=== PATIENT | female | born 1950 | race Caucasian/White ===

== ENCOUNTER 2016-09-26 00:34 | Inpatient (IN) | payer OTHER, MEDICARE ==
[2016-09-26] VITALS (15 sets, daily range): BP systolic 85–200; BP diastolic 59–97; PULSE 50–97; RESP 12–28; TEMP 96.1–98.2; O2SAT 93–99
[~2016-09-26] VITALS: Ht 162.6 cm; Wt 56.4 kg
[~2016-09-26 00:34] MED LIST: ALBU0.086 NEB; ALPR1 PO; AMLO5 PO; CARV6.25 PO; GABA300C3 PO; MVI PO; OXYC1SOL5 PO; PERI8.6T PO; PRED10 PO; PROZ20CA11 PO; SYMB160A INH; TAB-TAB PO; VENTAER INH; VITA100T15 PO; Z.0.OXYGEN INH
[2016-09-26] MEDS: RESP: ALBUTEROL 2.5 MG/IPRATROPIUM 0.5 MG NEB (SCH) INH (00:59)
--- NOTE | 2016-09-26 00:59 | PD ---
HPI Chief Complaint: Respiratory Symptoms Time Seen by Provider: 00:51 Travel History International Travel<30 days: No Contact w/Intl Traveler<30days: No Traveled to known affect area: No History of Present Illness HPI C5 year-old female presents to the emergency department by EMS transport from home for complaint of progressive worsening shortness of breath over the past 2 days and specifically today. Patient has history of COPD. Patient states she continues to smoke cigarettes. Patient also has history of alcoholism and continues to drink alcohol. Patient also has history of anxiety and has been admitted before for benzodiazepine withdrawal seizure. Patient denies fever or chills or productive cough. Patient does complain of chest tightness and abdominal discomfort. Patient rates overall discomfort 8/10 in intensity. Patient is unable to identify exacerbating or alleviating factors. According to EMS her symptoms seem to worsen after an albuterol updraft 1 PFSH Past Medical History Narrative Medical Arthritis bipolar disorder COPD pneumonia cirrhosis esophageal varices dementia anxiety benzodiazepine withdrawal seizure hypertension; hip surgery plate to forearm hysterectomy; tobacco use alcohol use; nursing notes reviewed Arthritis: Yes Asthma: No Bipolar Disorder: Yes Anxiety: Yes (Panic attacks/ETOH ADDICTION) Depression: Yes (SINCE FAMILY DEATHS 4 YR AGE) Cancer: No Cardiovascular Problems: No Congestive Heart Failure: No Cirrhosis: Yes (Liver disease) COPD: Yes Coronary Artery Disease: No Dementia: Yes (ALCOHOLIC) Diabetes: No Diminished Hearing: No Endocrine: No Gastrointestinal Disorders: Yes (esophageal varices, cirrhosis) Genitourinary: No Headaches: Yes Hepatitis: Yes (Hep C) Hypertension: Yes Immune Disorder: No Implanted Vascular Access Dvce: No Musculoskeletal: Yes (Chronic back pain ) Neurologic: Yes Psychiatric: Yes (etoh dependence with mood disorder, opiod dependence) Reproductive: No Respiratory: Yes (COPD) Pneumonia: Yes Renal Failure: Yes (ckd) Seizures: Yes (RT XANAX WITHDRAWAL) Thyroid Disease: Yes PNEUMOCCOCAL Vaccine (Year): 1 Menopausal: Yes : 1 Para: 1 Past Surgical History Body Medical Devices: STEEL PLATE L ARM Gynecologic Surgery: Yes (1993 HYSTERECTOMY) Hysterectomy: Yes Neurologic Surgery: Yes ("Nerve fusion" in back) Tonsillectomy: Yes Other Surgery: Yes (Right hip bone graft to left arm ) Social History Alcohol Use: Yes (1 liter wine daily/VODKA) Tobacco Use: Yes (1/2 PPD) Substance Use: No Allergies-Medications (Allergen,Severity, Reaction): Coded Allergies: No Known Allergies (Unverified , 09/26/16) Reported Meds & Prescriptions Reported Meds & Active Scripts Active Reported Symbicort Inh (Budesonide/Formoterol Fumarate) 160-4.5 Mcg/Act Aero 2 Puff INH Q12HR Night Time Sleep Aid (Diphenhydramine HCl (Sleep)) 25 Mg Tab 50 Mg PO HS Carvedilol 6.25 Mg Tab 6.25 Mg PO DAILY Amlodipine (Amlodipine Besylate) 5 Mg Tab 5 Mg PO DAILY Fluoxetine (Fluoxetine HCl) 40 Mg Cap 40 Cap PO DAILY Quetiapine (Quetiapine Fumarate) 25 Mg Tab 25 Mg PO HS Atenolol 25 Mg Tab 12.5 Mg PO DAILY Imodium A-D (Loperamide HCl) 2 Mg Cap 2 Mg PO Q6H PRN Lisinopril 40 Mg Tab 40 Mg PO DAILY Clonidine (Clonidine HCl) 0.1 Mg Tab 0.1 Mg PO DAILY Gabapentin 100 Mg Cap 100 Mg PO TID Vitamin P01-Wstmn Acid (Cobalamine Combinations) 500-400 Mcg Tab 1 Tab PO DAILY Xanax (Alprazolam) 2 Mg Tab 2 Mg PO TID PRN Review of Systems Except as stated in HPI: all other systems reviewed are Neg General / Constitutional: No: Fever, Chills HENT: No: Congestion Cardiovascular: Positive: Chest Pain or Discomfort Respiratory: Positive: Cough, Shortness of Breath, Wheezing Gastrointestinal: No: Vomiting, Abdominal Pain Genitourinary: No: Flank Pain Musculoskeletal: No: Myalgias, Arthralgias Skin: No Rash Neurologic: No: Weakness, Dizziness, Syncope Psychiatric: Positive: Anxiety, No: Suicidal Ideations Endocrine: No: Heat Intolerance Hematologic/Lymphatic: No: Easy Bruising Physical Exam Narrative GENERAL: Well-developed mildly disheveled female and moderate respiratory distress able to speak in sentences; SKIN: Warm and dry. HEAD: Normocephalic. EYES: No scleral icterus. No injection or drainage. NECK: Supple, trachea midline. No JVD or lymphadenopathy. CARDIOVASCULAR: Regular rate and rhythm without murmurs, gallops, or rubs. RESPIRATORY: Breath sounds equal bilaterally with diminished breath sounds and wheezing. No accessory muscle use. GASTROINTESTINAL: Abdomen soft, non-tender, nondistended. MUSCULOSKELETAL: No cyanosis, or edema. BACK: Nontender without obvious deformity. No CVA tenderness. Data Data Last Documented VS Vital Signs Date Time Temp Pulse Resp B/P Pulse Ox O2 Delivery O2 Flow Rate FiO2 09/26/16 02:22 28 99 Nasal Cannula 2 09/26/16 02:12 92 128/68 09/26/16 00:52 98.2 Orders Complete Blood Count With Diff (09/26/16 00:51) Comprehensive Metabolic Panel (09/26/16 00:51) B-Type Natriuretic Peptide (09/26/16 00:51) Act Partial Throm Time (Ptt) (09/26/16 00:51) Prothrombin Time / Inr (Pt) (09/26/16 00:51) Magnesium (Mg) (09/26/16 00:51) Ckmb (Isoenzyme) Profile (09/26/16 00:51) Troponin I (09/26/16 00:51) Urinalysis - C+S If Indicated (09/26/16 00:51) Blood Culture (09/26/16 00:51) Iv Access Insert/Monitor (09/26/16 00:51) Electrocardiogram (09/26/16 00:51) Ecg Monitoring (09/26/16 00:51) Oximetry (09/26/16 00:51) Oxygen Administration (09/26/16 00:51) Chest, Single Ap (09/26/16 00:51) Sodium Chloride 0.9% Flush (Ns Flush) (09/26/16 01:00) Albuterol-Ipratropium Neb (Duoneb Neb) (09/26/16 01:00) Alcohol (Ethanol) (09/26/16 00:51) Albuterol-Ipratropium Neb (Duoneb Neb) (09/26/16 01:30) Magnesium Sulfate 1 Gm Premix (Magnesium (09/26/16 01:30) Arterial Blood Gas (Abg) (09/26/16 ) Lorazepam Inj (Ativan Inj) (09/26/16 02:00) Admit To Inpatient (09/26/16 ) Vital Signs (Adult) Q4H (09/26/16 02:08) Activity Oob With Assistance (09/26/16 02:08) Freight Handler / Telemetry .CONTINUOUS (09/26/16 02:08) Diet Heart Healthy (09/26/16 Breakfast) Sodium Chloride 0.9% Flush (Ns Flush) (09/26/16 02:15) Sodium Chloride 0.9% Flush (Ns Flush) (09/26/16 09:00) Basic Metabolic Panel (Bmp) (09/27/16 06:00) Complete Blood Count With Diff (09/27/16 06:00) Case Management Consult (09/26/16 02:08) Enoxaparin Inj (Lovenox Inj) (09/26/16 09:00) Naloxone Inj (Narcan Inj) (09/26/16 02:15) Inpatient Certification (09/26/16 ) Lorazepam Inj (Ativan Inj) (09/26/16 02:15) Chlordiazepoxide (Librium) (09/26/16 09:00) Chlordiazepoxide (Librium) (09/26/16 02:15) Urine Culture (09/26/16 01:12) Labs Laboratory Tests Test 09/26/16 09/26/16 01:12 01:45 White Blood Count 6.9 TH/MM3 Red Blood Count 3.22 MIL/MM3 Hemoglobin 11.2 GM/DL Hematocrit 33.2 % Mean Corpuscular Volume 103.0 FL Mean Corpuscular Hemoglobin 34.9 PG Mean Corpuscular Hemoglobin 33.9 % Concent Red Cell Distribution Width 14.4 % Platelet Count 248 TH/MM3 Mean Platelet Volume 8.1 FL Neutrophils (%) (Auto) 57.6 % Lymphocytes (%) (Auto) 33.8 % Monocytes (%) (Auto) 6.9 % Eosinophils (%) (Auto) 1.5 % Basophils (%) (Auto) 0.2 % Neutrophils # (Auto) 4.0 TH/MM3 Lymphocytes # (Auto) 2.3 TH/MM3 Monocytes # (Auto) 0.5 TH/MM3 Eosinophils # (Auto) 0.1 TH/MM3 Basophils # (Auto) 0.0 TH/MM3 CBC Comment DIFF FINAL Differential Comment Prothrombin Time 14.8 SEC Prothromb Time International 1.3 RATIO Ratio Activated Partial 24.3 SEC Thromboplast Time Urine Color YELLOW Urine Turbidity CLOUDY Urine pH 6.0 Urine Specific [place] 1.006 Urine Protein NEG mg/dL Urine Glucose (UA) NEG mg/dL Urine Ketones NEG mg/dL Urine Occult Blood TRACE Urine Nitrite POS Urine Bilirubin NEG Urine Leukocyte Esterase LARGE Urine RBC 3-5 /hpf Urine WBC 50-99 /hpf Urine Squamous Epithelial 0-5 /hpf Cells Urine Bacteria MANY /hpf Microscopic Urinalysis Comment CULTURE INDICATED Sodium Level 141 MEQ/L Potassium Level 3.9 MEQ/L Chloride Level 104 MEQ/L Carbon Dioxide Level 22.3 MEQ/L Anion Gap 15 MEQ/L Blood Urea Nitrogen 10 MG/DL Creatinine 0.93 MG/DL Estimat Glomerular Filtration 61 ML/MIN Rate Random Glucose 102 MG/DL Calcium Level 8.3 MG/DL Magnesium Level 1.6 MG/DL Total Bilirubin 0.5 MG/DL Aspartate Amino Transf 32 U/L (AST/SGOT) Alanine Aminotransferase 26 U/L (ALT/SGPT) Alkaline Phosphatase 70 U/L Total Creatine Kinase 53 U/L Troponin I LESS THAN 0.02 NG/ML B-Type Natriuretic Peptide 39 PG/ML Total Protein 6.7 GM/DL Albumin 3.5 GM/DL Ethyl Alcohol Level 38 MG/DL Blood Gas Puncture Site LT RADIAL Blood Gas Patient Temperature 98.6 Blood Gas HCO3 18 mmol/L Blood Gas Base Excess -4.2 mmol/L Blood Gas Oxygen Saturation 93 % Arterial Blood pH 7.59 Arterial Blood Partial 18 mmHG Pressure CO2 Arterial Blood Partial 95 mmHG Pressure O2 Arterial Blood Oxygen Content 14.3 Vol % Arterial Blood 5.2 % Carboxyhemoglobin Arterial Blood Methemoglobin 1.3 % Blood Gas Hemoglobin 10.9 G/DL Blood Gas Inspired Oxygen 21 % MDM Medical Decision Making Medical Screen Exam Complete: Yes Emergency Medical Condition: Yes Medical Record Reviewed: Yes Interpretation(s) ABG: room air respiratory alkalosis pH 7.59 PCO2 18 PO2 95 base excess -4.2 with bicarbonate 17.5 saturation 92.5% with carboxyhemoglobin of 5.2% pulse oximetry saturations right at 97% consistent with ABG Differential Diagnosis Exacerbation COPD, pneumonia, CHF, ACS, alcohol/benzodiazepine withdrawal Narrative Course IV access obtained patient placed on bus monitor EKG performed, was collected and sent for resulting Patient was given Solu-Medrol prior to arrival to the emergency department 1 albuterol treatment; DuoNeb updrafts 2 ordered Physician Communication Physician Communication discussed with Dr Lee for admission Diagnosis Primary Impression: COPD exacerbation Additional Impressions: Alcohol withdrawal Respiratory alkalosis Admitting Information Admitting Physician Requests: Admit Sandra Bartlett MD Sep 26, 2016 00:59
[2016-09-26] MEDS ORDERED: SODIUM CHLORIDE 0.9% FLUSH 10 ML FLUSH IVF PRN ×2 (01:00→02:45)
[2016-09-26] MEDS ORDERED: CARV6.252 PO (01:13)
[2016-09-26] MEDS ORDERED: CLON0.1T PO (01:13)
[2016-09-26] MEDS ORDERED: AMLO5TAB2 PO (01:13)
[2016-09-26] MEDS ORDERED: XANA2TAB2 PO (01:13)
[2016-09-26] MEDS ORDERED: GABA100C4 PO (01:13)
[2016-09-26] MEDS ORDERED: LISI40TA PO (01:13)
[2016-09-26] MEDS ORDERED: ATEN25TA PO (01:13)
[2016-09-26] MEDS ORDERED: NIGH25TA PO (01:13)
[2016-09-26] MEDS ORDERED: SYMB160A INH (01:13)
[2016-09-26] MEDS ORDERED: QUET1TAB7 PO (01:13)
[2016-09-26] MEDS ORDERED: VITATAB43 PO (01:13)
[2016-09-26] MEDS ORDERED: FLUO40CA PO (01:13)
[2016-09-26] MEDS ORDERED: LOPE7.5C PO (01:13)
--- NOTE | 2016-09-26 01:14 | RADHPO ---
EXAM DATE/TIME: 09/26/2016 00:53 [facility] COMPARISON: CHEST SINGLE AP, April 03, 2016, 12:58. INDICATIONS : Shortness of breath, chest pain for 2 days MEDICAL HISTORY : Chronic obstructive pulmonary disease. SURGICAL HISTORY : None. ENCOUNTER: Initial ACUITY: 2 days PAIN SCORE: Non-responsive. LOCATION: Bilateral chest FINDINGS: A single view of the chest demonstrates the lungs to be symmetrically aerated without evidence of mas s, infiltrate or effusion. The cardiomediastinal contours are unremarkable. Osseous structures are intact. CONCLUSION: No acute disease. Erich Abarca MD on September 26, 2016 at 1:12 Board Certified Radiologist. This report was verified electronically.
[2016-09-26 01:24] LABS: BASOPHIL % 0.2 % (0.0-2.0); EOSINOPHIL # 0.1 TH/MM3 (0-0.4); EOSINOPHIL % 1.5 % (0.0-4.0); HEMATOCRIT 33.2 % (35.0-46.0); HEMO FLAGS DIFF FINAL; LYMPH % 33.8 % (9.0-44.0); LYMPHOCYTE # 2.3 TH/MM3 (1.0-4.8); MEAN CORPUSCULAR HEMOGLOBIN 34.9 PG (27.0-34.0); MEAN CORPUSCULAR HGB CONC 33.9 % (32.0-36.0); MONO % 6.9 % (0.0-8.0); NEUT % 57.6 % (16.0-70.0); PLATELET COUNT 248 TH/MM3 (150-450); RED BLOOD COUNT 3.22 MIL/MM3 (4.00-5.30); RED CELL DISTRIBUTION WIDTH 14.4 % (11.6-17.2); WHITE BLOOD COUNT 6.9 TH/MM3 (4.0-11.0)
[2016-09-26] MEDS ORDERED: MAGNESIUM SULFATE 1 GM PREMIX 100 ML IV ONE (01:30)
[2016-09-26] MEDS ORDERED: RESP: ALBUTEROL 2.5 MG/IPRATROPIUM 0.5 MG NEB (SCH) NEB ONE (01:30)
[2016-09-26 01:33] LABS: CHLORIDE 104 MEQ/L (98-107); POTASSIUM 3.9 MEQ/L (3.5-5.1); SODIUM (NA) 141 MEQ/L (136-145)
[2016-09-26 01:37] LABS: ANION GAP 15 MEQ/L (5-15); APTT (PATIENT) 24.3 SEC (24.3-30.1); BICARBONATE 22.3 MEQ/L (21.0-32.0); BLOOD UREA NITROGEN 10 MG/DL (7-18); INTERNATIONAL NORMALIZED RATIO 1.3 RATIO; MAGNESIUM 1.6 MG/DL (1.5-2.5); PROTHROMBIN TIME - PATIENT 14.8 SEC (9.8-11.6)
[2016-09-26 01:40] LABS: ALT (GPT) 26 U/L (10-53); AST (GOT) 32 U/L (15-37); GLOMERULAR FILTRATION RATE 61 ML/MIN (>89)
[2016-09-26 01:41] LABS: TOTAL BILIRUBIN ADULT 0.5 MG/DL (0.2-1.0)
[2016-09-26 01:43] LABS: ALKALINE PHOSPHATASE 70 U/L (45-117)
[2016-09-26 01:50] LABS: CREATINE KINASE 53 U/L (26-192)
[2016-09-26 01:53] LABS: BLOOD GAS BASE EXCESS -4.2 mmol/L (-2-2); BLOOD GAS CARBOXYHEMOGLOBIN 5.2 % (0-4); BLOOD GAS HCO3 18 mmol/L (22-26); BLOOD GAS METHEMOGLOBIN 1.3 % (0-2); BLOOD GAS O2 HGB SATURATION 93 % (90-100); BLOOD GAS OXYGEN CONTENT 14.3 Vol % (12.0-20.0); BLOOD GAS PCO2 18 mmHG (38-42); BLOOD GAS PO2 95 mmHG (61-120); BLOOD GAS TOTAL HGB 10.9 G/DL (12.0-16.0); CRITICAL VALUE YES; DRAW SITE LT RADIAL; FIO2 21 %; NUMBER OF ARTERIAL PUNCTURES 1; STAT YES; TEMP CORR TO 98.6; ULNAR PULSE Y
[2016-09-26] MEDS ORDERED: LORazepam 2 MG/ML VIAL IV PUSH ONE (02:00)
[2016-09-26] MEDS ORDERED: SODIUM CHLORIDE 0.9% FLUSH 10 ML FLUSH IV FLUSH PRN (02:15)
[2016-09-26] MEDS ORDERED: LORazepam 2 MG/ML VIAL IV PUSH PRN ×3 (02:15→12:30)
[2016-09-26] MEDS ORDERED: chlordiazePOXIDE 25 MG CAP PO ONE (02:15)
[2016-09-26] MEDS ORDERED: NALOXONE HCL 0.4 MG/ML AMP IV PRN (02:15)
[2016-09-26 02:23] LABS: BLOOD, URINE TRACE (NEG); GLUCOSE,URINE NEG (NEG); KETONE, URINE NEG (NEG)
[2016-09-26 02:24] LABS: NITRITE,URINE POS (NEG); URINE COLOR YELLOW (YELLW/STRAW)
[2016-09-26 02:28] LABS: BACTERIA, URINE MANY /hpf; COMMENT (UR) CULTURE INDICATED; CULTURE IF INDICATED CULTURE INDICATED; SQUAMOUS EPITHELIAL CELL URINE 0-5 /hpf (0-5)
[2016-09-26] MEDS ORDERED: SODIUM CHLORIDE 0.9% FLUSH 10 ML FLUSH IV FLUSH SCH (09:00)
[2016-09-26] MEDS: SODIUM CHLORIDE 0.9% FLUSH 10 ML FLUSH IV FLUSH SCH ×2 (09:00→21:00)
[2016-09-26] MEDS: chlordiazePOXIDE 25 MG CAP PO SCH ×3 (09:29→18:00)
[2016-09-26] MEDS: cefTRIAXone INJ 1,000 MG in SODIUM CHLORIDE 0.9% INJ 100 ML IV SCH (09:30)
[2016-09-26] MEDS: ENOXAPARIN SODIUM 40 MG/0.4 ML SYRINGE SQ SCH (09:30)
[2016-09-26] MEDS: RESP: ALBUTEROL 2.5 MG/IPRATROPIUM 0.5 MG NEB (SCH) NEB ×3 (11:47→19:13)
[2016-09-26] MEDS ORDERED: LORazepam 2 MG TAB PO PRN (12:30)
[2016-09-26] MEDS ORDERED: FLUMAZENIL 0.5 MG/5 ML VIAL IV PUSH PRN (12:30)
--- NOTE | 2016-09-26 12:38 | HHI.HP ---
[facility] Primary Care Physician Unknown Admission Diagnosis exacerbation copd; alcohol withdrawal Diagnoses: (1) COPD exacerbation (2) UTI (urinary tract infection) (3) Tobacco abuse (4) Alcohol dependence (5) History of macrocytic anemia (6) Anxiety disorder, unspecified Chief Complaint: Shortness of breath and chest tightness Travel History International Travel<30 Days: No Contact w/Intl Traveler <30 Da: No Traveled to Known Affected Are: No History of Present Illness 65 years old female with a PMH of COPD and multiple hospitalization 2/2 COPD exacerbation as well as Respiratory failure was brought to the emergency on 09/25 by EMS for evaluation of worsening shortness of breath along with chest tightness x 2 days without any associated cough production or febrile episode. Patient rated the chest tightness 7/10 in intensity and she denies at the time any relief with SID. She continued to smokes and drinks daily. CXR on arrival has no acute CPD and BNP was 39 with Troponin I wnl. During my exam she had no chest tightness and denies any GI bleeding, hemoptysis or Hematuria Review of Systems Other 12 systems reviewed and are negative except for the ones mentioned in the History of present illness Past Family Social History Past Medical History Alcoholism Arthritis History of panic attack Depression Alcoholic liver cirrhosis and fatty liver COPD Alcoholic encephalopathy Chronic back pain Anxiety Past Surgical History Hysterectomy STEEL PLATE L ARM Reported Medications Symbicort Inh (Budesonide/Formoterol Fumarate) 160-4.5 Mcg/Act Aero 2 Puff INH Q12HR Night Time Sleep Aid (Diphenhydramine HCl (Sleep)) 25 Mg Tab 50 Mg PO HS Carvedilol 6.25 Mg Tab 6.25 Mg PO DAILY Amlodipine (Amlodipine Besylate) 5 Mg Tab 5 Mg PO DAILY Fluoxetine (Fluoxetine HCl) 40 Mg Cap 40 Cap PO DAILY Quetiapine (Quetiapine Fumarate) 25 Mg Tab 25 Mg PO HS Atenolol 25 Mg Tab 12.5 Mg PO DAILY Imodium A-D (Loperamide HCl) 2 Mg Cap 2 Mg PO Q6H PRN Lisinopril 40 Mg Tab 40 Mg PO DAILY Clonidine (Clonidine HCl) 0.1 Mg Tab 0.1 Mg PO DAILY Gabapentin 100 Mg Cap 100 Mg PO TID Vitamin K99-[id number] Acid (Cobalamine Combinations) 500-400 Mcg Tab 1 Tab PO DAILY Xanax (Alprazolam) 2 Mg Tab 2 Mg PO TID PRN Allergies: Coded Allergies: No Known Allergies (Unverified , 09/26/16) Family History Mother had COPD Social History Alcohol Use: Yes (1 liter wine daily/VODKA) Tobacco Use: Yes (1/2 PPD) Substance Use: No Physical Exam Vital Signs Vital Signs Date Time Temp Pulse Resp B/P Pulse Ox O2 Delivery O2 Flow Rate FiO2 09/26/16 07:09 71 20 97 Nasal Cannula 2 09/26/16 07:00 71 20 96/61 97 Nasal Cannula 2 09/26/16 05:57 Nasal Cannula 2 09/26/16 05:05 75 12 85/59 98 Nasal Cannula 2 09/26/16 03:41 Nasal Cannula 3 09/26/16 03:18 85 12 93 Nasal Cannula 3 09/26/16 02:54 Nasal Cannula 3 09/26/16 02:22 28 99 Nasal Cannula 2 09/26/16 02:12 92 128/68 09/26/16 02:00 99 Nasal Cannula 2.00 09/26/16 01:29 99 Nasal Cannula 2 09/26/16 00:56 98 Room Air 09/26/16 00:56 90 22 98 Room Air 09/26/16 00:56 22 98 Room Air 09/26/16 00:52 98.2 90 22 135/81 98 Physical Exam GENERAL: This is a well-nourished, well-developed patient, in no apparent distress however with B hands tremors. SKIN: No rashes, ecchymoses or lesions. Cool and dry. HEAD: Atraumatic. Normocephalic. No temporal or scalp tenderness. EYES: Pupils equal round and reactive. Extraocular motions intact. No scleral icterus. No injection or drainage. ENT: Nose without bleeding, purulent drainage or septal hematoma. Throat without erythema, tonsillar hypertrophy or exudate. Uvula midline. Airway patent. NECK: Trachea midline. No JVD or lymphadenopathy. Supple, nontender, no meningeal signs. CARDIOVASCULAR: Regular rate and rhythm without murmurs, gallops, or rubs. RESPIRATORY: Clear to auscultation. Breath sounds decrease bilaterally. + wheezes GASTROINTESTINAL: Abdomen soft, non-tender, nondistended. No hepato-splenomegaly , or palpable masses. No guarding. MUSCULOSKELETAL: Extremities without clubbing, cyanosis, or edema. No joint tenderness, effusion, or edema noted. No calf tenderness. Negative Homans sign bilaterally. NEUROLOGICAL: Awake and alert. Cranial nerves II through XII intact. Motor and sensory grossly within normal limits. Five out of 5 muscle strength in all muscle groups. Normal speech. Laboratory Laboratory Tests Test 09/26/16 09/26/16 01:12 01:45 White Blood Count 6.9 Red Blood Count 3.22 Hemoglobin 11.2 Hematocrit 33.2 Mean Corpuscular Volume 103.0 Mean Corpuscular Hemoglobin 34.9 Mean Corpuscular Hemoglobin 33.9 Concent Red Cell Distribution Width 14.4 Platelet Count 248 Mean Platelet Volume 8.1 Neutrophils (%) (Auto) 57.6 Lymphocytes (%) (Auto) 33.8 Monocytes (%) (Auto) 6.9 Eosinophils (%) (Auto) 1.5 Basophils (%) (Auto) 0.2 Neutrophils # (Auto) 4.0 Lymphocytes # (Auto) 2.3 Monocytes # (Auto) 0.5 Eosinophils # (Auto) 0.1 Basophils # (Auto) 0.0 CBC Comment DIFF FINAL Differential Comment Prothrombin Time 14.8 Prothromb Time International 1.3 Ratio Activated Partial 24.3 Thromboplast Time Urine Color YELLOW Urine Turbidity CLOUDY Urine pH 6.0 Urine Specific [place] 1.006 Urine Protein NEG Urine Glucose (UA) NEG Urine Ketones NEG Urine Occult Blood TRACE Urine Nitrite POS Urine Bilirubin NEG Urine Leukocyte Esterase LARGE Urine RBC 3-5 Urine WBC 50-99 Urine Squamous Epithelial 0-5 Cells Urine Bacteria MANY Microscopic Urinalysis Comment CULTURE INDICATED Sodium Level 141 Potassium Level 3.9 Chloride Level 104 Carbon Dioxide Level 22.3 Anion Gap 15 Blood Urea Nitrogen 10 Creatinine 0.93 Estimat Glomerular Filtration 61 Rate Random Glucose 102 Calcium Level 8.3 Magnesium Level 1.6 Total Bilirubin 0.5 Aspartate Amino Transf 32 (AST/SGOT) Alanine Aminotransferase 26 (ALT/SGPT) Alkaline Phosphatase 70 Total Creatine Kinase 53 Troponin I LESS THAN 0.02 B-Type Natriuretic Peptide 39 Total Protein 6.7 Albumin 3.5 Ethyl Alcohol Level 38 Blood Gas Puncture Site LT RADIAL Blood Gas Patient Temperature 98.6 Blood Gas HCO3 18 Blood Gas Base Excess -4.2 Blood Gas Oxygen Saturation 93 Arterial Blood pH 7.59 Arterial Blood Partial 18 Pressure CO2 Arterial Blood Partial 95 Pressure O2 Arterial Blood Oxygen Content 14.3 Arterial Blood 5.2 Carboxyhemoglobin Arterial Blood Methemoglobin 1.3 Blood Gas Hemoglobin 10.9 Blood Gas Inspired Oxygen 21 Date/Time Procedure Status Source Growth 09/26/16 01:17 Aerobic Blood Culture Received Blood Peripheral Pending 09/26/16 01:17 Anaerobic Blood Culture Received Blood Peripheral Pending 09/26/16 01:12 Urine Culture Received Urine Clean Catch Pending Result Diagram: 09/26/16 0112 09/26/16 0112 Imaging Last Impressions Chest X-Ray 09/26/16 0051 Signed Impressions: Service Date/Time: September 00:53 - CONCLUSION: No acute disease. Erich Abarca MD Assessment and Plan Problem List: (1) COPD exacerbation ICD Code: J44.1 Status: Acute (2) Hypotension ICD Code: I95.9 Status: Acute (3) UTI (urinary tract infection) ICD Code: N39.0 Status: Acute (4) Alcohol dependence ICD Code: F10.20 Status: Chronic (5) Tobacco abuse ICD Code: Z72.0 Status: Chronic (6) History of macrocytic anemia ICD Code: Z86.2 Status: Acute Assessment and Plan 65 yrs old female with COPD exacerbation: CXR noted and reviewed by me with no acute disease; Start Solu Medrol 40mg IV Q8H, Spiriva, Symbicort, Duo Neb scheduled and PRN. Keep oxygen saturation above 92% and continue with current IV antibiotic. Patient was strongly advised on Tobacco cessation. UTI: Currently on Rocephin pending urine and blood culture reports Hypotension: Will Hold all oral anti hypertensive medications including Coreg 6.25mg daily, Atenolol 12.5mg daily, Lisinopril 40mg daily. Will start Gentle IVF hydration History of Hypertension: 2/2 above Hypotension; will hold all oral anti hypertensive medications including Coreg 6.25mg daily, Atenolol 12.5mg daily, Lisinopril 40mg daily. may resume only Norvasc 5mg daily in AM if SBP>110 Alcohol dependance: Counselled to quit, Start Rally pack, CIWA per protocol and Librium protocol with 25mg TID. Ativan PRN for seizure prophylaxis Nicotine dependance: Counselled to quit, Start Nicotine patch H/o macrocytic anemia: Chronic and monitor; check B12 level Anxiety: Resume outpatient medications DVT prophylaxis: Lovenox Code Status Full code Discussed Condition With patient Physician Certification 2 Midnight Certification Type: Admission for Inpatient Services Order for Inpatient Services The services are ordered in accordance with Medicare regulations or non- Medicare payer requirements, as applicable. In the case of services not specified as inpatient-only, they are appropriately provided as inpatient services in accordance with the 2-midnight benchmark. Estimated LOS (days): 2 days is the estimated time the patient will need to remain in the hospital, assuming treatment plan goals are met and no additional complications. Post-Hospital Plan: Not yet determined Shane Abraham MD Sep 26, 2016 12:38
[2016-09-26] MEDS ORDERED: SODIUM CHLOR 0.9% 1000 ML INJ 1,000 ML IV SCH (12:45)
[2016-09-26] MEDS ORDERED: ENALAPRILAT 1.25 MG/ML VIAL IV PUSH PRN (13:00)
[2016-09-26] MEDS: methylPREDNISolone SOD SUCC 40 MG/1 ML VIAL IV PUSH SCH ×2 (13:47→21:17)
[2016-09-26] MEDS: ALPRAZolam 1 MG TAB PO PRN ×2 (14:13→21:18)
[2016-09-26] MEDS: RESP: ALBUTEROL 2.5 MG/3 ML NEB (PRN) INH (14:26)
[2016-09-26] MEDS ORDERED: cloNIDine HCL 0.2 MG TAB PO PRN (20:45)
[2016-09-26] MEDS: BUDESONIDE-FORMOTEROL 160/4.5 MCG INHALER INH SCH (21:17)
[2016-09-26] MEDS: QUEtiapine FUMARATE 25 MG TAB PO SCH (21:18)
[2016-09-26] MEDS: LACTOBACILLUS ACIDOPHILUS TAB PO SCH (21:18)
[2016-09-26 21:57] LABS: AMPHETAMINE, URINE NEG (NEG); BARBITURATES, URINE NEG (NEG); COCAINE, URINE NEG (NEG)
[2016-09-27] VITALS (10 sets, daily range): BP systolic 97–134; BP diastolic 57–81; PULSE 79–96; RESP 20–26; TEMP 96.3–98.3; O2SAT 96–100
[2016-09-27] MEDS: ACETAMINOPHEN/CODEINE 300 MG/30 MG TAB PO PRN ×2 (03:37→20:17)
[2016-09-27 06:12] LABS: AUTOMATED NEUTROPHIL # 14.1 TH/MM3 (1.8-7.7); EOSINOPHIL % 0.1 % (0.0-4.0); HEMATOCRIT 29.2 % (35.0-46.0); LYMPH % 3.5 % (9.0-44.0); LYMPHOCYTE # 0.5 TH/MM3 (1.0-4.8); MEAN CORPUSCULAR HEMOGLOBIN 35.8 PG (27.0-34.0); MEAN CORPUSCULAR HGB CONC 34.4 % (32.0-36.0); MONO % 3.1 % (0.0-8.0); NEUT % 93.3 % (16.0-70.0); PLATELET COUNT 215 TH/MM3 (150-450); RED BLOOD COUNT 2.81 MIL/MM3 (4.00-5.30); RED CELL DISTRIBUTION WIDTH 14.8 % (11.6-17.2); WHITE BLOOD COUNT 15.1 TH/MM3 (4.0-11.0)
[2016-09-27 06:13] LABS: POTASSIUM 4.2 MEQ/L (3.5-5.1)
[2016-09-27 06:14] LABS: HEMO FLAGS DIFF FINAL
[2016-09-27 06:17] LABS: BICARBONATE 25.8 MEQ/L (21.0-32.0)
[2016-09-27] MEDS: methylPREDNISolone SOD SUCC 40 MG/1 ML VIAL IV PUSH SCH ×3 (06:20→22:24)
[2016-09-27] MEDS: LORazepam 2 MG/ML VIAL IV PUSH PRN ×2 (06:30→22:53)
[2016-09-27] MEDS: RESP: ALBUTEROL 2.5 MG/IPRATROPIUM 0.5 MG NEB (SCH) NEB ×5 (07:45→19:52)
[2016-09-27] MEDS: ENOXAPARIN SODIUM 40 MG/0.4 ML SYRINGE SQ SCH (08:48)
[2016-09-27] MEDS: BUDESONIDE-FORMOTEROL 160/4.5 MCG INHALER INH SCH ×2 (08:48→20:16)
[2016-09-27] MEDS: amLODIPine BESYLATE 5 MG TAB PO SCH (08:49)
[2016-09-27] MEDS: NICOTINE 21 MG/24 HR PATCH TD SCH (08:49)
[2016-09-27] MEDS: PANTOPRAZOLE SOD 40 MG DELAYED RELEASE TAB PO SCH (08:49)
[2016-09-27] MEDS: MULTIVITAMINS/MINERALS THERAPEUTIC TAB PO SCH (08:49)
[2016-09-27] MEDS: LACTOBACILLUS ACIDOPHILUS TAB PO SCH ×2 (08:49→20:17)
[2016-09-27] MEDS: FOLIC ACID 1 MG TAB PO SCH (08:49)
[2016-09-27] MEDS: chlordiazePOXIDE 25 MG CAP PO SCH ×2 (08:49→12:38)
[2016-09-27] MEDS: THIAMINE HCL 100 MG TAB PO SCH (08:49)
[2016-09-27] MEDS: cefTRIAXone INJ 1,000 MG in SODIUM CHLORIDE 0.9% INJ 100 ML IV SCH (08:50)
[2016-09-27] MEDS: ALPRAZolam 1 MG TAB PO PRN ×3 (08:50→20:27)
[2016-09-27] MEDS: SODIUM CHLORIDE 0.9% FLUSH 10 ML FLUSH IV FLUSH SCH ×2 (09:00→20:17)
--- NOTE | 2016-09-27 11:24 | HHI.PR ---
Subjective Remarks Follow up COPD exacerbation, EtOH withdrawal. Patient is significantly dyspneic on exam. States that she was just ambulating with physical therapy. Also has been anxious. Per respiratory therapy, she deferred her breathing treatments this morning. She reports chest tightness and cough. Objective Vitals Vital Signs Date Time Temp Pulse Resp B/P Pulse Ox O2 Delivery O2 Flow Rate FiO2 09/27/16 08:00 79 09/27/16 08:00 98.0 85 22 120/74 100 09/27/16 07:48 97 Nasal Cannula 2.00 09/27/16 04:00 96.3 86 20 108/71 97 09/27/16 00:00 98.2 96 20 97/57 96 09/26/16 20:00 79 09/26/16 20:00 98.0 97 20 116/74 98 09/26/16 19:12 98 Nasal Cannula 2.00 09/26/16 16:48 98 Nasal Cannula 2.00 09/26/16 16:00 96.1 50 20 200/97 98 09/26/16 15:41 85 18 103/63 94 Nasal Cannula 2 09/26/16 13:30 96.2 53 20 155/73 98 I/O 09/26/16 09/26/16 09/26/16 09/27/16 09/27/16 09/27/16 07:00 15:00 23:00 07:00 15:00 23:00 Intake Total 100 ml 908 ml 60 ml Output Total 200 ml Balance 100 ml 908 ml -140 ml Intake Oral 480 ml 60 ml IV Total 100 ml 428 ml Output Urine Total 200 ml # Voids 3 1 # Bowel Movements 2 0 Result Diagram: 09/27/16 0458 09/27/16 0458 Imaging Last Impressions Chest X-Ray 09/26/16 0051 Signed Impressions: Service Date/Time: September 00:53 - CONCLUSION: No acute disease. Erich Abarca MD Objective Remarks General: No acute distress. Appears uncomfortable. Heart: Regular rate and rhythm. No murmur. Lungs: Diffuse wheeze. Breathing is somewhat labored. Abdomen: Soft, nontender, nondistended. Extremities: No lower extremity edema. Psych: Alert and oriented. Urinary Catheter: No Vascular Central Line Catheter: No A/P Problem List: (1) COPD exacerbation ICD Code: J44.1 Status: Acute (2) UTI (urinary tract infection) ICD Code: N39.0 Status: Acute (3) Tobacco abuse ICD Code: Z72.0 Status: Chronic (4) Alcohol dependence ICD Code: F10.20 Status: Chronic (5) History of macrocytic anemia ICD Code: Z86.2 Status: Chronic (6) Anxiety disorder, unspecified ICD Code: F41.9 Status: Chronic Assessment and Plan 1. COPD exacerbation: Continue steroids, Spiriva, Symbicort, DuoNeb, supplemental oxygen. Continue antibiotics. 2. UTI: Continue Rocephin. Urine and blood cultures are pending. 3. Hypotension: Oral antihypertensive medications are on hold. Monitor blood pressure. 4. Alcohol dependence, withdrawal: Patient has been counseled. Continue rally pack. Continue CIWA protocol. 5. Tobacco abuse: Counseled quit smoking. Continue nicotine patch. 6. History of macrocytic anemia: Chronic. Monitor labs. 7. Anxiety: Continue home medications. 8. DVT prophylaxis: Lovenox. Matt Quijano MD Sep 27, 2016 11:24
[2016-09-27] MEDS: TIOTROPIUM BROMIDE 18 MCG INH INH SCH (12:38)
[2016-09-27] MEDS: QUEtiapine FUMARATE 25 MG TAB PO SCH (20:17)
[2016-09-28] VITALS (10 sets, daily range): BP systolic 97–124; BP diastolic 62–79; PULSE 81–118; RESP 18–20; TEMP 97.4–98.7; O2SAT 88–98
[2016-09-28] MEDS: LORazepam 2 MG/ML VIAL IV PUSH PRN ×2 (01:18→22:10)
[2016-09-28] MEDS: ALPRAZolam 1 MG TAB PO PRN ×2 (05:41→13:41)
[2016-09-28] MEDS: methylPREDNISolone SOD SUCC 40 MG/1 ML VIAL IV PUSH SCH ×3 (05:41→22:10)
[2016-09-28] MEDS: ACETAMINOPHEN/CODEINE 300 MG/30 MG TAB PO PRN ×3 (05:41→20:38)
[2016-09-28] MEDS: RESP: ALBUTEROL 2.5 MG/IPRATROPIUM 0.5 MG NEB (SCH) NEB ×4 (07:54→20:32)
[2016-09-28] MEDS: TIOTROPIUM BROMIDE 18 MCG INH INH SCH (08:12)
[2016-09-28] MEDS: BUDESONIDE-FORMOTEROL 160/4.5 MCG INHALER INH SCH ×2 (08:13→20:41)
[2016-09-28] MEDS: cefTRIAXone INJ 1,000 MG in SODIUM CHLORIDE 0.9% INJ 100 ML IV SCH (08:14)
[2016-09-28] MEDS: MULTIVITAMINS/MINERALS THERAPEUTIC TAB PO SCH (08:15)
[2016-09-28] MEDS: FOLIC ACID 1 MG TAB PO SCH (08:15)
[2016-09-28] MEDS: LACTOBACILLUS ACIDOPHILUS TAB PO SCH ×2 (08:15→20:38)
[2016-09-28] MEDS: amLODIPine BESYLATE 5 MG TAB PO SCH (08:15)
[2016-09-28] MEDS: PANTOPRAZOLE SOD 40 MG DELAYED RELEASE TAB PO SCH (08:15)
[2016-09-28] MEDS: NICOTINE 21 MG/24 HR PATCH TD SCH (08:16)
[2016-09-28] MEDS: ENOXAPARIN SODIUM 40 MG/0.4 ML SYRINGE SQ SCH (08:16)
[2016-09-28] MEDS: THIAMINE HCL 100 MG TAB PO SCH (08:16)
[2016-09-28] MEDS: SODIUM CHLORIDE 0.9% FLUSH 10 ML FLUSH IV FLUSH SCH ×2 (08:18→20:38)
--- NOTE | 2016-09-28 09:11 | HHI.PR ---
Subjective Remarks Follow up COPD exacerbation. Patient states that she feels better today. Shortness of breath has improved. No chest pain. Objective Vitals Vital Signs Date Time Temp Pulse Resp B/P Pulse Ox O2 Delivery O2 Flow Rate FiO2 09/28/16 08:00 97.4 81 18 112/66 98 09/28/16 07:54 96 Nasal Cannula 2.00 09/28/16 04:00 97.4 92 20 115/73 94 09/28/16 00:00 98.7 89 20 121/79 97 09/27/16 21:17 18 09/27/16 20:16 95 09/27/16 20:00 97.1 89 24 134/81 99 09/27/16 19:50 97 Nasal Cannula 2.00 09/27/16 17:05 100 Nasal Cannula 3.00 09/27/16 16:00 97.7 90 26 120/75 98 09/27/16 12:00 98.3 84 20 122/72 98 I/O 09/27/16 09/27/16 09/27/16 09/28/16 09/28/16 09/28/16 07:00 15:00 23:00 07:00 15:00 23:00 Intake Total 60 ml 480 ml 600 ml 60 ml Output Total 200 ml 400 ml Balance -140 ml 480 ml 600 ml -340 ml Intake Oral 60 ml 480 ml 600 ml 60 ml Output Urine Total 200 ml 400 ml # Voids 1 2 2 1 # Bowel Movements 0 0 0 Result Diagram: 09/27/16 0458 09/27/16 0458 Imaging Last Impressions Chest X-Ray 09/26/16 0051 Signed Impressions: Service Date/Time: September 00:53 - CONCLUSION: No acute disease. Erich Abarca MD Objective Remarks General: No acute distress. Heart: Regular rate and rhythm. No murmur. Lungs: Scattered wheeze. Breathing is nonlabored. Abdomen: Soft, nontender, nondistended. Extremities: No lower extremity edema. Psych: Alert and oriented. Procedures None Urinary Catheter: No Vascular Central Line Catheter: No A/P Problem List: (1) COPD exacerbation ICD Code: J44.1 Status: Acute (2) UTI (urinary tract infection) ICD Code: N39.0 Status: Acute (3) Tobacco abuse ICD Code: Z72.0 Status: Chronic (4) Alcohol dependence ICD Code: F10.20 Status: Chronic (5) History of macrocytic anemia ICD Code: Z86.2 Status: Chronic (6) Anxiety disorder, unspecified ICD Code: F41.9 Status: Chronic Assessment and Plan 1. COPD exacerbation: Improving. Continue steroids, Spiriva, Symbicort, DuoNeb, supplemental oxygen. Continue antibiotics. 2. UTI: Continue Rocephin. Blood cultures are negative so far. Urine culture positive for Klebsiella, sensitive to Rocephin. 3. Hypotension: Oral antihypertensive medications are on hold. Monitor blood pressure. 4. Alcohol dependence, withdrawal: Patient has been counseled. Continue rally pack. Continue CIWA protocol. 5. Tobacco abuse: Counseled quit smoking. Continue nicotine patch. 6. History of macrocytic anemia: Chronic. Monitor labs. 7. Anxiety: Continue home medications. 8. DVT prophylaxis: Lovenox. Matt Quijano MD Sep 28, 2016 09:11
[2016-09-28] MEDS ORDERED: KETOROLAC TROMETHAMINE 30 MG/ML (IVP) VIAL IV PUSH ONE (17:30)
[2016-09-28] MEDS: QUEtiapine FUMARATE 25 MG TAB PO SCH (20:38)
[2016-09-29] VITALS (19 sets, daily range): BP systolic 102–136; BP diastolic 61–83; PULSE 60–118; RESP 18–36; TEMP 97–98.3; O2SAT 89–99
[2016-09-29] MEDS: ACETAMINOPHEN/CODEINE 300 MG/30 MG TAB PO PRN ×4 (04:12→20:01)
[2016-09-29] MEDS: ALPRAZolam 1 MG TAB PO PRN ×3 (04:12→17:02)
[2016-09-29] MEDS: methylPREDNISolone SOD SUCC 40 MG/1 ML VIAL IV PUSH SCH ×2 (07:19→14:05)
[2016-09-29] MEDS: RESP: ALBUTEROL 2.5 MG/IPRATROPIUM 0.5 MG NEB (SCH) NEB ×4 (08:14→19:24)
[2016-09-29 08:21] LABS: BASOPHIL % 0.1 % (0.0-2.0); EOSINOPHIL % 0.1 % (0.0-4.0); HEMATOCRIT 33.1 % (35.0-46.0); LYMPHOCYTE # 0.7 TH/MM3 (1.0-4.8); MEAN CELL VOLUME 107.5 FL (80.0-100.0); MEAN CORPUSCULAR HGB CONC 33.5 % (32.0-36.0); MONO % 3.4 % (0.0-8.0); NEUT % 92.4 % (16.0-70.0); PLATELET COUNT 195 TH/MM3 (150-450); RED BLOOD COUNT 3.08 MIL/MM3 (4.00-5.30); WHITE BLOOD COUNT 18.3 TH/MM3 (4.0-11.0)
[2016-09-29 08:27] LABS: HEMO FLAGS DIFF FINAL
[2016-09-29] MEDS: amLODIPine BESYLATE 5 MG TAB PO SCH ×2 (09:00→10:30)
[2016-09-29] MEDS: SODIUM CHLORIDE 0.9% FLUSH 10 ML FLUSH IV FLUSH SCH ×2 (09:00→20:01)
[2016-09-29] MEDS: NICOTINE 21 MG/24 HR PATCH TD SCH (09:00)
[2016-09-29] MEDS: LORazepam 2 MG/ML VIAL IV PUSH PRN (10:25)
[2016-09-29] MEDS: BUDESONIDE-FORMOTEROL 160/4.5 MCG INHALER INH SCH ×2 (10:26→20:16)
[2016-09-29] MEDS: ENOXAPARIN SODIUM 40 MG/0.4 ML SYRINGE SQ SCH (10:27)
[2016-09-29] MEDS: TIOTROPIUM BROMIDE 18 MCG INH INH SCH (10:28)
[2016-09-29] MEDS: PANTOPRAZOLE SOD 40 MG DELAYED RELEASE TAB PO SCH (10:29)
[2016-09-29] MEDS: cefTRIAXone INJ 1,000 MG in SODIUM CHLORIDE 0.9% INJ 100 ML IV SCH (10:29)
[2016-09-29] MEDS: LACTOBACILLUS ACIDOPHILUS TAB PO SCH ×2 (10:29→20:01)
[2016-09-29] MEDS: FOLIC ACID 1 MG TAB PO SCH (10:29)
[2016-09-29] MEDS: MULTIVITAMINS/MINERALS THERAPEUTIC TAB PO SCH (10:30)
[2016-09-29] MEDS: THIAMINE HCL 100 MG TAB PO SCH (10:30)
--- NOTE | 2016-09-29 11:40 | HHI.PR ---
Subjective Remarks Follow-up COPD exacerbation, alcohol withdrawal. Patient reports worsening shortness of breath. She is having significant wheezing. Alcohol withdrawal symptoms are worsening as well. Patient reports chest pain with cough. Objective Vitals Vital Signs Date Time Temp Pulse Resp B/P Pulse Ox O2 Delivery O2 Flow Rate FiO2 09/29/16 08:15 90 Nasal Cannula 3.00 09/29/16 08:00 97.0 95 21 102/65 92 09/29/16 04:21 97.9 80 18 120/69 93 09/29/16 00:21 98.0 82 22 126/70 94 09/28/16 21:38 18 09/28/16 21:23 98.6 118 20 124/71 90 09/28/16 20:41 93 Nasal Cannula 3.00 09/28/16 20:32 88 Nasal Cannula 2.00 09/28/16 20:00 93 Nasal Cannula 3.00 09/28/16 16:00 98.1 93 20 118/72 92 09/28/16 15:02 93 Nasal Cannula 2.00 09/28/16 13:20 86 09/28/16 12:00 97.4 108 20 97/62 94 I/O 09/28/16 09/28/16 09/28/16 09/29/16 09/29/16 09/29/16 07:00 15:00 23:00 07:00 15:00 23:00 Intake Total 60 ml 1020 ml Output Total 400 ml Balance -340 ml 1020 ml Intake Oral 60 ml 1020 ml Output Urine Total 400 ml # Voids 1 1 1 4 # Bowel Movements 0 2 Result Diagram: 09/29/16 0755 09/27/16 0458 Imaging Last Impressions Chest X-Ray 09/26/16 0051 Signed Impressions: Service Date/Time: September 00:53 - CONCLUSION: No acute disease. Erich Abarca MD Objective Remarks General: No acute distress. Appears uncomfortable. Tremulous. Heart: Regular rate and rhythm. No murmur. Lungs: Diffuse wheeze. Breathing is nonlabored. Abdomen: Soft, nontender, nondistended. Extremities: No lower extremity edema. Psych: Alert and oriented. Procedures None Urinary Catheter: No Vascular Central Line Catheter: No A/P Problem List: (1) COPD exacerbation ICD Code: J44.1 Status: Acute (2) UTI (urinary tract infection) ICD Code: N39.0 Status: Acute (3) Tobacco abuse ICD Code: Z72.0 Status: Chronic (4) Alcohol dependence ICD Code: F10.20 Status: Chronic (5) History of macrocytic anemia ICD Code: Z86.2 Status: Chronic (6) Anxiety disorder, unspecified ICD Code: F41.9 Status: Chronic Assessment and Plan 1. COPD exacerbation: Increased dyspnea and wheeze today. Consult pulmonology. Continue steroids, Spiriva, Symbicort, DuoNeb, supplemental oxygen. Continue antibiotics. Add Tessalon Perles for cough. 2. UTI: Continue Rocephin. Blood cultures are negative so far. Urine culture positive for Klebsiella, sensitive to Rocephin. 3. Hypotension: Oral antihypertensive medications are on hold. Monitor blood pressure. 4. Alcohol dependence, withdrawal: Patient has been counseled. Continue rally pack. Continue CIWA protocol. Withdrawal/seizure precautions. 5. Tobacco abuse: Counseled quit smoking. Continue nicotine patch. 6. History of macrocytic anemia: Chronic. Monitor labs. 7. Anxiety: Continue home medications. 8. DVT prophylaxis: Lovenox. Matt Quijano MD Sep 29, 2016 11:40
[2016-09-29] MEDS ORDERED: BENZONATATE 100 MG CAP PO PRN (11:45)
[2016-09-29 12:03] LABS: BLOOD GAS BASE EXCESS -1.4 mmol/L (-2-2); BLOOD GAS CARBOXYHEMOGLOBIN 1.6 % (0-4); BLOOD GAS HCO3 22 mmol/L (22-26); BLOOD GAS METHEMOGLOBIN 0.8 % (0-2); BLOOD GAS OXYGEN CONTENT 12.4 Vol % (12.0-20.0); BLOOD GAS PCO2 29 mmHg (38-42); BLOOD GAS PO2 44 mmHg (61-120); BLOOD GAS TOTAL HGB 10.7 G/DL (12.0-16.0); CRITICAL VALUE YES; LITER FLOW 6 L/M; OXYGEN DEVICE NASAL CANNULA
[2016-09-29 12:04] LABS: BLOOD GAS O2 HGB SATURATION 82 % (90-100); DRAW SITE RT RADIAL; NUMBER OF ARTERIAL PUNCTURES 1; STAT YES; ULNAR PULSE PRESENT
[2016-09-29] MEDS: RESP: ALBUTEROL 2.5 MG/3 ML NEB (PRN) INH (12:28)
--- NOTE | 2016-09-29 14:40 | RADHPO ---
EXAM DATE/TIME: 09/29/2016 14:09 [facility] COMPARISON: CT PULMONARY ANGIOGRAM, April 03, 2016, 18:12. CHEST SINGLE AP, September 26, 2016, 0:53. INDICATIONS : Short of breath. MEDICAL HISTORY : Chronic obstructive pulmonary disease. Renal failure, chronic. SURGICAL HISTORY : Hysterectomy. ENCOUNTER: Initial ACUITY: 3 days PAIN SCORE: 3/10 LOCATION: chest FINDINGS: Single portable upright view of the chest demonstrates old left-sided rib fracture deformities. There is new hazy increased parenchymal density overlying the left hemithorax concerning for infection. Th e right hemithorax is clear. Heart size is normal. CONCLUSION: New ill-defined left hemithorax airspace disease concerning for infection. Celia Lopes MD on September 29, 2016 at 14:35 Board Certified Radiologist. This report was verified electronically.
[2016-09-29] MEDS: LEVOFLOXACIN 750 MG PREMIX INJ 150 ML IV SCH (17:02)
--- NOTE | 2016-09-29 19:19 | MB ---
cc: GLORIA QUIJANO M.D., JOHN DATE OF CONSULTATION: 09/29/2016. REASON FOR CONSULTATION: Respiratory distress and COPD. HISTORY OF PRESENT ILLNESS: This is a 65-year-old lady with a history of smoking for over 30 years who has had two previous episodes of exacerbations of bronchitis and was brought to the ER with severe respiratory distress and wheezing. The patient has been coughing. She had chest tightness and was also having some reflux in spite of being on inhalers. She did experience severe respiratory distress and thus was brought to the ER and subsequently admitted. Chest x-ray showed dense COPD with no other infiltrate. She has had no GI bleed or hemoptysis. She is not running any fevers. Upon arrival, she was started on antibiotics intravenously IV Solu-Medrol, but following admission, her respiratory symptoms worsened and now she is on a non-rebreather mask. She has no leg swelling or calf muscle pains. PAST MEDICAL HISTORY: Past history includes: 1. Panic disorder. 2. Depression. 3. Anxiety. 4. Cirrhosis of the liver. 5. COPD. 6. Chronic back pain. 7. She had a hysterectomy. 8. Steel plate in her left arm following trauma. MEDICATIONS: Her medication list includes: 1. Coreg 6.25 milligrams daily. 2. Lisinopril 40 milligrams a day. 3. Clonidine 0.1 milligrams daily. 4. Gabapentin 100 milligrams three times a day. 5. Fluoxetine 40 milligrams a day. 6. Amlodipine 500 milligrams daily. 7. Symbicort Inhaler 160/4.5. 8. Xanax PRN 2 milligrams. ALLERGIES: None listed. HABITS: The patient smokes half to one-pack per day and has done so for over 35 years. Alcohol use regular. ALLERGIES None. FAMILY HISTORY: Mother had a history of COPD. REVIEW OF SYSTEMS: The patient has lost weight. She has postnasal drip, cough, wheezing, epigastric distress. She has no leg swelling. No urinary symptoms. The other system review as in presenting complaint. PHYSICAL EXAMINATION: GENERAL: This is a thinly built middle-aged white female who is anxious. Her face is plethoric. VITAL SIGNS: Her blood pressure was 100/60, pulse is 85, respirations 22, temperature 95. HEAD, EYES, EARS, NOSE, THROAT: Head normocephalic. Pupils are reactive. Nasal mucosa injected. Throat is also mildly injected. NECK: The neck is supple No bruits or thyroid enlargement. CHEST: Distant breath sounds with expiratory wheezes throughout both lung [place]. Prolonged expirations. HEART: The heart sounds are regular S1-S2. No murmur. No S3. ABDOMEN: Abdomen is soft, protuberant without masses. No organomegaly or tenderness. Bowel sounds are active. EXTREMITIES: No lesions or edema. Reflexes are 1+ with no gross motor deficits. Cranial nerves grossly intact. RECTAL: Exam is deferred. SKIN: No lesions. IMPRESSION: 1. COPD with acute exacerbation 2. Asthmatic bronchitis 3. History of hypertension 4. Anemia. 5. Urinary tract infection. 6. Nicotine dependency. 7. Depression and anxiety. PLAN: 1. The patient has been started on IV antibiotics including Rocephin 1 gram IV daily which will continue. 2. Solu-Medrol at 60 milligrams IV q. 6 hours. 3. We will also add Zithromax 500 milligrams a day. 4. A CTA of the chest will be obtained to rule out pulmonary emboli and/or nodules. 5. Symbicort continue with 160 / 4.5 two puffs twice a day. 6. Pulmonary functions to be done at the bedside. 7. The patient will be placed on high-flow oxygen during the day. 8. If she desaturates further, a BiPAP mask will be used. 9. Counselled about quitting cigarette smoking and use the nicotine patch as needed. I will follow the case with you Dr. Quijano. Thank you for this consultation. MD ARLENE Rae/AMANDEEP /6:42 PM /7:10 PM
[2016-09-29] MEDS ORDERED: CHLORHEXIDINE GLUCONATE 2 % 1 PACK (2 CLOTHS)(extra cloths) TOP PRN (20:00)
[2016-09-29] MEDS: LORazepam 1 MG TAB PO PRN (20:01)
[2016-09-29] MEDS: QUEtiapine FUMARATE 25 MG TAB PO SCH (20:01)
[2016-09-29] MEDS: methylPREDNISolone SOD SUCC 125 MG/2 ML VIAL IV PUSH SCH (20:01)
[2016-09-29] MEDS ORDERED: IOHEXOL 350 MG/ML 10 ML VIAL (for RAD DIAG) IV ONE (21:48)
--- NOTE | 2016-09-29 22:21 | RADHPO ---
EXAM DATE/TIME: 09/29/2016 21:27 [facility] COMPARISON: CT PULMONARY ANGIOGRAM, April 03, 2016, 18:12. INDICATIONS : Shortness of breath. IV CONTRAST: 75 cc Omnipaque 350 (iohexol) IV RADIATION DOSE: 7.04 CTDIvol (mGy) MEDICAL HISTORY : Chronic obstructive pulmonary disease. Hepatitis C. SURGICAL HISTORY : Tonsillectomy. ENCOUNTER: Initial ACUITY: 1 day PAIN SCALE: 0/10 LOCATION: chest TECHNIQUE: Volumetric scanning of the chest was performed using a pulmonary embolism protocol MIP images were re constructed. Using automated exposure control and adjustment of the mA and/or kV according to patien t size, radiation dose was kept as low as reasonably achievable to obtain optimal diagnostic quality images. FINDINGS: No filling defects identified to suggest a metabolic disease. There is moderate centrilobular emphyse ma in the lungs. There is some septal thickening and groundglass opacity that could mild edema. Trace pleural fluid present. Heart size mildly enlarged. No acute findings in the upper abdomen. CONCLUSION: 1. Negative for pulmonary embolism. 2. Moderate emphysema. Groundglass opacity and septal thickening in the lungs. Differential diagnosis includes mild edema or pneumonitis. There is also trace pleural fluid. Sebastián Walker MD on September 29, 2016 at 22:16 Board Certified Radiologist. This report was verified electronically.
[2016-09-30] VITALS (39 sets, daily range): BP systolic 103–140; BP diastolic 51–79; PULSE 75–110; RESP 12–46; TEMP 97.4–98.3; O2SAT 91–100
[2016-09-30] MEDS: ACETAMINOPHEN/CODEINE 300 MG/30 MG TAB PO PRN ×4 (01:54→22:17)
[2016-09-30] MEDS: LORazepam 1 MG TAB PO PRN ×2 (01:54→08:40)
[2016-09-30] MEDS: methylPREDNISolone SOD SUCC 125 MG/2 ML VIAL IV PUSH SCH ×4 (01:54→20:30)
[2016-09-30] MEDS: RESP: ALBUTEROL 2.5 MG/3 ML NEB (PRN) INH (03:57)
[2016-09-30] MEDS: CHLORHEXIDINE GLUCONATE 2 % 1 PACK (2 CLOTHS)(taper/protocol) TOP SCH (04:00)
[2016-09-30 05:15] LABS: AUTOMATED NEUTROPHIL # 14.3 TH/MM3 (1.8-7.7); BASOPHIL % 0.1 % (0.0-2.0); EOSINOPHIL % 0.3 % (0.0-4.0); HEMATOCRIT 29.3 % (35.0-46.0); LYMPH % 2.9 % (9.0-44.0); LYMPHOCYTE # 0.4 TH/MM3 (1.0-4.8); MEAN CELL VOLUME 106.1 FL (80.0-100.0); MEAN CORPUSCULAR HEMOGLOBIN 35.8 PG (27.0-34.0); MEAN CORPUSCULAR HGB CONC 33.8 % (32.0-36.0); MONO % 3.8 % (0.0-8.0); NEUT % 92.9 % (16.0-70.0); PLATELET COUNT 195 TH/MM3 (150-450); POTASSIUM 4.2 MEQ/L (3.5-5.1); RED BLOOD COUNT 2.76 MIL/MM3 (4.00-5.30); RED CELL DISTRIBUTION WIDTH 15.8 % (11.6-17.2); WHITE BLOOD COUNT 15.3 TH/MM3 (4.0-11.0)
[2016-09-30 05:18] LABS: BICARBONATE 25.4 MEQ/L (21.0-32.0)
[2016-09-30 05:24] LABS: HEMO FLAGS DIFF FINAL
[2016-09-30 05:31] LABS: INTERNATIONAL NORMALIZED RATIO 1.2 RATIO; PROTHROMBIN TIME - PATIENT 13.8 SEC (9.8-11.6)
[2016-09-30] MEDS: RESP: ALBUTEROL 2.5 MG/IPRATROPIUM 0.5 MG NEB (SCH) NEB ×4 (07:53→19:32)
[2016-09-30] MEDS: LACTOBACILLUS ACIDOPHILUS TAB PO SCH ×2 (08:06→20:31)
[2016-09-30] MEDS: PANTOPRAZOLE SOD 40 MG DELAYED RELEASE TAB PO SCH (08:06)
[2016-09-30] MEDS: THIAMINE HCL 100 MG TAB PO SCH (08:06)
[2016-09-30] MEDS: AZITHROMYCIN 250 MG TAB PO SCH (08:07)
[2016-09-30] MEDS: amLODIPine BESYLATE 5 MG TAB PO SCH (08:07)
[2016-09-30] MEDS: ENOXAPARIN SODIUM 40 MG/0.4 ML SYRINGE SQ SCH (08:07)
[2016-09-30] MEDS: MULTIVITAMINS/MINERALS THERAPEUTIC TAB PO SCH (08:07)
[2016-09-30] MEDS: FOLIC ACID 1 MG TAB PO SCH (08:07)
[2016-09-30] MEDS: SODIUM CHLORIDE 0.9% FLUSH 10 ML FLUSH IV FLUSH SCH ×2 (08:08→20:31)
[2016-09-30] MEDS: cefTRIAXone INJ 1,000 MG in SODIUM CHLORIDE 0.9% INJ 100 ML IV SCH (08:08)
[2016-09-30] MEDS: NICOTINE 21 MG/24 HR PATCH TD SCH (08:09)
[2016-09-30] MEDS: BUDESONIDE-FORMOTEROL 160/4.5 MCG INHALER INH SCH ×2 (08:12→20:30)
[2016-09-30] MEDS: TIOTROPIUM BROMIDE 18 MCG INH INH SCH (08:12)
--- NOTE | 2016-09-30 09:16 | HHI.PR ---
Subjective Remarks Follow-up for COPD exacerbation and alcohol withdrawal. Denies any chest pain. Shortness of breath improved. Objective Vitals Vital Signs Date Time Temp Pulse Resp B/P Pulse Ox O2 Delivery O2 Flow Rate FiO2 09/30/16 08:57 97 High Flow Nasal Cannula 35.00 100 09/30/16 07:54 99 Partial Rebreather 10.00 09/30/16 06:00 75 21 113/61 100 09/30/16 05:00 81 22 112/62 94 09/30/16 04:00 97.4 86 28 129/75 94 09/30/16 03:00 81 18 117/67 100 09/30/16 02:54 18 09/30/16 02:00 86 20 107/51 99 09/30/16 01:00 84 38 113/66 100 09/30/16 00:00 97.4 88 24 119/65 96 09/29/16 23:00 92 26 110/61 95 09/29/16 22:00 97 23 110/61 98 09/29/16 21:00 100 25 136/61 98 09/29/16 20:00 98.3 110 36 126/72 97 09/29/16 20:00 60 09/29/16 19:40 89 Venturi Mask 6.00 50 09/29/16 19:24 99 Partial Rebreather 15.00 09/29/16 19:00 97 Partial Non-Rebreather 09/29/16 19:00 106 27 136/83 98 09/29/16 16:30 92 Venturi Mask 6.00 50 09/29/16 16:00 98.2 103 25 119/65 99 09/29/16 15:48 99 Partial Rebreather 10.00 09/29/16 15:00 98 Partial Non-Rebreather 12.00 09/29/16 15:00 113 09/29/16 14:00 98 Partial Non-Rebreather 12.00 09/29/16 14:00 112 09/29/16 13:00 98 Partial Non-Rebreather 12.00 09/29/16 13:00 116 09/29/16 12:10 99 Non-Rebreather 15.00 100 09/29/16 12:00 98 Partial Non-Rebreather 12.00 09/29/16 12:00 118 09/29/16 12:00 97.0 95 21 102/65 92 I/O 09/29/16 09/29/16 09/29/16 09/30/16 09/30/16 09/30/16 07:00 15:00 23:00 07:00 15:00 23:00 Intake Total 0 ml 360 ml 300 ml Output Total 300 ml 500 ml 300 ml Balance 0 ml 60 ml -200 ml -300 ml Intake Oral 0 ml 360 ml 300 ml Output Urine Total 300 ml 500 ml 300 ml # Voids 4 # Bowel Movements 0 0 0 Result Diagram: 09/30/16 0455 09/30/16 [address] Angiography 09/29/16 1746 Signed Impressions: Service Date/Time: Thursday, September 29, 2016 21:27 - CONCLUSION: 1. Negative for pulmonary embolism. 2. Moderate emphysema. Groundglass opacity and septal thickening in the lungs. Differential diagnosis includes mild edema or pneumonitis. There is also trace pleural fluid. Sebastián Walker MD Chest X-Ray 09/29/16 0000 Signed Impressions: Service Date/Time: Thursday, September 29, 2016 14:09 - CONCLUSION: New ill- defined left hemithorax airspace disease concerning for infection. Celia Lopes MD Objective Remarks GENERAL: Thin female in no apparent distress. SKIN: Warm and dry. HEAD: Atraumatic. Normocephalic. CARDIOVASCULAR: Tachycardic rate 100, regular rhythm. RESPIRATORY: Diffuse wheezing. Appears comfortable on high flow 100% O2 at 35 L NC. MUSCULOSKELETAL: No lower extremity edema. NEUROLOGICAL: Awake and alert. Tremors bilateral hands. Normal speech. Procedures None Urinary Catheter: No Vascular Central Line Catheter: No A/P Problem List: (1) COPD exacerbation ICD Code: J44.1 Status: Acute (2) UTI (urinary tract infection) ICD Code: N39.0 Status: Acute (3) Tobacco abuse ICD Code: Z72.0 Status: Chronic (4) Alcohol dependence ICD Code: F10.20 Status: Chronic (5) History of macrocytic anemia ICD Code: Z86.2 Status: Chronic (6) Anxiety disorder, unspecified ICD Code: F41.9 Status: Chronic Assessment and Plan 1. COPD exacerbation: Dyspnea improved on high flow O2. Still with diffuse wheezing. Pulmonology consultation appreciated. CTA negative for PE; moderate emphysema; groundglass opacity and septal thickening in the lungs; trace pleural fluid. Differential includes mild edema or pneumonitis per radiologist. Continue steroids, Spiriva, Symbicort, DuoNeb, supplemental oxygen, Ceftriaxone. Digital Camera Technician added Zithromax. PFTs. If patient desaturates use BiPAP. WBC decreased to 15.3 today. 2. UTI: Continue Rocephin. Blood cultures are negative so far. Urine culture positive for Klebsiella, sensitive to Rocephin. 3. Hypotension: Oral antihypertensive medications are on hold. Monitor blood pressure. BP normal. 4. Alcohol dependence, withdrawal: Patient has been counseled. Still with tremors. Continue rally pack. Continue CIWA protocol. Withdrawal/seizure precautions. 5. Tobacco abuse: Counseled quit smoking. Continue nicotine patch. 6. History of macrocytic anemia: Chronic. Hemoglobin decreased to 9.9. Continue to monitor CBC. Transfuse if <7. 7. Anxiety: Continue home medications. 8. DVT prophylaxis: Lovenox. Written by eRbecca Mackay PA-C acting as scribe for Dr. Quijano on 09/30/16 at 0902. All or portions of this note were transcribed by scribe Rebecca Mackay PA-C. I , Dr. Matt Quijano personally performed the history, physical exam, and medical decision making; and confirmed the accuracy of the information in the transcribed note. Authenticated by Dr. Matt Quijano on 10/01/16 at 07:40. Rebecca Mackay Sep 30, 2016 09:16 Matt Quijano MD Oct 01, 2016 07:40
[2016-09-30] MEDS: LEVOFLOXACIN 750 MG PREMIX INJ 150 ML IV SCH (14:12)
[2016-09-30] MEDS: ALPRAZolam 1 MG TAB PO PRN ×2 (14:13→22:17)
[2016-09-30] MEDS: QUEtiapine FUMARATE 25 MG TAB PO SCH (20:31)
[2016-10-01] VITALS (50 sets, daily range): BP systolic 99–138; BP diastolic 51–80; PULSE 72–116; RESP 11–37; TEMP 97.5–98.7; O2SAT 20–100
[2016-10-01] MEDS: methylPREDNISolone SOD SUCC 125 MG/2 ML VIAL IV PUSH SCH ×3 (02:19→14:37)
[2016-10-01] MEDS: CHLORHEXIDINE GLUCONATE 2 % 1 PACK (2 CLOTHS)(taper/protocol) TOP SCH (02:22)
[2016-10-01] MEDS: ACETAMINOPHEN/CODEINE 300 MG/30 MG TAB PO PRN ×4 (04:21→21:44)
[2016-10-01] MEDS: RESP: ALBUTEROL 2.5 MG/IPRATROPIUM 0.5 MG NEB (SCH) NEB ×4 (07:14→19:17)
[2016-10-01] MEDS: FOLIC ACID 1 MG TAB PO SCH (08:19)
[2016-10-01] MEDS: AZITHROMYCIN 250 MG TAB PO SCH (08:19)
[2016-10-01] MEDS: MULTIVITAMINS/MINERALS THERAPEUTIC TAB PO SCH (08:19)
[2016-10-01] MEDS: PANTOPRAZOLE SOD 40 MG DELAYED RELEASE TAB PO SCH (08:19)
[2016-10-01] MEDS: THIAMINE HCL 100 MG TAB PO SCH (08:19)
[2016-10-01] MEDS: LACTOBACILLUS ACIDOPHILUS TAB PO SCH ×2 (08:19→20:05)
[2016-10-01] MEDS: amLODIPine BESYLATE 5 MG TAB PO SCH (08:19)
[2016-10-01] MEDS: ALPRAZolam 1 MG TAB PO PRN ×3 (08:19→21:44)
[2016-10-01] MEDS: cefTRIAXone INJ 1,000 MG in SODIUM CHLORIDE 0.9% INJ 100 ML IV SCH (08:20)
[2016-10-01] MEDS: ENOXAPARIN SODIUM 40 MG/0.4 ML SYRINGE SQ SCH (08:20)
[2016-10-01] MEDS: NICOTINE 21 MG/24 HR PATCH TD SCH (08:20)
[2016-10-01] MEDS: BUDESONIDE-FORMOTEROL 160/4.5 MCG INHALER INH SCH ×2 (08:22→20:06)
[2016-10-01] MEDS: SODIUM CHLORIDE 0.9% FLUSH 10 ML FLUSH IV FLUSH SCH ×2 (08:23→20:06)
[2016-10-01] MEDS: TIOTROPIUM BROMIDE 18 MCG INH INH SCH (08:25)
[2016-10-01] MEDS: LEVOFLOXACIN 750 MG PREMIX INJ 150 ML IV SCH (14:37)
--- NOTE | 2016-10-01 15:47 | HHI.PR ---
Subjective Remarks Patient seen and examined today with Dr. Quijano. Patient with increased status improving slowly. She was on high flow oxygen throughout the night. awake overnight monitor to nonrebreather and now this morning at 6 L nasal cannula. We'll need to continue to monitor patient in ICU at this time see if she decompensates and requires increase in O2 supplementation Objective Vitals Vital Signs Date Time Temp Pulse Resp B/P Pulse Ox O2 Delivery O2 Flow Rate FiO2 10/01/16 14:00 93 10/01/16 14:00 93 20 128/73 96 10/01/16 13:21 89 20 116/60 97 10/01/16 12:08 20 10/01/16 12:00 98.6 96 20 115/63 96 10/01/16 12:00 96 10/01/16 11:06 98.0 106 20 122/67 93 10/01/16 10:30 80 20 99 10/01/16 10:15 80 19 99 10/01/16 10:01 80 19 99/51 99 10/01/16 10:01 80 19 99/51 99 10/01/16 10:00 80 20 99 10/01/16 09:45 104 19 94 10/01/16 09:30 82 20 99 10/01/16 09:15 78 20 99 10/01/16 09:01 76 19 110/61 97 10/01/16 09:01 76 19 110/61 97 10/01/16 09:00 76 19 97 10/01/16 09:00 76 19 97 10/01/16 09:00 76 110/61 20 10/01/16 08:45 84 18 91 10/01/16 08:30 94 23 94 10/01/16 08:15 74 19 94 10/01/16 08:01 80 20 121/70 93 10/01/16 08:01 80 20 121/70 93 10/01/16 08:00 98.1 84 20 121/70 97 10/01/16 08:00 84 10/01/16 08:00 84 19 93 10/01/16 08:00 84 19 93 10/01/16 07:45 88 14 93 10/01/16 07:30 94 18 96 10/01/16 07:15 86 23 97 10/01/16 07:15 99 Partial Rebreather 12.00 10/01/16 07:01 80 20 136/80 100 10/01/16 07:01 80 20 136/80 100 10/01/16 07:00 82 21 100 10/01/16 07:00 82 21 100 10/01/16 07:00 98.1 91 18 136/80 97 10/01/16 07:00 Nasal Cannula 6.00 10/01/16 06:01 78 20 128/67 100 10/01/16 05:01 72 37 130/65 100 10/01/16 04:01 74 20 125/65 100 10/01/16 04:00 74 10/01/16 03:01 97.5 76 19 122/67 100 10/01/16 02:01 80 29 125/68 100 10/01/16 01:01 84 21 133/63 100 10/01/16 00:00 80 10/01/16 00:00 97.6 82 20 125/65 100 09/30/16 23:01 84 46 130/76 99 09/30/16 22:01 100 34 123/69 98 09/30/16 21:01 98 19 103/59 99 09/30/16 20:00 101 09/30/16 20:00 97.6 98 25 114/67 97 09/30/16 19:35 99 Partial Rebreather 15.00 09/30/16 19:30 92 27 119/75 98 09/30/16 19:15 100 Partial Non-Rebreather 12.00 09/30/16 18:21 100 Partial Rebreather 10.00 09/30/16 17:30 100 34 140/79 98 09/30/16 17:00 88 09/30/16 16:30 98.3 94 27 132/73 91 09/30/16 16:00 92 09/30/16 15:40 91 Nasal Cannula 6.00 I/O 09/30/16 09/30/16 09/30/16 10/01/16 10/01/16 10/01/16 07:00 15:00 23:00 07:00 15:00 23:00 Intake Total 300 ml 602 ml 60 ml 670 ml Output Total 500 ml 300 ml 700 ml 900 ml 350 ml Balance -200 ml -300 ml -98 ml -840 ml 320 ml Intake Oral 300 ml 480 ml 60 ml 420 ml IV Total 122 ml 250 ml Output Urine Total 500 ml 300 ml 700 ml 900 ml 350 ml # Voids 1 # Bowel Movements 0 0 0 Result Diagram: 09/30/1645409/30/16454 Objective Remarks GENERAL: Well-developed, well-nourished, in no acute distress. alert and orientated HEENT: Head is normocephalic without any lesions or masses noted. Facial features are symmetric. Eyes: Extraocular muscles are intact. Conjunctivae were clear. Oropharyngeal: Pharynx without any erythema edema. Lateral nystagmus, patient with head tremors NECK: Supple without any masses. Trachea midline no deviation. No JVD, no bruits are appreciated CARDIAC: Regular rhythm, regular rate. S1/S2 are heard. No murmurs gallops or rubs. LUNGS: Fine wheeze noted throughout, no rhonchi or rales. No use of accessory muscles on inspiration or expiration. ABDOMEN: Soft, nontender. Nondistended. Bowel sounds heard in all 4 quadrants. No organomegaly or masses. Negative rebound, negative guarding EXTREMITIES: No edema, pulses are equal bilaterally. No cyanosis or clubbing NEUROLOGY: Mood and affect appear appropriate. Cranial nerves II through XII grossly intact. Moving all extremities, speech is clear. 2+ hand tremors Procedures None Urinary Catheter: No Vascular Central Line Catheter: No A/P Assessment and Plan 1. COPD exacerbation: Dyspnea improved on high flow O2 last evening, has transitioned down to 6 L nasal cannula with good O2 saturations.. Still with diffuse wheezing. Pulmonology consultation appreciated. CTA negative for PE; moderate emphysema; groundglass opacity and septal thickening in the lungs; trace pleural fluid. Differential includes mild edema or pneumonitis per radiologist. Continue steroids, Spiriva, Symbicort, DuoNeb, supplemental oxygen , Ceftriaxone. Zithromax. PFTs. If patient desaturates use BiPAP. 2. UTI: Continue Rocephin. Blood cultures are negative so far. Urine culture positive for Klebsiella, sensitive to Rocephin. 3. Hypotension: Oral antihypertensive medications are on hold. Monitor blood pressure. BP improved. 4. Alcohol dependence, withdrawal: Patient has been counseled. Still with tremors. Continue rally pack. Continue CIWA protocol. Withdrawal/seizure precautions. 5. Tobacco abuse: Counseled quit smoking. Continue nicotine patch. 6. History of macrocytic anemia: Likely secondary to folic acid deficiency from alcohol abuse. Continue replacement therapy. Chronic. Hemoglobin decreased to 9.9. Continue to monitor CBC. Transfuse if <7. 7. Anxiety: Continue home medications. 8. DVT prophylaxis: Lovenox. Written by Matt Contreras, acting as scribe for Dr. Quijano on 10/01/16 at 15:47. All or portions of this note were transcribed by scribe Matt Contreras. I, Dr. Matt Quijano personally performed the history, physical exam, and medical decision making; and confirmed the accuracy of the information in the transcribed note. Authenticated by Dr. Matt Quijano on 10/01/16 at 18:32. Matt Contreras Oct 01, 2016 15:47 Matt Quijano MD Oct 01, 2016 18:32
--- NOTE | 2016-10-01 18:41 | HHI.PR ---
Subjective Remarks Feels better. No fever. On O2 2L. No wheezing Objective Vital Signs Date Time Temp Pulse Resp B/P Pulse Ox O2 Delivery O2 Flow Rate FiO2 10/01/16 18:00 84 16 98 10/01/16 18:00 93 10/01/16 17:02 20 10/01/16 17:00 98.7 89 18 138/73 97 10/01/16 16:00 98.0 86 20 136/76 97 10/01/16 16:00 89 10/01/16 15:01 86 16 128/73 98 10/01/16 15:00 84 17 98 10/01/16 14:01 82 15 131/73 97 10/01/16 14:00 93 10/01/16 14:00 84 16 98 10/01/16 14:00 93 20 128/73 96 10/01/16 13:21 89 20 116/60 97 10/01/16 13:01 92 15 116/60 98 10/01/16 13:00 100 14 99 10/01/16 12:01 92 15 115/63 95 10/01/16 12:00 98.6 96 20 115/63 96 10/01/16 12:00 96 10/01/16 12:00 92 14 95 10/01/16 11:06 98.0 106 20 122/67 93 10/01/16 11:01 84 16 122/67 95 10/01/16 11:00 88 14 95 10/01/16 10:30 80 20 99 10/01/16 10:15 80 19 99 10/01/16 10:01 80 19 99/51 99 10/01/16 10:01 80 19 99/51 99 10/01/16 10:01 80 19 99/51 99 10/01/16 10:00 80 20 99 10/01/16 10:00 80 20 99 10/01/16 09:45 104 19 94 10/01/16 09:30 82 20 99 10/01/16 09:15 78 20 99 10/01/16 09:01 76 19 110/61 97 10/01/16 09:01 76 19 110/61 97 10/01/16 09:01 76 19 110/61 97 10/01/16 09:00 76 19 97 10/01/16 09:00 76 19 97 10/01/16 09:00 76 19 97 10/01/16 09:00 76 110/61 20 10/01/16 08:45 84 18 91 10/01/16 08:30 94 23 94 10/01/16 08:15 74 19 94 10/01/16 08:01 80 20 121/70 93 10/01/16 08:01 80 20 121/70 93 10/01/16 08:01 80 20 121/70 93 10/01/16 08:00 98.1 84 20 121/70 97 10/01/16 08:00 84 10/01/16 08:00 84 19 93 10/01/16 08:00 84 19 93 10/01/16 08:00 84 19 93 10/01/16 07:45 88 14 93 10/01/16 07:30 94 18 96 10/01/16 07:15 86 23 97 10/01/16 07:15 99 Partial Rebreather 12.00 10/01/16 07:01 80 20 136/80 100 10/01/16 07:01 80 20 136/80 100 10/01/16 07:01 80 20 136/80 100 10/01/16 07:00 82 21 100 10/01/16 07:00 82 21 100 10/01/16 07:00 98.1 91 18 136/80 97 10/01/16 07:00 Nasal Cannula 6.00 10/01/16 07:00 82 21 100 10/01/16 06:01 78 20 128/67 100 10/01/16 05:01 72 37 130/65 100 10/01/16 04:01 74 20 125/65 100 10/01/16 04:00 74 10/01/16 03:01 97.5 76 19 122/67 100 10/01/16 02:01 80 29 125/68 100 10/01/16 01:01 84 21 133/63 100 10/01/16 00:00 80 10/01/16 00:00 97.6 82 20 125/65 100 09/30/16 23:01 84 46 130/76 99 09/30/16 22:01 100 34 123/69 98 09/30/16 21:01 98 19 103/59 99 09/30/16 20:00 101 09/30/16 20:00 97.6 98 25 114/67 97 09/30/16 19:35 99 Partial Rebreather 15.00 09/30/16 19:30 92 27 119/75 98 09/30/16 19:15 100 Partial Non-Rebreather 12.00 I/O 09/30/16 09/30/16 09/30/16 10/01/16 10/01/16 10/01/16 07:00 15:00 23:00 07:00 15:00 23:00 Intake Total 300 ml 602 ml 60 ml 670 ml Output Total 500 ml 300 ml 700 ml 900 ml 350 ml Balance -200 ml -300 ml -98 ml -840 ml 320 ml Intake Oral 300 ml 480 ml 60 ml 420 ml IV Total 122 ml 250 ml Output Urine Total 500 ml 300 ml 700 ml 900 ml 350 ml # Voids 1 # Bowel Movements 0 0 0 Result Diagram: 09/30/1645409/30/16454 Objective Remarks GENERAL: This is a thinly built middle-aged white female who is anxious. Her face is plethoric. HEAD, EYES, EARS, NOSE, THROAT: Head normocephalic. Pupils are reactive. Nasal mucosa clear. Throat is clear NECK: The neck is supple No bruits or thyroid enlargement. CHEST: Distant breath sounds with occ wheezes over both lung [place]. Prolonged expirations. HEART: The heart sounds are regular S1-S2. No murmur. No S3. ABDOMEN: Abdomen is soft, protuberant without masses. No organomegaly or tenderness. Bowel sounds are active. EXTREMITIES: No lesions or edema. Reflexes are 1+ with no gross motor deficits. Cranial nerves grossly intact. RECTAL: Exam is deferred. SKIN: No lesions. Assessment and Plan Assessment and Plan IMPRESSION: 1. COPD with acute exacerbation 2. Asthmatic bronchitis 3. History of hypertension 4. Anemia. 5. Urinary tract infection. 6. Nicotine dependency. 7. Depression and anxiety. Plan : 1. Continue Rocephin and Zithromax. 2. Taper solumedrol to 40 mg q6h. 3. Nebs qid ,duoneb. 4. Wean O2 to 2 L. 5. BMP in am. 6. PFT at bedside 7. Transfer to floor. Andrade Briggs MD Oct 01, 2016 18:41
[2016-10-01] MEDS: QUEtiapine FUMARATE 25 MG TAB PO SCH (20:05)
[2016-10-01] MEDS: methylPREDNISolone SOD SUCC 40 MG/1 ML VIAL IV SCH (20:06)
[2016-10-02] VITALS (35 sets, daily range): BP systolic 99–157; BP diastolic 55–84; PULSE 70–126; RESP 11–31; TEMP 97.3–98.4; O2SAT 90–100
[2016-10-02] MEDS: methylPREDNISolone SOD SUCC 40 MG/1 ML VIAL IV SCH ×4 (02:03→22:53)
[2016-10-02] MEDS: CHLORHEXIDINE GLUCONATE 2 % 1 PACK (2 CLOTHS)(taper/protocol) TOP SCH ×2 (04:00→22:55)
[2016-10-02] MEDS: ACETAMINOPHEN/CODEINE 300 MG/30 MG TAB PO PRN ×2 (04:41→11:55)
[2016-10-02] MEDS: RESP: ALBUTEROL 2.5 MG/IPRATROPIUM 0.5 MG NEB (SCH) NEB ×4 (07:38→19:32)
[2016-10-02] MEDS: PANTOPRAZOLE SOD 40 MG DELAYED RELEASE TAB PO SCH (07:58)
[2016-10-02] MEDS: LACTOBACILLUS ACIDOPHILUS TAB PO SCH ×2 (07:58→20:01)
[2016-10-02] MEDS: AZITHROMYCIN 250 MG TAB PO SCH (07:58)
[2016-10-02] MEDS: THIAMINE HCL 100 MG TAB PO SCH (07:58)
[2016-10-02] MEDS: amLODIPine BESYLATE 5 MG TAB PO SCH (07:59)
[2016-10-02] MEDS: NICOTINE 21 MG/24 HR PATCH TD SCH (08:00)
[2016-10-02] MEDS: cefTRIAXone INJ 1,000 MG in SODIUM CHLORIDE 0.9% INJ 100 ML IV SCH (08:00)
[2016-10-02] MEDS: ENOXAPARIN SODIUM 40 MG/0.4 ML SYRINGE SQ SCH (08:00)
[2016-10-02] MEDS: SODIUM CHLORIDE 0.9% FLUSH 10 ML FLUSH IV FLUSH SCH ×2 (08:00→20:02)
[2016-10-02] MEDS: TIOTROPIUM BROMIDE 18 MCG INH INH SCH (08:00)
[2016-10-02] MEDS: BUDESONIDE-FORMOTEROL 160/4.5 MCG INHALER INH SCH ×2 (08:00→20:46)
[2016-10-02] MEDS: ALPRAZolam 1 MG TAB PO PRN ×2 (08:53→20:01)
--- NOTE | 2016-10-02 14:59 | HHI.PR ---
Subjective Remarks Patient seen and examined today with Dr. Quijano. Patient states that she is doing much better. She is on 2 L nasal cannula. Patient very eager to go home. We'll plan transfer to medical floor and possible discharge tomorrow if remains stable on 2 L nasal cannula. Objective Vitals Vital Signs Date Time Temp Pulse Resp B/P Pulse Ox O2 Delivery O2 Flow Rate FiO2 10/02/16 13:00 86 10/02/16 12:36 94 24 125/64 96 10/02/16 12:00 126 10/02/16 12:00 98.1 10/02/16 11:00 92 10/02/16 11:00 92 11 95 10/02/16 10:49 82 21 107/64 95 10/02/16 10:13 90 18 122/71 91 10/02/16 10:00 118 10/02/16 09:01 88 20 99/55 94 10/02/16 09:00 90 10/02/16 08:01 104 31 157/83 90 10/02/16 08:00 98 10/02/16 08:00 97.6 10/02/16 08:00 100 Nasal Cannula 3.00 10/02/16 08:00 98 22 95 10/02/16 07:39 96 Nasal Cannula 2.00 10/02/16 07:01 72 15 148/81 99 10/02/16 07:00 72 10/02/16 07:00 76 10/02/16 07:00 72 14 99 10/02/16 06:01 70 16 142/74 97 10/02/16 06:01 70 16 142/74 97 10/02/16 06:00 82 10/02/16 06:00 82 20 95 10/02/16 05:01 74 17 146/79 93 10/02/16 05:01 74 17 146/79 93 10/02/16 05:00 74 10/02/16 05:00 74 14 93 10/02/16 04:01 98.3 74 17 139/70 100 10/02/16 04:01 74 17 139/70 100 10/02/16 04:00 72 10/02/16 04:00 72 18 100 10/02/16 03:01 74 16 134/74 98 10/02/16 03:01 74 16 134/74 98 10/02/16 03:00 78 20 98 10/02/16 02:01 80 13 117/66 97 10/02/16 02:01 80 13 117/66 97 10/02/16 02:00 80 15 97 10/02/16 02:00 80 10/02/16 01:01 82 19 116/67 100 10/02/16 01:01 82 19 116/67 100 10/02/16 01:00 80 20 100 10/02/16 00:01 97.3 82 19 118/66 99 10/02/16 00:01 82 19 118/66 99 10/02/16 00:00 99 Nasal Cannula 2.00 10/02/16 00:00 82 19 99 10/02/16 00:00 82 10/01/16 23:01 88 15 121/67 98 10/01/16 22:01 80 17 136/73 94 10/01/16 22:00 80 10/01/16 21:01 100 18 123/73 93 10/01/16 20:01 98.5 112 16 119/65 93 10/01/16 20:00 116 10/01/16 19:15 94 Nasal Cannula 3.00 10/01/16 19:01 92 11 134/73 95 10/01/16 19:00 95 Nasal Cannula 2.00 10/01/16 18:00 84 16 98 10/01/16 18:00 93 10/01/16 17:02 20 10/01/16 17:00 98.7 89 18 138/73 97 10/01/16 16:00 98.0 86 20 136/76 97 10/01/16 16:00 89 10/01/16 15:01 86 16 128/73 98 10/01/16 15:00 84 17 98 I/O 10/01/16 10/01/16 10/01/16 10/02/16 10/02/16 10/02/16 07:00 15:00 23:00 07:00 15:00 23:00 Intake Total 60 ml 910 ml 60 ml Output Total 900 ml 850 ml 401 ml 800 ml Balance -840 ml 60 ml -341 ml -800 ml Intake Oral 60 ml 660 ml 60 ml IV Total 250 ml Output Urine Total 900 ml 850 ml 400 ml 800 ml Stool Total 1 ml # Voids 1 # Bowel Movements 0 0 1 Result Diagram: 09/30/16 0455 09/30/16 0455 Objective Remarks GENERAL: Well-developed, well-nourished, in no acute distress. alert and orientated HEENT: Head is normocephalic without any lesions or masses noted. Facial features are symmetric. Eyes: Extraocular muscles are intact. Conjunctivae were clear. Oropharyngeal: Pharynx without any erythema edema. NECK: Supple without any masses. Trachea midline no deviation. No JVD, no bruits are appreciated CARDIAC: Regular rhythm, regular rate. S1/S2 are heard. No murmurs gallops or rubs. LUNGS: Fine wheeze noted throughout, no rhonchi or rales. No use of accessory muscles on inspiration or expiration. ABDOMEN: Soft, nontender. Nondistended. Bowel sounds heard in all 4 quadrants. No organomegaly or masses. Negative rebound, negative guarding EXTREMITIES: No edema, pulses are equal bilaterally. No cyanosis or clubbing NEUROLOGY: Mood and affect appear appropriate. Cranial nerves II through XII grossly intact. Moving all extremities, speech is clear. Procedures None Urinary Catheter: No Vascular Central Line Catheter: No A/P Assessment and Plan 1. COPD exacerbation: Dyspnea improved , only on 2 L nasal cannula this time with good O2 saturations.. Still with diffuse wheezing. Pulmonology consultation appreciated. CTA negative for PE; moderate emphysema; groundglass opacity and septal thickening in the lungs; trace pleural fluid. Differential includes mild edema or pneumonitis per radiologist. Weaning steroids, continue Spiriva, Symbicort, DuoNeb, supplemental oxygen, Ceftriaxone. Zithromax. PFTs. If patient desaturates use BiPAP. 2. UTI: Continue Rocephin. Blood cultures are negative so far. Urine culture positive for Klebsiella, sensitive to Rocephin. 3. Hypotension: Oral antihypertensive medications are on hold. Monitor blood pressure. BP improved. 4. Alcohol dependence, withdrawal: Patient has been counseled. Still with tremors. Continue rally pack. Continue CIWA protocol. Withdrawal/seizure precautions. 5. Tobacco abuse: Counseled quit smoking. Continue nicotine patch. 6. History of macrocytic anemia: Likely secondary to folic acid deficiency from alcohol abuse. Continue replacement therapy. Chronic. Hemoglobin decreased to 9.9. Continue to monitor CBC. Transfuse if <7. 7. Anxiety: Continue home medications. 8. DVT prophylaxis: Lovenox. Written by Matt Contreras, acting as scribe for Dr. Quijano on 10/02/16 at 14:55. All or portions of this note were transcribed by scribe Matt Contreras. I, Dr. Matt Quijano personally performed the history, physical exam, and medical decision making; and confirmed the accuracy of the information in the transcribed note. Authenticated by Dr. Matt Quijano on 10/02/16 at 16:38. Discharge Planning Discharge planning home for tomorrow if remains stable on 2 L nasal cannula. Matt Contreras Oct 02, 2016 14:59 Matt Quijano MD Oct 02, 2016 16:38
--- NOTE | 2016-10-02 17:36 | HHI.PR ---
Subjective Remarks Improved further. No fever. On O2 2L. No wheezing. Clear sputum. Objective Vital Signs Date Time Temp Pulse Resp B/P Pulse Ox O2 Delivery O2 Flow Rate FiO2 10/02/16 16:00 98.4 10/02/16 16:00 88 10/02/16 15:00 86 10/02/16 14:36 84 15 133/69 96 10/02/16 14:00 82 10/02/16 13:36 84 17 126/77 97 10/02/16 13:00 86 10/02/16 12:36 94 24 125/64 96 10/02/16 12:00 126 10/02/16 12:00 98.1 10/02/16 11:00 92 10/02/16 11:00 92 11 95 10/02/16 10:49 82 21 107/64 95 10/02/16 10:13 90 18 122/71 91 10/02/16 10:00 118 10/02/16 09:01 88 20 99/55 94 10/02/16 09:00 90 10/02/16 08:01 104 31 157/83 90 10/02/16 08:00 98 10/02/16 08:00 97.6 10/02/16 08:00 100 Nasal Cannula 3.00 10/02/16 08:00 98 22 95 10/02/16 07:39 96 Nasal Cannula 2.00 10/02/16 07:01 72 15 148/81 99 10/02/16 07:00 72 10/02/16 07:00 76 10/02/16 07:00 72 14 99 10/02/16 06:01 70 16 142/74 97 10/02/16 06:01 70 16 142/74 97 10/02/16 06:00 82 10/02/16 06:00 82 20 95 10/02/16 05:01 74 17 146/79 93 10/02/16 05:01 74 17 146/79 93 10/02/16 05:00 74 10/02/16 05:00 74 14 93 10/02/16 04:01 98.3 74 17 139/70 100 10/02/16 04:01 74 17 139/70 100 10/02/16 04:00 72 10/02/16 04:00 72 18 100 10/02/16 03:01 74 16 134/74 98 10/02/16 03:01 74 16 134/74 98 10/02/16 03:00 78 20 98 10/02/16 02:01 80 13 117/66 97 10/02/16 02:01 80 13 117/66 97 10/02/16 02:00 80 15 97 10/02/16 02:00 80 10/02/16 01:01 82 19 116/67 100 10/02/16 01:01 82 19 116/67 100 10/02/16 01:00 80 20 100 10/02/16 00:01 97.3 82 19 118/66 99 10/02/16 00:01 82 19 118/66 99 10/02/16 00:00 99 Nasal Cannula 2.00 10/02/16 00:00 82 19 99 10/02/16 00:00 82 10/01/16 23:01 88 15 121/67 98 10/01/16 22:01 80 17 136/73 94 10/01/16 22:00 80 10/01/16 21:01 100 18 123/73 93 10/01/16 20:01 98.5 112 16 119/65 93 10/01/16 20:00 116 10/01/16 19:15 94 Nasal Cannula 3.00 10/01/16 19:01 92 11 134/73 95 10/01/16 19:00 95 Nasal Cannula 2.00 10/01/16 18:00 84 16 98 10/01/16 18:00 93 I/O 10/01/16 10/01/16 10/01/16 10/02/16 10/02/16 10/02/16 07:00 15:00 23:00 07:00 15:00 23:00 Intake Total 60 ml 910 ml 60 ml 580 ml Output Total 900 ml 850 ml 401 ml 800 ml 900 ml Balance -840 ml 60 ml -341 ml -800 ml -320 ml Intake Oral 60 ml 660 ml 60 ml 480 ml IV Total 250 ml 100 ml Output Urine Total 900 ml 850 ml 400 ml 800 ml 900 ml Stool Total 1 ml # Voids 1 # Bowel Movements 0 0 1 1 Result Diagram: 09/30/16 0455 09/30/16 0455 Objective Remarks GENERAL: This is a thinly built middle-aged white female who is alert. HEAD, EYES, EARS, NOSE, THROAT: Head normocephalic. Pupils are reactive. Nasal mucosa clear. Throat is clear NECK: The neck is supple No bruits or thyroid enlargement. CHEST: Distant breath sounds with occ wheezes over both lung [place]. Prolonged expirations. HEART: The heart sounds are regular S1-S2. No murmur. No S3. ABDOMEN: Abdomen is soft, protuberant without masses. No organomegaly or tenderness. Bowel sounds are active. EXTREMITIES: No lesions or edema. Reflexes are 1+ with no gross motor deficits. Cranial nerves grossly intact. RECTAL: Exam is deferred. SKIN: No lesions. Assessment and Plan Assessment and Plan IMPRESSION: 1. COPD with acute exacerbation 2. Asthmatic bronchitis 3. History of hypertension 4. Anemia. 5. Urinary tract infection. 6. Nicotine dependency. 7. Depression and anxiety. Plan : 1. Continue Rocephin and Zithromax. 2. Taper solumedrol to 40 mg q8h. 3. Nebs qid ,duoneb. 4. Wean O2 to 2 L. 5. CBC, BMP in am. 6. PFT at bedside 7. Transfer to floor. Andrade Briggs MD Oct 02, 2016 17:36
[2016-10-02] MEDS: QUEtiapine FUMARATE 25 MG TAB PO SCH (20:01)
[2016-10-03] VITALS: BP 129/82; PULSE 90; RESP 20; TEMP 97.7; O2SAT 93
[2016-10-03] MEDS: ALPRAZolam 1 MG TAB PO PRN ×2 (03:22→10:56)
[2016-10-03] MEDS: methylPREDNISolone SOD SUCC 40 MG/1 ML VIAL IV SCH (06:22)
[2016-10-03] MEDS: RESP: ALBUTEROL 2.5 MG/IPRATROPIUM 0.5 MG NEB (SCH) NEB ×2 (07:37→11:30)
[2016-10-03 07:39] VITALS: O2SAT 93
[2016-10-03 08:00] VITALS: BP 146/91; PULSE 84; RESP 18; TEMP 96.8; O2SAT 92
[2016-10-03] MEDS: SODIUM CHLORIDE 0.9% FLUSH 10 ML FLUSH IV FLUSH SCH (09:00)
[2016-10-03] MEDS: BUDESONIDE-FORMOTEROL 160/4.5 MCG INHALER INH SCH (09:00)
[2016-10-03] MEDS: THIAMINE HCL 100 MG TAB PO SCH (09:00)
[2016-10-03] MEDS: amLODIPine BESYLATE 5 MG TAB PO SCH (09:00)
[2016-10-03] MEDS: cefTRIAXone INJ 1,000 MG in SODIUM CHLORIDE 0.9% INJ 100 ML IV SCH (10:56)
[2016-10-03] MEDS: TIOTROPIUM BROMIDE 18 MCG INH INH SCH (10:56)
[2016-10-03] MEDS: ENOXAPARIN SODIUM 40 MG/0.4 ML SYRINGE SQ SCH (10:57)
[2016-10-03] MEDS: PANTOPRAZOLE SOD 40 MG DELAYED RELEASE TAB PO SCH (10:57)
[2016-10-03] MEDS: AZITHROMYCIN 250 MG TAB PO SCH (10:57)
[2016-10-03] MEDS: NICOTINE 21 MG/24 HR PATCH TD SCH (10:57)
[2016-10-03] MEDS: LACTOBACILLUS ACIDOPHILUS TAB PO SCH (10:58)
[2016-10-03] MEDS ORDERED: PANT40TA3 PO (11:53)
[2016-10-03] MEDS ORDERED: ZITH250T PO (11:53)
[2016-10-03] MEDS ORDERED: PRED5PAK PO (11:53)
[2016-10-03] MEDS ORDERED: SPIRCAP INH (11:53)
--- NOTE | 2016-10-03 11:55 | HHI.DCPOC ---
Discharge Care Plan Diagnosis: (1) COPD (chronic obstructive pulmonary disease) (2) Hypoxia (3) Alcohol withdrawal Goals to Promote Your Health * To prevent worsening of your condition and complications * To maintain your health at the optimal level Directions to Meet Your Goals Take your medications as prescribed Follow your dietary instruction Follow activity as directed Keep your appointments as scheduled Take your immunizations and boosters as scheduled If your symptoms worsen call your PCP, if no PCP go to Urgent Care Center or Emergency Room Smoking is Dangerous to Your Health. Avoid second hand smoke Call the 24-hour hour crisis hotline for domestic abuse at Matt Contreras Oct 03, 2016 11:54
--- NOTE | 2016-10-03 12:00 | HHI.DS ---
Discharge Summary Admission Date Sep 26, 2016 at 02:39 Discharge Date: Oct 03, 2016 Admitting Diagnosis exacerbation copd; alcohol withdrawal (1) COPD exacerbation ICD Code: J44.1 (2) UTI (urinary tract infection) ICD Code: N39.0 (3) Tobacco abuse ICD Code: Z72.0 (4) Alcohol dependence ICD Code: F10.20 (5) History of macrocytic anemia ICD Code: Z86.2 (6) Anxiety disorder, unspecified ICD Code: F41.9 Procedures None Brief History - From Admission 65 years old female with a PMH of COPD and multiple hospitalization 2/2 COPD exacerbation as well as Respiratory failure was brought to the emergency on 09/25 by EMS for evaluation of worsening shortness of breath along with chest tightness x 2 days without any associated cough production or febrile episode. Patient rated the chest tightness 7/10 in intensity and she denies at the time any relief with SID. She continued to smokes and drinks daily. CXR on arrival has no acute CPD and BNP was 39 with Troponin I wnl. During my exam she had no chest tightness and denies any GI bleeding, hemoptysis or Hematuria CBC/BMP: 09/30/16 0455 09/30/16 [address] Angiography 09/29/16 1746 Signed Impressions: Service Date/Time: Thursday, September 29, 2016 21:27 - CONCLUSION: 1. Negative for pulmonary embolism. 2. Moderate emphysema. Groundglass opacity and septal thickening in the lungs. Differential diagnosis includes mild edema or pneumonitis. There is also trace pleural fluid. Sebastián Walker MD Chest X-Ray 09/29/16 0000 Signed Impressions: Service Date/Time: Thursday, September 29, 2016 14:09 - CONCLUSION: New ill- defined left hemithorax airspace disease concerning for infection. Celia Lopes MD PE at Discharge GENERAL: Well-developed, well-nourished, in no acute distress. alert and orientated HEENT: Head is normocephalic without any lesions or masses noted. Facial features are symmetric. Eyes: Extraocular muscles are intact. Conjunctivae were clear. Oropharyngeal: Pharynx without any erythema edema. NECK: Supple without any masses. Trachea midline no deviation. No JVD, no bruits are appreciated CARDIAC: Regular rhythm, regular rate. S1/S2 are heard. No murmurs gallops or rubs. LUNGS: Fine wheeze noted throughout, no rhonchi or rales. No use of accessory muscles on inspiration or expiration. ABDOMEN: Soft, nontender. Nondistended. Bowel sounds heard in all 4 quadrants. No organomegaly or masses. Negative rebound, negative guarding EXTREMITIES: No edema, pulses are equal bilaterally. No cyanosis or clubbing NEUROLOGY: Mood and affect appear appropriate. Cranial nerves II through XII grossly intact. Moving all extremities, speech is clear. Hospital Course 65-year-old female with known history of COPD, chronic tobacco use who presented to hospital because of worsening shortness of breath, chest tightness for 2 days with associated cough. Patient states that she did have chest tightness with 7/10 on a pain scale patient was admitted the hospital patient ruled out for acute coronary event with serial cardiac enzymes which are negative. Patient did have significant COPD exacerbation requiring rather significant O2 supplementation. Patient was started on antibiotics include Rocephin, Zithromax. Started on scheduled duo nebs, Solu-Medrol. Patient eventually had to go on high flow oxygen to maintain oxygenation. Patient does have chronic alcohol use and did develop alcohol withdrawal patient was started on CIWA protocol. Patient was continued management and ICU she underwent alcohol withdrawal and O2 supplementation. Patient did started responding to treatment and no longer required high flow oxygen. Patient was weaned down from partial rebreather to 6 L nasal cannula now on 2 L nasal cannula. Patient does usually oxygen at 2 L at home on a daily basis. Patient withdrawal symptoms did improve with improvement of nystagmus, hypertension, extremity tremors. Patient was very eager to go home. Patient was clinically stable. Maintain oxygenation on 2 L. No longer receiving medications for withdrawal. Will discharge patient accordingly. He was counseled extensively on discontinuation of alcohol and tobacco. She does understand. Pt Condition on Discharge: Stable Discharge Disposition: Discharge Home Discharge Time: > 30 minutes Discharge Instructions DIET: Follow Instructions for: As Tolerated, No Restrictions Activities you can perform: Regular-No Restrictions Follow up Referrals: PCP Follow-up - 1 Week New Medications: Prednisone (21) 5 mg tab Dose Pack (Prednisone (21) 5 mg tab Dose Pack) 5 Mg Dspk 5 MG PO DIRECTED Inflammation #1 Ref 0 DSPK Azithromycin (Zithromax) 250 Mg Tab 500 MG PO DAILY COPD #3 TAB Pantoprazole (Pantoprazole) 40 Mg Tab 40 MG PO DAILY GI protection #30 TAB Tiotropium Inh (Spiriva Handihaler) 18 Mcg Cap 18 MCG INH DAILY COPD #1 CAP Continued Medications: Alprazolam (Xanax) 2 Mg Tab 2 MG PO TID PRN ANXIETY Ref 0 TAB Amlodipine (Amlodipine) 5 Mg Tab 5 MG PO DAILY Blood Pressure Management #30 Ref 0 TAB Budesonide-Formoterol Inh (Symbicort Inh) 160-4.5 Mcg/Act Aero 2 PUFF INH Q12HR #1 Ref 0 INHALER Carvedilol (Carvedilol) 6.25 Mg Tab 6.25 MG PO DAILY #60 Ref 0 TAB Cobalamine Combinations (Vitamin N26-Dhzkb Acid) 500-400 Mcg Tab 1 TAB PO DAILY Nutritional Supplement Ref 0 TAB Fluoxetine (Fluoxetine) 40 Mg Cap 40 CAP PO DAILY #30 Ref 0 CAP Gabapentin (Gabapentin) 100 Mg Cap 100 MG PO TID #90 Ref 0 CAP Lisinopril (Lisinopril) 40 Mg Tab 40 MG PO DAILY Blood Pressure Management #30 Ref 0 TAB Quetiapine (Quetiapine) 25 Mg Tab 25 MG PO HS #30 Ref 0 TAB Discontinued Medications: Atenolol (Atenolol) 25 Mg Tab 12.5 MG PO DAILY Blood Pressure Management #30 Ref 0 TAB Clonidine (Clonidine) 0.1 Mg Tab 0.1 MG PO DAILY Blood Pressure Management #60 Ref 0 TAB Diphenhydramine HCl (Sleep) (Night Time Sleep Aid) 25 Mg Tab 50 MG PO HS Insomnia Loperamide (Imodium A-D) 2 Mg Cap 2 MG PO Q6H PRN DIARRHEA #30 Ref 0 CAP Additional Information Written by Matt Contreras PA-C, acting as scribe for Dr. Preciado on 10/03/16 at 1125. The documentation accurately reflects the work and decisions performed face-to- face by Dr. Preciado on 06/05/17 at 1125. Matt Contreras Oct 03, 2016 12:00
--- NOTE | 2016-11-04 10:14 | RSPPFT ---
DATE OF PROCEDURE: 10/02/16 COMMENTS: Spirometry demonstrates an FEV1 of 1.2 at 52% of predicted, FVC of 2.1 at 73%, FEF 25-75 at 18%. Post-bronchodilator study demonstrated no significant change. Lung volumes were not completed. Flow volume loop suggests an obstructive pattern. IMPRESSION: 1. Moderate obstructive disease. 2. No significant change following use of bronchodilator.
== END 2016-10-03 14:33 | disposition home or self-care (01) | DRG 191 ==
LOC: PHED 00:34 → PHEDA 02:39 → PHEDH 06:38 → PH3A 16:43 → PHICU 09-29 12:26 → PH3A 10-02 17:44
PROVIDERS: ADMIT Family Medicine; ATTEND Family Medicine
DX: J44.1 Chronic obstructive pulmonary disease with (acute) exacerbation (principal); N39.0 Urinary tract infection, site not specified; E87.3 Alkalosis; I95.9 Hypotension, unspecified; G31.2 Degeneration of nervous system due to alcohol; I85.10 Secondary esophageal varices without bleeding; F10.239 Alcohol dependence with withdrawal, unspecified; B96.1 Klebsiella pneumoniae [K. pneumoniae] as the cause of diseases classified elsewhere; J45.909 Unspecified asthma, uncomplicated; R56.9 Unspecified convulsions; D52.9 Folate deficiency anemia, unspecified; F17.210 Nicotine dependence, cigarettes, uncomplicated; F41.8 Other specified anxiety disorders; N18.9 Chronic kidney disease, unspecified; D53.9 Nutritional anemia, unspecified; M54.9 Dorsalgia, unspecified; R51 Headache; G89.29 Other chronic pain; E07.9 Disorder of thyroid, unspecified; R07.89 Other chest pain; F17.200 Nicotine dependence, unspecified, uncomplicated
CPT/HCPCS: 36600; 71010; 71275; 80048; 80053; 80307; 81001; 82550; 82607; 82805; 83735; 83880; 84484; 85025; 85610; 85730; 87040; 87077; 87086; 87186; 87641; 94060; 94640; 94664; 94667; 94668; 96365; 96375; J0696; J1650; J1885; J1956; J2060; J2920; J2930; J3475; J7030; J7613; Q9967

== ENCOUNTER 2016-11-30 19:28 | Emergency (ER) | payer OTHER ==
[~2016-11-30] VITALS: Ht 160 cm; Wt 65.0 kg
[~2016-11-30 19:28] MED LIST changes: -ALBU0.086 NEB; -ALPR1 PO; -AMLO5 PO; +AMLO5TAB2 PO; -CARV6.25 PO; +CARV6.252 PO; +FLUO40CA PO; +GABA100C4 PO; -GABA300C3 PO; +LISI40TA PO; -MVI PO; -OXYC1SOL5 PO; +PANT40TA3 PO; -PERI8.6T PO; -PRED10 PO; +PRED5PAK PO; -PROZ20CA11 PO; +QUET1TAB7 PO; +SPIRCAP INH; -TAB-TAB PO; -VENTAER INH; -VITA100T15 PO; +VITATAB43 PO; +XANA2TAB2 PO; -Z.0.OXYGEN INH; +ZITH250T PO
[2016-11-30 19:37] VITALS: BP 179/92; PULSE 104; RESP 20; TEMP 98.1; O2SAT 99
[2016-11-30] MEDS ORDERED: LORazepam 2 MG/ML VIAL IV PUSH ONE (19:45)
[2016-11-30] MEDS ORDERED: LEVO25TA4 PO (19:53)
[2016-11-30 19:55] LABS: AUTOMATED NEUTROPHIL # 1.5 TH/MM3 (1.8-7.7); BASOPHIL % 0.6 % (0.0-2.0); EOSINOPHIL % 0.2 % (0.0-4.0); HEMATOCRIT 39.8 % (35.0-46.0); HEMO FLAGS DIFF FINAL; LYMPHOCYTE # 3.1 TH/MM3 (1.0-4.8); MEAN CELL VOLUME 107.9 FL (80.0-100.0); MEAN CORPUSCULAR HGB CONC 34.3 % (32.0-36.0); MONO % 7.9 % (0.0-8.0); NEUT % 30.3 % (16.0-70.0); PLATELET COUNT 148 TH/MM3 (150-450); RED BLOOD COUNT 3.69 MIL/MM3 (4.00-5.30); WHITE BLOOD COUNT 5.1 TH/MM3 (4.0-11.0)
[2016-11-30 19:56] VITALS: BP 105/52; PULSE 99; RESP 18; O2SAT 99
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
--- NOTE | 2016-11-30 20:12 | RADRPT ---
EXAM DATE/TIME: 11/30/2016 20:01 [facility] COMPARISON: CHEST SINGLE AP, September 29, 2016, 14:09. INDICATIONS : Shortness of breath. MEDICAL HISTORY : Chronic obstructive pulmonary disease. Renal failure, chronic. SURGICAL HISTORY : Hysterectomy. ENCOUNTER: Initial ACUITY: 1 day PAIN SCORE: 0/10 LOCATION: Bilateral chest FINDINGS: Accommodation of old and new rib fractures are noted. The most acute fractures are on the left invol ving the left seventh and eighth ribs. There is no pneumothorax. The heart and pulmonary vascularit y are normal. CONCLUSION: Acute and chronic rib fractures without pneumothorax.. Roderick Mason MD FACR on November 30, 2016 at 20:09 Board Certified Radiologist. This report was verified electronically.
[2016-11-30 20:21] VITALS: O2SAT 89; O2SAT 95
[2016-11-30 20:31] LABS: ALKALINE PHOSPHATASE 71 U/L (45-117); ALT (GPT) 36 U/L (10-53); ANION GAP 17 MEQ/L (5-15); AST (GOT) 52 U/L (15-37); BICARBONATE 19.7 MEQ/L (21.0-32.0); BLOOD UREA NITROGEN 16 MG/DL (7-18); CHLORIDE 109 MEQ/L (98-107); GLOMERULAR FILTRATION RATE 55 ML/MIN (>89); POTASSIUM 3.6 MEQ/L (3.5-5.1); SODIUM (NA) 146 MEQ/L (136-145); TOTAL BILIRUBIN ADULT 0.4 MG/DL (0.2-1.0)
[2016-11-30 20:31] LABS: AMPHETAMINE, URINE NEG (NEG); BARBITURATES, URINE NEG (NEG); COCAINE, URINE NEG (NEG)
[2016-11-30] MEDS ORDERED: SODIUM CHLOR 0.9% 1000 ML INJ 1,000 ML IV ONE ×2 (21:15)
[2016-11-30 21:44] VITALS: BP 105/57; PULSE 85; RESP 16; O2SAT 100
[2016-12-01 01:30] VITALS: O2SAT 98
[2016-12-01] MEDS: RESP: ALBUTEROL 2.5 MG/IPRATROPIUM 0.5 MG NEB (SCH) INH (02:04)
--- NOTE | 2016-12-01 15:42 | EKG ---
Date Performed: 11/30/2016 Time Performed: 20:06:39 PTAGE: 65 years EKG: SINUS TACHYCARDIA Minor nonspecific ST wave change. When compared to previous tracing, no s ignificant change. ABNORMAL RHYTHM ECG PREVIOUS TRACING : 04/03/2016 12.52 DOCTOR: Liang Ortiz Interpretating Date/Time 12/01/2016 15:41:07
== END 2016-12-01 02:46 | disposition home or self-care (01) ==
LOC: NEPE 19:28 → NEPD 12-01 02:46
DX: F10.929 Alcohol use, unspecified with intoxication, unspecified (principal); F29 Unspecified psychosis not due to a substance or known physiological condition; F41.0 Panic disorder [episodic paroxysmal anxiety]; E86.0 Dehydration; R94.31 Abnormal electrocardiogram [ECG] [EKG]; I10 Essential (primary) hypertension; E07.9 Disorder of thyroid, unspecified; F17.200 Nicotine dependence, unspecified, uncomplicated; Z87.09 Personal history of other diseases of the respiratory system; Z87.39 Personal history of other diseases of the musculoskeletal system and connective tissue; Z86.59 Personal history of other mental and behavioral disorders; Z87.19 Personal history of other diseases of the digestive system; Z86.69 Personal history of other diseases of the nervous system and sense organs; Z87.448 Personal history of other diseases of urinary system
CPT/HCPCS: 71010; 80053; 80307; 85025; 93005; 94640; 94664; 96361; 96374; 99285; J2060; J7030

== ENCOUNTER 2016-12-21 13:35 | Emergency (ER) | payer OTHER ==
[~2016-12-21] VITALS: Ht 162.6 cm; Wt 54.6 kg
[~2016-12-21 13:35] MED LIST changes: -CARV6.252 PO; -GABA100C4 PO; -LISI40TA PO; -PANT40TA3 PO; -PRED5PAK PO; -VITATAB43 PO
[2016-12-21 13:43] VITALS: BP 147/93; PULSE 125; RESP 16; TEMP 97.5; O2SAT 99
[2016-12-21] MEDS ORDERED: LORazepam 2 MG/ML VIAL IM PRN (14:15)
[2016-12-21] MEDS: RESP: ALBUTEROL 2.5 MG/IPRATROPIUM 0.5 MG NEB (SCH) INH (14:23)
[2016-12-21] MEDS ORDERED: PRED10PA2 PO (14:51)
[2016-12-21] MEDS ORDERED: VENTAER INH (14:51)
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
[2016-12-21] MEDS ORDERED: VIST50CA PO (15:30)
[2016-12-21 15:38] VITALS: BP 134/83
== END 2016-12-21 15:41 | disposition home or self-care (01) ==
LOC: PHED 13:35
DX: F41.9 Anxiety disorder, unspecified (principal); J44.9 Chronic obstructive pulmonary disease, unspecified; R06.02 Shortness of breath; I12.9 Hypertensive chronic kidney disease with stage 1 through stage 4 chronic kidney disease, or unspecified chronic kidney disease; F17.210 Nicotine dependence, cigarettes, uncomplicated
CPT/HCPCS: 94640; 94664; J2060

== ENCOUNTER 2016-12-24 17:36 | Observation (INO) | payer OTHER, MEDICARE ==
[2016-12-24] VITALS (12 sets, daily range): BP systolic 121–142; BP diastolic 69–88; PULSE 112–122; RESP 20–24; TEMP 98–99.3; O2SAT 96–100
[~2016-12-24] VITALS: Ht 162.6 cm; Wt 55.2 kg
[~2016-12-24 17:36] MED LIST changes: -AMLO5TAB2 PO; +PRED10PA2 PO; -QUET1TAB7 PO; -SPIRCAP INH; +VENTAER INH; +VIST50CA PO; -ZITH250T PO
[2016-12-24] MEDS ORDERED: PERC10TA27 PO (17:51)
[2016-12-24] MEDS ORDERED: DIPH-201 PO (17:51)
[2016-12-24] MEDS ORDERED: SODIUM CHLORID 0.9% 500 ML INJ 500 ML IV ONE (18:15)
[2016-12-24] MEDS ORDERED: methylPREDNISolone SOD SUCC 125 MG/2 ML VIAL IVP ONE (18:15)
[2016-12-24] MEDS ORDERED: LORazepam 1 MG TAB PO ONE (18:15)
[2016-12-24] MEDS ORDERED: SODIUM CHLORIDE 0.9% FLUSH 10 ML FLUSH IVF PRN (18:15)
[2016-12-24] MEDS: RESP: ALBUTEROL 2.5 MG/IPRATROPIUM 0.5 MG NEB (SCH) INH ×2 (18:19→18:20)
[2016-12-24 18:27] LABS: AUTOMATED NEUTROPHIL # 4.2 TH/MM3 (1.8-7.7); BASOPHIL # 0.1 TH/MM3 (0-0.2); BASOPHIL % 0.9 % (0.0-2.0); EOSINOPHIL # 0.1 TH/MM3 (0-0.4); HEMATOCRIT 39.8 % (35.0-46.0); HEMO FLAGS DIFF FINAL; LYMPH % 36.5 % (9.0-44.0); LYMPHOCYTE # 2.9 TH/MM3 (1.0-4.8); MEAN CELL VOLUME 103.7 FL (80.0-100.0); MEAN CORPUSCULAR HEMOGLOBIN 35.4 PG (27.0-34.0); MEAN CORPUSCULAR HGB CONC 34.2 % (32.0-36.0); NEUT % 54.6 % (16.0-70.0); PLATELET COUNT 122 TH/MM3 (150-450); RED BLOOD COUNT 3.84 MIL/MM3 (4.00-5.30); RED CELL DISTRIBUTION WIDTH 12.6 % (11.6-17.2); WHITE BLOOD COUNT 7.9 TH/MM3 (4.0-11.0)
[2016-12-24 18:35] LABS: CHLORIDE 105 MEQ/L (98-107); POTASSIUM 3.5 MEQ/L (3.5-5.1); SODIUM (NA) 142 MEQ/L (136-145)
[2016-12-24 18:39] LABS: ANION GAP 21 MEQ/L (5-15); BICARBONATE 16.4 MEQ/L (21.0-32.0); BLOOD UREA NITROGEN 15 MG/DL (7-18)
--- NOTE | 2016-12-24 18:40 | PD ---
HPI Chief Complaint: Respiratory Symptoms Time Seen by Provider: 18:00 Travel History International Travel<30 days: No Contact w/Intl Traveler<30days: No Traveled to known affect area: No History of Present Illness HPI Patient is a 66 year old female who comes in complaining of SOB. She says she has been having issues with her COPD for the past week. She went to see her doctor today who prescribed an antibiotic, which she has not filled yet. She says she became increasingly short of breath at home and her inhaler was not helping, so she came in. She has not had a fever at home. She is still smoking. She says that she has been out of her Xanax for a week. She was here December 21 because of this. She was given prescriptions for Vistaril and Prednisone, which it does not seem like she filled. She says her primary care doctor refused to refill her Xanax today. She says her psychiatrist also said he would not refill the Xanax. PFSH Past Medical History Arthritis: Yes Asthma: No Bipolar Disorder: Yes Anxiety: Yes (Panic attacks/ETOH ADDICTION) Depression: Yes (SINCE FAMILY DEATHS 4 YR AGE) Cancer: No Cardiovascular Problems: No Congestive Heart Failure: No Cirrhosis: Yes (Liver disease) COPD: Yes Coronary Artery Disease: No Dementia: Yes (ALCOHOLIC) Diabetes: No Diminished Hearing: No Endocrine: No Gastrointestinal Disorders: Yes (esophageal varices, cirrhosis) Genitourinary: No Headaches: Yes Hepatitis: Yes (Hep C) Hypertension: Yes Immune Disorder: No Implanted Vascular Access Dvce: No Musculoskeletal: Yes (Chronic back pain ) Neurologic: Yes Psychiatric: Yes (etoh dependence with mood disorder, opiod dependence) Reproductive: No Respiratory: Yes Immunizations Current: Yes Pneumonia: Yes Renal Failure: Yes (ckd) Seizures: Yes ( one year ago) Thyroid Disease: Yes Tetanus Vaccination: < 5 Years Influenza Vaccination: Yes PNEUMOCCOCAL Vaccine (Year): 1 ?: Not Menopausal: Yes : 1 Para: 1 Past Surgical History Body Medical Devices: STEEL PLATE L ARM Gynecologic Surgery: Yes (1993 HYSTERECTOMY) Hysterectomy: Yes Neurologic Surgery: Yes ("Nerve fusion" in back) Tonsillectomy: Yes Other Surgery: Yes (Right hip bone graft to left arm ) Social History Alcohol Use: Yes (1 GLASS) Tobacco Use: Yes (1 PPD) Substance Use: No Allergies-Medications (Allergen,Severity, Reaction): Coded Allergies: No Known Allergies (Unverified , 12/24/16) Reported Meds & Prescriptions Reported Meds & Active Scripts Active Ventolin Hfa 18 GM Inh (Albuterol Sulfate) 90 Mcg/Act Aer 2 Puff INH Q4H PRN Reported Sleep-Aid (Diphenhydramine HCl) 25 Mg Capsule 1 Tab PO DAILY Percocet (Oxycodone-Acetaminophen) 10-325 mg Tab 1 Tab PO TID PRN Symbicort Inh (Budesonide/Formoterol Fumarate) 160-4.5 Mcg/Act Aero 2 Puff INH Q12HR Fluoxetine (Fluoxetine HCl) 40 Mg Cap 40 Cap PO DAILY Xanax (Alprazolam) 2 Mg Tab 2 Mg PO TID PRN Review of Systems Except as stated in HPI: all other systems reviewed are Neg General / Constitutional: No: Fever, Chills HENT: No: Headaches, Lightheadedness Respiratory: Positive: Cough, Shortness of Breath, Wheezing Gastrointestinal: No: Nausea, Vomiting Musculoskeletal: No: Edema, Pain Skin: No Rash, No Change in Pigmentation Neurologic: No: Weakness, Dizziness Physical Exam Narrative GENERAL: Awake and alert, in no acute distress. SKIN: Focused skin assessment warm/dry. HEAD: Atraumatic. Normocephalic. EYES: Pupils equal and round. No scleral icterus. ENT: Mucous membranes pink and moist. Tongue fasciculations. NECK: Trachea midline. No JVD. CARDIOVASCULAR: Tachycardia.. No murmur appreciated. RESPIRATORY: No accessory muscle use. Diffuse wheezing. Breath sounds equal bilaterally. GASTROINTESTINAL: Abdomen soft, non-tender, nondistended. MUSCULOSKELETAL: No obvious deformities. No clubbing. No cyanosis. No edema. NEUROLOGICAL: Awake and alert. No obvious cranial nerve deficits. Motor grossly within normal limits. Normal speech. Tremor noted. PSYCHIATRIC: Appropriate mood and affect; insight and judgment normal. Data Data Last Documented VS Vital Signs Date Time Temp Pulse Resp B/P Pulse Ox O2 Delivery O2 Flow Rate FiO2 12/24/16 19:20 98.1 113 22 131/80 100 Nasal Cannula 2 Orders Complete Blood Count With Diff (12/24/16 18:07) Comprehensive Metabolic Panel (12/24/16 18:07) B-Type Natriuretic Peptide (12/24/16 18:07) Act Partial Throm Time (Ptt) (12/24/16 18:07) Prothrombin Time / Inr (Pt) (12/24/16 18:07) Troponin I (12/24/16 18:07) Iv Access Insert/Monitor (12/24/16 18:07) Ecg Monitoring (12/24/16 18:07) Oximetry (12/24/16 18:07) Oxygen Administration (12/24/16 18:07) Chest, Pa & Lat (12/24/16 18:07) Sodium Chloride 0.9% Flush (Ns Flush) (12/24/16 18:15) Methylprednisolone So Succ Inj (Solumedr (12/24/16 18:15) Albuterol-Ipratropium Neb (Duoneb Neb) (12/24/16 18:15) Alcohol (Ethanol) (12/24/16 18:07) Sodium Chlorid 0.9% 500 Ml Inj (Ns 500 M (12/24/16 18:15) Lorazepam (Ativan) (12/24/16 18:15) Lorazepam Inj (Ativan Inj) (12/24/16 20:00) Electrocardiogram (12/24/16 17:48) Admit Order (Ed Use Only) (12/24/16 ) Labs Laboratory Tests Test 12/24/16 17:40 White Blood Count 7.9 TH/MM3 Red Blood Count 3.84 MIL/MM3 Hemoglobin 13.6 GM/DL Hematocrit 39.8 % Mean Corpuscular Volume 103.7 FL Mean Corpuscular Hemoglobin 35.4 PG Mean Corpuscular Hemoglobin 34.2 % Concent Red Cell Distribution Width 12.6 % Platelet Count 122 TH/MM3 Mean Platelet Volume 9.0 FL Neutrophils (%) (Auto) 54.6 % Lymphocytes (%) (Auto) 36.5 % Monocytes (%) (Auto) 7.0 % Eosinophils (%) (Auto) 1.0 % Basophils (%) (Auto) 0.9 % Neutrophils # (Auto) 4.2 TH/MM3 Lymphocytes # (Auto) 2.9 TH/MM3 Monocytes # (Auto) 0.6 TH/MM3 Eosinophils # (Auto) 0.1 TH/MM3 Basophils # (Auto) 0.1 TH/MM3 CBC Comment DIFF FINAL Differential Comment Prothrombin Time 14.7 SEC Prothromb Time International 1.3 RATIO Ratio Activated Partial 23.6 SEC Thromboplast Time Sodium Level 142 MEQ/L Potassium Level 3.5 MEQ/L Chloride Level 105 MEQ/L Carbon Dioxide Level 16.4 MEQ/L Anion Gap 21 MEQ/L Blood Urea Nitrogen 15 MG/DL Creatinine 1.60 MG/DL Estimat Glomerular Filtration 32 ML/MIN Rate Random Glucose 152 MG/DL Calcium Level 9.0 MG/DL Total Bilirubin 1.0 MG/DL Aspartate Amino Transf 79 U/L (AST/SGOT) Alanine Aminotransferase 71 U/L (ALT/SGPT) Alkaline Phosphatase 89 U/L Troponin I LESS THAN 0.02 NG/ML B-Type Natriuretic Peptide 26 PG/ML Total Protein 6.9 GM/DL Albumin 3.8 GM/DL Ethyl Alcohol Level 72 MG/DL [facility] Medical Decision Making Medical Screen Exam Complete: Yes Emergency Medical Condition: Yes Medical Record Reviewed: Yes Interpretation(s) ECG shows sinus tachycardia at 120, no ST elevation or depression. Differential Diagnosis COPD exacerbation versus pneumonia versus bronchitis versus encounter for benzodiazepines Narrative Course Patient is a 66-year-old female who comes in complaining of shortness of breath. Exam shows tachycardia, tremors, tongue fasciculations. IV established , labs sent. Patient given DuoNeb nebs and Solu-Medrol. Given Ativan. Given IV fluids. Labs show a creatinine of 1.6, which is up from her creatinine which was 1.02 in November. Patient continues to have tremors and tachycardia. I believe she is going through withdrawal. She will be admitted for further management. She does report that her breathing has improved after treatment. Diagnosis Primary Impression: Alcohol withdrawal Qualified Code: F10.230 - Alcohol withdrawal, uncomplicated Additional Impression: Benzodiazepine withdrawal Qualified Code: F13.230 - Benzodiazepine withdrawal, uncomplicated Admitting Information Admitting Physician Requests: Admit Maia Patel MD Dec 24, 2016 18:40
[2016-12-24 18:41] LABS: ALT (GPT) 71 U/L (10-53); APTT (PATIENT) 23.6 SEC (24.3-30.1); AST (GOT) 79 U/L (15-37); INTERNATIONAL NORMALIZED RATIO 1.3 RATIO; PROTHROMBIN TIME - PATIENT 14.7 SEC (9.8-11.6)
[2016-12-24 18:42] LABS: GLOMERULAR FILTRATION RATE 32 ML/MIN (>89)
[2016-12-24 18:44] LABS: ALKALINE PHOSPHATASE 89 U/L (45-117)
[2016-12-24] MEDS ORDERED: LORazepam 2 MG/ML VIAL IV PUSH ONE (20:00)
--- NOTE | 2016-12-24 20:06 | RADHPO ---
EXAM DATE/TIME: 12/24/2016 18:25 [facility] COMPARISON: CHEST SINGLE AP, November 30, 2016, 20:01. INDICATIONS : Short of breath. MEDICAL HISTORY : Chronic obstructive pulmonary disease. Renal failure, chronic. SURGICAL HISTORY : None. ENCOUNTER: Initial ACUITY: 3 days PAIN SCORE: 0/10 LOCATION: Bilateral chest FINDINGS: PA and lateral views of the chest demonstrate the lungs to be symmetrically aerated without evidence of mass, infiltrate or effusion. The cardiomediastinal contours are unremarkable except tortuous aor ta. CONCLUSION: 1. No acute findings. Prior right-sided rib fractures. Sebastián Walker MD on December 24, 2016 at 20:02 Board Certified Radiologist. This report was verified electronically.
[2016-12-24] MEDS ORDERED: NALOXONE HCL 0.4 MG/ML AMP IV PRN (21:00)
[2016-12-24] MEDS ORDERED: RESP: IPRATROPIUM 0.5 MG/2.5 ML NEB NEB PRN (21:00)
[2016-12-24] MEDS ORDERED: LORazepam 2 MG/ML VIAL IV PUSH PRN (21:00)
[2016-12-24] MEDS: SODIUM CHLORIDE 0.9% FLUSH 10 ML FLUSH IV FLUSH SCH (21:29)
[2016-12-24] MEDS: RESP: IPRATROPIUM 0.5 MG/2.5 ML NEB NEB SCH (21:31)
[2016-12-24] MEDS ORDERED: THIAMINE HCL 100 MG TAB PO ONE (22:00)
[2016-12-24] MEDS: SODIUM CHLORIDE 0.9% FLUSH 10 ML FLUSH IV FLUSH PRN (23:53)
[2016-12-24] MEDS: methylPREDNISolone SOD SUCC 40 MG/1 ML VIAL IV PUSH SCH (23:53)
[2016-12-25] MEDS: RESP: IPRATROPIUM 0.5 MG/2.5 ML NEB NEB SCH ×2 (03:17→09:13)
[2016-12-25 04:00] VITALS: BP 119/78; PULSE 89; RESP 20; TEMP 97.7; O2SAT 99
[2016-12-25] MEDS: methylPREDNISolone SOD SUCC 40 MG/1 ML VIAL IV PUSH SCH (06:19)
[2016-12-25] MEDS: SODIUM CHLORIDE 0.9% FLUSH 10 ML FLUSH IV FLUSH PRN (06:20)
[2016-12-25 06:48] LABS: AUTOMATED NEUTROPHIL # 4.2 TH/MM3 (1.8-7.7); BASOPHIL % 0.6 % (0.0-2.0); HEMATOCRIT 36.3 % (35.0-46.0); LYMPH % 11.7 % (9.0-44.0); LYMPHOCYTE # 0.5 TH/MM3 (1.0-4.8); MEAN CELL VOLUME 105.2 FL (80.0-100.0); MEAN CORPUSCULAR HEMOGLOBIN 34.7 PG (27.0-34.0); MONO % 0.8 % (0.0-8.0); NEUT % 86.9 % (16.0-70.0); PLATELET COUNT 100 TH/MM3 (150-450); RED BLOOD COUNT 3.45 MIL/MM3 (4.00-5.30); RED CELL DISTRIBUTION WIDTH 12.8 % (11.6-17.2); WHITE BLOOD COUNT 4.7 TH/MM3 (4.0-11.0)
--- NOTE | 2016-12-25 06:50 | EKG ---
Date Performed: 12/24/2016 Time Performed: 17:48:30 PTAGE: 66 years EKG: SINUS TACHYCARDIA NONSPECIFIC T-WAVE ABNORMALITY POSSIBLE PROLONGED QT INTERVAL ABNORMAL RH YTHM ECG NO PREVIOUS TRACING DOCTOR: Delgado Garsia Interpretating Date/Time 12/25/2016 06:49:09
[2016-12-25 07:03] LABS: HEMO FLAGS AUTO DIFF
[2016-12-25 07:10] LABS: BICARBONATE 24.9 MEQ/L (21.0-32.0); POTASSIUM 4.7 MEQ/L (3.5-5.1)
[2016-12-25 07:28] LABS: PLATELET ESTIMATE SMEAR LOW (NORMAL); PLATELET MORPHOLOGY NORMAL (NORMAL); SCAN/DIFF AUTO DIFF CONFIRMED
[2016-12-25 08:00] VITALS: BP 113/66; PULSE 97; RESP 20; TEMP 98.3; O2SAT 100
[2016-12-25] MEDS ORDERED: PANTOPRAZOLE SOD 40 MG DELAYED RELEASE TAB PO SCH (09:00)
[2016-12-25] MEDS ORDERED: THIAMINE HCL 100 MG TAB PO SCH (09:00)
[2016-12-25] MEDS: SODIUM CHLORIDE 0.9% FLUSH 10 ML FLUSH IV FLUSH SCH (09:00)
[2016-12-25 09:15] VITALS: O2SAT 96
--- NOTE | 2016-12-25 09:55 | HHI.HP ---
[facility] Primary Care Physician Non-Staff Admission Diagnosis Alcohol/benzo withdrawal Diagnoses: (1) Shortness of breath Diagnosis: Principal (2) Anxiety Diagnosis: Principal (3) Benzodiazepine withdrawal Diagnosis: Principal (4) Alcohol withdrawal Diagnosis: Principal (5) COPD (chronic obstructive pulmonary disease) Diagnosis: Secondary Chief Complaint: Shortness of breath and dyspnea Travel History International Travel<30 Days: No Contact w/Intl Traveler <30 Da: No Traveled to Known Affected Are: No History of Present Illness 66-year-old female with known history of anxiety, chronic obstructive pulmonary disease, chronic neck pain who presented to the hospital because of shortness of breath and dyspnea. Patient has rather complex medical history with recurrent evaluations in the emergency department, primary doctor office visits, psychiatry office visits. Patient indicates that she did come to the hospital yesterday because she had shortness of breath, dyspnea, she states that she was having extremity tremors and she is going through medication withdrawal. She indicates that she went to her primary medical doctor yesterday morning and was diagnosed with bronchitis and was given a prescription for antibiotics. She indicates that she requested her primary medical doctor prescribe her her Xanax. She indicates that they have been trying to wean her off of benzodiazepines at this time. She states that she was supposedly down to one tablet twice daily instead of 3 times daily. However she has been out of the medication for one week and primary medical doctor would not refill the medication. They indicated that should follow-up with her psychiatrist for prescription She deliver those to the pharmacy and in the time that she was waiting to pick them up she started having increasing shortness of breath, dyspnea in which was not relieved by the use of nebulizer so she came to the hospital for evaluation. Patient indicates that she did have a appointment with her psychiatrist yesterday evening, however she came the hospital and was unable to make the appointment. Patient was just evaluated in emergency department the other day as well for withdrawal symptoms and was prescribed Vistaril in which she states that she fill the prescription and she indicates that those pills were like candy that did absolutely nothing for her. Patient had workup done emergency department, patient was found to be tachycardic, extremity tremors and ER physician felt the patient is actively going through withdrawals and recommended patient be admitted for further evaluation and management. Review of Systems Constitutional: DENIES: Diaphoretic episodes, Fatigue, Fever, Weight gain, Weight loss, Chills, Dizziness, Change in appetite, Night Sweats Eyes: DENIES: Blurred vision, Diplopia, Eye inflammation, Eye pain, Vision loss , Double Vision Ears, nose, mouth, throat: DENIES: Hearing loss, Nasal discharge, Throat pain, Ear Pain, Running Nose, Sinus Pain Respiratory: COMPLAINS OF: Shortness of breath, DENIES: Apneas, Cough, Snoring , Wheezing, Hemoptysis, Sputum production Cardiovascular: DENIES: Chest pain, Palpitations, Syncope, Dyspnea on Exertion , Lower Extremity Edema, Orthopnea Gastrointestinal: DENIES: Abdominal pain, Black stools, Bloody stools, Constipation, Diarrhea, Nausea, Vomiting, Difficulty Swallowing, Anorexia Neurologic: DENIES: Abnormal gait, Headache, Localized weakness, Paresthesias, Seizures, Speech Problems, Tremor, Poor Balance Psychiatric: COMPLAINS OF: Anxiety, Depression, DENIES: Confusion, Mood changes, Agitation, Suicidal Ideation, Homicidal Ideation Past Family Social History Past Medical History Chronic obstructive pulmonary disease Generalized anxiety disorder History of panic attack Alcoholism with liver cirrhosis and fatty liver History of alcoholic encephalopathy Chronic neck and back pain Arthritis Chronic tobacco use History of seizures Hypothyroidism Hepatitis C Past Surgical History Hysterectomy Left arm fracture repair Tonsillectomy Reported Medications Reported Meds & Active Scripts Active Ventolin Hfa 18 GM Inh (Albuterol Sulfate) 90 Mcg/Act Aer 2 Puff INH Q4H PRN Reported Sleep-Aid (Diphenhydramine HCl) 25 Mg Capsule 1 Tab PO DAILY Percocet (Oxycodone-Acetaminophen) 10-325 mg Tab 1 Tab PO TID PRN Symbicort Inh (Budesonide/Formoterol Fumarate) 160-4.5 Mcg/Act Aero 2 Puff INH Q12HR Fluoxetine (Fluoxetine HCl) 40 Mg Cap 40 Cap PO DAILY Xanax (Alprazolam) 2 Mg Tab 2 Mg PO TID PRN Allergies: Coded Allergies: No Known Allergies (Unverified , 12/24/16) Family History Reviewed and unremarkable Social History Patient smokes approximately 1/2 half a pack a cigarettes a day since she was 15 years of age, patient states that she does drink alcohol approximately 2 glasses of wine daily. Patient denies any illicit drug use Physical Exam Vital Signs Vital Signs Date Time Temp Pulse Resp B/P Pulse Ox O2 Delivery O2 Flow Rate FiO2 12/25/16 09:15 96 Nasal Cannula 2.00 12/25/16 04:00 97.7 89 20 119/78 99 12/24/16 22:20 118 12/24/16 22:20 98.0 116 20 140/83 99 12/24/16 22:00 98.2 120 20 142/79 97 Nasal Cannula 2 12/24/16 21:30 118 20 128/69 96 Nasal Cannula 2 12/24/16 21:30 98 Nasal Cannula 2.00 12/24/16 21:00 116 20 123/73 97 Nasal Cannula 2 12/24/16 20:30 118 20 141/76 96 Nasal Cannula 2 12/24/16 20:00 120 20 135/69 97 Nasal Cannula 2 12/24/16 19:30 112 22 131/80 100 Nasal Cannula 2 12/24/16 19:20 98.1 113 22 131/80 100 Nasal Cannula 2 12/24/16 19:00 22 100 Nasal Cannula 2 12/24/16 19:00 98.2 114 22 121/75 99 Nasal Cannula 2 12/24/16 18:22 100 Nasal Cannula 1.00 12/24/16 18:08 122 99 Nasal Cannula 2 12/24/16 17:52 99.3 122 24 133/88 98 12/24/16 17:40 98 Nasal Cannula 2 12/24/16 17:40 98 Nasal Cannula 2 Physical Exam GENERAL: Well-developed, well-nourished, in no acute distress. alert and orientated HEENT: Head is normocephalic without any lesions or masses noted. Facial features are symmetric. Eyes: No nystagmus noted. Pupils equal round reactive to light. Extraocular muscles are intact. Conjunctivae were clear. Oropharyngeal : Pharynx without any erythema edema. Tongue is midline without deviation. Buccal mucosa is moist without any masses or lesions NECK: Supple without any masses. Trachea midline no deviation. No JVD, no bruits are appreciated CARDIAC: Regular rhythm, regular rate. S1/S2 are heard. No murmurs gallops or rubs. LUNGS: Clear to auscultation bilaterally. No wheeze, rhonchi or rales. No use of accessory muscles on inspiration or expiration. ABDOMEN: Soft, nontender. Nondistended. Bowel sounds heard in all 4 quadrants. No organomegaly or masses. Negative rebound, negative guarding EXTREMITIES: No edema, pulses are equal bilaterally. No cyanosis or clubbing. 2 + tremors in the upper extremity NEUROLOGY: Mood and affect appear appropriate. Cranial nerves II through XII grossly intact. Muscle strength 5/5 in upper and lower extremities bilaterally. Deep tendon reflexes are 2+ in upper and lower extremities bilaterally. Laboratory Laboratory Tests Test 12/24/16 12/25/16 17:40 05:35 White Blood Count 7.9 4.7 Red Blood Count 3.84 3.45 Hemoglobin 13.6 12.0 Hematocrit 39.8 36.3 Mean Corpuscular Volume 103.7 105.2 Mean Corpuscular Hemoglobin 35.4 34.7 Mean Corpuscular Hemoglobin 34.2 33.0 Concent Red Cell Distribution Width 12.6 12.8 Platelet Count 122 100 Mean Platelet Volume 9.0 8.8 Neutrophils (%) (Auto) 54.6 86.9 Lymphocytes (%) (Auto) 36.5 11.7 Monocytes (%) (Auto) 7.0 0.8 Eosinophils (%) (Auto) 1.0 0.0 Basophils (%) (Auto) 0.9 0.6 Neutrophils # (Auto) 4.2 4.2 Lymphocytes # (Auto) 2.9 0.5 Monocytes # (Auto) 0.6 0.0 Eosinophils # (Auto) 0.1 0.0 Basophils # (Auto) 0.1 0.0 CBC Comment DIFF FINAL AUTO DIFF Differential Comment AUTO DIFF CONFIRMED Prothrombin Time 14.7 Prothromb Time International 1.3 Ratio Activated Partial 23.6 Thromboplast Time Sodium Level 142 144 Potassium Level 3.5 4.7 Chloride Level 105 109 Carbon Dioxide Level 16.4 24.9 Anion Gap 21 10 Blood Urea Nitrogen 15 17 Creatinine 1.60 1.40 Estimat Glomerular Filtration 32 38 Rate Random Glucose 152 204 Calcium Level 9.0 8.8 Total Bilirubin 1.0 Aspartate Amino Transf 79 (AST/SGOT) Alanine Aminotransferase 71 (ALT/SGPT) Alkaline Phosphatase 89 Troponin I LESS THAN 0.02 B-Type Natriuretic Peptide 26 Total Protein 6.9 Albumin 3.8 Ethyl Alcohol Level 72 Platelet Estimate LOW Platelet Morphology Comment NORMAL Result Diagram: 12/25/16 0535 12/25/16 0535 Imaging Last Impressions Chest X-Ray 12/24/16 1807 Signed Impressions: Service Date/Time: Saturday, December 24, 2016 18:25 - CONCLUSION: 1. No acute findings. Prior right-sided rib fractures. Sebastián Walker MD Assessment and Plan Assessment and Plan Upper extremity tremors, anxiety, shortness of breath. Underlying withdrawal from benzodiazepine and alcohol. In a patient with alcohol and benzodiazepine addiction Monitor for withdrawal symptoms Continue thiamine/folic acid Start long-acting benzodiazepine to include Librium for management Ativan as needed for seizures Consult case management for Dallin G[facility]rie information Check TSH Chronic obstructive pulmonary disease without exacerbation Continue O2 supplementation maintain O2 sats greater 92% Ipratropium bromide every 6 hours Tapering dose prednisone Hyperglycemia Could be secondary to steroid use Start Accu-Cheks with sliding scale insulin Azotemia Records indicate patient has had previous episodes of azotemia, however does have GFR within the last year greater than 100 Start IV fluids Monitor renal function DVT prevention Sequential compression devices Physician Certification 2 Midnight Certification Type: Admission for Inpatient Services Order for Inpatient Services The services are ordered in accordance with Medicare regulations or non- Medicare payer requirements, as applicable. In the case of services not specified as inpatient-only, they are appropriately provided as inpatient services in accordance with the 2-midnight benchmark. Estimated LOS (days): 2 days is the estimated time the patient will need to remain in the hospital, assuming treatment plan goals are met and no additional complications. Post-Hospital Plan: Not yet determined Medical Decision Making Impression and Plan The exam, history, and the medical decision-making described in the above note were completed with the assistance of the mid-level provider. I reviewed and agree with the findings presented. I attest that I had a [id number] encounter with the patient on the same day, and personally performed and documented my assessment and findings in the medical record. Likely panic attack Agree with librium and psych follow up etoh avoidance encouraged patient in agreement d/c home diet heart healthy f/u pcp Problem Qualifiers (1) Benzodiazepine withdrawal: Qualified Code: F13.230 - Benzodiazepine withdrawal, uncomplicated (2) Alcohol withdrawal: Qualified Code: F10.230 - Alcohol withdrawal, uncomplicated (3) COPD (chronic obstructive pulmonary disease): Qualified Code: J44.9 - Chronic obstructive pulmonary disease, unspecified COPD type Matt Contreras Dec 25, 2016 09:55 Marisela West MD Dec 25, 2016 13:30 Matt Contreras Dec 25, 2016 09:55 Marisela West MD Dec 25, 2016 13:30
[2016-12-25] MEDS ORDERED: DEXTROSE 50% IN WATER 50 ML VIAL(D50) IV PRN (10:00)
[2016-12-25] MEDS ORDERED: FOLIC ACID 1 MG TAB PO SCH (10:00)
[2016-12-25] MEDS ORDERED: chlordiazePOXIDE 25 MG CAP PO PRN (10:00)
[2016-12-25] MEDS ORDERED: GLUCAGON 1 MG/ML VIAL OTHER PRN (10:00)
[2016-12-25] MEDS ORDERED: ONDANSETRON HCL 4 MG/2 ML VIAL IV PRN (10:15)
[2016-12-25] MEDS ORDERED: ACETAMINOPHEN 325 MG TAB PO PRN (10:15)
[2016-12-25] MEDS ORDERED: MAGNESIUM HYDROXIDE SUSP 30 ML CUP PO PRN (10:15)
[2016-12-25] MEDS ORDERED: SODIUM CHLOR 0.9% 1000 ML INJ 1,000 ML IV SCH (11:00)
[2016-12-25] MEDS ORDERED: INSULIN ASPART SUPPLEMENTAL SCALE SQ SCH (11:00)
[2016-12-25] MEDS ORDERED: LORazepam 2 MG/ML VIAL IV PUSH PRN (11:00)
[2016-12-25 12:00] VITALS: BP 122/74; PULSE 102; RESP 20; TEMP 98.5; O2SAT 95
[2016-12-25] MEDS ORDERED: CHLO25CA9 PO (13:32)
--- NOTE | 2016-12-25 13:32 | HHI.DCPOC ---
Discharge Care Plan Diagnosis: (1) Benzodiazepine abuse Goals to Promote Your Health * To prevent worsening of your condition and complications * To maintain your health at the optimal level Directions to Meet Your Goals Take your medications as prescribed Follow your dietary instruction Follow activity as directed Keep your appointments as scheduled Take your immunizations and boosters as scheduled If your symptoms worsen call your PCP, if no PCP go to Urgent Care Center or Emergency Room Smoking is Dangerous to Your Health. Avoid second hand smoke Call the 24-hour hour crisis hotline for domestic abuse at Marisela West MD Dec 25, 2016 13:32
[2016-12-25] MEDS ORDERED: predniSONE 20 MG TAB PO SCH (21:00)
== END 2016-12-25 15:07 | disposition home or self-care (01) ==
LOC: PHED 17:36 → PHEDA 20:57 → INTOOBSV 20:57 → PH3A 22:08
PROVIDERS: ADMIT Hospitalist; ATTEND Hospitalist
DX: J44.9 Chronic obstructive pulmonary disease, unspecified (principal); F19.939 Other psychoactive substance use, unspecified with withdrawal, unspecified; F10.239 Alcohol dependence with withdrawal, unspecified; R73.9 Hyperglycemia, unspecified; F17.210 Nicotine dependence, cigarettes, uncomplicated; F41.1 Generalized anxiety disorder; K70.30 Alcoholic cirrhosis of liver without ascites; K76.0 Fatty (change of) liver, not elsewhere classified; G89.29 Other chronic pain; M54.2 Cervicalgia; M54.9 Dorsalgia, unspecified; E03.9 Hypothyroidism, unspecified; B19.20 Unspecified viral hepatitis C without hepatic coma; M19.90 Unspecified osteoarthritis, unspecified site; F31.9 Bipolar disorder, unspecified; F03.90 Unspecified dementia, unspecified severity, without behavioral disturbance, psychotic disturbance, mood disturbance, and anxiety; I12.9 Hypertensive chronic kidney disease with stage 1 through stage 4 chronic kidney disease, or unspecified chronic kidney disease; N18.9 Chronic kidney disease, unspecified
CPT/HCPCS: 71020; 80048; 80053; 80307; 82948; 83880; 84443; 84484; 85025; 85610; 85730; 93005; 94640; 94664; 96361; 96374; 99285; G0378; J1815; J2060; J2920; J2930; J7030; J7040; J7644

== ENCOUNTER 2017-02-18 14:55 | Emergency (ER) | payer OTHER ==
[~2017-02-18] VITALS: Ht 162.6 cm; Wt 60.0 kg
[~2017-02-18 14:55] MED LIST changes: +CHLO25CA9 PO; +DIPH-201 PO; +PERC10TA27 PO; -PRED10PA2 PO; -VIST50CA PO; -XANA2TAB2 PO
[2017-02-18 15:05] VITALS: BP 100/68; PULSE 102; RESP 20; TEMP 97.7; O2SAT 98
--- NOTE | 2017-02-18 15:42 | PD ---
Physical Exam Date Seen by Provider: Feb 18, 2017 Time Seen by Provider: 15:39 Narrative 66 Y/O WF BY EMS FOR SHAKING OUT OF DETOX ON 01/29. OUT OF [facility] FOR 1 MONTH. PMD WILL NOT REFILL. NO SI OR HI VS REVIEWED AWAITING BED PLACEMENT Data Data Last Documented VS Vital Signs Date Time Temp Pulse Resp B/P Pulse Ox O2 Delivery O2 Flow Rate FiO2 02/18/17 15:05 97.7 102 20 100/68 98 Room Air MDM Supervised Visit with KYLE: Sebastián Brady Feb 18, 2017 15:42
[2017-02-18] MEDS ORDERED: CLON.5 PO (19:33)
--- NOTE | 2017-02-18 19:34 | PD ---
HPI Chief Complaint: Medical Clearance Time Seen by Provider: 18:59 Travel History International Travel<30 days: No Contact w/Intl Traveler<30days: No Traveled to known affect area: No History of Present Illness HPI 66-year-old female arrives complaining of benzodiazepine withdrawal. Her Xanax prescription was discontinued about a month ago. She has since had one Klonopin prescription for 2 weeks. She reports good effect with the Klonopin and the intention to eventually stop benzodiazepine use. She has no suicidal or homicidal ideation. She has no medical complaint aside from anxiety for the past several days of moderate severity without modifying factor. She reports history of alcoholism however recently attended a detox facility with her alcoholism currently in remission. PFS Past Medical History Arthritis: Yes Asthma: No Bipolar Disorder: Yes Anxiety: Yes (Panic attacks/ETOH ADDICTION) Depression: Yes (SINCE FAMILY DEATHS 4 YR AGE) Heart Rhythm Problems: Yes (SINUS TACH.) Cancer: No Cardiovascular Problems: Yes High Cholesterol: No Chest Pain: No Congestive Heart Failure: No Cirrhosis: Yes (Liver disease) COPD: Yes Cerebrovascular Accident: No Coronary Artery Disease: No Dementia: Yes (ALCOHOLIC) Diabetes: No Diminished Hearing: No Endocrine: Yes Gastrointestinal Disorders: Yes (esophageal varices, cirrhosis) GERD: No Genitourinary: Yes Headaches: Yes Hepatitis: Yes (Hep C) Hiatal Hernia: No Hypertension: Yes Immune Disorder: No Implanted Vascular Access Dvce: No Kidney Stones: No Musculoskeletal: Yes (Chronic back pain ) Neurologic: Yes Psychiatric: Yes (etoh dependence with mood disorder, opiod dependence) Reproductive: No Respiratory: Yes Immunizations Current: Yes Migraines: No Pneumonia: Yes Renal Failure: Yes (ckd) Seizures: Yes (LAST WAS IN 09/20) Sleep Apnea: No Thyroid Disease: Yes Ulcer: No PNEUMOCCOCAL Vaccine (Year): 1 ?: Not Menopausal: Yes : 1 Para: 1 Past Surgical History Abdominal Surgery: No Body Medical Devices: STEEL PLATE L ARM Cardiac Surgery: No Genitourinary Surgery: No Gynecologic Surgery: Yes (1993 HYSTERECTOMY) Hysterectomy: Yes Neurologic Surgery: Yes ("Nerve fusion" in back) Thoracic Surgery: No Tonsillectomy: Yes Other Surgery: Yes (Right hip bone graft to left arm ) Social History Alcohol Use: Yes (1 GLASS) Tobacco Use: Yes (1 PPD) Substance Use: No Allergies-Medications (Allergen,Severity, Reaction): Coded Allergies: No Known Allergies (Unverified , 02/18/17) Reported Meds & Prescriptions Reported Meds & Active Scripts Active Chlordiazepoxide HCl 25 Mg Capsule 25 Mg PO TID PRN Ventolin Hfa 18 GM Inh (Albuterol Sulfate) 90 Mcg/Act Aer 2 Puff INH Q4H PRN Reported Trintellix (Vortioxetine) 5 Mg Tab 5 Mg PO Topiramate 25 Mg Tab 25 Mg PO Quetiapine (Quetiapine Fumarate) 50 Mg Tab 50 Mg PO Prednisone (21) 10 mg tab Dose Pack (Prednisone) 10 Mg Pack 10 Mg PO DIRECTED Pantoprazole (Pantoprazole Sodium) 40 Mg Tab 40 Mg PO Lisinopril 40 Mg Tab 40 Mg PO Levothyroxine (Levothyroxine Sodium) 25 Mcg Tab 25 Mcg PO Hydroxyzine Pamoate 50 Mg Cap 50 Mg PO Hydroxyzine HCl 50 Mg Tab 50 Mg PO Clonidine (Clonidine HCl) 0.1 Mg Tab 0.1 Mg PO Amlodipine (Amlodipine Besylate) 5 Mg Tab 5 Mg PO Sleep-Aid (Diphenhydramine HCl) 25 Mg Capsule 1 Tab PO DAILY Percocet (Oxycodone-Acetaminophen) 10-325 mg Tab 1 Tab PO TID PRN Symbicort Inh (Budesonide/Formoterol Fumarate) 160-4.5 Mcg/Act Aero 2 Puff INH Q12HR Fluoxetine (Fluoxetine HCl) 40 Mg Cap 40 Cap PO DAILY Review of Systems Except as stated in HPI: all other systems reviewed are Neg General / Constitutional: No: Fever Psychiatric: Positive: Anxiety Physical Exam Narrative GENERAL: 66-year-old female speaking full sentences in no respiratory distress no tremor reasonably good historian SKIN: Warm and dry. HEAD: Atraumatic. Normocephalic. EYES: Pupils equal and round. No scleral icterus. No injection or drainage. ENT: No nasal bleeding or discharge. Mucous membranes pink and moist. NECK: Trachea midline. No JVD. CARDIOVASCULAR: Irregular rhythm. Heart rate about 95. RESPIRATORY: No accessory muscle use. Clear to auscultation. Breath sounds equal bilaterally. GASTROINTESTINAL: Abdomen soft, non-tender, nondistended. Hepatic and splenic margins not palpable. MUSCULOSKELETAL: Extremities without clubbing, cyanosis, or edema. No obvious deformities. NEUROLOGICAL: Awake and alert. No obvious cranial nerve deficits. Motor grossly within normal limits. Five out of 5 muscle strength in the arms and legs. Normal speech. PSYCHIATRIC: Appropriate mood and affect; insight and judgment normal. Data Data Last Documented VS Vital Signs Date Time Temp Pulse Resp B/P Pulse Ox O2 Delivery O2 Flow Rate FiO2 02/18/17 15:05 97.7 102 20 100/68 98 Room Air Vital signs reviewed Orders Clonazepam (Klonopin) (02/18/17 19:45) Albuterol Hfa Inh (Proair Hfa Inh) (02/18/17 20:00) Albuterol-Ipratropium Neb (Duoneb Neb) (02/18/17 20:15) Albuterol Hfa Inh (Ventolin Hfa Inh) (02/18/17 21:00) [facility] Medical Decision Making Medical Screen Exam Complete: Yes Emergency Medical Condition: Yes Medical Record Reviewed: Yes Differential Diagnosis Medication refill, benzodiazepine withdrawal, alcoholism, anxiety Narrative Course Patient reports quitting alcohol as well as attempting to use stop taking benzodiazepines. We'll provide a 2 week course of the lowest dose Klonopin which she states she will try to taper as long as she can. She isn't suicidal or homicidal ideation. She has follow-up pain management and primary care provider. At the time of discharge the patient reported to the nurse that she was wheezing. Upon entering the room the patient was found resting comfortably with her eyes closed and with an oxygen saturation of 99%. Upon waking she began wheezing somewhat probably, possibly voluntarily, O2 sat remained at about 99% on room air. Upon waking the tremor also appeared to become somewhat more coarse. The patient was ambulated around the pod and the O2 sat upon return to her room was 90% for a few seconds and then increased to 96% within 30 seconds or so. DuoNeb x 2 was ordered. Patient reassessed at 9:30 PM. Again she was found resting comfortable with her eyes closed. Her oxygen saturation was 100% on room air while supine with a respiratory rate of 18. Patient stated she could not go home on account of having to take a bus. Upon notification that it would be possible to admit her the patient was able to call a friend. Diagnosis Primary Impression: Medication refill Additional Impression: COPD (chronic obstructive pulmonary disease) Qualified Code: J44.9 - Chronic obstructive pulmonary disease, unspecified COPD type Referrals: Primary Care Physician call for appointment Additional Instructions: You have a choice when it comes to health care, and we are glad that you chose [facility]. Hopefully, we have met your expectations on today's visit. You are welcome to return to [facility] at any time, as we are committed to meeting the health care needs of our community. Med/Other Pt SpecificInfo: Prescription(s) given Disposition: 01 DISCHARGE HOME Condition: Fredrick Richards MD Feb 18, 2017 19:34
[2017-02-18] MEDS ORDERED: clonazePAM 0.5 MG TAB PO ONE (19:45)
[2017-02-18] MEDS ORDERED: CLON0.1T PO (19:46)
[2017-02-18] MEDS ORDERED: HYDR50TA94 PO (19:46)
[2017-02-18] MEDS ORDERED: AMLO5TAB2 PO (19:46)
[2017-02-18] MEDS ORDERED: PANT40TA3 PO (19:50)
[2017-02-18] MEDS ORDERED: QUET5TAB PO (19:50)
[2017-02-18] MEDS ORDERED: TOPI1TAB97 PO (19:50)
[2017-02-18] MEDS ORDERED: HYDR50CA PO (19:50)
[2017-02-18] MEDS ORDERED: PRED10PA PO (19:50)
[2017-02-18] MEDS ORDERED: LEVO25TA4 PO (19:50)
[2017-02-18] MEDS ORDERED: LISI40TA PO (19:50)
[2017-02-18] MEDS ORDERED: VORT1TAB PO (19:50)
[2017-02-18] MEDS: ALBUTEROL SULFATE 90 MCG/ACT HFA 8 GM INHALER INH ONE ×2 (20:00→20:46)
[2017-02-18] MEDS: RESP: ALBUTEROL 2.5 MG/IPRATROPIUM 0.5 MG NEB (SCH) INH (20:16)
[2017-02-18] MEDS ORDERED: ALBUTEROL SULFATE 90 MCG/ACT HFA 18 GM INHALER INH ONE (21:00)
== END 2017-02-18 21:00 | disposition home or self-care (01) ==
LOC: NEPD 14:55
DX: J44.9 Chronic obstructive pulmonary disease, unspecified (principal); Z76.0 Encounter for issue of repeat prescription
CPT/HCPCS: 94640; 94664; 99283

== ENCOUNTER 2017-03-10 20:42 | Emergency (ER) | payer OTHER ==
[~2017-03-10] VITALS: Ht 160 cm; Wt 54.7 kg
[~2017-03-10 20:42] MED LIST changes: +AMLO5TAB2 PO; +CLON0.1T PO; +HYDR50CA PO; +HYDR50TA94 PO; +LEVO25TA4 PO; +LISI40TA PO; +PANT40TA3 PO; +PRED10PA PO; +QUET5TAB PO; +TOPI1TAB97 PO; +VORT1TAB PO
[2017-03-10 20:44] VITALS: BP 119/85; PULSE 112; RESP 22; TEMP 97.9; O2SAT 99
[2017-03-10 21:10] VITALS: BP 111/89; PULSE 89; RESP 26; O2SAT 100
--- NOTE | 2017-03-10 21:29 | PD ---
HPI Chief Complaint: Dizziness Time Seen by Provider: 21:04 Travel History International Travel<30 days: No Contact w/Intl Traveler<30days: No Traveled to known affect area: No History of Present Illness HPI 66-year-old female complains of dizzy, feels shaky, diarrhea, anxiety. Patient has history of anxiety and was on Xanax in the past. Patient states that her physician stopped giving her prescription for Xanax recently. Patient was given prescription for Klonopin recently. Patient states that she ran out of Klonopin a few days ago. Patient has been taking Vistaril without much relief of the anxiety problem. Patient also has history alcohol abuse in the past. Patient states that she hasn't had alcohol drinks for the past several months. Patient denies any headache. Patient denies any chest pain or shortness of breath. Patient has history COPD and has been using her inhaler as needed. Patient denies abdominal pain. Patient states that she has intermittent diarrhea for the past few days. Patient denies any dysuria or frequency. Patient denies any fever chills. Patient denies any illicit drug abuse. Patient was seen in emergency room 2 and a half weeks ago for benzodiazepine withdrawal symptoms. Patient was given prescription for Klonopin at that time. Patient states that she has not slept for the past 2 days. PFSH Past Medical History Arthritis: Yes Asthma: No Bipolar Disorder: Yes Anxiety: Yes (Panic attacks/ETOH ADDICTION) Depression: Yes (SINCE FAMILY DEATHS 4 YR AGE) Heart Rhythm Problems: Yes (SINUS TACH.) Cancer: No Cardiovascular Problems: Yes (COPD) High Cholesterol: No Chest Pain: No Congestive Heart Failure: No Cirrhosis: Yes (Liver disease) COPD: Yes Cerebrovascular Accident: No Coronary Artery Disease: No Dementia: Yes (ALCOHOLIC) Diabetes: No Diminished Hearing: No Endocrine: Yes Gastrointestinal Disorders: Yes (esophageal varices, cirrhosis) GERD: No Genitourinary: Yes Headaches: Yes Hepatitis: Yes (Hep C) Hiatal Hernia: No Hypertension: Yes Immune Disorder: No Implanted Vascular Access Dvce: No Kidney Stones: No Musculoskeletal: Yes (Chronic back pain ) Neurologic: Yes Psychiatric: Yes (etoh dependence with mood disorder, opiod dependence) Reproductive: No Respiratory: Yes Immunizations Current: Yes Migraines: No Pneumonia: Yes Renal Failure: Yes (ckd) Seizures: Yes (STATES TODAY) Sleep Apnea: No Thyroid Disease: Yes Ulcer: No PNEUMOCCOCAL Vaccine (Year): 1 ?: Not Menopausal: Yes : 1 Para: 1 Past Surgical History Abdominal Surgery: No Body Medical Devices: STEEL PLATE L ARM Cardiac Surgery: No Genitourinary Surgery: No Gynecologic Surgery: Yes (1993 HYSTERECTOMY) Hysterectomy: Yes Neurologic Surgery: Yes ("Nerve fusion" in back) Thoracic Surgery: No Tonsillectomy: Yes Other Surgery: Yes (Right hip bone graft to left arm ) Social History Alcohol Use: No Tobacco Use: Yes (1 PPD) Substance Use: No Allergies-Medications (Allergen,Severity, Reaction): Coded Allergies: No Known Allergies (Unverified , 02/18/17) Reported Meds & Prescriptions Reported Meds & Active Scripts Active Ventolin Hfa 18 GM Inh (Albuterol Sulfate) 90 Mcg/Act Aer 2 Puff INH Q4H PRN Reported Potassium Gluconate 595 Mg (99 Mg) Tab 1 Tab PO DAILY Calcium 600 with Vitamin D (Calcium Carbonate-Cholecalciferol) 600-400 mg-Unit Tab 2 Tab PO DAILY Topiramate 25 Mg Tab 25 Mg PO BID Quetiapine (Quetiapine Fumarate) 50 Mg Tab 50 Mg PO BID Hydroxyzine Pamoate 50 Mg Cap 50 Mg PO TID PRN Gabapentin 300 Mg Cap 300 Mg PO DAILY Levothyroxine (Levothyroxine Sodium) 25 Mcg Tab 25 Mcg PO Clonidine (Clonidine HCl) 0.1 Mg Tab 0.1 Mg PO Symbicort Inh (Budesonide/Formoterol Fumarate) 160-4.5 Mcg/Act Aero 2 Puff INH Q12HR Fluoxetine (Fluoxetine HCl) 40 Mg Cap 40 Cap PO DAILY Review of Systems General / Constitutional: No: Fever Eyes: No: Visual changes HENT: Positive: Lightheadedness, No: Headaches Cardiovascular: No: Chest Pain or Discomfort Respiratory: No: Shortness of Breath Gastrointestinal: No: Abdominal Pain Genitourinary: No: Dysuria Musculoskeletal: No: Pain Skin: No Rash Neurologic: No: Weakness Psychiatric: No: Depression Endocrine: No: Polydipsia Hematologic/Lymphatic: No: Easy Bruising Physical Exam Narrative GENERAL: Well-nourished, well-developed patient. SKIN: Focused skin assessment warm/dry. HEAD: Normocephalic. EYES: No scleral icterus. No injection or drainage. NECK: Supple, trachea midline. No JVD or lymphadenopathy. CARDIOVASCULAR: Mild tachycardia rate and rhythm without murmurs, gallops, or rubs. RESPIRATORY: Breath sounds equal bilaterally. No accessory muscle use. Patient has mild expiratory wheezes bilaterally. GASTROINTESTINAL: Abdomen soft, non-tender, nondistended. MUSCULOSKELETAL: No cyanosis, or edema. BACK: Nontender without obvious deformity. No CVA tenderness. Neurologic exam: Patient awake and alert oriented 3. Patient's appearing anxious. Patient moves all extremity well. No obvious focal neurological deficit. Data Data Last Documented VS Vital Signs Date Time Temp Pulse Resp B/P (MAP) Pulse Ox O2 Delivery O2 Flow Rate FiO2 03/10/17 21:10 89 26 100 Room Air 03/10/17 21:10 111/89 (96) 03/10/17 20:44 97.9 Orders Orders Complete Blood Count With Diff (03/10/17 21:17) Basic Metabolic Panel (Bmp) (03/10/17 21:17) Urinalysis - C+S If Indicated (03/10/17 21:17) Iv Access Insert/Monitor (03/10/17 21:17) Ecg Monitoring (03/10/17 21:17) Oximetry (03/10/17 21:17) Lorazepam Inj (Ativan Inj) (03/10/17 21:30) Albuterol-Ipratropium Neb (Duoneb Neb) (03/10/17 21:30) Labs Laboratory Tests Test 03/10/17 21:25 White Blood Count 8.0 TH/MM3 Red Blood Count 4.02 MIL/MM3 Hemoglobin 12.9 GM/DL Hematocrit 38.4 % Mean Corpuscular Volume 95.7 FL Mean Corpuscular Hemoglobin 32.2 PG Mean Corpuscular Hemoglobin Concent 33.6 % Red Cell Distribution Width 13.3 % Platelet Count 263 TH/MM3 Mean Platelet Volume 8.2 FL Neutrophils (%) (Auto) 48.4 % Lymphocytes (%) (Auto) 41.0 % Monocytes (%) (Auto) 7.1 % Eosinophils (%) (Auto) 2.6 % Basophils (%) (Auto) 0.9 % Neutrophils # (Auto) 3.8 TH/MM3 Lymphocytes # (Auto) 3.3 TH/MM3 Monocytes # (Auto) 0.6 TH/MM3 Eosinophils # (Auto) 0.2 TH/MM3 Basophils # (Auto) 0.1 TH/MM3 CBC Comment DIFF FINAL Differential Comment Blood Urea Nitrogen 21 MG/DL Creatinine 1.30 MG/DL Random Glucose 98 MG/DL Calcium Level 9.6 MG/DL Sodium Level 141 MEQ/L Potassium Level 3.6 MEQ/L Chloride Level 108 MEQ/L Carbon Dioxide Level 21.6 MEQ/L Anion Gap 11 MEQ/L Estimat Glomerular Filtration Rate 41 ML/MIN MDM Medical Decision Making Medical Screen Exam Complete: Yes Emergency Medical Condition: Yes Interpretation(s) 22 31 PM. CBC within normal limit. BUN 21. Creatinine 1.30. GFR 41. Differential Diagnosis Differential diagnosis including acute anxiety, COPD exacerbation, electrolyte imbalance, benzodiazepine withdrawal. Narrative Course 66-year-old female with feeling dizzy and shaky diarrhea and insomnia. History of benzodiazepine dependence for anxiety. Xanax and Klonopin was stopped recently. Patient's on Vistaril. History of COPD also. Albuterol with Atrovent unit dose treatment times one. Ativan 1 mg IV. Diagnosis Primary Impression: Anxiety Additional Impression: COPD with acute exacerbation Patient Instructions: General Instructions Additional Instructions: Continue with albuterol inhaler as directed. Continue with Vistaril as directed. Follow-up with personal physician. Return if worse. Med/Other Pt SpecificInfo: No Change to Meds Disposition: 01 DISCHARGE HOME Condition: Stable Puma Canales MD Mar 10, 2017 21:29
[2017-03-10] MEDS ORDERED: LORazepam 2 MG/ML VIAL IV PUSH ONE (21:30)
[2017-03-10] MEDS ORDERED: RESP: ALBUTEROL 2.5 MG/IPRATROPIUM 0.5 MG NEB (SCH) INH ONE (21:30)
[2017-03-10 21:35] VITALS: BP 142/88; PULSE 83; RESP 18; O2SAT 97
[2017-03-10 21:43] LABS: AUTOMATED NEUTROPHIL # 3.8 TH/MM3 (1.8-7.7); BASOPHIL # 0.1 TH/MM3 (0-0.2); BASOPHIL % 0.9 % (0.0-2.0); EOSINOPHIL # 0.2 TH/MM3 (0-0.4); EOSINOPHIL % 2.6 % (0.0-4.0); HEMATOCRIT 38.4 % (35.0-46.0); HEMO FLAGS DIFF FINAL; LYMPHOCYTE # 3.3 TH/MM3 (1.0-4.8); MEAN CELL VOLUME 95.7 FL (80.0-100.0); MEAN CORPUSCULAR HEMOGLOBIN 32.2 PG (27.0-34.0); MEAN CORPUSCULAR HGB CONC 33.6 % (32.0-36.0); MONO % 7.1 % (0.0-8.0); NEUT % 48.4 % (16.0-70.0); PLATELET COUNT 263 TH/MM3 (150-450); RED BLOOD COUNT 4.02 MIL/MM3 (4.00-5.30); RED CELL DISTRIBUTION WIDTH 13.3 % (11.6-17.2)
[2017-03-10 21:54] LABS: POTASSIUM 3.6 MEQ/L (3.5-5.1)
[2017-03-10 21:57] LABS: BICARBONATE 21.6 MEQ/L (21.0-32.0)
[2017-03-10 22:10] VITALS: BP 139/73; PULSE 87; RESP 18; O2SAT 97
[2017-03-10] MEDS ORDERED: HYDR50CA PO (22:13)
[2017-03-10] MEDS ORDERED: QUET5TAB PO (22:13)
[2017-03-10] MEDS ORDERED: POTA595T PO (22:13)
[2017-03-10] MEDS ORDERED: TOPI1TAB97 PO (22:13)
[2017-03-10] MEDS ORDERED: CALC1TAB87 PO (22:13)
[2017-03-10] MEDS ORDERED: GABA300C5 PO (22:13)
== END 2017-03-10 22:48 | disposition home or self-care (01) ==
LOC: PHED 20:42
DX: F41.9 Anxiety disorder, unspecified (principal); J44.1 Chronic obstructive pulmonary disease with (acute) exacerbation; R19.7 Diarrhea, unspecified; R25.1 Tremor, unspecified; I10 Essential (primary) hypertension; E07.9 Disorder of thyroid, unspecified; K74.60 Unspecified cirrhosis of liver; F17.200 Nicotine dependence, unspecified, uncomplicated; Z87.39 Personal history of other diseases of the musculoskeletal system and connective tissue; Z86.59 Personal history of other mental and behavioral disorders; Z86.79 Personal history of other diseases of the circulatory system; Z87.09 Personal history of other diseases of the respiratory system; Z87.19 Personal history of other diseases of the digestive system; Z87.448 Personal history of other diseases of urinary system; Z86.19 Personal history of other infectious and parasitic diseases; Z86.69 Personal history of other diseases of the nervous system and sense organs
CPT/HCPCS: 80048; 85025; 94664; 96374; 99284; J2060

== ENCOUNTER 2017-03-15 01:03 | Inpatient (IN) | payer OTHER, MEDICARE ==
[~2017-03-15] VITALS: Ht 162.6 cm; Wt 71.6 kg
[2017-03-15] VITALS (19 sets, daily range): BP systolic 99–150; BP diastolic 56–90; PULSE 102–130; RESP 15–35; TEMP 98.4–98.9; O2SAT 92–100
[~2017-03-15 01:03] MED LIST changes: -AMLO5TAB2 PO; +CALC1TAB87 PO; -CHLO25CA9 PO; -DIPH-201 PO; +GABA300C5 PO; -HYDR50TA94 PO; -LISI40TA PO; -PANT40TA3 PO; -PERC10TA27 PO; +POTA595T PO; -PRED10PA PO; -VORT1TAB PO
[2017-03-15] MEDS ORDERED: LORazepam 2 MG/ML VIAL IV PUSH ONE (01:15)
[2017-03-15] MEDS ORDERED: SODIUM CHLORIDE 0.9% FLUSH 10 ML FLUSH IVF PRN ×2 (01:15→03:45)
[2017-03-15 01:29] LABS: AUTOMATED NEUTROPHIL # 17.9 TH/MM3 (1.8-7.7); BASOPHIL # 0.1 TH/MM3 (0-0.2); BASOPHIL % 0.6 % (0.0-2.0); EOSINOPHIL # 0.2 TH/MM3 (0-0.4); EOSINOPHIL % 0.9 % (0.0-4.0); HEMATOCRIT 37.4 % (35.0-46.0); LYMPH % 12.5 % (9.0-44.0); LYMPHOCYTE # 2.8 TH/MM3 (1.0-4.8); MEAN CELL VOLUME 93.6 FL (80.0-100.0); MEAN CORPUSCULAR HEMOGLOBIN 31.2 PG (27.0-34.0); MEAN CORPUSCULAR HGB CONC 33.4 % (32.0-36.0); MONO % 6.2 % (0.0-8.0); NEUT % 79.8 % (16.0-70.0); PLATELET COUNT 270 TH/MM3 (150-450); RED BLOOD COUNT 3.99 MIL/MM3 (4.00-5.30); RED CELL DISTRIBUTION WIDTH 12.9 % (11.6-17.2); WHITE BLOOD COUNT 22.4 TH/MM3 (4.0-11.0)
[2017-03-15 01:30] LABS: HEMO FLAGS DIFF FINAL
--- NOTE | 2017-03-15 01:39 | PD ---
HPI Chief Complaint: Respiratory Symptoms Time Seen by Provider: 01:11 Travel History International Travel<30 days: No Contact w/Intl Traveler<30days: No Traveled to known affect area: No History of Present Illness HPI 66-year-old female with 1 day of increasing shortness of breath and wheezing. Patient recently discontinued off of Xanax and changed to Seroquel for anxiety. Patient admits to drinking alcohol prior to arrival to the emergency department 1. Patient has history of COPD. Patient denies fever or chills. Patient's had productive cough of yellow sputum without hemoptysis. Patient has had chest tightness. Patient denies abdominal pain. EMS administered Solu- Medrol 125 mg IV and updraft albuterol treatments 3. No reported injury or fall. PFSH Past Medical History Narrative Medical Arthritis COPD anxiety depression dementia cirrhosis tobacco; nursing notes reviewed Arthritis: Yes Asthma: No Bipolar Disorder: Yes Anxiety: Yes (Panic attacks/ETOH ADDICTION) Depression: Yes (SINCE FAMILY DEATHS 4 YR AGE) Heart Rhythm Problems: Yes (SINUS TACH.) Cancer: No Cardiovascular Problems: Yes (COPD) High Cholesterol: No Chest Pain: No Congestive Heart Failure: No Cirrhosis: Yes (Liver disease) COPD: Yes Cerebrovascular Accident: No Coronary Artery Disease: No Dementia: Yes (ALCOHOLIC) Diabetes: No Diminished Hearing: No Endocrine: Yes Gastrointestinal Disorders: Yes (esophageal varices, cirrhosis) GERD: No Genitourinary: Yes Headaches: Yes Hepatitis: Yes (Hep C) Hiatal Hernia: No Hypertension: Yes Immune Disorder: No Implanted Vascular Access Dvce: Yes Kidney Stones: No Musculoskeletal: Yes (Chronic back pain ) Neurologic: Yes Psychiatric: Yes (etoh dependence with mood disorder, opiod dependence) Reproductive: No Respiratory: Yes Immunizations Current: Yes Migraines: No Pneumonia: Yes Renal Failure: Yes (ckd) Seizures: Yes Sleep Apnea: No Thyroid Disease: Yes Ulcer: No PNEUMOCCOCAL Vaccine (Year): 1 ?: Not Menopausal: Yes : 1 Para: 1 Past Surgical History Abdominal Surgery: No Body Medical Devices: STEEL PLATE L ARM Cardiac Surgery: No Genitourinary Surgery: No Gynecologic Surgery: Yes (1993 HYSTERECTOMY) Hysterectomy: Yes Neurologic Surgery: Yes ("Nerve fusion" in back) Thoracic Surgery: No Tonsillectomy: Yes Other Surgery: Yes (Right hip bone graft to left arm ) Social History Alcohol Use: No Tobacco Use: Yes (1 PPD) Substance Use: No Allergies-Medications (Allergen,Severity, Reaction): Coded Allergies: No Known Allergies (Unverified , 03/15/17) Reported Meds & Prescriptions Reported Meds & Active Scripts Active Ventolin Hfa 18 GM Inh (Albuterol Sulfate) 90 Mcg/Act Aer 2 Puff INH Q4H PRN Reported Potassium Gluconate 595 Mg (99 Mg) Tab 1 Tab PO DAILY Quetiapine (Quetiapine Fumarate) 50 Mg Tab 50 Mg PO BID Hydroxyzine Pamoate 50 Mg Cap 50 Mg PO TID PRN Gabapentin 300 Mg Cap 300 Mg PO DAILY Levothyroxine (Levothyroxine Sodium) 25 Mcg Tab 25 Mcg PO Clonidine (Clonidine HCl) 0.1 Mg Tab 0.1 Mg PO Fluoxetine (Fluoxetine HCl) 40 Mg Cap 40 Cap PO DAILY Review of Systems Except as stated in HPI: all other systems reviewed are Neg General / Constitutional: No: Fever, Chills HENT: Positive: Congestion Cardiovascular: Positive: Chest Pain or Discomfort Respiratory: Positive: Shortness of Breath, Wheezing Gastrointestinal: No: Vomiting, Abdominal Pain Genitourinary: No: Flank Pain Musculoskeletal: No: Edema, Pain Skin: No Rash Neurologic: No: Weakness Psychiatric: Positive: Anxiety Endocrine: No: Heat Intolerance Hematologic/Lymphatic: No: Easy Bruising Physical Exam Narrative GENERAL: Well-developed female in obvious respiratory distress; appears anxious with work of breathing; GCS 15 SKIN: Warm and dry. HEAD: Normocephalic. EYES: No scleral icterus. No injection or drainage. NECK: Supple, trachea midline. No JVD or lymphadenopathy. CARDIOVASCULAR: Increased Regular rate and rhythm without murmurs, gallops, or rubs. RESPIRATORY: Breath sounds equal bilaterally diffuse expiratory wheezes. No accessory muscle use. GASTROINTESTINAL: Abdomen soft, non-tender, nondistended. MUSCULOSKELETAL: No cyanosis, or edema. BACK: Nontender without obvious deformity. No CVA tenderness. Data Data Last Documented VS Vital Signs Date Time Temp Pulse Resp B/P (MAP) Pulse Ox O2 Delivery O2 Flow Rate FiO2 03/15/17 03:01 98.6 119 133/71 (91) 93 Nasal Cannula 2.00 03/15/17 01:47 100 03/15/17 01:21 18 Orders Orders Complete Blood Count With Diff (03/15/17 01:11) Comprehensive Metabolic Panel (03/15/17 01:11) B-Type Natriuretic Peptide (03/15/17 01:11) Act Partial Throm Time (Ptt) (03/15/17 01:11) Prothrombin Time / Inr (Pt) (03/15/17 01:11) Magnesium (Mg) (03/15/17 01:11) Ckmb (Isoenzyme) Profile (03/15/17 01:11) Troponin I (03/15/17 01:11) Urinalysis - C+S If Indicated (03/15/17 01:11) Blood Culture (03/15/17 01:11) Iv Access Insert/Monitor (03/15/17 01:11) Electrocardiogram (03/15/17 01:11) Ecg Monitoring (03/15/17 01:11) Oximetry (03/15/17 01:11) Oxygen Administration (03/15/17 01:11) Chest, Single Ap (03/15/17 01:11) Sodium Chloride 0.9% Flush (Ns Flush) (03/15/17 01:15) Alcohol (Ethanol) (03/15/17 01:11) Drug Screen, Random Urine (03/15/17 01:11) Lorazepam Inj (Ativan Inj) (03/15/17 01:15) Albuterol-Ipratropium Neb (Duoneb Neb) (03/15/17 01:45) Ceftriaxone Inj (Rocephin Inj) (03/15/17 02:00) Azithromycin Inj (Zithromax Inj) (03/15/17 02:00) CKMB (03/15/17 01:10) CKMB% (03/15/17 01:10) Lactic Acid (03/15/17 02:26) Sodium Chlorid 0.9% 500 Ml Inj (Ns 500 M (03/15/17 02:30) Arterial Blood Gas (Abg) (03/15/17 ) Salicylates (Aspirin) (03/15/17 02:52) Sodium Chlor 0.9% 1000 Ml Inj (Ns 1000 M (03/15/17 03:00) Urine Culture (03/15/17 02:55) Vital Signs (Adult) Q4H (03/15/17 03:24) Bedside Glucose GHAZALA.AC&HS (03/15/17 03:24) Intake + Output GHAZALA.QSHIFT (03/15/17 03:24) Alcohol Withdrawal Asmt-Ciwa Q4HX18 (03/15/17 03:24) ^ Seizure Precautions (03/15/17 03:24) Folic Acid (Folate) (03/15/17 09:00) Thiamine (Vit B1) (Vitamin B1) (03/15/17 09:00) Multivitamins-Minerals Therap (Theragran (03/15/17 09:00) Consult Cm-Etoh Abuse Dc Plan (03/15/17 ) Flumazenil Inj (Romazicon Inj) (03/15/17 03:30) Lorazepam (Ativan) (03/15/17 03:30) Lorazepam Inj (Ativan Inj) (03/15/17 03:30) Lorazepam (Ativan) (03/15/17 03:30) Lorazepam Inj (Ativan Inj) (03/15/17 03:30) Lorazepam Inj (Ativan Inj) (03/15/17 03:30) Lorazepam Inj (Ativan Inj) (03/15/17 03:30) Haloperidol Inj (Haldol Inj) (03/15/17 03:30) Methylprednisolone So Succ Inj (Solumedr (03/15/17 06:00) Albuterol-Ipratropium Neb (Duoneb Neb) (03/15/17 08:00) Albuterol-Ipratropium Neb (Duoneb Neb) (03/15/17 03:30) Ceftriaxone Inj (Rocephin Inj) (03/16/17 03:00) Azithromycin Inj (Zithromax Inj) (03/16/17 04:00) Admit To Inpatient (03/15/17 ) Vital Signs (Adult) Q4H (03/15/17 03:24) Activity Oob With Assistance (03/15/17 03:24) Hydraulic Miner / Telemetry .CONTINUOUS (03/15/17 03:24) Intake + Output GHAZALA.QSHIFT (03/15/17 03:24) Diet Regular Basic (03/15/17 Breakfast) Sodium Chlor 0.9% 1000 Ml Inj (Ns 1000 M (03/15/17 03:24) Sodium Chloride 0.9% Flush (Ns Flush) (03/15/17 03:30) Sodium Chloride 0.9% Flush (Ns Flush) (03/15/17 09:00) Ondansetron Inj (Zofran Inj) (03/15/17 03:30) Comprehensive Metabolic Panel (03/16/17 06:00) Complete Blood Count With Diff (03/16/17 06:00) Scd Bilateral/Knee High GHAZALA.BID (03/15/17 03:24) Alcides Bilateral/Knee High GHAZALA.QSHIFT (03/15/17 03:28) Acetaminophen (Tylenol) (03/15/17 03:30) Oxycodone (Roxicodone) (03/15/17 03:30) Oxycodone (Roxicodone) (03/15/17 03:30) Docusate Sodium-Senna (Lindsey-Colace) (03/15/17 09:00) Magnesium Hydroxide Liq (Milk Of Magnesi (03/15/17 03:30) Sennosides (Senokot) (03/15/17 03:30) Bisacodyl Supp (Dulcolax Supp) (03/15/17 03:30) Lactulose Liq (Lactulose Liq) (03/15/17 03:30) Inpatient Certification (03/15/17 ) Budeson-Formot 160-4.5 Mg Inh (Symbicort (03/15/17 09:00) Lactic Acid (03/15/17 06:00) Admit Order (Ed Use Only) (03/15/17 ) ^ Saline Lock (03/15/17 03:31) Resp Oxygen Clifton C Titrat 1-4 L (03/15/17 ) Notify Dr: Other (03/15/17 03:31) Sodium Chloride 0.9% Flush (Ns Flush) (03/15/17 09:00) Sodium Chloride 0.9% Flush (Ns Flush) (03/15/17 03:45) Labs Laboratory Tests Test 03/15/17 01:10 03/15/17 02:55 03/15/17 03:04 03/15/17 03:08 White Blood Count 22.4 TH/MM3 Red Blood Count 3.99 MIL/MM3 Hemoglobin 12.5 GM/DL Hematocrit 37.4 % Mean Corpuscular Volume 93.6 FL Mean Corpuscular Hemoglobin 31.2 PG Mean Corpuscular Hemoglobin Concent 33.4 % Red Cell Distribution Width 12.9 % Platelet Count 270 TH/MM3 Mean Platelet Volume 8.2 FL Neutrophils (%) (Auto) 79.8 % Lymphocytes (%) (Auto) 12.5 % Monocytes (%) (Auto) 6.2 % Eosinophils (%) (Auto) 0.9 % Basophils (%) (Auto) 0.6 % Neutrophils # (Auto) 17.9 TH/MM3 Lymphocytes # (Auto) 2.8 TH/MM3 Monocytes # (Auto) 1.4 TH/MM3 Eosinophils # (Auto) 0.2 TH/MM3 Basophils # (Auto) 0.1 TH/MM3 CBC Comment DIFF FINAL Differential Comment Prothrombin Time 14.8 SEC Prothromb Time International Ratio 1.3 RATIO Activated Partial Thromboplast Time 20.4 SEC Blood Urea Nitrogen 11 MG/DL Creatinine 1.00 MG/DL Random Glucose 120 MG/DL Total Protein 7.4 GM/DL Albumin 4.2 GM/DL Calcium Level 8.7 MG/DL Magnesium Level 1.6 MG/DL Alkaline Phosphatase 87 U/L Aspartate Amino Transf (AST/SGOT) 32 U/L Alanine Aminotransferase (ALT/SGPT) 28 U/L Total Bilirubin 0.6 MG/DL Sodium Level 137 MEQ/L Potassium Level 3.5 MEQ/L Chloride Level 105 MEQ/L Carbon Dioxide Level 15.9 MEQ/L Anion Gap 16 MEQ/L Estimat Glomerular Filtration Rate 56 ML/MIN Lactic Acid Level 5.1 mmol/L Total Creatine Kinase 152 U/L Creatine Kinase MB 3.6 NG/ML Troponin I LESS THAN 0.02 NG/ML B-Type Natriuretic Peptide 8 PG/ML Ethyl Alcohol Level 60 MG/DL Urine Color YELLOW Urine Turbidity SLIGHT Urine pH 6.0 Urine Specific [place] 1.010 Urine Protein NEG mg/dL Urine Glucose (UA) NEG mg/dL Urine Ketones NEG mg/dL Urine Occult Blood TRACE Urine Nitrite NEG Urine Bilirubin NEG Urine Leukocyte Esterase LARGE Urine RBC 0-3 /hpf Urine WBC 15-19 /hpf Urine Squamous Epithelial Cells 6-8 /hpf Urine Bacteria MOD /hpf Microscopic Urinalysis Comment CULTURE INDICATED Urine Opiates Screen NEG Urine Barbiturates Screen NEG Urine Amphetamines Screen NEG Urine Benzodiazepines Screen NEG Urine Cocaine Screen NEG Urine Cannabinoids Screen NEG Blood Gas Puncture Site RT RADIAL Blood Gas Patient Temperature 98.6 Blood Gas HCO3 17 mmol/L Blood Gas Base Excess -6.9 mmol/L Blood Gas Oxygen Saturation 90 % Arterial Blood pH 7.37 Arterial Blood Partial Pressure CO2 31 mmHG Arterial Blood Partial Pressure O2 77 mmHG Arterial Blood Oxygen Content 15.4 Vol % Arterial Blood Carboxyhemoglobin 1.8 % Arterial Blood Methemoglobin 1.4 % Blood Gas Hemoglobin 12.1 G/DL Oxygen Delivery Device NASAL CANNULA Blood Gas Liter Flow 2 L/M Salicylates Level 3.2 MG/DL MDM Medical Decision Making Medical Screen Exam Complete: Yes Emergency Medical Condition: Yes Medical Record Reviewed: Yes Interpretation(s) EKG: Sinus tachycardia rate [address] elevation or injury pattern change or ectopy noted artifact is present at baseline Troponin I less than 0.02; CK 152, not elevated; BNP: 80, elevated ABG 2 L/M NC pH: 7.36 pCO2 31 pO2 77 sat 90% [id number] be:-6.9 Last Impressions Chest X-Ray 03/15/17 0111 Signed Impressions: Service Date/Time: Wednesday, March 15, 2017 01:36 - CONCLUSION: No evidence of acute cardiopulmonary disease. Damir Choe MD CBC & BMP Diagram 03/15/17 01:10 Total Protein 7.4, Albumin 4.2, Calcium Level 8.7, Magnesium Level 1.6, Alkaline Phosphatase 87, Aspartate Amino Transf (AST/SGOT) 32, Alanine Aminotransferase (ALT/SGPT) 28, Total Bilirubin 0.6 Vital Signs Date Time Temp Pulse Resp B/P (MAP) Pulse Ox O2 Delivery O2 Flow Rate FiO2 03/15/17 03:01 98.6 119 133/71 (91) 93 Nasal Cannula 2.00 03/15/17 01:55 96 Nasal Cannula 4.00 03/15/17 01:47 99 Non-Rebreather 15.00 100 03/15/17 01:21 100 Non-Rebreather 10.00 03/15/17 01:21 98.4 112 18 114/86 (95) 100 Non-Rebreather 10.00 03/15/17 01:21 26 100 Non-Rebreather 10.00 03/15/17 01:07 98.5 123 143/90 (107) 100 UA: Bacteria white blood cells leukocyte Estrace culture indicated serum alcohol: 60 UDS: negative salicylate: 3.2 Differential Diagnosis Exacerbation COPD, substance ingestion, alcohol ingestion, pneumonia, ACS Narrative Course IV access obtained patient placed on monitor tech EKG performed which shows sinus tachycardia no acute ST segment elevation or injury pattern patient administered Ativan 0.5 mg IV and continued on supplemental oxygen along with updraft treatment Patient resting comfortably after updraft treatments few crackles are noted in the bases; chest x-ray reveals no lobar infiltrate no cardiomegaly and no vascular congestion Patient up out of exam room to bathroom voicing no concerns or complaints states she has been taking Naprosyn for low back pain White cell count resulted at 22,000 with metabolic acidosis bicarbonate 16 gap of 16; patient meets sepsis criteria and heart rate greater than 90 history rate. 20 white count greater than 12 possible source is most likely pneumonia has had productive cough the chest x-ray does not show infiltrates suspect patient is very dry also alcohol level is 60 possible polysubstance ingestion patient adamantly denies suicide use EKG again sinus tachycardia acute injury pattern change for CK was 52 troponin I is less than 0.02 BNP is 8 Patient is receiving IV fluid bolus Lactic acid resulted at 5.1 ABG on 2 L/m nasal cannula @3:20 AM patient resting comfortably supine on exam stretcher 2 L/m nasal cannula O2 saturations 97% heart rate has decreased to 108 left pressure stable GCS remains 15 patient voicing no complaints or concerns urinalysis resulted positive for moderate bacteria and white blood cells culture indicated. Patient with infectious source suspect she has pneumonia but when current dehydration infiltrate not identified on chest x-ray and then UTI patient presenting with sepsis lactic acidosis dehydration alcohol abuse history exacerbation of COPD. Patient's case discussed with on-call medicine physician admitted to intermediate care as patient is responding quickly updraft treatment IV fluids and reassess. Patient is not a candidate for Med-Surg floor. Second lactic acid ordered once completes 30 cc/kg ivf bolus Critical Care Narrative Aggregate critical care time was 35 minutes. Time to perform other separately billable procedures was not included in the critical care time. My time did not include minutes spent treating any other patients simultaneously or on activities that did not directly contribute to the patient's treatment. The services I provided to this patient were to treat and/or prevent clinically significant deterioration that could result in: Respiratory failure septic shock I provided critical care services requiring my management, as noted below: Chart data review, documentation time, medication orders and management, vital sign assessments/reviewing monitor data, ordering and reviewing lab tests, ordering and interpreting/reviewing x-rays and diagnostic studies, care of the patient and discussion of the patient with the admitting physicians. Sepsis Criteria SIRS Criteria (2 or more): Heart rate over 90, RR > 20 or PaCO2 < 32, WBC > 26958, < 4000 or > 10% bands Sepsis Criteria (SIRS+source): Infect source susp/known (pulmonary) Severe Sepsis (+one): Lactate >2 Septic Shock Criteria: Lactic acid >=4 Physician Communication Physician Communication call placed for admission --discussed with Dr Law will admit to [facility] intermediate care Diagnosis Primary Impression: Severe sepsis Additional Impressions: COPD exacerbation Alcohol dependence Lactic acidosis Admitting Information Admitting Physician Requests: Admit Sandra Bartlett MD Mar 15, 2017 01:39
[2017-03-15] MEDS: RESP: ALBUTEROL 2.5 MG/IPRATROPIUM 0.5 MG NEB (SCH) INH ×2 (01:44→01:45)
[2017-03-15 01:46] LABS: CHLORIDE 105 MEQ/L (98-107); POTASSIUM 3.5 MEQ/L (3.5-5.1); SODIUM (NA) 137 MEQ/L (136-145)
[2017-03-15 01:50] LABS: ANION GAP 16 MEQ/L (5-15); BICARBONATE 15.9 MEQ/L (21.0-32.0); BLOOD UREA NITROGEN 11 MG/DL (7-18); MAGNESIUM 1.6 MG/DL (1.5-2.5)
[2017-03-15 01:52] LABS: APTT (PATIENT) 20.4 SEC (24.3-30.1); INTERNATIONAL NORMALIZED RATIO 1.3 RATIO; PROTHROMBIN TIME - PATIENT 14.8 SEC (9.8-11.6)
[2017-03-15 01:53] LABS: ALT (GPT) 28 U/L (10-53); AST (GOT) 32 U/L (15-37); GLOMERULAR FILTRATION RATE 56 ML/MIN (>89)
[2017-03-15 01:54] LABS: TOTAL BILIRUBIN ADULT 0.6 MG/DL (0.2-1.0)
[2017-03-15 01:56] LABS: ALKALINE PHOSPHATASE 87 U/L (45-117); CREATINE KINASE 152 U/L (26-192)
[2017-03-15] MEDS ORDERED: cefTRIAXone INJ 1,000 MG in SODIUM CHLORIDE 0.9% INJ 100 ML IV ONE (02:00)
[2017-03-15] MEDS ORDERED: AZITHROMYCIN INJ 500 MG in SODIUM CHLOR 0.9% 250 ML INJ 250 ML IV ONE (02:00)
[2017-03-15 02:02] LABS: ALCOHOL 60 MG/DL (0-5)
[2017-03-15 02:18] LABS: CKMB 3.6 NG/ML (0.5-3.6)
--- NOTE | 2017-03-15 02:27 | RADRPT ---
EXAM DATE/TIME: 03/15/2017 01:36 [facility] COMPARISON: CHEST PA & LAT, December 24, 2016, 18:25. INDICATIONS : Shortness of breath. MEDICAL HISTORY : Chronic obstructive pulmonary disease. Renal failure, chronic SURGICAL HISTORY : Tonsillectomy. ENCOUNTER: Initial ACUITY: 1 day PAIN SCORE: 6/10 LOCATION: Bilateral chest FINDINGS: Mild chronic interstitial changes are again seen at the bases. No acute pneumonia seen. No pleural ef fusion or pneumothorax. Heart size stable, within normal limits. 9 acute bilateral rib fractures are again seen. CONCLUSION: No evidence of acute cardiopulmonary disease. Damir Choe MD on March 15, 2017 at 2:25 Board Certified Radiologist. This report was verified electronically.
[2017-03-15] MEDS ORDERED: SODIUM CHLORID 0.9% 500 ML INJ 500 ML IV ONE (02:30)
[2017-03-15] MEDS ORDERED: SODIUM CHLOR 0.9% 1000 ML INJ 1,000 ML IV ONE (03:00)
[2017-03-15 03:17] LABS: GLUCOSE,URINE NEG (NEG); KETONE, URINE NEG (NEG); NITRITE,URINE NEG (NEG)
[2017-03-15 03:21] LABS: BLOOD, URINE TRACE (NEG); URINE COLOR YELLOW (YELLW/STRAW)
[2017-03-15 03:22] LABS: RBC, URINE 0-3 /hpf (0-3); WBC, URINE 15-19 /hpf (0-5)
[2017-03-15 03:23] LABS: BACTERIA, URINE MOD /hpf; COMMENT (UR) CULTURE INDICATED; CULTURE IF INDICATED CULTURE INDICATED
[2017-03-15] MEDS ORDERED: BISACODYL 10 MG SUPP RECTAL PRN (03:30)
[2017-03-15] MEDS ORDERED: FLUMAZENIL 0.5 MG/5 ML VIAL IV PUSH PRN (03:30)
[2017-03-15] MEDS ORDERED: LORazepam 2 MG/ML VIAL IV PUSH PRN (03:30)
[2017-03-15] MEDS ORDERED: MAGNESIUM HYDROXIDE SUSP 30 ML CUP PO PRN (03:30)
[2017-03-15] MEDS ORDERED: HALOPERIDOL LACTATE 5 MG/ML AMP IM PRN (03:30)
[2017-03-15] MEDS ORDERED: LORazepam 2 MG TAB PO PRN (03:30)
[2017-03-15] MEDS ORDERED: SENNOSIDES 8.6 MG TAB PO PRN (03:30)
[2017-03-15] MEDS ORDERED: ONDANSETRON HCL 4 MG/2 ML VIAL IVP PRN (03:30)
[2017-03-15 04:28] LABS: BLOOD GAS BASE EXCESS -6.9 mmol/L (-2-2); BLOOD GAS CARBOXYHEMOGLOBIN 1.8 % (0-4); BLOOD GAS HCO3 17 mmol/L (22-26); BLOOD GAS METHEMOGLOBIN 1.4 % (0-2); BLOOD GAS O2 HGB SATURATION 90 % (90-100); BLOOD GAS OXYGEN CONTENT 15.4 Vol % (12.0-20.0); BLOOD GAS PCO2 31 mmHG (38-42); BLOOD GAS PO2 77 mmHG (61-120); BLOOD GAS TOTAL HGB 12.1 G/DL (12.0-16.0); CRITICAL VALUE NO; LITER FLOW 2 L/M; OXYGEN DEVICE NASAL CANNULA; TEMP CORR TO 98.6
[2017-03-15 04:29] LABS: DRAW SITE RT RADIAL; NUMBER OF ARTERIAL PUNCTURES 1; STAT YES; ULNAR PULSE PRESENT
[2017-03-15] MEDS: SODIUM CHLOR 0.9% 1000 ML INJ 1,000 ML IV SCH ×2 (06:18→13:35)
[2017-03-15] MEDS: methylPREDNISolone SOD SUCC 40 MG/1 ML VIAL IV PUSH SCH ×3 (06:19→18:37)
[2017-03-15] MEDS: RESP: ALBUTEROL 2.5 MG/IPRATROPIUM 0.5 MG NEB (SCH) NEB ×4 (07:58→19:26)
[2017-03-15] MEDS: THIAMINE HCL 100 MG TAB PO SCH (08:01)
[2017-03-15] MEDS: FOLIC ACID 1 MG TAB PO SCH (08:01)
[2017-03-15] MEDS: MULTIVITAMINS/MINERALS THERAPEUTIC TAB PO SCH (08:01)
[2017-03-15] MEDS: DOCUSATE SODIUM 50 MG/SENNA 8.6 MG TAB PO SCH ×2 (08:01→20:22)
[2017-03-15] MEDS: SODIUM CHLORIDE 0.9% FLUSH 10 ML FLUSH IV FLUSH SCH ×2 (08:02→20:22)
[2017-03-15] MEDS: LORazepam 2 MG/ML VIAL IV PUSH PRN ×5 (08:02→20:12)
[2017-03-15] MEDS ORDERED: SODIUM CHLORIDE 0.9% FLUSH 10 ML FLUSH IV FLUSH SCH (09:00)
--- NOTE | 2017-03-15 09:11 | HHI.HP ---
[facility]Staff Admission Diagnosis severe sepsis; exac copd; uti; dehydration Diagnoses: (1) Acute respiratory failure Diagnosis: Principal (2) Anxiety disorder, unspecified Diagnosis: Secondary (3) Shortness of breath Diagnosis: Principal (4) Alcohol withdrawal Diagnosis: Secondary (5) COPD (chronic obstructive pulmonary disease) Diagnosis: Principal (6) Severe sepsis Diagnosis: Principal (7) Hepatitis C (8) UTI (urinary tract infection) Diagnosis: Principal (9) Tobacco abuse Diagnosis: Secondary (10) Respiratory alkalosis Diagnosis: Secondary Travel History International Travel<30 Days: No Contact w/Intl Traveler <30 Da: No Traveled to Known Affected Are: No History of Present Illness This is a pleasant 66-year-old female with past medical history of COPD, alcoholism and anxiety who presented to the ER last night complaining of 3 day history of chills and one-day history of shortness of breath. She tried a breathing treatment at home to no effect. The patient denied fevers, cough, nausea, vomiting, abdominal pain, dysuria, rash. The patient states that she went through alcohol detoxification in January and had not been drinking however 3 days ago she got a case of wine to share with her friends which she has been drinking from. The patient also was weaned off Xanax 2 weeks ago and has been taking Seroquel. The patient states she has not slept for the past 3 nights and that is why she started to drink again. The patient this morning complains of feeling shaky with tremors. In the emergency department she was found to be in respiratory distress and was tachycardic but was normotensive. She was initially placed on nonrebreather mask but this was quickly weaned to nasal cannula. Initial lactic acid was 5.1. Creatinine normal. Urinalysis was indicative of infection. The patient received 1 g of Rocephin at 3 AM and 500 mg of azithromycin. She was given IV fluid boluses with decrease in her heart rate. She was given duo nebs and Solu-Medrol with improvement in her respiratory rate. Repeat lactic acid is pending. The patient no longer has dyspnea this morning. [place] during [place] water came up to her knees. She denies any history of hematemesis or blood in the stool. Denies history of cirrhosis. 10 point review of systems otherwise negative. Past Family Social History Past Medical History COPD with history of intubation Severe anxiety and depression Alcoholism Past Surgical History Total hysterectomy Left arm surgery after a fracture Reported Medications Allergies Coded Allergies Type Severity Reaction Last Updated Verified No Known Allergies 03/15/17 No Active Scripts Medications Dose Route/Sig Max Daily Dose Days Date Category Potassium Gluconate 595 Mg (99 Mg) Tab 1 Tab PO DAILY 03/10/17 Reported Quetiapine (Quetiapine Fumarate) 50 Mg Tab 50 Mg PO BID 03/10/17 Reported Hydroxyzine Pamoate 50 Mg Cap 50 Mg PO TID PRN 03/10/17 Reported Gabapentin 300 Mg Cap 300 Mg PO DAILY 03/10/17 Reported Levothyroxine (Levothyroxine Sodium) 25 Mcg Tab 25 Mcg PO 02/18/17 Reported Clonidine (Clonidine HCl) 0.1 Mg Tab 0.1 Mg PO 02/18/17 Reported Ventolin Hfa 18 GM Inh (Albuterol Sulfate) 90 Mcg/Act Aer 2 Puff INH Q4H PRN 12/21/16 Rx Fluoxetine (Fluoxetine HCl) 40 Mg Cap 40 Cap PO DAILY 09/26/16 Reported Allergies: Coded Allergies: No Known Allergies (Unverified , 03/15/17) Family History Reviewed and noncontributory Social History As per history of present illness. She also continues to smoke tobacco. Physical Exam Vital Signs Vital Signs Date Time Temp Pulse Resp B/P (MAP) Pulse Ox O2 Delivery O2 Flow Rate FiO2 03/15/17 08:05 116 03/15/17 07:58 96 Nasal Cannula 2.00 03/15/17 07:00 102 20 114/63 (80) 97 03/15/17 06:00 102 23 110/57 (74) 97 03/15/17 05:20 03/15/17 05:18 110 03/15/17 05:18 98.6 110 33 144/72 (96) 92 03/15/17 04:41 98.5 105 15 99/56 (70) 98 Nasal Cannula 2.00 03/15/17 03:01 98.6 119 133/71 (91) 93 Nasal Cannula 2.00 03/15/17 01:55 96 Nasal Cannula 4.00 03/15/17 01:47 99 Non-Rebreather 15.00 100 03/15/17 01:21 100 Non-Rebreather 10.00 03/15/17 01:21 98.4 112 18 114/86 (95) 100 Non-Rebreather 10.00 03/15/17 01:21 26 100 Non-Rebreather 10.00 03/15/17 01:07 98.5 123 143/90 (107) 100 Physical Exam GENERAL: Well-nourished, well-developed lean female patient. SKIN: Warm and dry. HEAD: Normocephalic. EYES: No scleral icterus. No injection or drainage. NECK: Supple, trachea midline. No JVD or lymphadenopathy. CARDIOVASCULAR: Regular rate and rhythm without murmurs, gallops, or rubs. RESPIRATORY: Breath sounds equal bilaterally. Expiratory wheezing bilaterally. No accessory muscle use. GASTROINTESTINAL: Abdomen soft, non-tender, nondistended. EXTREMITIES: No cyanosis, or edema. NEUROLOGICAL: Awake, alert, and oriented x 3. Non-focal. Tremors of the upper extremities. Laboratory Laboratory Tests Test 03/15/17 01:10 03/15/17 02:55 03/15/17 03:04 03/15/17 03:08 White Blood Count 22.4 Red Blood Count 3.99 Hemoglobin 12.5 Hematocrit 37.4 Mean Corpuscular Volume 93.6 Mean Corpuscular Hemoglobin 31.2 Mean Corpuscular Hemoglobin Concent 33.4 Red Cell Distribution Width 12.9 Platelet Count 270 Mean Platelet Volume 8.2 Neutrophils (%) (Auto) 79.8 Lymphocytes (%) (Auto) 12.5 Monocytes (%) (Auto) 6.2 Eosinophils (%) (Auto) 0.9 Basophils (%) (Auto) 0.6 Neutrophils # (Auto) 17.9 Lymphocytes # (Auto) 2.8 Monocytes # (Auto) 1.4 Eosinophils # (Auto) 0.2 Basophils # (Auto) 0.1 CBC Comment DIFF FINAL Differential Comment Prothrombin Time 14.8 Prothromb Time International Ratio 1.3 Activated Partial Thromboplast Time 20.4 Blood Urea Nitrogen 11 Creatinine 1.00 Random Glucose 120 Total Protein 7.4 Albumin 4.2 Calcium Level 8.7 Magnesium Level 1.6 Alkaline Phosphatase 87 Aspartate Amino Transf (AST/SGOT) 32 Alanine Aminotransferase (ALT/SGPT) 28 Total Bilirubin 0.6 Sodium Level 137 Potassium Level 3.5 Chloride Level 105 Carbon Dioxide Level 15.9 Anion Gap 16 Estimat Glomerular Filtration Rate 56 Lactic Acid Level 5.1 Total Creatine Kinase 152 Creatine Kinase MB 3.6 Troponin I LESS THAN 0.02 B-Type Natriuretic Peptide 8 Ethyl Alcohol Level 60 Urine Color YELLOW Urine Turbidity SLIGHT Urine pH 6.0 Urine Specific [place] 1.010 Urine Protein NEG Urine Glucose (UA) NEG Urine Ketones NEG Urine Occult Blood TRACE Urine Nitrite NEG Urine Bilirubin NEG Urine Leukocyte Esterase LARGE Urine RBC 0-3 Urine WBC 15-19 Urine Squamous Epithelial Cells 6-8 Urine Bacteria MOD Microscopic Urinalysis Comment CULTURE INDICATED Urine Opiates Screen NEG Urine Barbiturates Screen NEG Urine Amphetamines Screen NEG Urine Benzodiazepines Screen NEG Urine Cocaine Screen NEG Urine Cannabinoids Screen NEG Blood Gas Puncture Site RT RADIAL Blood Gas Patient Temperature 98.6 Blood Gas HCO3 17 Blood Gas Base Excess -6.9 Blood Gas Oxygen Saturation 90 Arterial Blood pH 7.37 Arterial Blood Partial Pressure CO2 31 Arterial Blood Partial Pressure O2 77 Arterial Blood Oxygen Content 15.4 Arterial Blood Carboxyhemoglobin 1.8 Arterial Blood Methemoglobin 1.4 Blood Gas Hemoglobin 12.1 Oxygen Delivery Device NASAL CANNULA Blood Gas Liter Flow 2 Salicylates Level 3.2 Test 03/15/17 07:38 Lactic Acid Level 4.5 Date/Time Source Procedure Growth Status 03/15/17 01:10 Blood Peripheral Aerobic Blood Culture Pending Received 03/15/17 01:10 Blood Peripheral Anaerobic Blood Culture Pending Received 03/15/17 02:55 Urine Clean Catch Urine Culture Pending Received Result Diagram: 03/15/17 0110 03/15/17 011 Imaging Last Impressions Chest X-Ray 03/15/17 011 Signed Impressions: Service Date/Time: Wednesday, March 15, 2017 01:36 - CONCLUSION: No evidence of acute cardiopulmonary disease. Damir Choe MD Septic Shock Reassessment Heart: Regular rate and rhythm Lungs: Other Skin: Warm Peripheral Pulses: Bounding Right Radial Bounding Left Radial Capillary Refill: Brisk Caprini VTE Risk Assessment Caprini VTE Risk Assessment: Mod/High Risk (score >= 2) Caprini Risk Assessment Model Point Value = 1 Point Value = 2 Point Value = 3 Point Value = 5 Age 41-60 Minor surgery BMI > 25 kg/m2 Swollen legs Varicose veins or History of unexplained or recurrent spontaneous Oral contraceptives or hormone replacement Sepsis (< 1 month) Serious lung disease, including pneumonia (< 1 month) Abnormal pulmonary function Acute myocardial infarction Congestive heart failure (< 1 month) History of inflammatory bowel disease Medical patient at bed rest Age 61-74 Arthroscopic surgery Major open surgery (> 45 min) Laparoscopic surgery (> 45 min) Malignancy Confined to bed (> 72 hours) Immobilizing plaster cast Central venous access Age >= 75 History of VTE Family history of VTE Factor V Leiden Prothrombin [id number] Lupus anticoagulant Anticardiolipin antibodies Elevated serum homocysteine Heparin-induced thrombocytopenia Other congenital or acquired thrombophilia Stroke (< 1 month) Elective arthroplasty Hip, pelvis, or leg fracture Acute spinal cord injury (< 1 month) Prophylaxis Regimen Total Risk Factor Score Risk Level Prophylaxis Regimen 0-1 Low Early ambulation 2 Moderate Order ONE of the following: *Sequential Compression Device (SCD) *Heparin 5000 units SQ BID 3-4 Higher Order ONE of the following medications: *Heparin 5000 units SQ TID *Enoxaparin/Lovenox 40 mg SQ daily (WT < 150 kg, CrCl > 30 mL/min) *Enoxaparin/Lovenox 30 mg SQ daily (WT < 150 kg, CrCl > 10-29 mL/min) *Enoxaparin/Lovenox 30 mg SQ BID (WT < 150 kg, CrCl > 30 mL/min) AND/OR *Sequential Compression Device (SCD) 5 or more Highest Order ONE of the following medications: *Heparin 5000 units SQ TID (Preferred with Epidurals) *Enoxaparin/Lovenox 40 mg SQ daily (WT < 150 kg, CrCl > 30 mL/min) *Enoxaparin/Lovenox 30 mg SQ daily (WT < 150 kg, CrCl > 10-29 mL/min) *Enoxaparin/Lovenox 30 mg SQ BID (WT < 150 kg, CrCl > 30 mL/min) AND *Sequential Compression Device (SCD) Assessment and Plan Assessment and Plan -Severe sepsis due to UTI. Clinically improving. Normotensive and heart rate is normal. Continue IV fluids, follow-up repeat lactic acid. Continue Rocephin IV daily. Follow up urine and blood cultures. -Acute respiratory failure/distress/COPD exacerbation, now much improved and weaned to 2 L nasal cannula. Has some wheezing on exam. Chest x-ray negative We'll continue treatment for COPD exacerbation, Zithromax, DuoNeb's, oxygen via nasal cannula. Patient advised to quit smoking. -Alcoholism and has been drinking wine for the past few days. She does have tremors on exam. Continue alcohol withdrawal protocol and rally pack. -Severe anxiety and depression. Continue Seroquel, fluoxetine. -History of seizures with prior withdrawal from Xanax. -Hypothyroidism. continue Synthroid 25 g daily. -DVT prophylaxis with SCDs. Problem Qualifiers (1) Acute respiratory failure: Qualified Codes: J96.01 - Acute respiratory failure with hypoxia (2) Anxiety disorder, unspecified: Qualified Codes: F41.1 - Generalized anxiety disorder (3) Alcohol withdrawal: Qualified Codes: F10.230 - Alcohol dependence with withdrawal, uncomplicated (4) COPD (chronic obstructive pulmonary disease): Qualified Codes: J44.1 - Chronic obstructive pulmonary disease with (acute) exacerbation (5) Hepatitis C: Thu Preciado MD Mar 15, 2017 09:11
[2017-03-15] MEDS: BUDESONIDE-FORMOTEROL 160/4.5 MCG INHALER INH SCH ×2 (11:53→20:22)
[2017-03-15] MEDS: GABAPENTIN 300 MG CAP PO SCH (11:54)
[2017-03-15] MEDS: FLUoxetine HCL 20 MG CAP PO SCH (11:54)
--- NOTE | 2017-03-15 14:04 | EKG ---
Date Performed: 03/15/2017 Time Performed: 01:32:17 PTAGE: 66 years EKG: SINUS TACHYCARDIA ABNORMAL RHYTHM ECG PREVIOUS TRACING : 12/24/2016 17.48 Since prior tracing, increasingly seen ST changes are more prominent. DOCTOR: Ravi Reyes Interpretating Date/Time 03/15/2017 14:03:15
[2017-03-15] MEDS: QUEtiapine FUMARATE 25 MG TAB PO SCH (20:22)
[2017-03-15] MEDS: ACETAMINOPHEN 325 MG TAB PO PRN (20:42)
[2017-03-16] VITALS (29 sets, daily range): BP systolic 108–155; BP diastolic 54–93; PULSE 92–128; RESP 21–41; TEMP 98.5–99.3; O2SAT 86–100
[2017-03-16] MEDS: methylPREDNISolone SOD SUCC 40 MG/1 ML VIAL IV PUSH SCH ×4 (00:05→17:45)
[2017-03-16] MEDS: SODIUM CHLOR 0.9% 1000 ML INJ 1,000 ML IV SCH ×2 (00:06→11:42)
[2017-03-16] MEDS: cefTRIAXone INJ 1,000 MG in SODIUM CHLORIDE 0.9% INJ 100 ML IV SCH (02:49)
[2017-03-16] MEDS: AZITHROMYCIN INJ 500 MG in SODIUM CHLOR 0.9% 250 ML INJ 250 ML IV SCH (03:39)
[2017-03-16] MEDS: LORazepam 2 MG/ML VIAL IV PUSH PRN ×5 (05:07→19:44)
[2017-03-16 05:56] LABS: AUTOMATED NEUTROPHIL # 18.4 TH/MM3 (1.8-7.7); BASOPHIL % 0.1 % (0.0-2.0); HEMATOCRIT 30.7 % (35.0-46.0); LYMPH % 3.2 % (9.0-44.0); LYMPHOCYTE # 0.6 TH/MM3 (1.0-4.8); MEAN CELL VOLUME 94.7 FL (80.0-100.0); MEAN CORPUSCULAR HEMOGLOBIN 31.2 PG (27.0-34.0); MEAN CORPUSCULAR HGB CONC 32.9 % (32.0-36.0); MONO % 3.9 % (0.0-8.0); NEUT % 92.8 % (16.0-70.0); PLATELET COUNT 204 TH/MM3 (150-450); RED BLOOD COUNT 3.24 MIL/MM3 (4.00-5.30); RED CELL DISTRIBUTION WIDTH 13.2 % (11.6-17.2); WHITE BLOOD COUNT 19.8 TH/MM3 (4.0-11.0)
[2017-03-16 05:57] LABS: HEMO FLAGS DIFF FINAL
[2017-03-16] MEDS: LEVOTHYROXINE SODIUM 25 MCG TAB PO SCH (07:02)
[2017-03-16 07:19] LABS: BICARBONATE 19.1 MEQ/L (21.0-32.0); CALCIUM-PROTEIN CORRECTED 8.2 MG/DL (8.5-10.1); POTASSIUM 4.3 MEQ/L (3.5-5.1); TOTAL BILIRUBIN ADULT 0.2 MG/DL (0.2-1.0)
[2017-03-16] MEDS: RESP: ALBUTEROL 2.5 MG/IPRATROPIUM 0.5 MG NEB (SCH) NEB ×5 (07:37→23:00)
[2017-03-16] MEDS: GABAPENTIN 300 MG CAP PO SCH (07:51)
[2017-03-16] MEDS: QUEtiapine FUMARATE 25 MG TAB PO SCH ×2 (07:51→19:44)
[2017-03-16] MEDS: FLUoxetine HCL 20 MG CAP PO SCH (07:51)
[2017-03-16] MEDS: MULTIVITAMINS/MINERALS THERAPEUTIC TAB PO SCH (07:51)
[2017-03-16] MEDS: DOCUSATE SODIUM 50 MG/SENNA 8.6 MG TAB PO SCH ×2 (07:52→19:44)
[2017-03-16] MEDS: THIAMINE HCL 100 MG TAB PO SCH (07:52)
[2017-03-16] MEDS: FOLIC ACID 1 MG TAB PO SCH (07:52)
[2017-03-16] MEDS: BUDESONIDE-FORMOTEROL 160/4.5 MCG INHALER INH SCH ×2 (07:52→19:43)
[2017-03-16] MEDS: SODIUM CHLORIDE 0.9% FLUSH 10 ML FLUSH IV FLUSH SCH ×2 (07:55→21:37)
[2017-03-16] MEDS: RESP: ALBUTEROL 2.5 MG/IPRATROPIUM 0.5 MG NEB (PRN) NEB ×2 (08:20→13:35)
[2017-03-16] MEDS ORDERED: INFLUENZA VIRUS VACCINE (QUADRIVALENT) 0.5 ML SYR IM ONE (10:00)
--- NOTE | 2017-03-16 11:34 | HHI.PR ---
Subjective Remarks Still tachycardic overnight, she is still scoring highly on the CIWA assessment. Afebrile. Patient denies pain. Denies confusion or hallucinations. Objective Vitals Vital Signs Date Time Temp Pulse Resp B/P (MAP) Pulse Ox O2 Delivery O2 Flow Rate FiO2 03/16/17 08:22 86 Nasal Cannula 4.00 03/16/17 07:40 92 Nasal Cannula 3.00 03/16/17 04:00 98.6 104 29 125/69 (87) 100 03/16/17 04:00 100 03/16/17 00:00 106 03/15/17 23:26 98.9 102 23 119/61 (80) 97 03/15/17 22:53 105 03/15/17 20:00 130 03/15/17 20:00 98.7 130 24 150/76 (100) 92 03/15/17 19:26 93 Nasal Cannula 2.00 03/15/17 19:00 128 26 148/75 (99) 92 03/15/17 17:09 122 03/15/17 16:59 98.8 124 35 133/63 (86) 94 03/15/17 12:01 114 I/O 03/15/17 03/15/17 03/15/17 03/16/17 03/16/17 03/16/17 06:59 14:59 22:59 06:59 14:59 22:59 Intake Total 2350 ml 723 ml 507 ml 870 ml Output Total 1000 ml 400 ml 700 ml Balance 2350 ml -277 ml 107 ml 170 ml Intake Oral 520 ml IV Total 2350 ml 723 ml 507 ml 350 ml Output Urine Total 1000 ml 400 ml 700 ml # Bowel Movements 0 Result Diagram: 03/16/17 0541 03/16/17 0541 Objective Remarks GENERAL: Well-nourished, well-developed lean female patient. SKIN: Warm and dry. HEAD: Normocephalic. EYES: No scleral icterus. No injection or drainage. NECK: Supple, trachea midline. No JVD or lymphadenopathy. CARDIOVASCULAR: Regular rate and rhythm without murmurs, gallops, or rubs. RESPIRATORY: Breath sounds equal bilaterally. No accessory muscle use. GASTROINTESTINAL: Abdomen soft, non-tender, nondistended. EXTREMITIES: No cyanosis, or edema. NEUROLOGICAL: Awake, alert, and oriented x 3. Non-focal. Significant upper extremity tremors. Mild confusion, asking about rib fracture which was from previous hospitalization. A/P Problem List: (1) Acute respiratory failure ICD Code: J96.00 - Acute respiratory failure, unspecified whether with hypoxia or hypercapnia Status: Acute (2) Anxiety disorder, unspecified ICD Code: F41.9 - Anxiety disorder, unspecified Status: Chronic (3) Shortness of breath ICD Code: R06.02 - Shortness of breath Status: Acute (4) Alcohol withdrawal ICD Code: F10.239 - Alcohol dependence with withdrawal, unspecified Status: Acute (5) COPD (chronic obstructive pulmonary disease) ICD Code: J44.9 - Chronic obstructive pulmonary disease Status: Acute (6) Severe sepsis ICD Code: A41.9 - Sepsis, unspecified organism; R65.20 - Severe sepsis without septic shock Status: Acute (7) Hepatitis C ICD Code: B19.20 - Hepatitis C Status: Acute (8) UTI (urinary tract infection) ICD Code: N39.0 - Urinary tract infection, site not specified Status: Acute (9) Tobacco abuse ICD Code: Z72.0 - Tobacco abuse Status: Chronic (10) Respiratory alkalosis ICD Code: E87.3 - Alkalosis Status: Acute Assessment and Plan -Severe sepsis due to UTI, presented with tachycardia, leukocytosis and an initial lactic acid of 5.1. Clinically improving. Normotensive and heart rate is normal. Continue IV fluids, continue to trend lactic acid. Continue Rocephin IV daily. Follow up urine and blood cultures. Blood cultures no growth in 24 hours. Leukocytosis down trended. Repeat CBC in the morning. -Acute respiratory failure/distress/COPD exacerbation, now much improved and weaned to 2 L nasal cannula, however now on 4 L nasal cannula this morning. Has some wheezing on exam. Chest x-ray negative. We'll continue treatment for COPD exacerbation, Zithromax, DuoNeb's, oxygen via nasal cannula. Patient advised to quit smoking. -Alcohol withdrawal, Alcoholism and has been drinking wine for the past few days. She does have tremors on exam and is high risk for decompensating withdrawal. Continue alcohol withdrawal protocol and rally pack. -Severe anxiety and depression. Continue Seroquel, fluoxetine. -History of seizures with prior withdrawal from Xanax. -Hypothyroidism. TSH within normal limits. Continue Synthroid 25 g daily. -DVT prophylaxis with SCDs. Problem Qualifiers (1) Acute respiratory failure: Qualified Codes: J96.01 - Acute respiratory failure with hypoxia (2) Anxiety disorder, unspecified: Qualified Codes: F41.1 - Generalized anxiety disorder (3) Alcohol withdrawal: Qualified Codes: F10.230 - Alcohol dependence with withdrawal, uncomplicated (4) COPD (chronic obstructive pulmonary disease): Qualified Codes: J44.1 - Chronic obstructive pulmonary disease with (acute) exacerbation (5) Hepatitis C: Thu Preciado MD Mar 16, 2017 11:34
[2017-03-16] MEDS: ACETAMINOPHEN 325 MG TAB PO PRN (13:11)
[2017-03-16 15:40] LABS: BLOOD GAS BASE EXCESS -4.8 mmol/L (-2-2); BLOOD GAS CARBOXYHEMOGLOBIN 1.4 % (0-4); BLOOD GAS HCO3 19 mmol/L (22-26); BLOOD GAS METHEMOGLOBIN 1.3 % (0-2); BLOOD GAS O2 HGB SATURATION 84 % (90-100); BLOOD GAS OXYGEN CONTENT 11.5 Vol % (12.0-20.0); BLOOD GAS PCO2 32 mmHg (38-42); BLOOD GAS PO2 52 mmHg (61-120); BLOOD GAS TOTAL HGB 9.7 G/DL (12.0-16.0); CRITICAL VALUE YES; DRAW SITE LT RADIAL; LITER FLOW 4 L/M; NUMBER OF ARTERIAL PUNCTURES 1; OXYGEN DEVICE NASAL CANNULA; STAT YES; ULNAR PULSE PRESENT
[2017-03-16] MEDS ORDERED: METOPROLOL TARTRATE 5 MG/5 ML VIAL IV PUSH ONE (16:00)
[2017-03-16] MEDS: DILTIAZEM HCL 30 MG TAB PO SCH ×2 (17:41→21:00)
--- NOTE | 2017-03-16 19:40 | RADRPT ---
EXAM DATE/TIME: 03/16/2017 19:33 [facility] COMPARISON: CHEST SINGLE AP, March 15, 2017, 1:36. INDICATIONS : Shortness of breath. MEDICAL HISTORY : Chronic obstructive pulmonary disease. Renal failure, chronic. SURGICAL HISTORY : Tonsillectomy. ENCOUNTER: Subsequent ACUITY: 2 days PAIN SCORE: 0/10 LOCATION: Bilateral chest FINDINGS: Significant interval change is noted in the appearance of the lungs. There is diffuse interstitial pr ominence which has developed since the prior study. Patchy airspace disease is seen in both lung base s. Heart and mediastinal structures are stable. CONCLUSION: Interval development of diffuse interstitial prominence which represent developing interstitial pulmo nary edema or pneumonitis. Drew Pretty MD on March 16, 2017 at 19:37 Board Certified Radiologist. This report was verified electronically.
[2017-03-16] MEDS ORDERED: FUROSEMIDE 40 MG/4 ML VIAL IV PUSH ONE (21:30)
[2017-03-17] VITALS (27 sets, daily range): BP systolic 107–156; BP diastolic 59–92; PULSE 90–120; RESP 13–35; TEMP 97.5–98.8; O2SAT 88–97
[2017-03-17] MEDS: SODIUM CHLORIDE 0.9% FLUSH 10 ML FLUSH IV FLUSH SCH ×2 (00:58→21:28)
[2017-03-17] MEDS: methylPREDNISolone SOD SUCC 40 MG/1 ML VIAL IV PUSH SCH ×4 (00:58→17:20)
[2017-03-17] MEDS: LORazepam 1 MG TAB PO PRN (01:03)
[2017-03-17] MEDS: LORazepam 2 MG/ML VIAL IV PUSH PRN ×4 (01:46→21:26)
[2017-03-17] MEDS: RESP: ALBUTEROL 2.5 MG/IPRATROPIUM 0.5 MG NEB (PRN) NEB (01:52)
[2017-03-17] MEDS: cefTRIAXone INJ 1,000 MG in SODIUM CHLORIDE 0.9% INJ 100 ML IV SCH (02:03)
[2017-03-17] MEDS: ACETAMINOPHEN 325 MG TAB PO PRN ×2 (02:41→20:52)
[2017-03-17] MEDS: AZITHROMYCIN INJ 500 MG in SODIUM CHLOR 0.9% 250 ML INJ 250 ML IV SCH (02:41)
[2017-03-17] MEDS: RESP: ALBUTEROL 2.5 MG/IPRATROPIUM 0.5 MG NEB (SCH) NEB ×6 (03:57→23:02)
[2017-03-17] MEDS: LEVOTHYROXINE SODIUM 25 MCG TAB PO SCH (05:42)
[2017-03-17 06:06] LABS: POTASSIUM 3.7 MEQ/L (3.5-5.1)
[2017-03-17 06:10] LABS: AUTOMATED NEUTROPHIL # 16.8 TH/MM3 (1.8-7.7); BASOPHIL % 0.2 % (0.0-2.0); EOSINOPHIL % 0.1 % (0.0-4.0); HEMATOCRIT 31.6 % (35.0-46.0); LYMPH % 3.4 % (9.0-44.0); LYMPHOCYTE # 0.6 TH/MM3 (1.0-4.8); MEAN CORPUSCULAR HEMOGLOBIN 31.3 PG (27.0-34.0); MONO % 2.8 % (0.0-8.0); NEUT % 93.5 % (16.0-70.0); PLATELET COUNT 191 TH/MM3 (150-450); RED BLOOD COUNT 3.32 MIL/MM3 (4.00-5.30); RED CELL DISTRIBUTION WIDTH 12.8 % (11.6-17.2); WHITE BLOOD COUNT 17.9 TH/MM3 (4.0-11.0)
[2017-03-17 06:18] LABS: HEMO FLAGS DIFF FINAL
[2017-03-17 08:26] LABS: BICARBONATE 21.6 MEQ/L (21.0-32.0)
[2017-03-17] MEDS: BUDESONIDE-FORMOTEROL 160/4.5 MCG INHALER INH SCH ×2 (09:24→20:52)
[2017-03-17] MEDS: FLUoxetine HCL 20 MG CAP PO SCH (09:25)
[2017-03-17] MEDS: DOCUSATE SODIUM 50 MG/SENNA 8.6 MG TAB PO SCH ×2 (09:26→20:52)
[2017-03-17] MEDS: GABAPENTIN 300 MG CAP PO SCH (09:26)
[2017-03-17] MEDS: THIAMINE HCL 100 MG TAB PO SCH (09:26)
[2017-03-17] MEDS: QUEtiapine FUMARATE 25 MG TAB PO SCH ×2 (09:26→20:53)
[2017-03-17] MEDS: FOLIC ACID 1 MG TAB PO SCH (09:26)
[2017-03-17] MEDS: MULTIVITAMINS/MINERALS THERAPEUTIC TAB PO SCH (09:26)
[2017-03-17] MEDS: DILTIAZEM HCL 30 MG TAB PO SCH ×4 (09:26→20:52)
--- NOTE | 2017-03-17 09:58 | HHI.PR ---
Subjective Remarks Patient is tolerating high flow nasal cannula oxygen well. She is still tachycardic with heart rate of 120 this morning. She still complains of tremors. No hallucinations or confusion. Chest x-ray revealed diffuse interstitial prominence. She received Lasix 40 mg IV last night and a Bynum catheter was placed. Objective Vitals Vital Signs Date Time Temp Pulse Resp B/P (MAP) Pulse Ox O2 Delivery O2 Flow Rate FiO2 03/17/17 08:14 95 High Flow Nasal Cannula 30.00 70 03/17/17 07:00 91 Nasal Cannula 60 03/17/17 06:57 100 21 150/82 (104) 92 03/17/17 06:00 94 22 127/75 (92) 93 03/17/17 05:00 96 20 119/63 (81) 93 03/17/17 04:00 98 03/17/17 04:00 98.1 102 31 126/65 (85) 94 03/17/17 03:00 104 23 129/66 (87) 90 03/17/17 02:00 110 03/17/17 02:00 110 33 156/86 (109) 93 03/17/17 01:00 104 30 135/75 (95) 92 03/17/17 00:00 94 03/17/17 00:00 98.6 94 23 108/65 (79) 93 03/16/17 23:00 92 23 121/66 (84) 94 03/16/17 22:30 94 25 110/63 (79) 92 03/16/17 22:19 96 25 115/62 (79) 92 03/16/17 22:00 98 03/16/17 22:00 98 27 110/54 (72) 91 03/16/17 21:30 102 27 118/63 (81) 91 03/16/17 21:00 106 28 125/68 (87) 91 03/16/17 20:30 108 21 140/80 (100) 93 03/16/17 20:00 96 03/16/17 20:00 99.3 112 22 148/82 (104) 89 03/16/17 19:30 112 41 155/93 (113) 95 03/16/17 19:18 95 High Flow Nasal Cannula 35.00 60 03/16/17 19:00 108 24 145/80 (101) 92 03/16/17 19:00 90 Nasal Cannula 60 03/16/17 18:25 92 High Flow Nasal Cannula 35.00 50 03/16/17 16:20 89 Nasal Cannula 6.00 03/16/17 16:00 110 03/16/17 15:53 90 Venturi Mask 6.00 50 03/16/17 15:00 124 29 129/63 (85) 88 03/16/17 14:00 128 23 145/70 (95) 93 03/16/17 14:00 128 03/16/17 13:39 92 Nasal Cannula 4.00 03/16/17 13:00 120 26 140/67 (91) 91 03/16/17 12:00 99.0 112 24 108/57 (74) 93 03/16/17 12:00 112 03/16/17 11:00 124 28 137/63 (87) 94 03/16/17 10:00 120 03/16/17 10:00 112 24 108/57 (74) 93 I/O 03/16/17 03/16/17 03/16/17 03/17/17 03/17/17 03/17/17 07:00 15:00 23:00 07:00 15:00 23:00 Intake Total 870 ml 1000 ml 1370 ml 830 ml Output Total 700 ml 2100 ml 1750 ml Balance 170 ml 1000 ml -730 ml -920 ml Intake Oral 520 ml 1370 ml 480 ml IV Total 350 ml 1000 ml 350 ml Output Urine Total 700 ml 2100 ml 1750 ml # Bowel Movements 0 0 0 Result Diagram: 03/17/17 0532 03/17/17 0532 Objective Remarks GENERAL: Well-nourished, well-developed lean female patient. SKIN: Warm and dry. HEAD: Normocephalic. EYES: No scleral icterus. No injection or drainage. NECK: Supple, trachea midline. No JVD or lymphadenopathy. CARDIOVASCULAR: Regular rate and rhythm without murmurs, gallops, or rubs. RESPIRATORY: Breathing nonlabored. Diffuse expiratory wheezing and crackles bilaterally. GASTROINTESTINAL: Abdomen soft, non-tender, nondistended. EXTREMITIES: No cyanosis, or edema. NEUROLOGICAL: Awake, alert, and oriented x 3. Non-focal. Significant upper extremity tremors. A/P Problem List: (1) Acute respiratory failure ICD Code: J96.00 - Acute respiratory failure, unspecified whether with hypoxia or hypercapnia Status: Acute (2) Anxiety disorder, unspecified ICD Code: F41.9 - Anxiety disorder, unspecified Status: Chronic (3) Shortness of breath ICD Code: R06.02 - Shortness of breath Status: Acute (4) Alcohol withdrawal ICD Code: F10.239 - Alcohol dependence with withdrawal, unspecified Status: Acute (5) COPD (chronic obstructive pulmonary disease) ICD Code: J44.9 - Chronic obstructive pulmonary disease Status: Acute (6) Severe sepsis ICD Code: A41.9 - Sepsis, unspecified organism; R65.20 - Severe sepsis without septic shock Status: Acute (7) Hepatitis C ICD Code: B19.20 - Hepatitis C Status: Acute (8) UTI (urinary tract infection) ICD Code: N39.0 - Urinary tract infection, site not specified Status: Acute (9) Tobacco abuse ICD Code: Z72.0 - Tobacco abuse Status: Chronic (10) Respiratory alkalosis ICD Code: E87.3 - Alkalosis Status: Acute Assessment and Plan -Severe sepsis due to pneumonitis, presented with tachycardia, leukocytosis and an initial lactic acid of 5.1. Lactic acidosis resolved. She is still quite tachycardic. IV fluids discontinued for respiratory distress yesterday. Urine cultures show 50,000 colony-forming units mixed gram-positive probably contaminants. Blood cultures no growth in 24 hours. Leukocytosis down trended. Repeat CBC in the morning. -Acute respiratory failure/distress/COPD exacerbation, now on high flow nasal cannula. Chest x-ray last night revealed diffuse interstitial infiltrates. I reviewed the images myself. She received Lasix 40 mg IV. Bynum catheter was placed and she had nearly 4 L of urine output. Continue Rocephin and Zithromax. Repeat chest x-ray in the morning. Continue Solu-Medrol and duo nebs. Check 2-D echocardiogram and BNP. Consult pulmonology. Discussed with embedded linux engineer. Patient will remain on my service for now but if she decompensates further will need to consult critical care. -Alcohol withdrawal, Alcoholism and has been drinking wine for the past few days. She does have tremors on exam and is high risk for decompensating withdrawal. Continue alcohol withdrawal protocol and rally pack. -Severe anxiety and depression. Continue Seroquel, fluoxetine. -History of seizures with prior withdrawal from Xanax. -Hypothyroidism. TSH within normal limits. Continue Synthroid 25 g daily. -DVT prophylaxis with SCDs. Problem Qualifiers (1) Acute respiratory failure: Qualified Codes: J96.01 - Acute respiratory failure with hypoxia (2) Anxiety disorder, unspecified: Qualified Codes: F41.1 - Generalized anxiety disorder (3) Alcohol withdrawal: Qualified Codes: F10.230 - Alcohol dependence with withdrawal, uncomplicated (4) COPD (chronic obstructive pulmonary disease): Qualified Codes: J44.1 - Chronic obstructive pulmonary disease with (acute) exacerbation (5) Hepatitis C: Thu Preciado MD Mar 17, 2017 09:58
--- NOTE | 2017-03-17 14:24 | ECHRPT ---
Indication: SHORTNESS OF BREATH CONCLUSIONS Normal left ventricular size. Wall thickness is normal. Doppler parameters are consistent with impaired left ventricular relaxtion (grade 1 diastolic dysfun ction). No atrial level shunt is demonstrated by color flow Doppler interrogation. Trace mitral valve regurgitation. No mitral valve stenosis. The inferior vena cava (IVC) is normal in size. BP: 150 / 82 HR: 100 Rhythm: Sinus MEASUREMENTS (Male / Female) Normal Values Technical Quality:Fair 2D ECHO LV Diastolic Diameter PLAX 3.5 cm 4.2 - 5.9 / 3.9 - 5.3 cm LV Systolic Diameter PLAX 2.5 cm IVS Diastolic Thickness 0.9 cm 0.6 - 1.0 / 0.6 - 0.9 cm LVPW Diastolic Thickness 0.9 cm 0.6 - 1.0 / 0.6 - 0.9 cm LV Relative Wall Thickness 0.5 LVOT Diameter 1.6 cm Aortic Root Diameter 2.5 cm LA Systolic Diameter LX 2.1 cm 3.0 - 4.0 / 2.7 - 3.8 cm M-MODE AV Cusp Separation MM 1.9 cm DOPPLER AV Peak Velocity 165.0 cm/s AV Peak Gradient 10.9 mmHg AV Mean Gradient 6.0 mmHg AV Velocity Time Integral 30.3 cm LVOT Peak Velocity 184.0 cm/s LVOT Peak Gradient 13.5 mmHg LVOT Velocity Time Integral 35.3 cm LVOT Cardiac Index 4252.4 cm/minm AV Area Cont Eq vti 2.3 cm AV Area Cont Eq pk 2.2 cm Mitral E Point Velocity 83.0 cm/s Mitral A Point Velocity 143.0 cm/s Mitral E to A Ratio 0.6 LV E' Lateral Velocity 17.2 cm/s Mitral E to LV E' Lateral Ratio 4.8 LV E' Septal Velocity 10.2 cm/s Mitral E to LV E' Septal Ratio 8.1 PV Peak Velocity 56.4 cm/s PV Peak Gradient 1.3 mmHg FINDINGS LEFT VENTRICLE Normal left ventricular size. Wall thickness is normal. The left ventricular systolic function is normal with an estimated ejection fraction in the range of 60-65%. Doppler parameters are consistent with impaired left ventricular relaxtion (grade 1 diastolic dysfun ction). RIGHT VENTRICLE Normal right ventricular size and systolic function. LEFT ATRIUM The left atrial size is normal. RIGHT ATRIUM The right atrial size is normal. ATRIAL SEPTUM No atrial level shunt is demonstrated by color flow Doppler interrogation. AORTA The aortic root and proximal ascending aorta are normal in size on limited imaging. MITRAL VALVE Structurally normal mitral valve. Trace mitral valve regurgitation. No mitral valve stenosis. AORTIC VALVE No aortic valve stenosis or regurgitation. TRICUSPID VALVE Structurally normal tricuspid valve. No tricuspid valve stenosis or regurgitation. PULMONARY VALVE No pulmonary valve regurgitation or stenosis. VESSELS The inferior vena cava (IVC) is normal in size. There is less than 50% respiratory change in dimension of the inferior vena cava (abnormal). PERICARDIUM No pericardial effusion. Bouchra Mistry MD, FACC, FRCP (Electronically Signed) Final Date:17 March 2017 14:23
[2017-03-17] MEDS: VANCOMYCIN INJ 1,000 MG in SODIUM CHLOR 0.9% 250 ML INJ 250 ML IV SCH (17:38)
[2017-03-17] MEDS ORDERED: Vancomycin Consult Pharmacy 1 EA OTHER SCH (18:00)
[2017-03-18] VITALS (29 sets, daily range): BP systolic 114–165; BP diastolic 60–89; PULSE 82–118; RESP 17–32; TEMP 98.1–99.2; O2SAT 89–99
[2017-03-18] MEDS: methylPREDNISolone SOD SUCC 40 MG/1 ML VIAL IV PUSH SCH ×2 (01:29→05:56)
[2017-03-18] MEDS: cefTRIAXone INJ 1,000 MG in SODIUM CHLORIDE 0.9% INJ 100 ML IV SCH (03:25)
[2017-03-18] MEDS: RESP: ALBUTEROL 2.5 MG/IPRATROPIUM 0.5 MG NEB (PRN) NEB ×3 (03:44→11:07)
[2017-03-18] MEDS: LORazepam 2 MG/ML VIAL IV PUSH PRN (03:47)
[2017-03-18] MEDS: AZITHROMYCIN INJ 500 MG in SODIUM CHLOR 0.9% 250 ML INJ 250 ML IV SCH (03:59)
[2017-03-18 05:23] LABS: AUTOMATED NEUTROPHIL # 10.4 TH/MM3 (1.8-7.7); BASOPHIL % 0.1 % (0.0-2.0); EOSINOPHIL % 0.1 % (0.0-4.0); HEMATOCRIT 29.9 % (35.0-46.0); LYMPH % 5.3 % (9.0-44.0); LYMPHOCYTE # 0.6 TH/MM3 (1.0-4.8); MEAN CORPUSCULAR HEMOGLOBIN 32.5 PG (27.0-34.0); MEAN CORPUSCULAR HGB CONC 33.9 % (32.0-36.0); MONO % 4.1 % (0.0-8.0); NEUT % 90.4 % (16.0-70.0); PLATELET COUNT 184 TH/MM3 (150-450); RED BLOOD COUNT 3.11 MIL/MM3 (4.00-5.30); RED CELL DISTRIBUTION WIDTH 13.7 % (11.6-17.2); WHITE BLOOD COUNT 11.5 TH/MM3 (4.0-11.0)
[2017-03-18 05:39] LABS: POTASSIUM 4.1 MEQ/L (3.5-5.1)
[2017-03-18 05:56] LABS: HEMO FLAGS DIFF FINAL
[2017-03-18] MEDS: LEVOTHYROXINE SODIUM 25 MCG TAB PO SCH (05:56)
--- NOTE | 2017-03-18 06:30 | RADRPT ---
EXAM DATE/TIME: 03/18/2017 05:40 [facility] COMPARISON: CHEST SINGLE AP, March 16, 2017, 19:33. INDICATIONS : Shortness of breath. MEDICAL HISTORY : Chronic obstructive pulmonary disease. Renal failure, chronic. SURGICAL HISTORY : None. ENCOUNTER: Subsequent ACUITY: 4 - 6 days PAIN SCORE: 0/10 LOCATION: Bilateral chest FINDINGS: Edema pattern slightly improved from March 16. Trace pleural fluid. Heart size upper limits ernesto l. No pneumothorax. CONCLUSION: 1. Slight improvement in edema pattern since March 16. No new infiltrate. Sebastián Walker MD on March 18, 2017 at 6:27 Board Certified Radiologist. This report was verified electronically.
[2017-03-18] MEDS: DOCUSATE SODIUM 50 MG/SENNA 8.6 MG TAB PO SCH ×2 (08:45→21:00)
[2017-03-18] MEDS: MULTIVITAMINS/MINERALS THERAPEUTIC TAB PO SCH (08:45)
[2017-03-18] MEDS: LACTULOSE SYRUP 20 GM/30 ML CUP PO PRN (08:45)
[2017-03-18] MEDS: THIAMINE HCL 100 MG TAB PO SCH (08:45)
[2017-03-18] MEDS: DILTIAZEM HCL 30 MG TAB PO SCH ×4 (08:45→21:38)
[2017-03-18] MEDS: FOLIC ACID 1 MG TAB PO SCH (08:45)
[2017-03-18] MEDS: QUEtiapine FUMARATE 25 MG TAB PO SCH ×2 (08:45→21:31)
[2017-03-18] MEDS: GABAPENTIN 300 MG CAP PO SCH (08:45)
[2017-03-18] MEDS: FLUoxetine HCL 20 MG CAP PO SCH (08:45)
[2017-03-18] MEDS: BUDESONIDE-FORMOTEROL 160/4.5 MCG INHALER INH SCH ×2 (08:46→21:31)
[2017-03-18] MEDS: SODIUM CHLORIDE 0.9% FLUSH 10 ML FLUSH IV FLUSH SCH ×2 (08:46→21:31)
[2017-03-18] MEDS: LORazepam 1 MG TAB PO PRN (10:13)
[2017-03-18] MEDS: RESP: ALBUTEROL 2.5 MG/IPRATROPIUM 0.5 MG NEB (SCH) NEB (10:18)
[2017-03-18] MEDS: VANCOMYCIN INJ 1,000 MG in SODIUM CHLOR 0.9% 250 ML INJ 250 ML IV SCH (11:25)
[2017-03-18] MEDS: methylPREDNISolone SOD SUCC 125 MG/2 ML VIAL IV SCH ×2 (11:27→17:24)
[2017-03-18] MEDS ORDERED: ALPRAZolam 1 MG TAB PO PRN (11:30)
--- NOTE | 2017-03-18 13:00 | MB ---
cc: VERITO SELLERS M.D. DATE OF CONSULTATION: 03/17/2017 REASON FOR CONSULTATION 1. Respiratory failure. 2. COPD exacerbation. HISTORY OF PRESENT ILLNESS The patient is a 66-year-old female with known history of COPD, admitted with increasing shortness of breath, becoming progressively worse with evidence of severe hypoxemia. The patient is on high-flow oxygen via nasal cannula at present. She states she has had fever and chills while at home for about 3 days. She did use her bronchodilator therapy without improvement. The patient does have history of alcoholism and has been complaining of increased shakiness. She as well has history of anxiety. PAST MEDICAL HISTORY 1. COPD. 2. Severe anxiety and depression. 3. Alcoholism. 4. Hysterectomy in the past. 5. Fracture of her left arm. SOCIAL HISTORY The patient smokes a pack of cigarettes a day for over 30 years. Drinks alcohol excessively with history of alcoholism. Does not use drugs. FAMILY HISTORY Noncontributory. REVIEW OF SYSTEMS 12-point review of systems as per HPI and past history, otherwise negative. ALLERGIES None known to medication. CURRENT MEDICATIONS Include: 1. Quetiapine. 2. Hydroxyzine. 3. Gabapentin. 4. Levothyroxine. 5. Clonidine. 6. Ventolin. 7. Fluoxetine. PHYSICAL EXAMINATION GENERAL: On exam the patient is alert. VITAL SIGNS: Temperature 97.5, pulse 90, respiration 20, blood pressure 110/60. Oxygen saturation 93% on high-flow oxygen via nasal cannula. Inspired oxygen fraction at 60%. HEENT: Exam unremarkable. Eyes without icterus. NECK: Without adenopathy, thyroid enlargement. CHEST: Scattered rhonchi and wheeze bilaterally. CARDIAC: PMI distant. S1-S2 audible. No murmur or rub. ABDOMEN: Lax, audible bowel sounds. EXTREMITIES: No clubbing, cyanosis or edema. LABORATORY DATA Chest x-ray with mild congestive change. Echocardiogram, grade 1 diastolic dysfunction. Ejection fraction 55-60%. White count 17.9, hemoglobin 10, hematocrit 31, platelets at 191,000. Arterial blood gas pH 7.39, pCO2 32, pO2 52 on nasal cannula, now on high-flow oxygen as mentioned above. Sodium 142, potassium 3.7, BUN 23, creatinine 0.93. IMPRESSION 1. Acute respiratory failure. 2. COPD and exacerbation. 3. Alcohol withdrawal. 4. Hepatitis C. 5. Tobacco abuse. PLAN The patient is to continue oxygen therapy as needed to maintain adequate oxygen saturation. Bronchodilator therapy has been initiated and appropriately so, patient in intensive care setting at present. Will follow her closely. Once able will reduce her inspired oxygen fraction as tolerated. We will follow the patient's course along with you and depending on progress proceed further. I do thank you for asking me to partake in Mrs. Delcid's care. Verito Sellers MD WWW/TLL /4:56 PM /12:36 PM
--- NOTE | 2017-03-18 14:23 | HHI.PR ---
Subjective Remarks Patient is feeling improved. She still has tremors but states she feels this is due to anxiety. Heart rate better. Afebrile. Objective Vitals Vital Signs Date Time Temp Pulse Resp B/P (MAP) Pulse Ox O2 Delivery O2 Flow Rate FiO2 03/18/17 12:00 104 03/18/17 12:00 98.2 104 28 142/78 (99) 96 03/18/17 11:00 100 22 129/65 (86) 97 03/18/17 10:00 110 21 131/71 (91) 92 03/18/17 10:00 110 03/18/17 09:00 116 22 165/83 (110) 89 03/18/17 08:15 97 High Flow Nasal Cannula 30.00 70 03/18/17 08:00 98 03/18/17 08:00 93 Nasal Cannula 70 03/18/17 08:00 98.3 102 31 157/89 (111) 94 03/18/17 07:00 102 27 153/78 (103) 95 03/18/17 06:00 100 03/18/17 06:00 100 28 143/81 (101) 93 03/18/17 05:00 96 32 114/65 (81) 92 03/18/17 04:00 96 03/18/17 04:00 98.1 96 24 143/78 (99) 94 03/18/17 03:00 108 27 153/79 (103) 93 03/18/17 02:00 82 03/18/17 02:00 82 18 117/73 (88) 94 03/18/17 01:00 86 18 118/69 (85) 91 03/18/17 00:00 98.1 88 18 126/65 (85) 94 03/18/17 00:00 88 03/17/17 23:00 90 21 116/65 (82) 90 03/17/17 22:00 98 03/17/17 22:00 98 22 115/64 (81) 90 03/17/17 21:00 104 23 139/68 (91) 90 03/17/17 20:00 102 03/17/17 20:00 98.8 102 23 129/72 (91) 93 03/17/17 19:18 93 High Flow Nasal Cannula 30.00 70 03/17/17 19:00 91 Nasal Cannula 60 03/17/17 18:00 108 25 123/61 (81) 93 03/17/17 18:00 108 03/17/17 17:00 112 30 147/92 (110) 90 03/17/17 16:00 98.6 112 29 137/75 (95) 89 03/17/17 16:00 112 03/17/17 15:24 94 High Flow Nasal Cannula 30.00 70 03/17/17 15:00 100 22 110/59 (76) 90 I/O 03/17/17 03/17/17 03/17/17 03/18/17 03/18/17 03/18/17 07:00 15:00 23:00 07:00 15:00 23:00 Intake Total 830 ml 960 ml 250 ml Output Total 1750 ml 425 ml 550 ml Balance -920 ml 535 ml -550 ml 250 ml Intake Oral 480 ml 960 ml IV Total 350 ml 250 ml Output Urine Total 1750 ml 425 ml 550 ml # Bowel Movements 0 0 Result Diagram: 03/18/17 0505 03/18/17 0505 Objective Remarks GENERAL: Well-nourished, well-developed lean female patient. SKIN: Warm and dry. HEAD: Normocephalic. EYES: No scleral icterus. No injection or drainage. NECK: Supple, trachea midline. No JVD or lymphadenopathy. CARDIOVASCULAR: Regular rate and rhythm without murmurs, gallops, or rubs. RESPIRATORY: Breathing nonlabored. Diffuse expiratory wheezing and crackles bilaterally, however less severe and improved air exchange today. GASTROINTESTINAL: Abdomen soft, non-tender, nondistended. EXTREMITIES: No cyanosis, or edema. NEUROLOGICAL: Awake, alert, and oriented x 3. Non-focal. upper extremity tremors. A/P Problem List: (1) Acute respiratory failure ICD Code: J96.00 - Acute respiratory failure, unspecified whether with hypoxia or hypercapnia Status: Acute (2) Anxiety disorder, unspecified ICD Code: F41.9 - Anxiety disorder, unspecified Status: Chronic (3) Shortness of breath ICD Code: R06.02 - Shortness of breath Status: Acute (4) Alcohol withdrawal ICD Code: F10.239 - Alcohol dependence with withdrawal, unspecified Status: Acute (5) COPD (chronic obstructive pulmonary disease) ICD Code: J44.9 - Chronic obstructive pulmonary disease Status: Acute (6) Severe sepsis ICD Code: A41.9 - Sepsis, unspecified organism; R65.20 - Severe sepsis without septic shock Status: Acute (7) Hepatitis C ICD Code: B19.20 - Hepatitis C Status: Acute (8) UTI (urinary tract infection) ICD Code: N39.0 - Urinary tract infection, site not specified Status: Acute (9) Tobacco abuse ICD Code: Z72.0 - Tobacco abuse Status: Chronic (10) Respiratory alkalosis ICD Code: E87.3 - Alkalosis Status: Acute Assessment and Plan -Severe sepsis due to pneumonitis, presented with tachycardia, leukocytosis and an initial lactic acid of 5.1. Lactic acidosis resolved. One blood culture growing gram-positive cocci in pairs and clusters, patient started on vancomycin yesterday, follow-up will culture result. Urine cultures show 50, 000 colony-forming units mixed gram-positive probably contaminants. Leukocytosis down trended. Repeat CBC in the morning. Continue Rocephin, Zithromax and vancomycin. -Acute respiratory failure/distress/COPD exacerbation, now on high flow nasal cannula. Chest x-ray 03/16 revealed diffuse interstitial infiltrates. Repeat chest x-ray this morning shows improved aeration, I reviewed the images. She received Lasix 40 mg IV, BNP was not elevated. Bynum catheter was placed and she had nearly 4 L of urine output. I will give by mouth Lasix. Continue Rocephin and Zithromax. Continue Solu-Medrol and duo nebs. 2-D echocardiogram pending. Pulmonology following/Dr. Ohara. We'll try to wean oxygen. -Alcohol withdrawal, Alcoholism and has been drinking wine for the past few days. Withdrawal seems is resolved however she has persistent upper extremity tremors. Continue Ativan as needed for anxiety and tremors. -Tachycardia, sinus. Continue Cardizem by mouth. -Severe anxiety and depression. Continue Seroquel, fluoxetine. -History of seizures with prior withdrawal from Xanax. -Hypothyroidism. TSH within normal limits. Continue Synthroid 25 g daily. -DVT prophylaxis with SCDs. Problem Qualifiers (1) Acute respiratory failure: Qualified Codes: J96.01 - Acute respiratory failure with hypoxia (2) Anxiety disorder, unspecified: Qualified Codes: F41.1 - Generalized anxiety disorder (3) Alcohol withdrawal: Qualified Codes: F10.230 - Alcohol dependence with withdrawal, uncomplicated (4) COPD (chronic obstructive pulmonary disease): Qualified Codes: J44.1 - Chronic obstructive pulmonary disease with (acute) exacerbation (5) Hepatitis C: Thu Preciado MD Mar 18, 2017 14:23
[2017-03-18] MEDS ORDERED: ACETAMINOPHEN/HYDROcodone 325 MG/5 MG TAB PO PRN (14:30)
--- NOTE | 2017-03-18 15:18 | HHI.PR ---
Subjective Remarks 64 YOWF with COPD exac, bronchitis,Anxiety Breathing better Anxious, gets tremers with anxiety and nebs no fevevr Objective Vital Signs Vital Signs Date Time Temp Pulse Resp B/P (MAP) Pulse Ox O2 Delivery O2 Flow Rate FiO2 03/18/17 15:12 93 High Flow Nasal Cannula 30.00 70 03/18/17 12:00 104 03/18/17 12:00 98.2 104 28 142/78 (99) 96 03/18/17 11:00 100 22 129/65 (86) 97 03/18/17 10:00 110 21 131/71 (91) 92 03/18/17 10:00 110 03/18/17 09:00 116 22 165/83 (110) 89 03/18/17 08:15 97 High Flow Nasal Cannula 30.00 70 03/18/17 08:00 98 03/18/17 08:00 93 Nasal Cannula 70 03/18/17 08:00 98.3 102 31 157/89 (111) 94 03/18/17 07:00 102 27 153/78 (103) 95 03/18/17 06:00 100 03/18/17 06:00 100 28 143/81 (101) 93 03/18/17 05:00 96 32 114/65 (81) 92 03/18/17 04:00 96 03/18/17 04:00 98.1 96 24 143/78 (99) 94 03/18/17 03:00 108 27 153/79 (103) 93 03/18/17 02:00 82 03/18/17 02:00 82 18 117/73 (88) 94 03/18/17 01:00 86 18 118/69 (85) 91 03/18/17 00:00 98.1 88 18 126/65 (85) 94 03/18/17 00:00 88 03/17/17 23:00 90 21 116/65 (82) 90 03/17/17 22:00 98 03/17/17 22:00 98 22 115/64 (81) 90 03/17/17 21:00 104 23 139/68 (91) 90 03/17/17 20:00 102 03/17/17 20:00 98.8 102 23 129/72 (91) 93 03/17/17 19:18 93 High Flow Nasal Cannula 30.00 70 03/17/17 19:00 91 Nasal Cannula 60 03/17/17 18:00 108 25 123/61 (81) 93 03/17/17 18:00 108 03/17/17 17:00 112 30 147/92 (110) 90 03/17/17 16:00 98.6 112 29 137/75 (95) 89 03/17/17 16:00 112 03/17/17 15:24 94 High Flow Nasal Cannula 30.00 70 I/O 03/17/17 03/17/17 03/17/17 03/18/17 03/18/17 03/18/17 07:00 15:00 23:00 07:00 15:00 23:00 Intake Total 830 ml 960 ml 250 ml Output Total 1750 ml 425 ml 550 ml Balance -920 ml 535 ml -550 ml 250 ml Intake Oral 480 ml 960 ml IV Total 350 ml 250 ml Output Urine Total 1750 ml 425 ml 550 ml # Bowel Movements 0 0 Result Diagram: 03/18/17 0505 03/18/17 0505 Objective Remarks GENERAL: MBMN WF mild sob SKIN: Warm and dry. HEAD: Normocephalic. EYES: No scleral icterus. No injection or drainage. NECK: Supple, trachea midline. No JVD or lymphadenopathy. CARDIOVASCULAR: Regular rate and rhythm without murmurs, gallops, or rubs. RESPIRATORY: Breath sounds equal bilaterally. No accessory muscle use. GASTROINTESTINAL: Abdomen soft, non-tender, nondistended. MUSCULOSKELETAL: No cyanosis, or edema. BACK: Nontender without obvious deformity. No CVA tenderness. A/P Assessment and Plan COPD exac bronchitis Anxiety disorder Nicotine use Tremers PLAN: IV Solumedrol Aerosol nebs cont Abx Supplement 02 Venkata Barron MD Mar 18, 2017 15:18
[2017-03-18] MEDS: ALPRAZolam 1 MG TAB PO PRN ×2 (15:25→20:01)
[2017-03-18] MEDS: ACETAMINOPHEN 325 MG TAB PO PRN (20:01)
[2017-03-19] VITALS (31 sets, daily range): BP systolic 108–162; BP diastolic 55–90; PULSE 76–112; RESP 16–37; TEMP 97–99.5; O2SAT 89–98
[2017-03-19] MEDS: AZITHROMYCIN INJ 500 MG in SODIUM CHLOR 0.9% 250 ML INJ 250 ML IV SCH (03:17)
[2017-03-19] MEDS: cefTRIAXone INJ 1,000 MG in SODIUM CHLORIDE 0.9% INJ 100 ML IV SCH (03:17)
[2017-03-19] MEDS: methylPREDNISolone SOD SUCC 125 MG/2 ML VIAL IV SCH ×4 (04:50→22:59)
[2017-03-19] MEDS: LEVOTHYROXINE SODIUM 25 MCG TAB PO SCH (04:52)
[2017-03-19] MEDS: VANCOMYCIN INJ 1,000 MG in SODIUM CHLOR 0.9% 250 ML INJ 250 ML IV SCH (04:52)
[2017-03-19] MEDS: ALPRAZolam 1 MG TAB PO PRN ×3 (04:52→20:29)
[2017-03-19] MEDS: RESP: ALBUTEROL 2.5 MG/IPRATROPIUM 0.5 MG NEB (SCH) NEB ×4 (07:13→19:24)
[2017-03-19] MEDS: BUDESONIDE-FORMOTEROL 160/4.5 MCG INHALER INH SCH ×2 (08:05→20:05)
[2017-03-19] MEDS: SODIUM CHLORIDE 0.9% FLUSH 10 ML FLUSH IV FLUSH SCH ×2 (08:05→20:05)
[2017-03-19] MEDS: THIAMINE HCL 100 MG TAB PO SCH (08:06)
[2017-03-19] MEDS: MULTIVITAMINS/MINERALS THERAPEUTIC TAB PO SCH (08:06)
[2017-03-19] MEDS: QUEtiapine FUMARATE 25 MG TAB PO SCH ×2 (08:06→20:05)
[2017-03-19] MEDS: GABAPENTIN 300 MG CAP PO SCH (08:06)
[2017-03-19] MEDS: DOCUSATE SODIUM 50 MG/SENNA 8.6 MG TAB PO SCH ×2 (08:06→20:05)
[2017-03-19] MEDS: FOLIC ACID 1 MG TAB PO SCH (08:06)
[2017-03-19] MEDS: FLUoxetine HCL 20 MG CAP PO SCH (08:06)
[2017-03-19] MEDS: DILTIAZEM HCL 30 MG TAB PO SCH ×4 (08:06→20:05)
--- NOTE | 2017-03-19 15:34 | HHI.PR ---
Subjective Remarks sob improving denies cp denies diarrhea denies fevers/chills afebrile Objective Vitals Vital Signs Date Time Temp Pulse Resp B/P (MAP) Pulse Ox O2 Delivery O2 Flow Rate FiO2 03/19/17 14:00 94 21 128/62 (84) 97 03/19/17 14:00 94 03/19/17 13:00 106 28 142/65 (90) 93 03/19/17 12:00 98.7 100 22 127/79 (95) 92 03/19/17 12:00 100 03/19/17 11:01 110 35 121/65 (83) 90 03/19/17 10:00 98 18 115/69 (84) 92 03/19/17 10:00 98 03/19/17 09:00 104 31 129/72 (91) 92 03/19/17 09:00 104 03/19/17 08:01 98.7 92 23 143/82 (102) 89 03/19/17 08:00 81 03/19/17 08:00 93 Nasal Cannula 60 03/19/17 07:35 90 Nasal Cannula 6.00 03/19/17 07:14 94 High Flow Nasal Cannula 30.00 60 03/19/17 07:01 84 26 155/88 (110) 97 03/19/17 06:00 86 27 139/75 (96) 90 03/19/17 06:00 78 03/19/17 05:00 82 21 143/80 (101) 96 03/19/17 04:00 98.6 78 17 118/65 (82) 98 03/19/17 04:00 78 03/19/17 03:00 76 25 122/67 (85) 98 03/19/17 02:00 76 03/19/17 02:00 76 18 119/63 (81) 97 03/19/17 01:00 82 20 131/69 (89) 94 03/19/17 00:00 82 03/19/17 00:00 97.7 78 16 108/55 (72) 95 03/18/17 23:55 93 High Flow Nasal Cannula 30.00 60 03/18/17 23:00 94 20 137/77 (97) 92 03/18/17 22:00 92 20 131/83 (99) 94 03/18/17 22:00 90 03/18/17 21:00 92 18 149/83 (105) 95 03/18/17 20:00 97 03/18/17 20:00 98 17 134/78 (96) 93 03/18/17 20:00 93 Nasal Cannula 60 03/18/17 19:34 99 High Flow Nasal Cannula 30.00 60 03/18/17 19:00 98.2 96 25 156/81 (106) 94 03/18/17 18:00 104 03/18/17 18:00 104 21 151/82 (105) 96 03/18/17 17:00 98 22 148/83 (104) 94 03/18/17 17:00 98 03/18/17 16:00 99.2 114 32 147/76 (99) 91 03/18/17 16:00 114 I/O 03/18/17 03/18/17 03/18/17 03/19/17 03/19/17 03/19/17 07:00 15:00 23:00 07:00 15:00 23:00 Intake Total 250 ml 960 ml 901.92 ml Output Total 550 ml 650 ml 525 ml Balance -550 ml 250 ml 310 ml 376.92 ml Intake Oral 960 ml 300 ml IV Total 250 ml 601.92 ml Output Urine Total 550 ml 650 ml 525 ml # Bowel Movements 1 Result Diagram: 03/18/17 0505 03/18/17 0505 Imaging Last Impressions Chest X-Ray 03/18/17 0600 Signed Impressions: Service Date/Time: Saturday, March 18, 2017 05:40 - CONCLUSION: 1. Slight improvement in edema pattern since March 16. No new infiltrate. Sebastián Walker MD Objective Remarks AAox3 Decreased breat sounds in BL lung [place] but no wheezing auscultated S1S2 RRR, no MRG abdomen soft, nt, nd no edema in lower extremities Procedures none Medications and IVs Current Medications Medications (Trade) Dose Ordered Sig/Cielo Route Start Time Stop Time Status Last Admin (Folate) 1 mg DAILY PO 03/15/17 09:00 03/20/17 08:59 03/19/17 08:06 (Vitamin B1) 100 mg DAILY PO 03/15/17 09:00 03/19/17 08:06 (Theragran M Tab) 1 tab DAILY PO 03/15/17 09:00 03/20/17 08:59 03/19/17 08:06 (Romazicon Inj) 0.2 mg Q1M PRN IV PUSH 03/15/17 03:30 (Duoneb Neb) 1 ampule Q2HR NEB PRN NEB 03/15/17 03:30 03/18/17 11:07 Ceftriaxone Sodium 1000 mg/ Sodium Chloride 100 ml @ 200 mls/hr Q24H IV 03/16/17 03:00 03/19/17 03:17 Azithromycin 500 mg/Sodium Chloride 250 ml @ 250 mls/hr Q24H IV 03/16/17 04:00 03/19/17 03:17 (NS Flush) 2 ml UNSCH PRN IV FLUSH 03/15/17 03:30 (NS Flush) 2 ml BID IV FLUSH 03/15/17 09:00 03/19/17 08:05 (Zofran Inj) 4 mg Q6H PRN IVP 03/15/17 03:30 (Tylenol) 650 mg Q6H PRN PO 03/15/17 03:30 03/18/17 20:01 (Roxicodone) 10 mg Q4H PRN PO 03/15/17 03:30 03/18/17 21:31 (Roxicodone) 5 mg Q4H PRN PO 03/15/17 03:30 03/19/17 08:07 (Lindsey-Colace) 1 tab BID PO 03/15/17 09:00 03/18/17 08:45 (Milk Of Magnesia Liq) 30 ml Q12H PRN PO 03/15/17 03:30 (Senokot) 17.2 mg Q12H PRN PO 03/15/17 03:30 (Dulcolax Supp) 10 mg DAILY PRN RECTAL 03/15/17 03:30 (Lactulose Liq) 30 ml DAILY PRN PO 03/15/17 03:30 03/18/17 08:45 (Symbicort 160-4.5 Inh) 2 puff Q12HR INH 03/15/17 09:00 03/19/17 08:05 (PROzac) 40 mg DAILY PO 03/15/17 10:00 03/19/17 08:06 (Neurontin) 300 mg DAILY PO 03/15/17 10:00 03/19/17 08:06 (SEROquel) 50 mg BID PO 03/15/17 21:00 03/19/17 08:06 (Synthroid) 25 mcg DAILY@0600 PO 03/16/17 06:00 03/19/17 04:52 (Cardizem) 30 mg QID PO 03/16/17 18:00 03/19/17 13:21 Vancomycin HCl 1000 mg/Sodium Chloride 250 ml @ 250 mls/hr Q18H IV 03/17/17 18:00 03/19/17 04:52 Pharmacy Profile Note 0 ml @ 0 mls/hr UNSCH OTHER 03/17/17 18:00 Miscellaneous Information SPECIFIC LAB TO BE DRAWN:VANCOMY... ONCE ONCE .XX 03/19/17 23:45 03/19/17 23:46 (SoluMEDROL INJ) 60 mg Q6HR IV 03/18/17 12:00 03/19/17 13:21 (Duoneb Neb) 1 ampule QID NEB NEB 03/18/17 16:00 03/19/17 11:45 (Xanax) 1 mg Q4H PRN PO 03/18/17 15:15 03/19/17 10:25 Urinary Catheter: No Vascular Central Line Catheter: No A/P Problem List: (1) Acute respiratory failure ICD Code: J96.00 - Acute respiratory failure, unspecified whether with hypoxia or hypercapnia Status: Acute Plan: (2) Anxiety disorder, unspecified ICD Code: F41.9 - Anxiety disorder, unspecified Status: Chronic (3) Shortness of breath ICD Code: R06.02 - Shortness of breath Status: Acute (4) Alcohol withdrawal ICD Code: F10.239 - Alcohol dependence with withdrawal, unspecified Status: Acute (5) COPD (chronic obstructive pulmonary disease) ICD Code: J44.9 - Chronic obstructive pulmonary disease Status: Acute (6) Severe sepsis ICD Code: A41.9 - Sepsis, unspecified organism; R65.20 - Severe sepsis without septic shock Status: Acute (7) Hepatitis C ICD Code: B19.20 - Hepatitis C Status: Acute (8) UTI (urinary tract infection) ICD Code: N39.0 - Urinary tract infection, site not specified Status: Resolved (9) Tobacco abuse ICD Code: Z72.0 - Tobacco abuse Status: Chronic (10) Respiratory alkalosis ICD Code: E87.3 - Alkalosis Status: Acute Assessment and Plan 1. Severe sepsis due to pneumonitis and COPD exacerbation, presented with tachycardia, leukocytosis and an initial lactic acid of 5.1. Lactic acidosis resolved. One blood culture growing gram-positive cocci in pairs and clusters and the patient was started on vancomycin, follow-up will culture result. Urine cultures show 50,000 colony-forming units mixed gram-positive probably contaminants. Leukocytosis down trended. Repeat CBC in the morning. Continue Rocephin, Zithromax and vancomycin. 2. Acute respiratory failure/distress/COPD exacerbation, now on high flow nasal cannula. Chest x-ray 03/16 revealed diffuse interstitial infiltrates. Repeat chest x-ray this morning shows improved aeration, I reviewed the images. She received Lasix 40 mg IV, BNP was not elevated. Bynum catheter was placed and she had nearly 4 L of urine output. Continue mouth Lasix. Continue Rocephin and Zithromax. Continue Solu-Medrol and duo nebs. 2-D echocardiogram pending. Pulmonology following/Dr. Ohara. 03/19 Wean oxygen as tolerated. Taper dose of IV solumedrol down to 40 mg IV Q 8 hrs. 3. Alcohol withdrawal, Alcoholism and has been drinking wine for the past few days. Seems to be resolved. Continue Ativan as needed for anxiety and tremors. 4. Tachycardia, sinus. Continue Cardizem by mouth. 5. Severe anxiety and depression. Continue Seroquel, fluoxetine. 6. History of seizures with prior withdrawal from Xanax. No current seizure, 7. Hypothyroidism. TSH within normal limits. Continue Synthroid 25 g daily. 8. Positive blood cultures. Patient grew 1 bottle with coagulase-negative staph aureus. Follow-up ID and sensitivities. Continue IV antibiotics as above for now and repeat blood cultures. 8. DVT prophylaxis with SCDs. Problem Qualifiers (1) Acute respiratory failure: Qualified Codes: J96.01 - Acute respiratory failure with hypoxia (2) Anxiety disorder, unspecified: Qualified Codes: F41.1 - Generalized anxiety disorder (3) Alcohol withdrawal: Qualified Codes: F10.230 - Alcohol dependence with withdrawal, uncomplicated (4) COPD (chronic obstructive pulmonary disease): Qualified Codes: J44.1 - Chronic obstructive pulmonary disease with (acute) exacerbation (5) Hepatitis C: Dajuan Pemberton MD Mar 19, 2017 15:34
--- NOTE | 2017-03-19 18:54 | HHI.PR ---
Subjective Remarks 64 YOWF with COPD exac, bronchitis,Anxiety Breathing better Anxious, gets tremers with anxiety and nebs no fever. Occ CP with breathing still requiring high flow 02 Objective Vital Signs Vital Signs Date Time Temp Pulse Resp B/P (MAP) Pulse Ox O2 Delivery O2 Flow Rate FiO2 03/19/17 18:01 98 20 162/83 (109) 94 03/19/17 18:00 104 03/19/17 17:01 98 18 147/90 (109) 97 03/19/17 17:00 98 03/19/17 16:00 99.5 112 27 138/72 (94) 95 03/19/17 16:00 112 03/19/17 15:34 95 High Flow Nasal Cannula 20.00 60 03/19/17 15:01 92 23 134/71 (92) 93 03/19/17 14:00 94 21 128/62 (84) 97 03/19/17 14:00 94 03/19/17 13:00 106 28 142/65 (90) 93 03/19/17 12:00 98.7 100 22 127/79 (95) 92 03/19/17 12:00 100 03/19/17 11:01 110 35 121/65 (83) 90 03/19/17 10:00 98 18 115/69 (84) 92 03/19/17 10:00 98 03/19/17 09:00 104 31 129/72 (91) 92 03/19/17 09:00 104 03/19/17 08:01 98.7 92 23 143/82 (102) 89 03/19/17 08:00 81 03/19/17 08:00 93 Nasal Cannula 60 03/19/17 07:35 90 Nasal Cannula 6.00 03/19/17 07:14 94 High Flow Nasal Cannula 30.00 60 03/19/17 07:01 84 26 155/88 (110) 97 03/19/17 06:00 86 27 139/75 (96) 90 03/19/17 06:00 78 03/19/17 05:00 82 21 143/80 (101) 96 03/19/17 04:00 98.6 78 17 118/65 (82) 98 03/19/17 04:00 78 03/19/17 03:00 76 25 122/67 (85) 98 03/19/17 02:00 76 03/19/17 02:00 76 18 119/63 (81) 97 03/19/17 01:00 82 20 131/69 (89) 94 03/19/17 00:00 82 03/19/17 00:00 97.7 78 16 108/55 (72) 95 03/18/17 23:55 93 High Flow Nasal Cannula 30.00 60 03/18/17 23:00 94 20 137/77 (97) 92 03/18/17 22:00 92 20 131/83 (99) 94 03/18/17 22:00 90 03/18/17 21:00 92 18 149/83 (105) 95 03/18/17 20:00 97 03/18/17 20:00 98 17 134/78 (96) 93 03/18/17 20:00 93 Nasal Cannula 60 03/18/17 19:34 99 High Flow Nasal Cannula 30.00 60 03/18/17 19:00 98.2 96 25 156/81 (106) 94 I/O 03/18/17 03/18/17 03/18/17 03/19/17 03/19/17 03/19/17 07:00 15:00 23:00 07:00 15:00 23:00 Intake Total 250 ml 960 ml 901.92 ml Output Total 550 ml 650 ml 525 ml 700 ml Balance -550 ml 250 ml 310 ml 376.92 ml -700 ml Intake Oral 960 ml 300 ml IV Total 250 ml 601.92 ml Output Urine Total 550 ml 650 ml 525 ml 700 ml # Bowel Movements 1 Result Diagram: 03/18/17 0505 03/18/17 0505 Objective Remarks GENERAL: MBMN WF mild sob SKIN: Warm and dry. HEAD: Normocephalic. EYES: No scleral icterus. No injection or drainage. NECK: Supple, trachea midline. No JVD or lymphadenopathy. CARDIOVASCULAR: Regular rate and rhythm without murmurs, gallops, or rubs. RESPIRATORY: Breath sounds equal bilaterally. No accessory muscle use. GASTROINTESTINAL: Abdomen soft, non-tender, nondistended. MUSCULOSKELETAL: No cyanosis, or edema. BACK: Nontender without obvious deformity. No CVA tenderness. A/P Assessment and Plan COPD exac bronchitis Anxiety disorder Nicotine use Tremers PLAN: IV Solumedrol Aerosol nebs cont Abx Supplement 02 High flow 02 and wean to keep sat 88-92% Venkata Barron MD Mar 19, 2017 18:54
[2017-03-19] MEDS ORDERED: VANCOMYCIN TROUGH ONE (23:45)
[2017-03-20] VITALS (28 sets, daily range): BP systolic 133–158; BP diastolic 64–99; PULSE 82–120; RESP 12–39; TEMP 96.7–98.7; O2SAT 81–98
[2017-03-20] MEDS: VANCOMYCIN INJ 1,000 MG in SODIUM CHLOR 0.9% 250 ML INJ 250 ML IV SCH (00:20)
[2017-03-20] MEDS: ALPRAZolam 1 MG TAB PO PRN ×4 (00:25→18:13)
[2017-03-20] MEDS: cefTRIAXone INJ 1,000 MG in SODIUM CHLORIDE 0.9% INJ 100 ML IV SCH (03:06)
[2017-03-20] MEDS: AZITHROMYCIN INJ 500 MG in SODIUM CHLOR 0.9% 250 ML INJ 250 ML IV SCH (03:06)
[2017-03-20] MEDS: methylPREDNISolone SOD SUCC 125 MG/2 ML VIAL IV SCH ×3 (05:08→21:40)
[2017-03-20] MEDS: LEVOTHYROXINE SODIUM 25 MCG TAB PO SCH (05:08)
[2017-03-20 05:32] LABS: AUTOMATED NEUTROPHIL # 10.2 TH/MM3 (1.8-7.7); BASOPHIL % 0.4 % (0.0-2.0); HEMO FLAGS DIFF FINAL; LYMPH % 5.8 % (9.0-44.0); LYMPHOCYTE # 0.7 TH/MM3 (1.0-4.8); MEAN CELL VOLUME 95.1 FL (80.0-100.0); MEAN CORPUSCULAR HGB CONC 33.6 % (32.0-36.0); MONO % 5.2 % (0.0-8.0); NEUT % 88.6 % (16.0-70.0); PLATELET COUNT 137 TH/MM3 (150-450); RED BLOOD COUNT 3.05 MIL/MM3 (4.00-5.30); RED CELL DISTRIBUTION WIDTH 12.8 % (11.6-17.2); WHITE BLOOD COUNT 11.5 TH/MM3 (4.0-11.0)
[2017-03-20 05:39] LABS: POTASSIUM 3.9 MEQ/L (3.5-5.1)
[2017-03-20 05:59] LABS: BICARBONATE 24.1 MEQ/L (21.0-32.0); CALCIUM-PROTEIN CORRECTED 8.5 MG/DL (8.5-10.1); TOTAL BILIRUBIN ADULT 0.2 MG/DL (0.2-1.0)
[2017-03-20] MEDS: RESP: ALBUTEROL 2.5 MG/IPRATROPIUM 0.5 MG NEB (SCH) NEB ×4 (08:02→19:20)
[2017-03-20] MEDS: BUDESONIDE-FORMOTEROL 160/4.5 MCG INHALER INH SCH ×2 (08:27→21:40)
[2017-03-20] MEDS: FLUoxetine HCL 20 MG CAP PO SCH (08:28)
[2017-03-20] MEDS: QUEtiapine FUMARATE 25 MG TAB PO SCH ×2 (08:28→21:00)
[2017-03-20] MEDS: DOCUSATE SODIUM 50 MG/SENNA 8.6 MG TAB PO SCH ×2 (08:28→21:40)
[2017-03-20] MEDS: GABAPENTIN 300 MG CAP PO SCH (08:28)
[2017-03-20] MEDS: THIAMINE HCL 100 MG TAB PO SCH (08:28)
[2017-03-20] MEDS: SODIUM CHLORIDE 0.9% FLUSH 10 ML FLUSH IV FLUSH SCH ×2 (08:29→21:42)
[2017-03-20] MEDS: DILTIAZEM HCL 30 MG TAB PO SCH ×4 (08:58→21:40)
[2017-03-20] MEDS ORDERED: DILTIAZEM HCL 60 MG TAB PO ONE (09:00)
[2017-03-20] MEDS ORDERED: DILTIAZEM HCL 30 MG TAB PO SCH (13:00)
[2017-03-20] MEDS: VANCOMYCIN INJ 1,400 MG in SODIUM CHLORID 0.9% 500 ML INJ 500 ML IV SCH (15:30)
--- NOTE | 2017-03-20 17:38 | HHI.PR ---
Subjective Remarks 64 YOWF with COPD exac, bronchitis,Anxiety Breathing better Anxious, gets tremers with anxiety and nebs no fever. Occ CP with breathing has wheezing, desaturates Objective Vital Signs Vital Signs Date Time Temp Pulse Resp B/P (MAP) Pulse Ox O2 Delivery O2 Flow Rate FiO2 03/20/17 16:34 94 High Flow Nasal Cannula 20.00 50 03/20/17 16:00 98.5 88 16 133/64 (87) 94 03/20/17 16:00 88 03/20/17 15:00 100 35 142/75 (97) 91 03/20/17 14:00 102 03/20/17 13:00 96 21 138/72 (94) 94 03/20/17 12:00 98.6 86 20 158/88 (111) 95 03/20/17 12:00 86 03/20/17 11:01 86 20 158/88 (111) 95 03/20/17 10:00 102 03/20/17 10:00 98 39 146/78 (100) 96 03/20/17 09:00 94 19 142/99 (113) 81 03/20/17 08:05 98 High Flow Nasal Cannula 20.00 60 03/20/17 08:00 84 03/20/17 08:00 84 24 152/86 (108) 96 03/20/17 08:00 95 Nasal Cannula 30 03/20/17 07:00 98.7 90 24 156/81 (106) 95 03/20/17 06:00 86 26 94 03/20/17 06:00 86 03/20/17 05:00 82 21 94 03/20/17 04:00 86 03/20/17 04:00 97.4 86 33 94 03/20/17 03:00 86 21 03/20/17 02:00 82 12 96 03/20/17 02:00 82 03/20/17 01:00 84 19 95 03/20/17 00:00 82 03/20/17 00:00 82 23 91 03/19/17 23:00 96 32 92 03/19/17 22:00 96 37 142/79 (100) 92 03/19/17 22:00 108 03/19/17 21:00 96 21 153/80 (104) 95 03/19/17 20:00 102 23 154/78 (103) 94 03/19/17 20:00 102 03/19/17 20:00 94 Nasal Cannula 60 03/19/17 19:24 93 High Flow Nasal Cannula 20.00 60 03/19/17 19:00 97.0 102 22 157/84 (108) 96 03/19/17 18:01 98 20 162/83 (109) 94 03/19/17 18:00 104 I/O 03/19/17 03/19/17 03/19/17 03/20/17 03/20/17 03/20/17 07:00 15:00 23:00 07:00 15:00 23:00 Intake Total 901.92 ml 250 ml 801.28 ml Output Total 525 ml 900 ml 0 ml Balance 376.92 ml -650 ml 801.28 ml Intake Oral 300 ml 250 ml 200 ml IV Total 601.92 ml 601.28 ml Output Urine Total 525 ml 900 ml 0 ml Result Diagram: 03/20/17 0512 03/20/17 0512 Objective Remarks GENERAL: MBMN WF mild sob SKIN: Warm and dry. HEAD: Normocephalic. EYES: No scleral icterus. No injection or drainage. NECK: Supple, trachea midline. No JVD or lymphadenopathy. CARDIOVASCULAR: Regular rate and rhythm without murmurs, gallops, or rubs. RESPIRATORY: Breath sounds equal bilaterally. No accessory muscle use. GASTROINTESTINAL: Abdomen soft, non-tender, nondistended. MUSCULOSKELETAL: No cyanosis, or edema. BACK: Nontender without obvious deformity. No CVA tenderness. A/P Assessment and Plan COPD exac bronchitis Anxiety disorder Nicotine use Tremers PLAN: IV Solumedrol Aerosol nebs cont Abx Supplement 02 Supplement 02 and wean to keep sat 88-92% Encourage to use Venkata Stephens MD Mar 20, 2017 17:38
--- NOTE | 2017-03-20 19:22 | HHI.PR ---
Subjective Remarks Deferred entry, patient seen at 6:30 PM Shortness of breath seems to be improving Denies fevers or chills Still with cough. Objective Vitals Vital Signs Date Time Temp Pulse Resp B/P (MAP) Pulse Ox O2 Delivery O2 Flow Rate FiO2 03/20/17 18:00 96 03/20/17 18:00 96 18 149/75 (99) 92 03/20/17 17:00 102 35 151/81 (104) 89 03/20/17 16:34 94 High Flow Nasal Cannula 20.00 50 03/20/17 16:00 98.5 88 16 133/64 (87) 94 03/20/17 16:00 88 03/20/17 15:00 100 35 142/75 (97) 91 03/20/17 14:00 102 03/20/17 13:00 96 21 138/72 (94) 94 03/20/17 12:00 98.6 86 20 158/88 (111) 95 03/20/17 12:00 86 03/20/17 11:01 86 20 158/88 (111) 95 03/20/17 10:00 102 03/20/17 10:00 98 39 146/78 (100) 96 03/20/17 09:00 94 19 142/99 (113) 81 03/20/17 08:05 98 High Flow Nasal Cannula 20.00 60 03/20/17 08:00 84 03/20/17 08:00 84 24 152/86 (108) 96 03/20/17 08:00 95 Nasal Cannula 30 03/20/17 07:00 98.7 90 24 156/81 (106) 95 03/20/17 06:00 86 26 94 03/20/17 06:00 86 03/20/17 05:00 82 21 94 03/20/17 04:00 86 03/20/17 04:00 97.4 86 33 94 03/20/17 03:00 86 21 03/20/17 02:00 82 12 96 03/20/17 02:00 82 03/20/17 01:00 84 19 95 03/20/17 00:00 82 03/20/17 00:00 82 23 91 03/19/17 23:00 96 32 92 03/19/17 22:00 96 37 142/79 (100) 92 03/19/17 22:00 108 03/19/17 21:00 96 21 153/80 (104) 95 03/19/17 20:00 102 23 154/78 (103) 94 03/19/17 20:00 102 03/19/17 20:00 94 Nasal Cannula 60 03/19/17 19:24 93 High Flow Nasal Cannula 20.00 60 I/O 03/19/17 03/19/17 03/19/17 03/20/17 03/20/17 03/20/17 07:00 15:00 23:00 07:00 15:00 23:00 Intake Total 901.92 ml 250 ml 801.28 ml 1486 ml Output Total 525 ml 900 ml 0 ml 1200 ml Balance 376.92 ml -650 ml 801.28 ml 286 ml Intake Oral 300 ml 250 ml 200 ml 960 ml IV Total 601.92 ml 601.28 ml 526 ml Output Urine Total 525 ml 900 ml 0 ml 1200 ml # Bowel Movements 0 Result Diagram: 03/20/1751103/20/17 0512 Imaging Last Impressions Chest X-Ray 03/18/17 0600 Signed Impressions: Service Date/Time: Saturday, March 18, 2017 05:40 - CONCLUSION: 1. Slight improvement in edema pattern since March 16. No new infiltrate. Sebastián Walker MD Objective Remarks AAox3 Decreased breat sounds in BL lung [place] but no wheezing auscultated S1S2 RRR, no MRG abdomen soft, nt, nd no edema in lower extremities Procedures none Medications and IVs Current Medications Medications (Trade) Dose Ordered Sig/Cielo Route Start Time Stop Time Status Last Admin (Vitamin B1) 100 mg DAILY PO 03/15/17 09:00 03/20/17 08:28 (Romazicon Inj) 0.2 mg Q1M PRN IV PUSH 03/15/17 03:30 (Duoneb Neb) 1 ampule Q2HR NEB PRN NEB 03/15/17 03:30 03/18/17 11:07 Ceftriaxone Sodium 1000 mg/ Sodium Chloride 100 ml @ 200 mls/hr Q24H IV 03/16/17 03:00 03/20/17 03:06 Azithromycin 500 mg/Sodium Chloride 250 ml @ 250 mls/hr Q24H IV 03/16/17 04:00 03/20/17 03:06 (NS Flush) 2 ml UNSCH PRN IV FLUSH 03/15/17 03:30 (NS Flush) 2 ml BID IV FLUSH 03/15/17 09:00 03/20/17 08:29 (Zofran Inj) 4 mg Q6H PRN IVP 03/15/17 03:30 (Tylenol) 650 mg Q6H PRN PO 03/15/17 03:30 03/18/17 20:01 (Roxicodone) 10 mg Q4H PRN PO 03/15/17 03:30 03/20/17 18:16 (Roxicodone) 5 mg Q4H PRN PO 03/15/17 03:30 03/19/17 08:07 (Lindsey-Colace) 1 tab BID PO 03/15/17 09:00 03/20/17 08:28 (Milk Of Magnesia Liq) 30 ml Q12H PRN PO 03/15/17 03:30 (Senokot) 17.2 mg Q12H PRN PO 03/15/17 03:30 (Dulcolax Supp) 10 mg DAILY PRN RECTAL 03/15/17 03:30 (Lactulose Liq) 30 ml DAILY PRN PO 03/15/17 03:30 03/18/17 08:45 (Symbicort 160-4.5 Inh) 2 puff Q12HR INH 03/15/17 09:00 03/20/17 08:27 (PROzac) 40 mg DAILY PO 03/15/17 10:00 03/20/17 08:28 (Neurontin) 300 mg DAILY PO 03/15/17 10:00 03/20/17 08:28 (SEROquel) 50 mg BID PO 03/15/17 21:00 03/20/17 08:28 (Synthroid) 25 mcg DAILY@0600 PO 03/16/17 06:00 03/20/17 05:08 Pharmacy Profile Note 0 ml @ 0 mls/hr UNSCH OTHER 03/17/17 18:00 (Duoneb Neb) 1 ampule QID NEB NEB 03/18/17 16:00 03/20/17 16:30 (Xanax) 1 mg Q4H PRN PO 03/18/17 15:15 03/20/17 18:13 (SoluMEDROL INJ) 40 mg Q8HR IV 03/19/17 22:00 03/20/17 15:23 (Cardizem) 30 mg QID PO 03/20/17 09:00 03/20/17 18:13 Vancomycin HCl 1400 mg/Sodium Chloride 514 ml @ 250 mls/hr Q18H IV 03/20/17 15:00 03/20/17 15:30 Miscellaneous Information SPECIFIC LAB TO BE DRAWN:VANCO TROUGH DATE TO... ONCE ONCE .XX 03/22/17 20:45 03/22/17 20:46 A/P Problem List: (1) Acute respiratory failure ICD Code: J96.00 - Acute respiratory failure, unspecified whether with hypoxia or hypercapnia Status: Acute (2) Anxiety disorder, unspecified ICD Code: F41.9 - Anxiety disorder, unspecified Status: Chronic (3) Shortness of breath ICD Code: R06.02 - Shortness of breath Status: Acute (4) Alcohol withdrawal ICD Code: F10.239 - Alcohol dependence with withdrawal, unspecified Status: Acute (5) COPD (chronic obstructive pulmonary disease) ICD Code: J44.9 - Chronic obstructive pulmonary disease Status: Acute (6) Severe sepsis ICD Code: A41.9 - Sepsis, unspecified organism; R65.20 - Severe sepsis without septic shock Status: Acute (7) Hepatitis C ICD Code: B19.20 - Hepatitis C Status: Acute (8) UTI (urinary tract infection) ICD Code: N39.0 - Urinary tract infection, site not specified Status: Resolved (9) Tobacco abuse ICD Code: Z72.0 - Tobacco abuse Status: Chronic (10) Respiratory alkalosis ICD Code: E87.3 - Alkalosis Status: Acute Assessment and Plan 1. Severe sepsis due to pneumonitis and COPD exacerbation, presented with tachycardia, leukocytosis and an initial lactic acid of 5.1. Lactic acidosis resolved. One blood culture growing gram-positive cocci in pairs and clusters and the patient was started on vancomycin, follow-up will culture result. Urine cultures show 50,000 colony-forming units mixed gram-positive probably contaminants. Leukocytosis down trended. Repeat CBC in the morning. Continue Rocephin, Zithromax and vancomycin. 2. Acute respiratory failure/distress/COPD exacerbation, now on high flow nasal cannula. Chest x-ray 03/16 revealed diffuse interstitial infiltrates. Repeat chest x-ray this morning shows improved aeration, I reviewed the images. She received Lasix 40 mg IV, BNP was not elevated. Bynum catheter was placed and she had nearly 4 L of urine output. Continue mouth Lasix. Continue Rocephin and Zithromax. Continue Solu-Medrol and duo nebs. 2-D echocardiogram pending. Pulmonology following - Dr Barron 03/19 Wean oxygen to keep oxygen saturation between 88 and 92% as tolerated. Taper dose of IV solumedrol down to 40 mg IV Q 8 hrs. 03/20 continue IV Solu-Medrol. 2-D echocardiogram showed normal left ventricle size, grade 1 diastolic dysfunction. Continue IV Solu-Medrol with IV antibiotics. 3. Alcohol withdrawal, Alcoholism and has been drinking wine for the past few days. Seems to be resolved. Continue Ativan as needed for anxiety and tremors. 4. Tachycardia, sinus. Continue Cardizem by mouth. 5. Severe anxiety and depression. Continue Seroquel, fluoxetine. Seems stable 6. History of seizures with prior withdrawal from Xanax. No current seizure, 7. Hypothyroidism. TSH within normal limits. Continue Synthroid 25 g daily. 8. Positive blood cultures. Patient grew 1 bottle with coagulase-negative staph aureus. Follow-up ID and sensitivities. Continue IV antibiotics as above for now and repeat blood cultures. 8. DVT prophylaxis with SCDs. Discharge Planning Discharge pending clinical improvement. The patient is still on high flow nasal cannula. Problem Qualifiers (1) Acute respiratory failure: Qualified Codes: J96.01 - Acute respiratory failure with hypoxia (2) Anxiety disorder, unspecified: Qualified Codes: F41.1 - Generalized anxiety disorder (3) Alcohol withdrawal: Qualified Codes: F10.230 - Alcohol dependence with withdrawal, uncomplicated (4) COPD (chronic obstructive pulmonary disease): Qualified Codes: J44.1 - Chronic obstructive pulmonary disease with (acute) exacerbation (5) Hepatitis C: Dajuan Pemberton MD Mar 20, 2017 19:22
[2017-03-21] VITALS (26 sets, daily range): BP systolic 125–172; BP diastolic 65–97; PULSE 78–104; RESP 14–39; TEMP 97.6–98.6; O2SAT 87–96
[2017-03-21] MEDS: RESP: ALBUTEROL 2.5 MG/IPRATROPIUM 0.5 MG NEB (PRN) NEB (03:43)
[2017-03-21] MEDS: AZITHROMYCIN INJ 500 MG in SODIUM CHLOR 0.9% 250 ML INJ 250 ML IV SCH (04:16)
[2017-03-21] MEDS: cefTRIAXone INJ 1,000 MG in SODIUM CHLORIDE 0.9% INJ 100 ML IV SCH (04:17)
[2017-03-21] MEDS: ALPRAZolam 1 MG TAB PO PRN (04:18)
[2017-03-21] MEDS: methylPREDNISolone SOD SUCC 125 MG/2 ML VIAL IV SCH ×3 (05:57→22:10)
[2017-03-21] MEDS: LEVOTHYROXINE SODIUM 25 MCG TAB PO SCH (05:57)
[2017-03-21 06:00] LABS: AUTOMATED NEUTROPHIL # 10.4 TH/MM3 (1.8-7.7); EOSINOPHIL % 0.2 % (0.0-4.0); HEMATOCRIT 30.4 % (35.0-46.0); LYMPH % 6.2 % (9.0-44.0); LYMPHOCYTE # 0.8 TH/MM3 (1.0-4.8); MEAN CORPUSCULAR HEMOGLOBIN 30.4 PG (27.0-34.0); MONO % 7.5 % (0.0-8.0); NEUT % 86.1 % (16.0-70.0); PLATELET COUNT 211 TH/MM3 (150-450); WHITE BLOOD COUNT 12.1 TH/MM3 (4.0-11.0)
[2017-03-21 06:14] LABS: CHLORIDE 109 MEQ/L (98-107); POTASSIUM 3.9 MEQ/L (3.5-5.1); SODIUM (NA) 143 MEQ/L (136-145)
[2017-03-21 06:18] LABS: ANION GAP 9 MEQ/L (5-15); BICARBONATE 24.6 MEQ/L (21.0-32.0); BLOOD UREA NITROGEN 32 MG/DL (7-18)
[2017-03-21 06:21] LABS: ALT (GPT) 61 U/L (10-53); AST (GOT) 35 U/L (15-37); GLOMERULAR FILTRATION RATE 76 ML/MIN (>89)
[2017-03-21 06:22] LABS: HEMO FLAGS DIFF FINAL
[2017-03-21 06:23] LABS: TOTAL BILIRUBIN ADULT 0.3 MG/DL (0.2-1.0)
[2017-03-21 06:24] LABS: ALKALINE PHOSPHATASE 55 U/L (45-117)
[2017-03-21] MEDS: RESP: ALBUTEROL 2.5 MG/IPRATROPIUM 0.5 MG NEB (SCH) NEB ×4 (07:58→22:26)
[2017-03-21] MEDS: QUEtiapine FUMARATE 25 MG TAB PO SCH ×2 (09:00→22:13)
[2017-03-21] MEDS: BUDESONIDE-FORMOTEROL 160/4.5 MCG INHALER INH SCH ×2 (09:00→19:43)
[2017-03-21] MEDS: SODIUM CHLORIDE 0.9% FLUSH 10 ML FLUSH IV FLUSH SCH ×2 (09:00→19:41)
[2017-03-21] MEDS: VANCOMYCIN INJ 1,400 MG in SODIUM CHLORID 0.9% 500 ML INJ 500 ML IV SCH ×2 (09:45→13:12)
[2017-03-21] MEDS: GABAPENTIN 300 MG CAP PO SCH (09:47)
[2017-03-21] MEDS: FLUoxetine HCL 20 MG CAP PO SCH (09:47)
[2017-03-21] MEDS: THIAMINE HCL 100 MG TAB PO SCH (09:48)
[2017-03-21] MEDS: DILTIAZEM HCL 30 MG TAB PO SCH ×4 (09:48→22:10)
[2017-03-21] MEDS: DOCUSATE SODIUM 50 MG/SENNA 8.6 MG TAB PO SCH ×2 (09:49→19:44)
[2017-03-21] MEDS ORDERED: VANCOMYCIN INJ 1,400 MG in SODIUM CHLORID 0.9% 500 ML INJ 500 ML IV SCH (13:30)
--- NOTE | 2017-03-21 14:03 | HHI.PR ---
Subjective Remarks sob improving patient srill on high flow nasal canula at 50% denies manager endoscopy denies diarrhea Objective Vitals Vital Signs Date Time Temp Pulse Resp B/P (MAP) Pulse Ox O2 Delivery O2 Flow Rate FiO2 03/21/17 10:00 92 03/21/17 08:03 95 High Flow Nasal Cannula 50 03/21/17 08:00 98.0 80 21 156/97 (116) 95 03/21/17 08:00 93 Nasal Cannula 60 03/21/17 08:00 80 03/21/17 07:00 98.0 80 21 151/81 (104) 95 03/21/17 06:00 92 03/21/17 06:00 92 31 141/84 (103) 93 03/21/17 05:00 82 20 139/82 (101) 96 03/21/17 04:00 97.6 88 22 144/77 (99) 94 03/21/17 04:00 88 03/21/17 03:02 100 39 172/84 (113) 90 03/21/17 03:00 104 26 172/90 (117) 92 03/21/17 02:00 80 03/21/17 02:00 80 17 147/78 (101) 95 03/21/17 01:00 84 21 153/85 (107) 95 03/21/17 00:00 86 03/21/17 00:00 98.2 86 18 144/94 (111) 93 03/20/17 23:00 88 20 147/78 (101) 92 03/20/17 22:00 86 03/20/17 22:00 86 23 158/86 (110) 92 03/20/17 21:00 90 21 138/98 (111) 95 03/20/17 20:21 112 03/20/17 20:00 112 31 154/92 (112) 91 03/20/17 20:00 120 03/20/17 20:00 93 Nasal Cannula 60 03/20/17 19:20 93 High Flow Nasal Cannula 20.00 50 03/20/17 19:00 96.7 92 22 149/78 (101) 92 03/20/17 19:00 96.7 03/20/17 18:00 96 03/20/17 18:00 96 18 149/75 (99) 92 03/20/17 17:00 102 35 151/81 (104) 89 03/20/17 16:34 94 High Flow Nasal Cannula 20.00 50 03/20/17 16:00 98.5 88 16 133/64 (87) 94 03/20/17 16:00 88 03/20/17 15:00 100 35 142/75 (97) 91 03/20/17 14:00 102 I/O 03/20/17 03/20/17 03/20/17 03/21/17 03/21/17 03/21/17 07:00 15:00 23:00 07:00 15:00 23:00 Intake Total 801.28 ml 1486.64 ml 650.64 ml Output Total 0 ml 1200 ml 600 ml Balance 801.28 ml 286.64 ml 50.64 ml Intake Oral 200 ml 960 ml 300 ml IV Total 601.28 ml 526.64 ml 350.64 ml Output Urine Total 0 ml 1200 ml 600 ml # Bowel Movements 0 0 Result Diagram: 03/21/17 04503/21/17 0450 Imaging Last Impressions Chest X-Ray 03/18/17 0600 Signed Impressions: Service Date/Time: Saturday, March 18, 2017 05:40 - CONCLUSION: 1. Slight improvement in edema pattern since March 16. No new infiltrate. Sebastián Walker MD Objective Remarks AAox3 Diffuse bilateral expiratory wheezing auscultated. S1S2 RRR, no MRG abdomen soft, nt, nd no edema in lower extremities Procedures none Medications and IVs Current Medications Medications (Trade) Dose Ordered Sig/Cielo Route Start Time Stop Time Status Last Admin (Vitamin B1) 100 mg DAILY PO 03/15/17 09:00 03/21/17 09:48 (Romazicon Inj) 0.2 mg Q1M PRN IV PUSH 03/15/17 03:30 (Duoneb Neb) 1 ampule Q2HR NEB PRN NEB 03/15/17 03:30 03/21/17 03:43 Ceftriaxone Sodium 1000 mg/ Sodium Chloride 100 ml @ 200 mls/hr Q24H IV 03/16/17 03:00 03/21/17 04:17 Azithromycin 500 mg/Sodium Chloride 250 ml @ 250 mls/hr Q24H IV 03/16/17 04:00 03/21/17 04:16 (NS Flush) 2 ml UNSCH PRN IV FLUSH 03/15/17 03:30 (NS Flush) 2 ml BID IV FLUSH 03/15/17 09:00 03/21/17 09:00 (Zofran Inj) 4 mg Q6H PRN IVP 03/15/17 03:30 03/21/17 05:57 (Tylenol) 650 mg Q6H PRN PO 03/15/17 03:30 03/18/17 20:01 (Roxicodone) 10 mg Q4H PRN PO 03/15/17 03:30 03/21/17 13:11 (Roxicodone) 5 mg Q4H PRN PO 03/15/17 03:30 03/19/17 08:07 (Lindsey-Colace) 1 tab BID PO 03/15/17 09:00 03/21/17 09:49 (Milk Of Magnesia Liq) 30 ml Q12H PRN PO 03/15/17 03:30 (Senokot) 17.2 mg Q12H PRN PO 03/15/17 03:30 (Dulcolax Supp) 10 mg DAILY PRN RECTAL 03/15/17 03:30 (Lactulose Liq) 30 ml DAILY PRN PO 03/15/17 03:30 03/18/17 08:45 (Symbicort 160-4.5 Inh) 2 puff Q12HR INH 03/15/17 09:00 03/21/17 09:00 (PROzac) 40 mg DAILY PO 03/15/17 10:00 03/21/17 09:47 (Neurontin) 300 mg DAILY PO 03/15/17 10:00 03/21/17 09:47 (SEROquel) 50 mg BID PO 03/15/17 21:00 03/21/17 09:00 (Synthroid) 25 mcg DAILY@0600 PO 03/16/17 06:00 03/21/17 05:57 Pharmacy Profile Note 0 ml @ 0 mls/hr UNSCH OTHER 03/17/17 18:00 (Duoneb Neb) 1 ampule QID NEB NEB 03/18/17 16:00 03/21/17 07:58 (Xanax) 1 mg Q4H PRN PO 03/18/17 15:15 03/21/17 04:18 (SoluMEDROL INJ) 40 mg Q8HR IV 03/19/17 22:00 03/21/17 13:10 (Cardizem) 30 mg QID PO 03/20/17 09:00 03/21/17 13:10 Vancomycin HCl 1400 mg/Sodium Chloride 514 ml @ 250 mls/hr Q18H IV 03/20/17 15:00 03/21/17 13:12 Miscellaneous Information SPECIFIC LAB TO BE DRAWN:VANCO TROUGH DATE TO... ONCE ONCE .XX 03/23/17 17:45 03/23/17 17:46 Vancomycin HCl 1400 mg/Sodium Chloride 514 ml @ 250 mls/hr Q18H IV 03/22/17 06:00 Urinary Catheter: No Vascular Central Line Catheter: No A/P Problem List: (1) Acute respiratory failure ICD Code: J96.00 - Acute respiratory failure, unspecified whether with hypoxia or hypercapnia Status: Acute (2) Anxiety disorder, unspecified ICD Code: F41.9 - Anxiety disorder, unspecified Status: Chronic (3) Shortness of breath ICD Code: R06.02 - Shortness of breath Status: Acute (4) Alcohol withdrawal ICD Code: F10.239 - Alcohol dependence with withdrawal, unspecified Status: Acute (5) COPD (chronic obstructive pulmonary disease) ICD Code: J44.9 - Chronic obstructive pulmonary disease Status: Acute (6) Severe sepsis ICD Code: A41.9 - Sepsis, unspecified organism; R65.20 - Severe sepsis without septic shock Status: Acute (7) Hepatitis C ICD Code: B19.20 - Hepatitis C Status: Acute (8) UTI (urinary tract infection) ICD Code: N39.0 - Urinary tract infection, site not specified Status: Resolved (9) Tobacco abuse ICD Code: Z72.0 - Tobacco abuse Status: Chronic (10) Respiratory alkalosis ICD Code: E87.3 - Alkalosis Status: Acute Assessment and Plan 1. Severe sepsis due to pneumonitis and COPD exacerbation, presented with tachycardia, leukocytosis and an initial lactic acid of 5.1. Lactic acidosis resolved. One blood culture growing gram-positive cocci in pairs and clusters and the patient was started on vancomycin, follow-up will culture result. Urine cultures show 50,000 colony-forming units mixed gram-positive probably contaminants. Leukocytosis down trended. Repeat CBC in the morning. Continue Rocephin, Zithromax and vancomycin. 03/21 improving sepsis with resolved tachycardia. Patient still with leukocytosis but the patient is on steroids. I will discontinue Rocephin and azithromycin and start the patient on IV Levaquin. Repeat blood cultures ordered. 2. Acute respiratory failure/distress/COPD exacerbation, now on high flow nasal cannula. Chest x-ray 03/16 revealed diffuse interstitial infiltrates. Repeat chest x-ray this morning shows improved aeration, I reviewed the images. She received Lasix 40 mg IV, BNP was not elevated. Bynum catheter was placed and she had nearly 4 L of urine output. Continue mouth Lasix. Continue Rocephin and Zithromax. Continue Solu-Medrol and duo nebs. 2-D echocardiogram pending. Pulmonology following - Dr Barron 03/19 Wean oxygen to keep oxygen saturation between 88 and 92% as tolerated. Taper dose of IV solumedrol down to 40 mg IV Q 8 hrs. 03/20 continue IV Solu-Medrol. 2-D echocardiogram showed normal left ventricle size, grade 1 diastolic dysfunction. Continue IV Solu-Medrol with IV antibiotics. 03/21 the patient still requiring elevated levels of oxygen here at the patient is on high flow nasal cannula. Continue IV Solu-Medrol and taper as per pulmonology recommendations. 3. Alcohol withdrawal, Alcoholism and has been drinking wine for the past few days. Seems to be resolved. Continue Ativan as needed for anxiety and tremors. 4. Tachycardia, sinus. Continue Cardizem by mouth. Now resolved. 5. Severe anxiety and depression. Continue Seroquel, fluoxetine. Seems stable 6. History of seizures with prior withdrawal from Xanax. No current seizure, 7. Hypothyroidism. TSH within normal limits. Continue Synthroid 25 g daily. 8. Positive blood cultures. Blood cultures growing staph capitis-urelyticus which is resistant to several antibiotics however sensitive to vancomycin. Repeat blood cultures pending. Continue IV vancomycin and antibiotics as above. 8. DVT prophylaxis with SCDs. Discharge Planning Discharge pending clinical improvement. The patient is still on high flow nasal cannula. Problem Qualifiers (1) Acute respiratory failure: Qualified Codes: J96.01 - Acute respiratory failure with hypoxia (2) Anxiety disorder, unspecified: Qualified Codes: F41.1 - Generalized anxiety disorder (3) Alcohol withdrawal: Qualified Codes: F10.230 - Alcohol dependence with withdrawal, uncomplicated (4) COPD (chronic obstructive pulmonary disease): Qualified Codes: J44.1 - Chronic obstructive pulmonary disease with (acute) exacerbation (5) Hepatitis C: Dajuan Pemberton MD Mar 21, 2017 14:03
[2017-03-21] MEDS: LEVOFLOXACIN 750 MG PREMIX INJ 150 ML IV SCH (15:07)
--- NOTE | 2017-03-21 18:51 | HHI.PR ---
Subjective Remarks 64 YOWF with COPD exac, bronchitis,Anxiety Breathing better Anxious, gets tremers with anxiety and nebs no fever. Occ CP with breathing has wheezing, desaturates Feels better, appetite great Objective Vital Signs Vital Signs Date Time Temp Pulse Resp B/P (MAP) Pulse Ox O2 Delivery O2 Flow Rate FiO2 03/21/17 18:00 80 20 125/65 (85) 95 03/21/17 18:00 92 03/21/17 17:35 95 Nasal Cannula 5.00 03/21/17 16:10 97.9 89 22 156/78 (104) 96 03/21/17 16:00 80 03/21/17 15:00 84 20 134/66 (88) 95 03/21/17 14:00 80 20 125/65 (85) 95 03/21/17 14:00 92 03/21/17 13:00 82 22 153/82 (105) 95 03/21/17 12:00 98.5 80 21 150/78 (102) 95 03/21/17 12:00 80 03/21/17 10:00 92 03/21/17 08:03 95 High Flow Nasal Cannula 50 03/21/17 08:00 98.0 80 21 156/97 (116) 95 03/21/17 08:00 93 Nasal Cannula 60 03/21/17 08:00 80 03/21/17 07:00 98.0 80 21 151/81 (104) 95 03/21/17 06:00 92 03/21/17 06:00 92 31 141/84 (103) 93 03/21/17 05:00 82 20 139/82 (101) 96 03/21/17 04:00 97.6 88 22 144/77 (99) 94 03/21/17 04:00 88 03/21/17 03:02 100 39 172/84 (113) 90 03/21/17 03:00 104 26 172/90 (117) 92 03/21/17 02:00 80 03/21/17 02:00 80 17 147/78 (101) 95 03/21/17 01:00 84 21 153/85 (107) 95 03/21/17 00:00 86 03/21/17 00:00 98.2 86 18 144/94 (111) 93 03/20/17 23:00 88 20 147/78 (101) 92 03/20/17 22:00 86 03/20/17 22:00 86 23 158/86 (110) 92 03/20/17 21:00 90 21 138/98 (111) 95 03/20/17 20:21 112 03/20/17 20:00 112 31 154/92 (112) 91 03/20/17 20:00 120 03/20/17 20:00 93 Nasal Cannula 60 03/20/17 19:20 93 High Flow Nasal Cannula 20.00 50 03/20/17 19:00 96.7 92 22 149/78 (101) 92 03/20/17 19:00 96.7 I/O 03/20/17 03/20/17 03/20/17 03/21/17 03/21/17 03/21/17 07:00 15:00 23:00 07:00 15:00 23:00 Intake Total 801.28 ml 1486.64 ml 650.64 ml 800 ml Output Total 0 ml 1200 ml 600 ml Balance 801.28 ml 286.64 ml 50.64 ml 800 ml Intake Oral 200 ml 960 ml 300 ml 800 ml IV Total 601.28 ml 526.64 ml 350.64 ml Output Urine Total 0 ml 1200 ml 600 ml # Voids 4 # Bowel Movements 0 0 0 Result Diagram: 03/21/1744903/21/17449 Objective Remarks GENERAL: MBMN WF mild sob SKIN: Warm and dry. HEAD: Normocephalic. EYES: No scleral icterus. No injection or drainage. NECK: Supple, trachea midline. No JVD or lymphadenopathy. CARDIOVASCULAR: Regular rate and rhythm without murmurs, gallops, or rubs. RESPIRATORY: Breath sounds equal bilaterally. No accessory muscle use. GASTROINTESTINAL: Abdomen soft, non-tender, nondistended. MUSCULOSKELETAL: No cyanosis, or edema. BACK: Nontender without obvious deformity. No CVA tenderness. A/P Assessment and Plan COPD exac bronchitis Anxiety disorder Nicotine use Tremers PLAN: IV Solumedrol Aerosol nebs cont Abx Will try NC 6L Supplement 02 and wean to keep sat 88-92% Encourage to use andresllVenkata Huang MD Mar 21, 2017 18:51
[2017-03-21] MEDS: LACTULOSE SYRUP 20 GM/30 ML CUP PO PRN (19:46)
[2017-03-22] VITALS (27 sets, daily range): BP systolic 118–167; BP diastolic 54–92; PULSE 74–106; RESP 14–33; TEMP 97.4–98.4; O2SAT 91–99
[2017-03-22] MEDS: methylPREDNISolone SOD SUCC 125 MG/2 ML VIAL IV SCH ×2 (05:14→13:47)
[2017-03-22] MEDS: SODIUM CHLORIDE 0.9% FLUSH 10 ML FLUSH IV FLUSH PRN ×2 (05:14→23:28)
[2017-03-22] MEDS: LEVOTHYROXINE SODIUM 25 MCG TAB PO SCH (05:15)
[2017-03-22] MEDS: VANCOMYCIN INJ 1,400 MG in SODIUM CHLORID 0.9% 500 ML INJ 500 ML IV SCH ×2 (05:18→23:27)
[2017-03-22] MEDS: RESP: ALBUTEROL 2.5 MG/IPRATROPIUM 0.5 MG NEB (SCH) NEB ×4 (08:06→19:47)
[2017-03-22] MEDS: DILTIAZEM HCL 30 MG TAB PO SCH ×4 (08:35→21:24)
[2017-03-22] MEDS: FLUoxetine HCL 20 MG CAP PO SCH (08:35)
[2017-03-22] MEDS: THIAMINE HCL 100 MG TAB PO SCH (08:35)
[2017-03-22] MEDS: GABAPENTIN 300 MG CAP PO SCH (08:35)
[2017-03-22] MEDS: QUEtiapine FUMARATE 25 MG TAB PO SCH ×2 (08:36→21:24)
[2017-03-22] MEDS: SODIUM CHLORIDE 0.9% FLUSH 10 ML FLUSH IV FLUSH SCH ×2 (08:37→21:25)
[2017-03-22] MEDS: DOCUSATE SODIUM 50 MG/SENNA 8.6 MG TAB PO SCH ×2 (08:37→21:24)
[2017-03-22] MEDS: ALPRAZolam 1 MG TAB PO PRN (10:39)
[2017-03-22] MEDS: BUDESONIDE-FORMOTEROL 160/4.5 MCG INHALER INH SCH ×2 (12:10→21:38)
[2017-03-22] MEDS: LEVOFLOXACIN 750 MG PREMIX INJ 150 ML IV SCH (13:47)
--- NOTE | 2017-03-22 15:23 | HHI.PR ---
Subjective Remarks 64 YOWF with COPD exac, bronchitis,Anxiety Breathing better Anxious, gets tremers with anxiety and nebs no fever.On 4 LNC, comforyable Feels better, appetite great Objective Vital Signs Vital Signs Date Time Temp Pulse Resp B/P (MAP) Pulse Ox O2 Delivery O2 Flow Rate FiO2 03/22/17 15:05 92 33 140/65 (90) 03/22/17 14:00 88 18 118/54 (75) 03/22/17 14:00 88 03/22/17 13:05 106 03/22/17 13:05 106 28 157/76 (103) 03/22/17 12:05 96 03/22/17 12:05 97.9 96 17 164/92 (116) 03/22/17 11:05 86 14 145/74 (97) 91 03/22/17 10:05 104 22 144/73 (96) 92 03/22/17 10:00 104 03/22/17 09:05 96 18 141/70 (93) 03/22/17 08:09 95 2.00 03/22/17 08:05 98.4 76 19 167/91 (116) 92 03/22/17 08:00 94 Nasal Cannula 4.00 Humidified 03/22/17 08:00 74 03/22/17 07:07 80 18 164/88 (113) 92 03/22/17 06:05 80 19 162/84 (110) 92 03/22/17 06:00 74 03/22/17 05:05 78 15 157/85 (109) 91 03/22/17 04:05 98.4 82 22 154/82 (106) 99 03/22/17 04:00 78 03/22/17 03:00 82 17 93 03/22/17 02:05 78 15 154/78 (103) 99 03/22/17 02:00 76 03/22/17 01:05 76 20 158/79 (105) 92 03/22/17 00:05 98.3 84 18 160/85 (110) 94 03/22/17 00:00 90 03/21/17 23:00 84 20 137/78 (97) 93 03/21/17 22:26 96 Nasal Cannula 4.00 03/21/17 22:00 78 14 96 03/21/17 22:00 78 03/21/17 21:02 96 24 159/74 (102) 91 03/21/17 21:00 93 Nasal Cannula 4.00 03/21/17 20:00 98.6 90 15 162/97 (118) 95 03/21/17 20:00 90 03/21/17 20:00 91 Nasal Cannula 5.00 03/21/17 19:00 96 23 158/84 (108) 87 03/21/17 19:00 87 Nasal Cannula 4.00 03/21/17 18:00 80 20 125/65 (85) 95 03/21/17 18:00 92 03/21/17 17:35 95 Nasal Cannula 5.00 03/21/17 16:10 97.9 89 22 156/78 (104) 96 03/21/17 16:00 80 I/O 03/21/17 03/21/17 03/21/17 03/22/17 03/22/17 03/22/17 07:00 15:00 23:00 07:00 15:00 23:00 Intake Total 650.64 ml 1314 ml 240 ml 525 ml Output Total 600 ml Balance 50.64 ml 1314 ml 240 ml 525 ml Intake Oral 300 ml 800 ml 240 ml IV Total 350.64 ml 514 ml 525 ml Output Urine Total 600 ml # Voids 4 4 # Bowel Movements 0 0 3 Result Diagram: 03/21/17 04503/21/17 045 Objective Remarks GENERAL: MBMN WF mild sob SKIN: Warm and dry. HEAD: Normocephalic. EYES: No scleral icterus. No injection or drainage. NECK: Supple, trachea midline. No JVD or lymphadenopathy. CARDIOVASCULAR: Regular rate and rhythm without murmurs, gallops, or rubs. RESPIRATORY: Breath sounds equal bilaterally. No accessory muscle use. GASTROINTESTINAL: Abdomen soft, non-tender, nondistended. MUSCULOSKELETAL: No cyanosis, or edema. BACK: Nontender without obvious deformity. No CVA tenderness. A/P Assessment and Plan COPD exac bronchitis Anxiety disorder Nicotine use Tremers PLAN: DC Solumedrol Aerosol nebs cont Abx Will try NC 4L Supplement 02 and wean to keep sat 88-92% Encourage to use acapella Pred 10 mg tid Venkata Barron MD Mar 22, 2017 15:23
[2017-03-22] MEDS: predniSONE 10 MG TAB PO SCH (17:51)
--- NOTE | 2017-03-22 18:48 | HHI.PR ---
Subjective Remarks sob improving denies cp c/o some anxiety Objective Vitals Vital Signs Date Time Temp Pulse Resp B/P (MAP) Pulse Ox O2 Delivery O2 Flow Rate FiO2 03/22/17 17:07 102 14 159/79 (105) 03/22/17 16:00 98.1 98 19 156/86 (109) 94 03/22/17 16:00 98 03/22/17 15:05 92 33 140/65 (90) 03/22/17 14:00 88 18 118/54 (75) 03/22/17 14:00 88 03/22/17 13:05 106 03/22/17 13:05 106 28 157/76 (103) 03/22/17 12:05 96 03/22/17 12:05 97.9 96 17 164/92 (116) 03/22/17 11:05 86 14 145/74 (97) 91 03/22/17 10:05 104 22 144/73 (96) 92 03/22/17 10:00 104 03/22/17 09:05 96 18 141/70 (93) 03/22/17 08:09 95 2.00 03/22/17 08:05 98.4 76 19 167/91 (116) 92 03/22/17 08:00 94 Nasal Cannula 4.00 Humidified 03/22/17 08:00 74 03/22/17 07:07 80 18 164/88 (113) 92 03/22/17 06:05 80 19 162/84 (110) 92 03/22/17 06:00 74 03/22/17 05:05 78 15 157/85 (109) 91 03/22/17 04:05 98.4 82 22 154/82 (106) 99 03/22/17 04:00 78 03/22/17 03:00 82 17 93 03/22/17 02:05 78 15 154/78 (103) 99 03/22/17 02:00 76 03/22/17 01:05 76 20 158/79 (105) 92 03/22/17 00:05 98.3 84 18 160/85 (110) 94 03/22/17 00:00 90 03/21/17 23:00 84 20 137/78 (97) 93 03/21/17 22:26 96 Nasal Cannula 4.00 03/21/17 22:00 78 14 96 03/21/17 22:00 78 03/21/17 21:02 96 24 159/74 (102) 91 03/21/17 21:00 93 Nasal Cannula 4.00 03/21/17 20:00 98.6 90 15 162/97 (118) 95 03/21/17 20:00 90 03/21/17 20:00 91 Nasal Cannula 5.00 03/21/17 19:00 96 23 158/84 (108) 87 03/21/17 19:00 87 Nasal Cannula 4.00 I/O 03/21/17 03/21/17 03/21/17 03/22/17 03/22/17 03/22/17 07:00 15:00 23:00 07:00 15:00 23:00 Intake Total 650.64 ml 1314 ml 240 ml 525 ml 1070 ml Output Total 600 ml Balance 50.64 ml 1314 ml 240 ml 525 ml 1070 ml Intake Oral 300 ml 800 ml 240 ml 920 ml IV Total 350.64 ml 514 ml 525 ml 150 ml Output Urine Total 600 ml # Voids 4 4 4 # Bowel Movements 0 0 3 2 Result Diagram: 03/21/17 0450 03/21/17 0450 Imaging Last Impressions Chest X-Ray 03/18/17 0600 Signed Impressions: Service Date/Time: Saturday, March 18, 2017 05:40 - CONCLUSION: 1. Slight improvement in edema pattern since March 16. No new infiltrate. Sebastián Walker MD Objective Remarks AAox3 Diffuse bilateral expiratory wheezing auscultated. S1S2 RRR, no MRG abdomen soft, nt, nd no edema in lower extremities Procedures none Medications and IVs Current Medications Medications (Trade) Dose Ordered Sig/Cielo Route Start Time Stop Time Status Last Admin (Vitamin B1) 100 mg DAILY PO 03/15/17 09:00 03/23/17 08:50 (Romazicon Inj) 0.2 mg Q1M PRN IV PUSH 03/15/17 03:30 (Duoneb Neb) 1 ampule Q2HR NEB PRN NEB 03/15/17 03:30 03/21/17 03:43 (NS Flush) 2 ml UNSCH PRN IV FLUSH 03/15/17 03:30 03/22/17 23:28 (NS Flush) 2 ml BID IV FLUSH 03/15/17 09:00 03/23/17 08:54 (Zofran Inj) 4 mg Q6H PRN IVP 03/15/17 03:30 03/21/17 05:57 (Tylenol) 650 mg Q6H PRN PO 03/15/17 03:30 03/18/17 20:01 (Roxicodone) 10 mg Q4H PRN PO 03/15/17 03:30 03/23/17 08:51 (Roxicodone) 5 mg Q4H PRN PO 03/15/17 03:30 03/19/17 08:07 (Lindsey-Colace) 1 tab BID PO 03/15/17 09:00 03/23/17 08:49 (Milk Of Magnesia Liq) 30 ml Q12H PRN PO 03/15/17 03:30 03/21/17 15:07 (Senokot) 17.2 mg Q12H PRN PO 03/15/17 03:30 (Dulcolax Supp) 10 mg DAILY PRN RECTAL 03/15/17 03:30 (Lactulose Liq) 30 ml DAILY PRN PO 03/15/17 03:30 03/23/17 01:45 (Symbicort 160-4.5 Inh) 2 puff Q12HR INH 03/15/17 09:00 03/23/17 08:54 (PROzac) 40 mg DAILY PO 03/15/17 10:00 03/23/17 08:49 (Neurontin) 300 mg DAILY PO 03/15/17 10:00 03/23/17 08:49 (SEROquel) 50 mg BID PO 03/15/17 21:00 03/23/17 08:49 (Synthroid) 25 mcg DAILY@0600 PO 03/16/17 06:00 03/23/17 04:32 Pharmacy Profile Note 0 ml @ 0 mls/hr UNSCH OTHER 03/17/17 18:00 (Xanax) 1 mg Q4H PRN PO 03/18/17 15:15 03/23/17 04:32 (Cardizem) 30 mg QID PO 03/20/17 09:00 03/23/17 08:55 Miscellaneous Information SPECIFIC LAB TO BE DRAWN:VANCO TROUGH DATE TO... ONCE ONCE .XX 03/23/17 17:45 03/23/17 17:46 Vancomycin HCl 1400 mg/Sodium Chloride 514 ml @ 250 mls/hr Q18H IV 03/22/17 06:00 03/22/17 23:27 Levofloxacin/ Dextrose 150 ml @ 100 mls/hr Q24H IV 03/21/17 14:00 03/22/17 13:47 (Duoneb Neb) 1 ampule QID NEB NEB 03/22/17 16:00 03/23/17 11:29 (Deltasone) 10 mg TID PO 03/22/17 18:00 03/23/17 08:50 A/P Problem List: (1) Acute respiratory failure ICD Code: J96.00 - Acute respiratory failure, unspecified whether with hypoxia or hypercapnia Status: Acute (2) Anxiety disorder, unspecified ICD Code: F41.9 - Anxiety disorder, unspecified Status: Chronic (3) Shortness of breath ICD Code: R06.02 - Shortness of breath Status: Acute (4) Alcohol withdrawal ICD Code: F10.239 - Alcohol dependence with withdrawal, unspecified Status: Acute (5) COPD (chronic obstructive pulmonary disease) ICD Code: J44.9 - Chronic obstructive pulmonary disease Status: Acute (6) Severe sepsis ICD Code: A41.9 - Sepsis, unspecified organism; R65.20 - Severe sepsis without septic shock Status: Acute (7) Hepatitis C ICD Code: B19.20 - Hepatitis C Status: Acute (8) UTI (urinary tract infection) ICD Code: N39.0 - Urinary tract infection, site not specified Status: Resolved (9) Tobacco abuse ICD Code: Z72.0 - Tobacco abuse Status: Chronic (10) Respiratory alkalosis ICD Code: E87.3 - Alkalosis Status: Acute Assessment and Plan 1. Severe sepsis due to pneumonitis and COPD exacerbation, presented with tachycardia, leukocytosis and an initial lactic acid of 5.1. Lactic acidosis resolved. One blood culture growing gram-positive cocci in pairs and clusters and the patient was started on vancomycin. The organism was identified as staph capitis. Urine cultures show 50,000 colony-forming units mixed gram-positive probably contaminants. Leukocytosis down trended. The patient being treated with IV Rocephin, IV Zithromax and vancomycin IV. Patient's sepsis continues to improve. Patient has mild leukocytosis but she is on steroids. IV Rocephin and IV azithromycin were discontinued on 03/21 and the patient was on IV Levaquin. Repeat blood cultures were ordered and negative 2 days 2. Acute respiratory failure/distress/COPD exacerbation Chest x-ray 03/16 revealed diffuse interstitial infiltrates. Repeat chest x-ray this morning shows improved aeration, I reviewed the images. The patient was admitted to intensive care unit, received Lasix 40 mg IV, BNP was not elevated. Bynum catheter was placed and she had nearly 4 L of urine output. Continue oral Lasix. Patient being treated with IV antibiotics as above. Continue Rocephin and Zithromax. The patient is on IV Solu-Medrol, taper as per pulmonology recommendations. Oxygen was weaned to keep an oxygen saturation of 88-92%. 2-D echocardiogram showed a grade 1 diastolic dysfunction with normal left ventricular size and function. The patient was requiring high levels of oxygen and initially was on high flow nasal cannula, however was tapered down to nasal cannula and currently is on 2 L nasal cannula. 3. Alcohol withdrawal Alcoholism and has been drinking wine for the past few days. Seems to be resolved. Continue Ativan as needed for anxiety and tremors. 4. Tachycardia. Sinus tachycardia. The patient currently on Cardizem. Continue. 5. Severe anxiety and depression. Continue Seroquel, fluoxetine. Seems stable 6. History of seizures with prior withdrawal from Xanax. No current seizure, 7. Hypothyroidism. TSH within normal limits. Continue Synthroid 25 g daily. 8. Positive blood cultures. Blood cultures growing staph capitis-urelyticus which is resistant to several antibiotics however sensitive to vancomycin. Repeat blood cultures negative to date. Will consult infectious disease. 8. DVT prophylaxis with SCDs. Discharge Planning Discharge pending clinical improvement. The patient is still on high flow nasal cannula. Problem Qualifiers (1) Acute respiratory failure: Qualified Codes: J96.01 - Acute respiratory failure with hypoxia (2) Anxiety disorder, unspecified: Qualified Codes: F41.1 - Generalized anxiety disorder (3) Alcohol withdrawal: Qualified Codes: F10.230 - Alcohol dependence with withdrawal, uncomplicated (4) COPD (chronic obstructive pulmonary disease): Qualified Codes: J44.1 - Chronic obstructive pulmonary disease with (acute) exacerbation (5) Hepatitis C: Dajuan Pemberton MD Mar 22, 2017 18:48
[2017-03-23] VITALS (7 sets, daily range): BP systolic 117–159; BP diastolic 59–90; PULSE 76–92; RESP 18–22; TEMP 96.8–98.3; O2SAT 94–100
[2017-03-23] MEDS ORDERED: LORazepam 0.5 MG TAB PO ONE (01:15)
[2017-03-23] MEDS: LACTULOSE SYRUP 20 GM/30 ML CUP PO PRN (01:45)
[2017-03-23] MEDS: ALPRAZolam 1 MG TAB PO PRN ×4 (04:32→21:37)
[2017-03-23] MEDS: LEVOTHYROXINE SODIUM 25 MCG TAB PO SCH (04:32)
[2017-03-23 07:12] LABS: HEMATOCRIT 33.2 % (35.0-46.0); MEAN CELL VOLUME 97.4 FL (80.0-100.0); MEAN CORPUSCULAR HEMOGLOBIN 30.6 PG (27.0-34.0); MEAN CORPUSCULAR HGB CONC 31.4 % (32.0-36.0); PLATELET COUNT 210 TH/MM3 (150-450); RED BLOOD COUNT 3.41 MIL/MM3 (4.00-5.30); RED CELL DISTRIBUTION WIDTH 14.3 % (11.6-17.2)
[2017-03-23] MEDS: RESP: ALBUTEROL 2.5 MG/IPRATROPIUM 0.5 MG NEB (SCH) NEB ×4 (07:46→20:00)
[2017-03-23 08:00] LABS: CHLORIDE 109 MEQ/L (98-107); POTASSIUM 3.9 MEQ/L (3.5-5.1); SODIUM (NA) 141 MEQ/L (136-145)
[2017-03-23 08:04] LABS: ANION GAP 8 MEQ/L (5-15); BICARBONATE 24.5 MEQ/L (21.0-32.0); BLOOD UREA NITROGEN 26 MG/DL (7-18)
[2017-03-23 08:07] LABS: ALT (GPT) 74 U/L (10-53); AST (GOT) 45 U/L (15-37); GLOMERULAR FILTRATION RATE 95 ML/MIN (>89)
[2017-03-23 08:08] LABS: TOTAL BILIRUBIN ADULT 0.2 MG/DL (0.2-1.0)
[2017-03-23 08:10] LABS: ALKALINE PHOSPHATASE 48 U/L (45-117)
[2017-03-23 08:32] LABS: NEUTROPHIL # MANUAL DIFF 11.1 TH/MM3 (1.8-7.7); POLYS (SEG NEUTROPHILS) 85 % (16-70); SCAN/DIFF FINAL DIFF MANUAL; WBC DIFF SAMPLE 100
[2017-03-23] MEDS: FLUoxetine HCL 20 MG CAP PO SCH (08:49)
[2017-03-23] MEDS: QUEtiapine FUMARATE 25 MG TAB PO SCH ×2 (08:49→20:51)
[2017-03-23] MEDS: DOCUSATE SODIUM 50 MG/SENNA 8.6 MG TAB PO SCH ×2 (08:49→20:52)
[2017-03-23] MEDS: GABAPENTIN 300 MG CAP PO SCH ×2 (08:49→20:50)
[2017-03-23] MEDS: THIAMINE HCL 100 MG TAB PO SCH (08:50)
[2017-03-23] MEDS: predniSONE 10 MG TAB PO SCH ×3 (08:50→17:17)
[2017-03-23] MEDS: BUDESONIDE-FORMOTEROL 160/4.5 MCG INHALER INH SCH ×2 (08:54→20:53)
[2017-03-23] MEDS: SODIUM CHLORIDE 0.9% FLUSH 10 ML FLUSH IV FLUSH SCH ×2 (08:54→20:52)
[2017-03-23] MEDS: DILTIAZEM HCL 30 MG TAB PO SCH ×4 (08:55→20:51)
--- NOTE | 2017-03-23 12:02 | HHI.PR ---
Subjective Remarks Cough has resolved denies wheezing and sob is much improved. Denies fevers or chills. BP control improving Objective Vitals Vital Signs Date Time Temp Pulse Resp B/P (MAP) Pulse Ox O2 Delivery O2 Flow Rate FiO2 03/23/17 09:51 18 03/23/17 08:45 Nasal Cannula 2.00 95 03/23/17 08:00 97.6 81 19 122/72 (89) 95 03/23/17 07:46 100 Nasal Cannula 2.00 03/23/17 05:04 03/23/17 01:12 97.9 92 22 159/90 (113) 94 03/22/17 21:25 97.4 104 24 165/84 (111) 93 03/22/17 20:00 97 Nasal Cannula 2.00 03/22/17 19:47 97 Nasal Cannula 2.00 03/22/17 17:07 102 14 159/79 (105) 03/22/17 16:00 98.1 98 19 156/86 (109) 94 03/22/17 16:00 98 03/22/17 15:05 92 33 140/65 (90) 03/22/17 14:00 88 18 118/54 (75) 03/22/17 14:00 88 03/22/17 13:05 106 03/22/17 13:05 106 28 157/76 (103) 03/22/17 12:05 96 03/22/17 12:05 97.9 96 17 164/92 (116) I/O 03/22/17 03/22/17 03/22/17 03/23/17 03/23/17 03/23/17 07:00 15:00 23:00 07:00 15:00 23:00 Intake Total 240 ml 525 ml 1070 ml Balance 240 ml 525 ml 1070 ml Intake Oral 240 ml 920 ml IV Total 525 ml 150 ml # Voids 4 4 4 # Bowel Movements 3 2 0 Result Diagram: 03/23/1762003/23/17620 Imaging Last Impressions Chest X-Ray 03/18/17599 Signed Impressions: Service Date/Time: Saturday, March 18, 2017 05:40 - CONCLUSION: 1. Slight improvement in edema pattern since March 16. No new infiltrate. Sebastián Walker MD Objective Remarks AAox3 Diffuse bilateral expiratory wheezing auscultated. S1S2 RRR, no MRG abdomen soft, nt, nd no edema in lower extremities Procedures none Medications and IVs Current Medications Medications (Trade) Dose Ordered Sig/Cielo Route Start Time Stop Time Status Last Admin (Vitamin B1) 100 mg DAILY PO 03/15/17 09:00 03/23/17 08:50 (Romazicon Inj) 0.2 mg Q1M PRN IV PUSH 03/15/17 03:30 (Duoneb Neb) 1 ampule Q2HR NEB PRN NEB 03/15/17 03:30 03/21/17 03:43 (NS Flush) 2 ml UNSCH PRN IV FLUSH 03/15/17 03:30 03/22/17 23:28 (NS Flush) 2 ml BID IV FLUSH 03/15/17 09:00 03/23/17 08:54 (Zofran Inj) 4 mg Q6H PRN IVP 03/15/17 03:30 03/21/17 05:57 (Tylenol) 650 mg Q6H PRN PO 03/15/17 03:30 03/18/17 20:01 (Roxicodone) 10 mg Q4H PRN PO 03/15/17 03:30 03/23/17 08:51 (Roxicodone) 5 mg Q4H PRN PO 03/15/17 03:30 03/19/17 08:07 (Lindsey-Colace) 1 tab BID PO 03/15/17 09:00 03/23/17 08:49 (Milk Of Magnesia Liq) 30 ml Q12H PRN PO 03/15/17 03:30 03/21/17 15:07 (Senokot) 17.2 mg Q12H PRN PO 03/15/17 03:30 (Dulcolax Supp) 10 mg DAILY PRN RECTAL 03/15/17 03:30 (Lactulose Liq) 30 ml DAILY PRN PO 03/15/17 03:30 03/23/17 01:45 (Symbicort 160-4.5 Inh) 2 puff Q12HR INH 03/15/17 09:00 03/23/17 08:54 (PROzac) 40 mg DAILY PO 03/15/17 10:00 03/23/17 08:49 (Neurontin) 300 mg DAILY PO 03/15/17 10:00 03/23/17 08:49 (SEROquel) 50 mg BID PO 03/15/17 21:00 03/23/17 08:49 (Synthroid) 25 mcg DAILY@0600 PO 03/16/17 06:00 03/23/17 04:32 Pharmacy Profile Note 0 ml @ 0 mls/hr UNSCH OTHER 03/17/17 18:00 (Xanax) 1 mg Q4H PRN PO 03/18/17 15:15 03/23/17 04:32 (Cardizem) 30 mg QID PO 03/20/17 09:00 03/23/17 08:55 Miscellaneous Information SPECIFIC LAB TO BE DRAWN:VANCO TROUGH DATE TO... ONCE ONCE .XX 03/23/17 17:45 03/23/17 17:46 Vancomycin HCl 1400 mg/Sodium Chloride 514 ml @ 250 mls/hr Q18H IV 03/22/17 06:00 03/22/17 23:27 Levofloxacin/ Dextrose 150 ml @ 100 mls/hr Q24H IV 03/21/17 14:00 03/22/17 13:47 (Duoneb Neb) 1 ampule QID NEB NEB 03/22/17 16:00 03/23/17 11:29 (Deltasone) 10 mg TID PO 03/22/17 18:00 03/23/17 08:50 A/P Problem List: (1) Acute respiratory failure ICD Code: J96.00 - Acute respiratory failure, unspecified whether with hypoxia or hypercapnia Status: Acute (2) Anxiety disorder, unspecified ICD Code: F41.9 - Anxiety disorder, unspecified Status: Chronic (3) Shortness of breath ICD Code: R06.02 - Shortness of breath Status: Acute (4) Alcohol withdrawal ICD Code: F10.239 - Alcohol dependence with withdrawal, unspecified Status: Acute (5) COPD (chronic obstructive pulmonary disease) ICD Code: J44.9 - Chronic obstructive pulmonary disease Status: Acute (6) Severe sepsis ICD Code: A41.9 - Sepsis, unspecified organism; R65.20 - Severe sepsis without septic shock Status: Acute (7) Hepatitis C ICD Code: B19.20 - Hepatitis C Status: Acute (8) UTI (urinary tract infection) ICD Code: N39.0 - Urinary tract infection, site not specified Status: Resolved (9) Tobacco abuse ICD Code: Z72.0 - Tobacco abuse Status: Chronic (10) Respiratory alkalosis ICD Code: E87.3 - Alkalosis Status: Acute Assessment and Plan 1. Severe sepsis due to pneumonitis and COPD exacerbation, presented with tachycardia, leukocytosis and an initial lactic acid of 5.1. Lactic acidosis resolved. One blood culture growing gram-positive cocci in pairs and clusters and the patient was started on vancomycin. The organism was identified as staph capitis. Urine cultures show 50,000 colony-forming units mixed gram-positive probably contaminants. Leukocytosis down trended. The patient being treated with IV Rocephin, IV Zithromax and vancomycin IV. Patient's sepsis continues to improve. Patient has mild leukocytosis but she is on steroids. IV Rocephin and IV azithromycin were discontinued on 03/21 and the patient was on IV Levaquin. Repeat blood cultures were ordered and negative 2 days 03/23 the patient grew staph capitis neurolytic this 1 in 8 bottles. Likely a contaminant since the bacteria doesn't match the anatomical part affected. Bacteria is usually part of normal skin stacy. Repeat blood cultures are negative to date. I will discontinue vancomycin. And discharge patient home on oral Levaquin. 2. Acute respiratory failure/distress/COPD exacerbation Chest x-ray 03/16 revealed diffuse interstitial infiltrates. Repeat chest x-ray this morning shows improved aeration, I reviewed the images. The patient was admitted to intensive care unit, received Lasix 40 mg IV, BNP was not elevated. Bynum catheter was placed and she had nearly 4 L of urine output. Continue oral Lasix. Patient being treated with IV antibiotics as above. Continue Rocephin and Zithromax. The patient is on IV Solu-Medrol, taper as per pulmonology recommendations. Oxygen was weaned to keep an oxygen saturation of 88-92%. 2-D echocardiogram showed a grade 1 diastolic dysfunction with normal left ventricular size and function. The patient was requiring high levels of oxygen and initially was on high flow nasal cannula, however was tapered down to nasal cannula and currently is on 2 L nasal cannula. 3. Alcohol withdrawal Alcoholism and has been drinking wine for the past few days. Seems to be resolved. Continue Ativan as needed for anxiety and tremors. 4. Tachycardia. Sinus tachycardia. Resolved. Continue Cardizem. 5. Severe anxiety and depression. Continue Seroquel, fluoxetine. Seems stable 6. History of seizures with prior withdrawal from Xanax. No current seizure, 7. Hypothyroidism. TSH within normal limits. Continue Synthroid 25 g daily. 8. Positive blood cultures. Blood cultures growing staph capitis-urelyticus which is resistant to several antibiotics however sensitive to vancomycin. Repeat blood cultures negative to date. Likely a contaminant as detailed above. 8. DVT prophylaxis with SCDs. Discharge Planning Will discharge to rehabilitation today. Problem Qualifiers (1) Acute respiratory failure: Qualified Codes: J96.01 - Acute respiratory failure with hypoxia (2) Anxiety disorder, unspecified: Qualified Codes: F41.1 - Generalized anxiety disorder (3) Alcohol withdrawal: Qualified Codes: F10.230 - Alcohol dependence with withdrawal, uncomplicated (4) COPD (chronic obstructive pulmonary disease): Qualified Codes: J44.1 - Chronic obstructive pulmonary disease with (acute) exacerbation (5) Hepatitis C: Dajuan Pemberton MD Mar 23, 2017 12:02
[2017-03-23] MEDS ORDERED: DILT31TA PO (12:31)
[2017-03-23] MEDS ORDERED: SYMB160A INH (12:31)
[2017-03-23] MEDS ORDERED: IPRA0.02 NEB (12:31)
[2017-03-23] MEDS ORDERED: GNP100TA3 PO (12:31)
[2017-03-23] MEDS ORDERED: OXYC-392 PO (12:31)
[2017-03-23] MEDS ORDERED: LEVA750T9 PO (12:31)
[2017-03-23] MEDS ORDERED: PRED20 PO (12:31)
[2017-03-23] MEDS ORDERED: XANA1TAB2 PO (12:31)
--- NOTE | 2017-03-23 12:32 | HHI.DCPOC ---
Discharge Care Plan Diagnosis: (1) COPD (chronic obstructive pulmonary disease) (2) Acute respiratory failure (3) Shortness of breath (4) Respiratory alkalosis (5) Tobacco abuse (6) Alcohol withdrawal (7) Anxiety disorder, unspecified (8) UTI (urinary tract infection) (9) Severe sepsis (10) COPD exacerbation (11) Alcohol dependence Goals to Promote Your Health * To prevent worsening of your condition and complications * To maintain your health at the optimal level Directions to Meet Your Goals Take your medications as prescribed Follow your dietary instruction Follow activity as directed Keep your appointments as scheduled Take your immunizations and boosters as scheduled If your symptoms worsen call your PCP, if no PCP go to Urgent Care Center or Emergency Room Smoking is Dangerous to Your Health. Avoid second hand smoke Call the 24-hour hour crisis hotline for domestic abuse at Dajuan Pemberton MD Mar 23, 2017 12:32
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
--- NOTE | 2017-03-23 17:31 | HHI.PR ---
Subjective Remarks 64 YOWF with COPD exac, bronchitis,Anxiety Breathing better Anxious, gets tremers with anxiety and nebs no fever.On 2 LNC, comforyable Feels better, appetite great no New complaint Objective Vital Signs Vital Signs Date Time Temp Pulse Resp B/P (MAP) Pulse Ox O2 Delivery O2 Flow Rate FiO2 03/23/17 12:00 97.8 77 18 131/76 (94) 94 03/23/17 09:51 18 03/23/17 08:45 Nasal Cannula 2.00 95 03/23/17 08:00 97.6 81 19 122/72 (89) 95 03/23/17 07:46 100 Nasal Cannula 2.00 03/23/17 05:04 03/23/17 01:12 97.9 92 22 159/90 (113) 94 03/22/17 21:25 97.4 104 24 165/84 (111) 93 03/22/17 20:00 97 Nasal Cannula 2.00 03/22/17 19:47 97 Nasal Cannula 2.00 I/O 03/22/17 03/22/17 03/22/17 03/23/17 03/23/17 03/23/17 07:00 15:00 23:00 07:00 15:00 23:00 Intake Total 240 ml 525 ml 1070 ml Balance 240 ml 525 ml 1070 ml Intake Oral 240 ml 920 ml IV Total 525 ml 150 ml # Voids 4 4 4 # Bowel Movements 3 2 0 Result Diagram: 03/23/1762003/23/17 0621 Objective Remarks GENERAL: MBMN WF mild sob SKIN: Warm and dry. HEAD: Normocephalic. EYES: No scleral icterus. No injection or drainage. NECK: Supple, trachea midline. No JVD or lymphadenopathy. CARDIOVASCULAR: Regular rate and rhythm without murmurs, gallops, or rubs. RESPIRATORY: Breath sounds equal bilaterally. No accessory muscle use. GASTROINTESTINAL: Abdomen soft, non-tender, nondistended. MUSCULOSKELETAL: No cyanosis, or edema. BACK: Nontender without obvious deformity. No CVA tenderness. A/P Assessment and Plan COPD exac bronchitis Anxiety disorder Nicotine use Tremers PLAN: Aerosol nebs cont Abx Supplement 02 and wean to keep sat 88-92% Encourage to use acapella Pred 10 mg tid Supplement 02 to keep sat >90% AnejaVenkata Dev MD Mar 23, 2017 17:31
[2017-03-23] MEDS ORDERED: PHARMACY ORDERED LAB ONE (17:45)
[2017-03-23 17:54] LABS: POTASSIUM 4.1 MEQ/L (3.5-5.1)
[2017-03-23 17:57] LABS: BICARBONATE 29.6 MEQ/L (21.0-32.0)
[2017-03-23 20:43] LABS: VANCOMYCIN TROUGH 11.1 MCG/ML (5.0-10.0)
[2017-03-24 00:45] VITALS: BP 112/72; PULSE 86; RESP 16; TEMP 97; O2SAT 93
[2017-03-24] MEDS: LEVOTHYROXINE SODIUM 25 MCG TAB PO SCH (05:46)
[2017-03-24] MEDS: ALPRAZolam 1 MG TAB PO PRN ×2 (05:46→09:47)
[2017-03-24 08:00] VITALS: BP 147/86; PULSE 76; RESP 16; TEMP 97.4; O2SAT 95; O2SAT 96
[2017-03-24] MEDS: DOCUSATE SODIUM 50 MG/SENNA 8.6 MG TAB PO SCH (08:27)
[2017-03-24] MEDS: DILTIAZEM HCL 30 MG TAB PO SCH (08:27)
[2017-03-24] MEDS: SODIUM CHLORIDE 0.9% FLUSH 10 ML FLUSH IV FLUSH SCH (08:27)
[2017-03-24] MEDS: THIAMINE HCL 100 MG TAB PO SCH (08:28)
[2017-03-24] MEDS: FLUoxetine HCL 20 MG CAP PO SCH (08:28)
[2017-03-24] MEDS: predniSONE 10 MG TAB PO SCH (08:28)
[2017-03-24] MEDS: QUEtiapine FUMARATE 25 MG TAB PO SCH (08:28)
[2017-03-24] MEDS: BUDESONIDE-FORMOTEROL 160/4.5 MCG INHALER INH SCH (08:29)
[2017-03-24] MEDS ORDERED: LEVOFLOXACIN 750 MG TAB PO SCH (09:00)
[2017-03-24] MEDS: RESP: ALBUTEROL 2.5 MG/IPRATROPIUM 0.5 MG NEB (SCH) NEB (09:05)
[2017-03-24 10:43] VITALS: RESP 18
== END 2017-03-24 10:51 | DRG 871 ==
LOC: PHED 01:03 → PHEDA 03:33 → PHICU 05:13 → PH3B 03-22 18:40
PROVIDERS: ADMIT Hospitalist; ATTEND Hospitalist
DX: A41.9 Sepsis, unspecified organism (principal); R65.21 Severe sepsis with septic shock; J96.01 Acute respiratory failure with hypoxia; E87.3 Alkalosis; F10.230 Alcohol dependence with withdrawal, uncomplicated; J44.1 Chronic obstructive pulmonary disease with (acute) exacerbation; N39.0 Urinary tract infection, site not specified; B19.20 Unspecified viral hepatitis C without hepatic coma; F17.210 Nicotine dependence, cigarettes, uncomplicated; E03.9 Hypothyroidism, unspecified; E86.0 Dehydration; F03.90 Unspecified dementia, unspecified severity, without behavioral disturbance, psychotic disturbance, mood disturbance, and anxiety; F31.9 Bipolar disorder, unspecified; F41.0 Panic disorder [episodic paroxysmal anxiety]; I12.9 Hypertensive chronic kidney disease with stage 1 through stage 4 chronic kidney disease, or unspecified chronic kidney disease; N18.9 Chronic kidney disease, unspecified; K74.60 Unspecified cirrhosis of liver; F41.8 Other specified anxiety disorders; M19.90 Unspecified osteoarthritis, unspecified site; M54.9 Dorsalgia, unspecified; G89.29 Other chronic pain; R56.9 Unspecified convulsions
CPT/HCPCS: 36600; 71010; 80048; 80053; 80202; 80307; 81001; 82550; 82552; 82805; 82948; 83605; 83735; 83880; 84100; 84443; 84484; 85007; 85025; 85027; 85610; 85730; 86403; 87040; 87077; 87086; 87186; 87205; 93005; 93306; 94640; 94664; 94667; 94668; 96365; 96375; J0456; J0696; J1940; J1956; J2060; J2405; J2920; J2930; J3370; J7030; J7040; J7050; J7512

== ENCOUNTER 2017-05-17 06:37 | Emergency (ER) | payer MEDICARE, OTHER ==
[~2017-05-17] VITALS: Ht 162.6 cm; Wt 54.5 kg
[2017-05-17] VITALS (7 sets, daily range): BP systolic 126–138; BP diastolic 71–84; PULSE 88–108; RESP 15–32; TEMP 97.6–97.7; O2SAT 97–100
[~2017-05-17 06:37] MED LIST changes: -CALC1TAB87 PO; -CLON0.1T PO; +DILT31TA PO; +IPRA0.02 NEB; +LEVA750T9 PO; +OXYC-392 PO; +PRED20 PO; +THIA100 PO; -TOPI1TAB97 PO; +XANA1TAB2 PO
[2017-05-17] MEDS ORDERED: RESP: ALBUTEROL 2.5 MG/IPRATROPIUM 0.5 MG NEB (SCH) INH ONE (07:00)
[2017-05-17] MEDS ORDERED: LORazepam 2 MG/ML VIAL IV PUSH ONE (07:00)
[2017-05-17] MEDS ORDERED: SODIUM CHLORIDE 0.9% FLUSH 10 ML FLUSH IVF PRN (07:00)
--- NOTE | 2017-05-17 07:12 | PD ---
HPI Chief Complaint: Respiratory Symptoms Time Seen by Provider: 06:54 Travel History International Travel<30 days: No Contact w/Intl Traveler<30days: No Traveled to known affect area: No History of Present Illness HPI This is a 66-year-old female who has a history of COPD who presents to the emergency department with increasing shortness of breath it's been going on for 2 days, constant, moderate severity with no associated sputum production, fevers or chills. The patient was recently hospitalized in March for COPD, sepsis and pneumonia. She says she was discharged to a rehabilitation a while she was in rehabilitation she was receiving pain medications and Xanax. She says they discharged her from her rehabilitation without Xanax and her primary care doctor wouldn't fill it says she's been without Xanax for 2 weeks and she' s getting increasingly anxious. PFSH Past Medical History Arthritis: Yes Asthma: No Bipolar Disorder: Yes Anxiety: Yes Depression: Yes (SINCE FAMILY DEATHS 4 YR AGE) Heart Rhythm Problems: Yes (SINUS TACH.) Cancer: No Cardiovascular Problems: Yes (COPD) High Cholesterol: No Chest Pain: No Congestive Heart Failure: No Cirrhosis: Yes (Liver disease) COPD: Yes Cerebrovascular Accident: No Coronary Artery Disease: No Dementia: Yes (ALCOHOLIC) Diabetes: No Diminished Hearing: No Endocrine: Yes Gastrointestinal Disorders: Yes (esophageal varices, cirrhosis) GERD: No Genitourinary: Yes Headaches: Yes Hepatitis: Yes (Hep C) Hiatal Hernia: No Hypertension: Yes Immune Disorder: No Implanted Vascular Access Dvce: Yes Kidney Stones: No Musculoskeletal: Yes (neuropathy) Neurologic: Yes Psychiatric: Yes (bipolar/anxiety/substance abuse) Reproductive: No Respiratory: Yes Immunizations Current: Yes Migraines: No Pneumonia: Yes Renal Failure: Yes (ckd) Seizures: Yes Sleep Apnea: No Thyroid Disease: Yes Ulcer: No PNEUMOCCOCAL Vaccine (Year): 1 Menopausal: Yes : 1 Para: 1 Past Surgical History Abdominal Surgery: No Body Medical Devices: STEEL PLATE L ARM Cardiac Surgery: No Genitourinary Surgery: No Gynecologic Surgery: Yes (1993 HYSTERECTOMY) Hysterectomy: Yes Neurologic Surgery: Yes ("Nerve fusion" in back) Thoracic Surgery: No Tonsillectomy: Yes Other Surgery: Yes (Right hip bone graft to left arm ) Social History Alcohol Use: Yes (hx of ETOH abuse, drank today) Tobacco Use: Yes Substance Use: Yes (recent benzo use, hx of same) Allergies-Medications (Allergen,Severity, Reaction): Coded Allergies: No Known Allergies (Unverified Adverse Reaction, Unknown, 05/17/17) Reported Meds & Prescriptions Reported Meds & Active Scripts Active Ipratropium Neb (Ipratropium [place]) 0.5 Mg/2.5 Ml Amp 0.5 Mg NEB Q6HR NEB PRN Prednisone 20 Mg Tab 20 Mg PO DIRECTED 40 MG twice a day x 3 days, then 20 MG daily x 3 days, then 10 MG daily x 3 days Gnp Vitamin B-1 (Thiamine HCl) 100 Mg Tab 100 Mg PO DAILY Symbicort Inh (Budesonide/Formoterol Fumarate) 160-4.5 Mcg/Act Aero 2 Puff INH Q12HR Xanax (Alprazolam) 1 Mg Tab 1 Mg PO Q4H PRN Oxycodone (Oxycodone HCl) 5 Mg Tab 5 Mg PO Q4H PRN Cardizem (Diltiazem HCl) 30 Mg Tab 30 Mg PO QID Levaquin (Levofloxacin) 750 Mg Tablet 750 Mg PO DAILY Ventolin Hfa 18 GM Inh (Albuterol Sulfate) 90 Mcg/Act Aer 2 Puff INH Q4H PRN Reported Potassium Gluconate 595 Mg (99 Mg) Tab 1 Tab PO DAILY Quetiapine (Quetiapine Fumarate) 50 Mg Tab 50 Mg PO BID Hydroxyzine Pamoate 50 Mg Cap 50 Mg PO TID PRN Gabapentin 300 Mg Cap 300 Mg PO DAILY Levothyroxine (Levothyroxine Sodium) 25 Mcg Tab 25 Mcg PO Fluoxetine (Fluoxetine HCl) 40 Mg Cap 40 Cap PO DAILY Review of Systems Except as stated in HPI: all other systems reviewed are Neg Physical Exam Narrative GENERAL: Anxious appearing SKIN: Focused skin assessment warm and dry. HEAD: Atraumatic. Normocephalic. EYES: Pupils equal and round. No injection or drainage. ENT: Moist mucous membranes NECK: Trachea midline. CARDIOVASCULAR: Regular rate and rhythm. No murmur appreciated. RESPIRATORY: Tachypneic, speaking full sentences, mild expiratory wheezing, moving good air GASTROINTESTINAL: Abdomen soft, non-tender, nondistended. MUSCULOSKELETAL: No obvious deformities. NEUROLOGICAL: Awake and alert. No obvious cranial nerve deficits. Moving all extremities. PSYCHIATRIC: Anxious appearing Data Data Last Documented VS Vital Signs Date Time Temp Pulse Resp B/P (MAP) Pulse Ox O2 Delivery O2 Flow Rate FiO2 05/17/17 06:50 100 100 Room Air 05/17/17 06:46 97.6 32 138/80 (99) Orders Orders Complete Blood Count With Diff (05/17/17 06:54) Comprehensive Metabolic Panel (05/17/17 06:54) Iv Access Insert/Monitor (05/17/17 06:54) Ecg Monitoring (05/17/17 06:54) Oximetry (05/17/17 06:54) Oxygen Administration (05/17/17 06:54) Chest, Single Ap (05/17/17 06:54) Sodium Chloride 0.9% Flush (Ns Flush) (05/17/17 07:00) Albuterol-Ipratropium Neb (Duoneb Neb) (05/17/17 07:00) Lorazepam Inj (Ativan Inj) (05/17/17 07:00) MDM Medical Decision Making Medical Screen Exam Complete: Yes Emergency Medical Condition: Yes Differential Diagnosis COPD exacerbation, panic attack, pneumonia, pneumothorax Narrative Course This is a 66-year-old female who was brought in by [facility] who presents to the emergency department with increasing shortness of breath. She has a history of COPD and severe anxiety. She appears to have good air movement on exam and his 100% on room air. I suspect she is having a panic attack and she' s hyperventilating based on my exam. She was given a milligram of IV Ativan. She received a bronchodilator treatment and steroids in the field. She'll be given an additional bronchodilator here. Chest x-ray and labs are obtained. Disposition will be made by oncoming provider. Conchita Duarte MD May 17, 2017 07:12
[2017-05-17 07:15] LABS: AUTOMATED NEUTROPHIL # 4.8 TH/MM3 (1.8-7.7); BASOPHIL # 0.1 TH/MM3 (0-0.2); BASOPHIL % 1.4 % (0.0-2.0); EOSINOPHIL # 0.1 TH/MM3 (0-0.4); EOSINOPHIL % 1.6 % (0.0-4.0); HEMO FLAGS DIFF FINAL; LYMPH % 29.5 % (9.0-44.0); LYMPHOCYTE # 2.3 TH/MM3 (1.0-4.8); MEAN CELL VOLUME 94.3 FL (80.0-100.0); MEAN CORPUSCULAR HEMOGLOBIN 32.3 PG (27.0-34.0); MEAN CORPUSCULAR HGB CONC 34.2 % (32.0-36.0); MONO % 8.1 % (0.0-8.0); NEUT % 59.4 % (16.0-70.0); PLATELET COUNT 238 TH/MM3 (150-450); RED BLOOD COUNT 4.87 MIL/MM3 (4.00-5.30); RED CELL DISTRIBUTION WIDTH 14.3 % (11.6-17.2); WHITE BLOOD COUNT 7.9 TH/MM3 (4.0-11.0)
--- NOTE | 2017-05-17 07:27 | RADRPT ---
EXAM DATE/TIME: 05/17/2017 07:05 [facility] COMPARISON: CHEST SINGLE AP, March 18, 2017, 5:40. INDICATIONS : Short of breath, chest pains MEDICAL HISTORY : Chronic obstructive pulmonary disease. SURGICAL HISTORY : None. ENCOUNTER: Initial ACUITY: 3 days PAIN SCORE: 7/10 LOCATION: Bilateral chest FINDINGS: The lungs are hyperinflated. There is no evidence of acute air space disease or significant congestio n. Heart and mediastinal structures are stable. Fixation plate is identified in the mid left humerus. Osseous structures remain intact. CONCLUSION: 1. COPD 2. No acute cardiopulmonary process. Drew Pretty MD on May 17, 2017 at 7:24 Board Certified Radiologist. This report was verified electronically.
[2017-05-17 07:29] LABS: CHLORIDE 109 MEQ/L (98-107); POTASSIUM 3.4 MEQ/L (3.5-5.1); SODIUM (NA) 139 MEQ/L (136-145)
[2017-05-17 07:32] LABS: ANION GAP 14 MEQ/L (5-15); BICARBONATE 16.3 MEQ/L (21.0-32.0)
[2017-05-17 07:33] LABS: BLOOD UREA NITROGEN 11 MG/DL (7-18)
[2017-05-17 07:35] LABS: ALT (GPT) 33 U/L (10-53)
[2017-05-17 07:36] LABS: AST (GOT) 36 U/L (15-37); GLOMERULAR FILTRATION RATE 56 ML/MIN (>89)
[2017-05-17 07:37] LABS: TOTAL BILIRUBIN ADULT 0.9 MG/DL (0.2-1.0)
[2017-05-17 07:38] LABS: ALKALINE PHOSPHATASE 84 U/L (45-117)
[2017-05-17 09:08] LABS: POTASSIUM 3.4 MEQ/L (3.5-5.1)
--- NOTE | 2017-05-17 09:34 | PD ---
Physical Exam Narrative GENERAL: Well-nourished, well-developed patient. SKIN: Warm and dry. HEAD: Normocephalic and atraumatic. EYES: No injection or drainage. ENT: No nasal drainage noted. NECK: Supple, trachea midline. CARDIOVASCULAR: Regular rate and rhythm RESPIRATORY: Breath sounds equal bilaterally. No accessory muscle use. NEUROLOGICAL: Awake and alert. Motor and sensory grossly within normal limits. Normal speech. Data Data Last Documented VS Vital Signs Date Time Temp Pulse Resp B/P (MAP) Pulse Ox O2 Delivery O2 Flow Rate FiO2 05/17/17 11:20 108 19 133/72 (92) 98 Room Air 05/17/17 08:20 1.00 05/17/17 07:23 97.7 Orders Orders Complete Blood Count With Diff (05/17/17 06:54) Comprehensive Metabolic Panel (05/17/17 06:54) Iv Access Insert/Monitor (05/17/17 06:54) Ecg Monitoring (05/17/17 06:54) Oximetry (05/17/17 06:54) Oxygen Administration (05/17/17 06:54) Chest, Single Ap (05/17/17 06:54) Sodium Chloride 0.9% Flush (Ns Flush) (05/17/17 07:00) Albuterol-Ipratropium Neb (Duoneb Neb) (05/17/17 07:00) Lorazepam Inj (Ativan Inj) (05/17/17 07:00) Basic Metabolic Panel (Bmp) (05/17/17 08:40) Ed Discharge Order (05/17/17 10:14) Labs Laboratory Tests Test 05/17/17 06:55 05/17/17 08:48 White Blood Count 7.9 TH/MM3 Red Blood Count 4.87 MIL/MM3 Hemoglobin 15.7 GM/DL Hematocrit 46.0 % Mean Corpuscular Volume 94.3 FL Mean Corpuscular Hemoglobin 32.3 PG Mean Corpuscular Hemoglobin Concent 34.2 % Red Cell Distribution Width 14.3 % Platelet Count 238 TH/MM3 Mean Platelet Volume 8.4 FL Neutrophils (%) (Auto) 59.4 % Lymphocytes (%) (Auto) 29.5 % Monocytes (%) (Auto) 8.1 % Eosinophils (%) (Auto) 1.6 % Basophils (%) (Auto) 1.4 % Neutrophils # (Auto) 4.8 TH/MM3 Lymphocytes # (Auto) 2.3 TH/MM3 Monocytes # (Auto) 0.6 TH/MM3 Eosinophils # (Auto) 0.1 TH/MM3 Basophils # (Auto) 0.1 TH/MM3 CBC Comment DIFF FINAL Differential Comment Blood Urea Nitrogen 11 MG/DL 11 MG/DL Creatinine 1.00 MG/DL 0.73 MG/DL Random Glucose 110 MG/DL 118 MG/DL Total Protein 7.6 GM/DL Albumin 4.5 GM/DL Calcium Level 9.4 MG/DL 7.9 MG/DL Alkaline Phosphatase 84 U/L Aspartate Amino Transf (AST/SGOT) 36 U/L Alanine Aminotransferase (ALT/SGPT) 33 U/L Total Bilirubin 0.9 MG/DL Sodium Level 139 MEQ/L 140 MEQ/L Potassium Level 3.4 MEQ/L 3.4 MEQ/L Chloride Level 109 MEQ/L 112 MEQ/L Carbon Dioxide Level 16.3 MEQ/L 17.9 MEQ/L Anion Gap 14 MEQ/L 10 MEQ/L Estimat Glomerular Filtration Rate 56 ML/MIN 80 ML/MIN MDM Supervised Visit with KYLE: No Interpretation(s) CBC & BMP Diagram 05/17/17 06:55 Total Protein 7.6, Albumin 4.5, Calcium Level 9.4, Alkaline Phosphatase 84, Aspartate Amino Transf (AST/SGOT) 36, Alanine Aminotransferase (ALT/SGPT) 33, Total Bilirubin 0.9 Last 24 hours Impressions Chest X-Ray 05/17/17 0654 Signed Impressions: Service Date/Time: Friday, May 17, 2017 07:05 - CONCLUSION: 1. COPD 2. No acute cardiopulmonary process. Drew Pretty MD Narrative Course Signed out to me to follow blood work and x-ray and reevaluate. Blood work shows low bicarbonate which is likely from patient hyperventilating. On reassessment after Ativan patient is resting comfortably but is needing oxygen to maintain her oxygen saturation while she sleeps. We will monitor Patient is now off oxygen after Ativan has worn off some. Her lungs are still clear to auscultation bilaterally. Her oxygen saturation is now normal. Will repeat BMP to make sure not worsening and if this is normal she can follow-up outpatient for further care. BMP is improving, vitals are stable, will provide with patient with Vistaril and prednisone and advised to continue nebulizer treatments. I advised her to follow with her primary closely and gave her return instructions Diagnosis Primary Impression: Shortness of breath Additional Impressions: COPD (chronic obstructive pulmonary disease) Qualified Codes: J44.9 - Chronic obstructive pulmonary disease, unspecified Anxiety Patient Instructions: General Instructions Additional Instruction: return as needed, follow with primary friday, albuterol as needed every 4 hours at home, fill prescriptions Med/Other Pt SpecificInfo: Prescription(s) given Scripts Prednisone (Prednisone) 50 Mg Tab 50 MG PO DAILY for 4 Days, #4 TAB 0 Refills Prov: Binta Adhikari MD 05/17/17 Hydroxyzine Pamoate (Vistaril) 25 Mg Cap 25 MG PO TID Y for ANXIETY, #15 CAP 0 Refills Prov: Binta Adhikari MD 05/17/17 Disposition: 01 DISCHARGE HOME Condition: Stable Binta Adhikari MD May 17, 2017 09:34
[2017-05-17 09:44] LABS: BICARBONATE 17.9 MEQ/L (21.0-32.0)
[2017-05-17] MEDS ORDERED: PRED50 PO (10:13)
[2017-05-17] MEDS ORDERED: VIST25CA PO (10:13)
== END 2017-05-17 12:12 | disposition home or self-care (01) ==
LOC: PHED 06:37
DX: R06.02 Shortness of breath (principal); J44.9 Chronic obstructive pulmonary disease, unspecified; F41.9 Anxiety disorder, unspecified; I12.9 Hypertensive chronic kidney disease with stage 1 through stage 4 chronic kidney disease, or unspecified chronic kidney disease; N18.9 Chronic kidney disease, unspecified; E07.9 Disorder of thyroid, unspecified; Z72.0 Tobacco use; Z87.09 Personal history of other diseases of the respiratory system; Z86.59 Personal history of other mental and behavioral disorders; Z87.39 Personal history of other diseases of the musculoskeletal system and connective tissue; Z86.79 Personal history of other diseases of the circulatory system; Z87.19 Personal history of other diseases of the digestive system; Z87.448 Personal history of other diseases of urinary system; Z86.19 Personal history of other infectious and parasitic diseases; Z86.69 Personal history of other diseases of the nervous system and sense organs
CPT/HCPCS: 71010; 80053; 85025; 94664; 96374; 99284; J2060; 80048

== ENCOUNTER 2017-07-09 10:58 | Emergency (ER) | payer OTHER ==
[~2017-07-09] VITALS: Ht 157.5 cm; Wt 59.0 kg
[~2017-07-09 10:58] MED LIST changes: -DILT31TA PO; -LEVA750T9 PO; -OXYC-392 PO; -PRED20 PO; +PRED50 PO; -THIA100 PO; +VIST25CA PO; -XANA1TAB2 PO
[2017-07-09 11:08] VITALS: BP 136/78; PULSE 99; RESP 20; TEMP 97.7; O2SAT 94
[2017-07-09] MEDS ORDERED: SODIUM CHLOR 0.9% 1000 ML INJ 1,000 ML IV SCH (11:31)
[2017-07-09] MEDS ORDERED: KETOROLAC TROMETHAMINE 30 MG/ML (IVP) VIAL IVP ONE (11:45)
[2017-07-09] MEDS ORDERED: SODIUM CHLORIDE 0.9% FLUSH 10 ML FLUSH IV FLUSH PRN (11:45)
[2017-07-09] MEDS ORDERED: ONDANSETRON HCL 4 MG/2 ML VIAL IVP ONE (11:45)
[2017-07-09] MEDS ORDERED: DICYCLOMINE HCL 10 MG CAP PO ONE (11:45)
[2017-07-09] MEDS ORDERED: ALUMINUM/MAGNESIUM/SIMETH 30 ML CUP PO ONE (11:45)
[2017-07-09] MEDS ORDERED: LIDOCAINE VISCOUS 2% SOLN 15 ML UDC PO ONE (11:45)
[2017-07-09 11:49] LABS: AUTOMATED NEUTROPHIL # 2.8 TH/MM3 (1.8-7.7); BASOPHIL % 0.7 % (0.0-2.0); EOSINOPHIL # 0.2 TH/MM3 (0-0.4); EOSINOPHIL % 3.2 % (0.0-4.0); HEMATOCRIT 41.2 % (35.0-46.0); HEMOGLOBIN 13.5 GM/DL (11.6-15.3); LYMPH % 32.9 % (9.0-44.0); LYMPHOCYTE # 1.6 TH/MM3 (1.0-4.8); MEAN CELL VOLUME 94.9 FL (80.0-100.0); MEAN CORPUSCULAR HEMOGLOBIN 31.1 PG (27.0-34.0); MEAN CORPUSCULAR HGB CONC 32.8 % (32.0-36.0); MONOCYTE # 0.3 TH/MM3 (0-0.9); NEUT % 56.2 % (16.0-70.0); PLATELET COUNT 182 TH/MM3 (150-450); RED BLOOD COUNT 4.34 MIL/MM3 (4.00-5.30); WHITE BLOOD COUNT 4.9 TH/MM3 (4.0-11.0)
[2017-07-09 11:50] LABS: BILIRUBIN, URINE NEG (NEG); BLOOD, URINE NEG (NEG); GLUCOSE,URINE NEG (NEG); KETONE, URINE NEG (NEG); NITRITE,URINE NEG (NEG); URINE LEUKOCYTE ESTERASE SMALL (NEG)
--- NOTE | 2017-07-09 11:57 | PD ---
HPI Chief Complaint: Flank/Kidney Pain Time Seen by Provider: 11:16 Travel History International Travel<30 days: No Contact w/Intl Traveler<30days: No Traveled to known affect area: No History of Present Illness HPI 66-year-old female complains of left flank pain and left upper quadrant pain. It has gradually worsened over the last few days. She reports a history of rib fractures and believes it might be correlated. The pain is worse with changes in position and deep inspiration. She's had no fever. Pain is now constant. No blood in the urine or urinary frequency. PFSH Past Medical History Arthritis: Yes Asthma: No Bipolar Disorder: Yes Anxiety: Yes Depression: Yes (SINCE FAMILY DEATHS 4 YR AGE) Heart Rhythm Problems: Yes (SINUS TACH.) Cancer: No Cardiovascular Problems: Yes (COPD) High Cholesterol: No Chest Pain: No Congestive Heart Failure: No Cirrhosis: Yes (Liver disease) COPD: Yes Cerebrovascular Accident: No Coronary Artery Disease: No Dementia: Yes (ALCOHOLIC) Diabetes: No Diminished Hearing: No Endocrine: Yes Gastrointestinal Disorders: Yes (esophageal varices, cirrhosis) GERD: No Genitourinary: Yes Headaches: Yes Hepatitis: Yes (Hep C) Hiatal Hernia: No Hypertension: Yes Immune Disorder: No Implanted Vascular Access Dvce: Yes Kidney Stones: No Musculoskeletal: Yes (neuropathy) Neurologic: Yes Psychiatric: Yes (bipolar/anxiety/substance abuse) Reproductive: No Respiratory: Yes (COPD) Immunizations Current: Yes Migraines: No Pneumonia: Yes Renal Failure: Yes (ckd) Seizures: Yes Sleep Apnea: No Thyroid Disease: Yes Ulcer: No Influenza Vaccination: No PNEUMOCCOCAL Vaccine (Year): 1 Menopausal: Yes : 1 Para: 1 Past Surgical History Abdominal Surgery: No Body Medical Devices: STEEL PLATE L ARM Cardiac Surgery: No Genitourinary Surgery: No Gynecologic Surgery: Yes (1993 HYSTERECTOMY) Hysterectomy: Yes Neurologic Surgery: Yes ("Nerve fusion" in back) Thoracic Surgery: No Tonsillectomy: Yes Other Surgery: Yes (Right hip bone graft to left arm ) Social History Alcohol Use: Yes (OCC) Tobacco Use: Yes (2 ppd) Substance Use: Yes (recent benzo use, hx of same) Allergies-Medications (Allergen,Severity, Reaction): Coded Allergies: No Known Allergies (Unverified Adverse Reaction, Unknown, 07/09/17) Reported Meds & Prescriptions Reported Meds & Active Scripts Active Ipratropium Neb (Ipratropium [place]) 0.5 Mg/2.5 Ml Amp 0.5 Mg NEB Q6HR NEB PRN Symbicort Inh (Budesonide/Formoterol Fumarate) 160-4.5 Mcg/Act Aero 2 Puff INH Q12HR Ventolin Hfa 18 GM Inh (Albuterol Sulfate) 90 Mcg/Act Aer 2 Puff INH Q4H PRN Reported Potassium Gluconate 595 Mg (99 Mg) Tab 1 Tab PO DAILY Quetiapine (Quetiapine Fumarate) 50 Mg Tab 50 Mg PO BID Gabapentin 300 Mg Cap 300 Mg PO DAILY Levothyroxine (Levothyroxine Sodium) 25 Mcg Tab 25 Mcg PO Fluoxetine (Fluoxetine HCl) 40 Mg Cap 40 Cap PO DAILY Review of Systems Except as stated in HPI: all other systems reviewed are Neg General / Constitutional: No: Fever Physical Exam Narrative GENERAL: 66 yo F, WNWD, NAD SKIN: Warm and dry. HEAD: Atraumatic. Normocephalic. EYES: Pupils equal and round. No scleral icterus. No injection or drainage. ENT: No nasal bleeding or discharge. Mucous membranes pink and moist. NECK: Trachea midline. No JVD. CARDIOVASCULAR: Regular rate and rhythm. RESPIRATORY: No accessory muscle use. Clear to auscultation. Breath sounds equal bilaterally. GASTROINTESTINAL: TTP LUQ. L flank TTP. Soft abdomen. No rebound. MUSCULOSKELETAL: Extremities without clubbing, cyanosis, or edema. No obvious deformities. NEUROLOGICAL: Awake and alert. No obvious cranial nerve deficits. Motor grossly within normal limits. Five out of 5 muscle strength in the arms and legs. Normal speech. PSYCHIATRIC: Appropriate mood and affect; insight and judgment normal. Data Data Last Documented VS Vital Signs Date Time Temp Pulse Resp B/P (MAP) Pulse Ox O2 Delivery O2 Flow Rate FiO2 07/09/17 12:41 07/09/17 12:22 71 20 95 07/09/17 11:08 97.7 VS reviewed Orders Orders Complete Blood Count With Diff (07/09/17 11:31) Comprehensive Metabolic Panel (07/09/17 11:31) Lipase (07/09/17 11:31) Urinalysis - C+S If Indicated (07/09/17 11:31) Ct Abd/Pel W/O Iv Contrast (07/09/17 11:31) Iv Access Insert/Monitor (07/09/17 11:31) Ecg Monitoring (07/09/17 11:31) Oximetry (07/09/17 11:31) Ondansetron Inj (Zofran Inj) (07/09/17 11:45) Sodium Chlor 0.9% 1000 Ml Inj (Ns 1000 M (07/09/17 11:31) Sodium Chloride 0.9% Flush (Ns Flush) (07/09/17 11:45) Dicyclomine (Bentyl) (07/09/17 11:45) Ketorolac Inj (Toradol Inj) (07/09/17 11:45) Al-Mag Hy-Si 40-40-4 Mg/Ml Liq (Mag-Al P (07/09/17 11:45) Lidocaine 2% Viscous (Xylocaine 2% Visco (07/09/17 11:45) Ed Discharge Order (07/09/17 12:36) Labs Laboratory Tests Test 07/09/17 11:15 07/09/17 11:40 Urine Collection Type CLEAN CATCH Urine Color YELLOW Urine Turbidity CLEAR Urine pH 6.0 Urine Specific [place] 1.009 Urine Protein NEG mg/dL Urine Glucose (UA) NEG mg/dL Urine Ketones NEG mg/dL Urine Occult Blood NEG Urine Nitrite NEG Urine Bilirubin NEG Urine Leukocyte Esterase SMALL Urine WBC 0-2 /hpf Urine Bacteria RARE /hpf Urine Hyaline Casts 3-5 /lpf Microscopic Urinalysis Comment CULT NOT INDICATED White Blood Count 4.9 TH/MM3 Red Blood Count 4.34 MIL/MM3 Hemoglobin 13.5 GM/DL Hematocrit 41.2 % Mean Corpuscular Volume 94.9 FL Mean Corpuscular Hemoglobin 31.1 PG Mean Corpuscular Hemoglobin Concent 32.8 % Red Cell Distribution Width 13.0 % Platelet Count 182 TH/MM3 Mean Platelet Volume 8.0 FL Neutrophils (%) (Auto) 56.2 % Lymphocytes (%) (Auto) 32.9 % Monocytes (%) (Auto) 7.0 % Eosinophils (%) (Auto) 3.2 % Basophils (%) (Auto) 0.7 % Neutrophils # (Auto) 2.8 TH/MM3 Lymphocytes # (Auto) 1.6 TH/MM3 Monocytes # (Auto) 0.3 TH/MM3 Eosinophils # (Auto) 0.2 TH/MM3 Basophils # (Auto) 0.0 TH/MM3 CBC Comment DIFF FINAL Differential Comment Blood Urea Nitrogen 13 MG/DL Creatinine 0.98 MG/DL Random Glucose 108 MG/DL Total Protein 6.3 GM/DL Albumin 3.4 GM/DL Calcium Level 8.7 MG/DL Alkaline Phosphatase 78 U/L Aspartate Amino Transf (AST/SGOT) 43 U/L Alanine Aminotransferase (ALT/SGPT) 32 U/L Total Bilirubin 0.8 MG/DL Sodium Level 143 MEQ/L Potassium Level 3.8 MEQ/L Chloride Level 107 MEQ/L Carbon Dioxide Level 29.1 MEQ/L Anion Gap 7 MEQ/L Estimat Glomerular Filtration Rate 57 ML/MIN Lipase 86 U/L MDM Medical Decision Making Medical Screen Exam Complete: Yes Emergency Medical Condition: Yes Medical Record Reviewed: Yes Differential Diagnosis Constipation, Gastritis, Acute Cholecystitis, Biliary Colic, Pancreatitis, GIBSON , Hepatitis, Bowel Obstruction, Cystitis, Mesenteric Ischemia, AAA, Appendicitis , Renal Stone/Hydronephrosis, GERD, perforated viscous Narrative Course CBC & BMP Diagram 07/09/17 11:40 Total Protein 6.3 L, Albumin 3.4, Calcium Level 8.7, Alkaline Phosphatase 78, Aspartate Amino Transf (AST/SGOT) 43 H, Alanine Aminotransferase (ALT/SGPT) 32, Total Bilirubin 0.8 Last Impressions Abdomen/Pelvis CT 07/09/17 1131 Signed Impressions: Service Date/Time: Sunday, July 09, 2017 11:51 - CONCLUSION: 1. No acute findings on abdomen and pelvic CT. Mild constipation. Specifically no obstructive uropathy. Sebastián Walker MD The patient is resting comfortably and feels better, is alert and in no distress. The patients results and examination findings were discussed. The repeat examination is unremarkable and benign. The history, exam, diagnostic testing, and current condition do not suggest any significant pathology to warrant further testing, continued ED treatment, admission, or surgical evaluation at this point. The vital signs have been stable. The patient does not have uncontrollable pain, intractable vomiting, or other significant symptoms. The patient's condition is stable and appropriate for discharge. The patient will pursue further outpatient evaluation with a primary care physician or other designated or consulting physician as indicated in the discharge instructions. The patient expressed understanding and was agreeable with this plan. Diagnosis Primary Impression: Abdominal pain Additional Impression: Flank pain Med/Other Pt SpecificInfo: No Change to Meds Disposition: 01 DISCHARGE HOME Condition: Stable Fredrick Adames MD Jul 09, 2017 11:56
[2017-07-09 11:58] LABS: BACTERIA, URINE RARE /hpf; URINE COLOR YELLOW (YELLW/STRAW); WBC, URINE 0-2 /hpf (0-5)
[2017-07-09 12:02] LABS: CHLORIDE 107 MEQ/L (98-107); SODIUM (NA) 143 MEQ/L (136-145)
[2017-07-09 12:04] LABS: CALCIUM 8.7 MG/DL (8.5-10.1)
[2017-07-09 12:05] LABS: ALBUMIN 3.4 GM/DL (3.4-5.0); BICARBONATE 29.1 MEQ/L (21.0-32.0); BLOOD UREA NITROGEN 13 MG/DL (7-18); GLUCOSE,RANDOM 108 MG/DL (74-106); LIPASE 86 U/L (73-393)
[2017-07-09 12:08] LABS: ALT (GPT) 32 U/L (10-53); AST (GOT) 43 U/L (15-37); CREATININE 0.98 MG/DL (0.50-1.00); GLOMERULAR FILTRATION RATE 57 ML/MIN (>89)
[2017-07-09 12:09] LABS: TOTAL BILIRUBIN ADULT 0.8 MG/DL (0.2-1.0); TOTAL PROTEIN 6.3 GM/DL (6.4-8.2)
[2017-07-09 12:11] LABS: ALKALINE PHOSPHATASE 78 U/L (45-117)
[2017-07-09 12:12] VITALS: O2SAT 96
--- NOTE | 2017-07-09 12:20 | RADRPT ---
EXAM DATE/TIME: 07/09/2017 11:51 [facility] COMPARISON: No previous studies available for comparison. INDICATIONS : Left flank pain x 1 week. ORAL CONTRAST: No oral contrast ingested. RADIATION DOSE: 9.37 CTDIvol (mGy) MEDICAL HISTORY : Cirrhosis. Renal failure, chronic. Chronic obstructive pulmonary disease.Dementia. Hep C SURGICAL HISTORY : Hysterectomy. ENCOUNTER: Initial ACUITY: 1 week PAIN SCALE: 7/10 LOCATION: Left flank TECHNIQUE: Volumetric scanning of the abdomen and pelvis was performed. Using automated exposure control and ad justment of the mA and/or kV according to patient size, radiation dose was kept as low as reasonably achievable to obtain optimal diagnostic quality images. DICOM format image data is available electro nically for review and comparison. FINDINGS: No acute findings in the visualized liver, spleen, adrenals, kidneys or pancreas. No calcified gallst ones or biliary ductal dilatation. Mild constipation. No pelvic mass or free fluid. CONCLUSION: 1. No acute findings on abdomen and pelvic CT. Mild constipation. Specifically no obstructive uropath yCesia Walker MD on July 09, 2017 at 12:10 Board Certified Radiologist. This report was verified electronically.
[2017-07-09 12:22] VITALS: BP 126/74; PULSE 71; RESP 20; O2SAT 95
== END 2017-07-09 12:46 | disposition home or self-care (01) ==
LOC: PHED 10:58
DX: R10.12 Left upper quadrant pain (principal); K59.00 Constipation, unspecified; M19.90 Unspecified osteoarthritis, unspecified site; F31.9 Bipolar disorder, unspecified; F41.9 Anxiety disorder, unspecified; J44.9 Chronic obstructive pulmonary disease, unspecified; G62.9 Polyneuropathy, unspecified; I12.9 Hypertensive chronic kidney disease with stage 1 through stage 4 chronic kidney disease, or unspecified chronic kidney disease; N18.9 Chronic kidney disease, unspecified
CPT/HCPCS: 74176; 80053; 81001; 83690; 85025; 96374; 96375; 99284; J1885; J2405; J7030

== ENCOUNTER 2017-09-27 10:53 | Emergency (ER) | payer OTHER ==
[~2017-09-27] VITALS: Ht 160 cm; Wt 58.0 kg
[~2017-09-27 10:53] MED LIST changes: -HYDR50CA PO; -PRED50 PO; -VIST25CA PO
[2017-09-27 10:59] VITALS: BP 106/66; PULSE 120; RESP 20; TEMP 98.4; O2SAT 98
[2017-09-27] MEDS ORDERED: XANA2TAB2 PO (11:46)
--- NOTE | 2017-09-27 12:19 | PD ---
HPI Chief Complaint: Cold / Flu Symptoms Time Seen by Provider: 12:11 Travel History International Travel<30 days: No Contact w/Intl Traveler<30days: No Traveled to known affect area: No History of Present Illness HPI 66yo F with COPD, anxiety, alcohol dependence presents to the ED with c/o sob and wheezing for 5 days. Said she has been using nebulizer but not working. Associated with nasal congestion, nonbloody diarrhea. Denies any fever, chest pain, abdominal pain, n/v, focal weakness or numbness. PFSH Past Medical History Arthritis: Yes Asthma: No Bipolar Disorder: Yes Anxiety: Yes Depression: Yes (SINCE FAMILY DEATHS 4 YR AGE) Heart Rhythm Problems: Yes (SINUS TACH.) Cancer: No Cardiovascular Problems: Yes (COPD) High Cholesterol: No Chest Pain: No Congestive Heart Failure: No Cirrhosis: Yes (Liver disease) COPD: Yes Cerebrovascular Accident: No Coronary Artery Disease: No Dementia: Yes (ALCOHOLIC) Diabetes: No Diminished Hearing: No Endocrine: Yes Gastrointestinal Disorders: Yes (esophageal varices, cirrhosis) GERD: No Genitourinary: Yes Headaches: Yes Hepatitis: Yes (Hep C) Hiatal Hernia: No Hypertension: Yes Immune Disorder: No Implanted Vascular Access Dvce: Yes Kidney Stones: No Musculoskeletal: Yes (neuropathy) Neurologic: Yes Psychiatric: Yes (bipolar/anxiety/substance abuse) Reproductive: No Respiratory: Yes (COPD) Immunizations Current: Yes Migraines: No Pneumonia: Yes Renal Failure: Yes (ckd) Seizures: Yes Sleep Apnea: No Thyroid Disease: Yes Ulcer: No PNEUMOCCOCAL Vaccine (Year): 1 Menopausal: Yes : 1 Para: 1 Past Surgical History Abdominal Surgery: No Body Medical Devices: STEEL PLATE L ARM Cardiac Surgery: No Genitourinary Surgery: No Gynecologic Surgery: Yes (1993 HYSTERECTOMY) Hysterectomy: Yes Neurologic Surgery: Yes ("Nerve fusion" in back) Thoracic Surgery: No Tonsillectomy: Yes Other Surgery: Yes (Right hip bone graft to left arm ) Social History Alcohol Use: Yes (OCC) Tobacco Use: Yes (/2 ppd) Substance Use: Yes (recent benzo use, hx of same) Allergies-Medications (Allergen,Severity, Reaction): Coded Allergies: No Known Allergies (Unverified Adverse Reaction, Unknown, 07/09/17) Reported Meds & Prescriptions Reported Meds & Active Scripts Active Ipratropium Neb (Ipratropium [place]) 0.5 Mg/2.5 Ml Amp 0.5 Mg NEB Q6HR NEB PRN Symbicort Inh (Budesonide/Formoterol Fumarate) 160-4.5 Mcg/Act Aero 2 Puff INH Q12HR Ventolin Hfa 18 GM Inh (Albuterol Sulfate) 90 Mcg/Act Aer 2 Puff INH Q4H PRN Reported Xanax (Alprazolam) 2 Mg Tab 2 Mg PO Q8H PRN Potassium Gluconate 595 Mg (99 Mg) Tab 1 Tab PO DAILY Quetiapine (Quetiapine Fumarate) 50 Mg Tab 50 Mg PO BID Levothyroxine (Levothyroxine Sodium) 25 Mcg Tab 25 Mcg PO Review of Systems Except as stated in HPI: all other systems reviewed are Neg Physical Exam Narrative GENERAL: 66yo F in mild distress. SKIN: Focused skin assessment warm/dry. HEAD: Atraumatic. Normocephalic. EYES: Pupils equal and round. No scleral icterus. No injection or drainage. ENT: No nasal bleeding or discharge. Mucous membranes pink and moist. NECK: Trachea midline. No JVD. CARDIOVASCULAR: Mildly tachycardic at 105bpm. No murmur appreciated. RESPIRATORY: + accessory muscle use. Expiratory wheezing bilaterally. GASTROINTESTINAL: Abdomen soft, non-tender, nondistended. MUSCULOSKELETAL: No obvious deformities. No clubbing. No cyanosis. No edema. No calf tenderness. NEUROLOGICAL: Awake and alert. No obvious cranial nerve deficits. Motor grossly within normal limits. Normal speech. PSYCHIATRIC: Appropriate mood and affect; insight and judgment normal. Data Data Last Documented VS Vital Signs Date Time Temp Pulse Resp B/P (MAP) Pulse Ox O2 Delivery O2 Flow Rate FiO2 09/27/17 13:57 98.0 100 22 120/70 (87) 96 Room Air Orders Orders Complete Blood Count With Diff (09/27/17 12:16) Basic Metabolic Panel (Bmp) (09/27/17 12:16) Troponin I (09/27/17 12:16) Influenzae A/B Antigen (09/27/17 12:16) Electrocardiogram (09/27/17 12:16) Methylprednisolone So Succ Inj (Solumedr (09/27/17 12:30) Albuterol-Ipratropium Neb (Duoneb Neb) (09/27/17 12:30) Sodium Chlor 0.9% 1000 Ml Inj (Ns 1000 M (09/27/17 12:30) Ribs, Uni (W/Exp Cxr-Min 3vw) (09/27/17 ) Ketorolac Inj (Toradol Inj) (09/27/17 12:45) Guaifen-Cod 200-20 Mg/10ml Liq (Robituss (09/27/17 12:45) Albuterol Neb (Albuterol Neb) (09/27/17 14:00) Diazepam (Valium) (09/27/17 14:00) Labs Laboratory Tests Test 09/27/17 12:50 White Blood Count 7.1 TH/MM3 Red Blood Count 4.16 MIL/MM3 Hemoglobin 13.8 GM/DL Hematocrit 40.8 % Mean Corpuscular Volume 98.1 FL Mean Corpuscular Hemoglobin 33.2 PG Mean Corpuscular Hemoglobin Concent 33.8 % Red Cell Distribution Width 12.9 % Platelet Count 220 TH/MM3 Mean Platelet Volume 8.3 FL Neutrophils (%) (Auto) 59.1 % Lymphocytes (%) (Auto) 29.2 % Monocytes (%) (Auto) 8.5 % Eosinophils (%) (Auto) 2.2 % Basophils (%) (Auto) 1.0 % Neutrophils # (Auto) 4.1 TH/MM3 Lymphocytes # (Auto) 2.1 TH/MM3 Monocytes # (Auto) 0.6 TH/MM3 Eosinophils # (Auto) 0.2 TH/MM3 Basophils # (Auto) 0.1 TH/MM3 CBC Comment DIFF FINAL Differential Comment Blood Urea Nitrogen 19 MG/DL Creatinine 0.90 MG/DL Random Glucose 93 MG/DL Calcium Level 8.2 MG/DL Sodium Level 140 MEQ/L Potassium Level 4.3 MEQ/L Chloride Level 105 MEQ/L Carbon Dioxide Level 26.1 MEQ/L Anion Gap 9 MEQ/L Estimat Glomerular Filtration Rate 63 ML/MIN Troponin I LESS THAN 0.02 NG/ML MDM Medical Decision Making Medical Screen Exam Complete: Yes Emergency Medical Condition: Yes Interpretation(s) EKG: NSR 99bpm. Normal axis. TWI V2. No ST segment elevation or depression. Differential Diagnosis COPD exacerbation vs. pneumonia vs. URI vs. viral syndrome Narrative Course 66yo F with cough, sob and diarrhea. Labs reviewed, no leukocytosis. H/H normal. Troponin negative. Influenza negative. Pt given methylprednisone and duonebs x3 and is feeling better. However, still wheezing so will give another albuterol neb. Pt is still smoking cig. Pt was given toradol but still a lot of pain in left ribs. Feel that this is more musculoskeletal from coughing. Will give valium. Pt reevaluated at bedside and feels better. No longer sob. Xray left ribs showed no acute disease. Old healed rib fractures are seen. Pt is speaking in complete sentences and saturating at 96% on RA. Return precautions given. Diagnosis Primary Impression: COPD exacerbation Patient Instructions: General Instructions Departure Forms: Tests/Procedures Additional Instructions: Please follow up with your primary care physician in 2-3 days. Return to the ED if symptoms worsen. Med/Other Pt SpecificInfo: Prescription(s) given Scripts Prednisone (Deltasone) 20 Mg Tab 20 MG PO BID for 5 Days, #10 TAB 0 Refills Prov: Stephanie Chappell DO 09/27/17 Albuterol 18 GM Inh (Ventolin Hfa 18 GM Inh) 90 Mcg/Act Aer 2 PUFF INH Q4H Y for SHORTNESS OF BREATH, #1 INHALER 0 Refills Prov: Stephanie Chappell DO 09/27/17 Disposition: 01 DISCHARGE HOME Condition: Stable Stephanie Chappell DO Sep 27, 2017 12:19
[2017-09-27] MEDS ORDERED: SODIUM CHLOR 0.9% 1000 ML INJ 1,000 ML IV ONE (12:30)
[2017-09-27] MEDS ORDERED: methylPREDNISolone SOD SUCC 125 MG/2 ML VIAL IV PUSH ONE (12:30)
[2017-09-27] MEDS ORDERED: KETOROLAC TROMETHAMINE 30 MG/ML (IVP) VIAL IV PUSH ONE (12:45)
[2017-09-27] MEDS ORDERED: guaiFENesin/CODEINE SYRUP 200 MG/20 MG/10 ML CUP PO ONE (12:45)
[2017-09-27] MEDS: RESP: ALBUTEROL 2.5 MG/IPRATROPIUM 0.5 MG NEB (SCH) INH ×3 (12:48→12:53)
[2017-09-27 13:02] LABS: AUTOMATED NEUTROPHIL # 4.1 TH/MM3 (1.8-7.7); BASOPHIL # 0.1 TH/MM3 (0-0.2); EOSINOPHIL # 0.2 TH/MM3 (0-0.4); EOSINOPHIL % 2.2 % (0.0-4.0); HEMATOCRIT 40.8 % (35.0-46.0); HEMOGLOBIN 13.8 GM/DL (11.6-15.3); LYMPH % 29.2 % (9.0-44.0); LYMPHOCYTE # 2.1 TH/MM3 (1.0-4.8); MEAN CELL VOLUME 98.1 FL (80.0-100.0); MEAN CORPUSCULAR HEMOGLOBIN 33.2 PG (27.0-34.0); MEAN CORPUSCULAR HGB CONC 33.8 % (32.0-36.0); MEAN PLATELET VOLUME 8.3 FL (7.0-11.0); MONO % 8.5 % (0.0-8.0); MONOCYTE # 0.6 TH/MM3 (0-0.9); NEUT % 59.1 % (16.0-70.0); PLATELET COUNT 220 TH/MM3 (150-450); RED BLOOD COUNT 4.16 MIL/MM3 (4.00-5.30); RED CELL DISTRIBUTION WIDTH 12.9 % (11.6-17.2); WHITE BLOOD COUNT 7.1 TH/MM3 (4.0-11.0)
[2017-09-27 13:15] LABS: CHLORIDE 105 MEQ/L (98-107); SODIUM (NA) 140 MEQ/L (136-145)
[2017-09-27 13:18] LABS: BICARBONATE 26.1 MEQ/L (21.0-32.0); BLOOD UREA NITROGEN 19 MG/DL (7-18); CALCIUM 8.2 MG/DL (8.5-10.1); GLUCOSE,RANDOM 93 MG/DL (74-106)
[2017-09-27 13:22] LABS: GLOMERULAR FILTRATION RATE 63 ML/MIN (>89)
[2017-09-27 13:26] LABS: TROPONIN I LESS THAN 0.02 NG/ML (0.02-0.05)
[2017-09-27 13:50] VITALS: BP 120/70; PULSE 100; RESP 22; TEMP 98; O2SAT 96
[2017-09-27 13:57] VITALS: BP 120/70; PULSE 100; RESP 22; TEMP 98; O2SAT 96
[2017-09-27] MEDS ORDERED: DIAZEPAM 5 MG TAB PO ONE (14:00)
[2017-09-27] MEDS ORDERED: RESP: ALBUTEROL 2.5 MG/3 ML NEB (SCH) NEB ONE (14:00)
--- NOTE | 2017-09-27 14:38 | RADRPT ---
EXAM DATE/TIME: 09/27/2017 14:04 [facility] COMPARISON: CT PULMONARY ANGIOGRAM, September 29, 2016, 21:27. CHEST SINGLE AP, March 16, 2017, 19:33. CHEST SI NGLE AP, March 18, 2017, 5:40. CHEST SINGLE AP, May 17, 2017, 7:05. INDICATIONS : Cough, short of breath, left lower chest wall pain MEDICAL HISTORY : Chronic obstructive pulmonary disease. SURGICAL HISTORY : None. ENCOUNTER: Initial ACUITY: 4 - 6 days PAIN SCORE: 6/10 LOCATION: Left lower chest FINDINGS: Multiple views of the left ribs were performed. There is no evidence of displaced fracture. There a re chronic deformities at the seventh, eighth, and ninth left ribs and the sixth and seventh right ri bs from prior fracture. These were present on prior exams. No destructive lesions or areas of periost eal thickening are seen. Expiratory view of the chest is negative for pneumothorax. The mediastinal structures are midline. Spurs are seen in the thoracic spine. CONCLUSION: No acute disease. Old healed rib fractures are seen. Damir Kennedy MD on September 27, 2017 at 14:31 Board Certified Radiologist. This report was verified electronically.
[2017-09-27] MEDS ORDERED: VENTAER INH (15:20)
[2017-09-27] MEDS ORDERED: PRED-503 PO (15:20)
--- NOTE | 2017-09-27 19:28 | EKG ---
Date Performed: 09/27/2017 Time Performed: 12:37:11 PTAGE: 66 years EKG: Sinus rhythm NORMAL ECG Since PREVIOUS TRACING , no significant change noted PREVIOUS TRACIN03/15/2017 01.32 DOCTOR: Bouchra Mistry Interpretating Date/Time 09/27/2017 19:24:52
== END 2017-09-27 15:49 | disposition home or self-care (01) ==
LOC: PHED 10:53
DX: J44.1 Chronic obstructive pulmonary disease with (acute) exacerbation (principal); I12.9 Hypertensive chronic kidney disease with stage 1 through stage 4 chronic kidney disease, or unspecified chronic kidney disease; N18.9 Chronic kidney disease, unspecified; F17.200 Nicotine dependence, unspecified, uncomplicated
CPT/HCPCS: 71101; 80048; 84484; 85025; 87804; 93005; 94640; 94664; 96361; 96374; 96375; 99285; J1885; J2930; J7030; J7613

== ENCOUNTER 2018-02-02 10:48 | Inpatient (IN) ==
--- NOTE | 2018-02-02 11:53 | ED ---
HPI General Chief Complaint: Abdominal Pain Stated Complaint: Abd pain/left arm injury x1week Time Seen by Provider: 02/02/18 11:42 Related Data Home Medications Medication Instructions Recorded Confirmed doxepin 10 mg PO TID 01/20/18 02/02/18 gabapentin 300 mg PO TID PRN 01/20/18 02/02/18 levothyroxine 25 mcg PO DAILY 01/20/18 02/02/18 Previous Rx's Medication Instructions Recorded naproxen 250 mg PO BID PRN #14 tab 01/19/18 oxycodone-acetaminophen [Percocet] 1 tab PO Q4-6H PRN #10 tab 01/19/18 cyclobenzaprine 5 mg PO TID PRN #30 tab 02/04/18 vancomycin 250 mg PO QID #28 ea 02/04/18 Allergies Allergy/AdvReac Type Severity Reaction Status Date / Time No Known Allergies Allergy Verified 02/02/18 10:52 Review of Systems Except as stated in HPI: all other systems reviewed are negative (Patient was seen and evaluated for injury to left arm 9 days ago and treated with analgesics and referral to PMD and orthopedics. No nausea or vomiting. No fever or temperature. Additionally patient has had no significant bowel movement for 5 days and now complains of intermittent epigastric pain with colicky exacerbations and constant residual for 1 day. No significant change of other HPI categories) [facility] Medical History Medical History ETOH abuse (Acute) Anxiety (Acute) COPD (chronic obstructive pulmonary disease) (Acute) Thyroid condition (Acute) Ankle fracture, right (Acute) Arm fracture, left (Acute) Hypertension (Acute) Cirrhosis (Acute) History of hysterectomy (Acute) Surgical History Surgical History History of tonsillectomy (Acute) Social History Social History Substance History: No History of Abuse Second Hand Smoke Exposure: Yes Smoking Status: Heavy tobacco smoker Tobacco Type: Cigarettes How Often Do You Have a Drink Containing Alcohol: 2 to 3 times a week Recent Travel in [facility] within the Last 8 Weeks: No Recent Out of Country Travel within the Last 8 Weeks: No Exam Narrative Exam Narrative: GENERAL: Alert and oriented 3 SKIN: Focused skin assessment warm/dry. HEAD: Atraumatic. Normocephalic. EYES: Pupils equal and round. No scleral icterus. No injection or drainage. CARDIOVASCULAR: Regular rate and rhythm. No murmur appreciated. RESPIRATORY: No accessory muscle use. Clear to auscultation. Breath sounds equal bilaterally. GASTROINTESTINAL: Abdomen with epigastric tenderness however no guarding and moderate rigidity. Hepatic and splenic margins not palpable. MUSCULOSKELETAL: No obvious deformities. No clubbing. No cyanosis. No edema. NEUROLOGICAL: Awake and alert. No obvious cranial nerve deficits. Motor grossly within normal limits. Normal speech. PSYCHIATRIC: Appropriate mood and affect; insight and judgment normal. Course Reevaluation(s) Reevaluation #1: No response to medications. Patient has well localized tenderness to the epigastric region with no guarding or rigidity. Time: 13:02 Reevaluation #2: Ultrasound negative for evidence of gallbladder disease. No change in patient's physical exam however ordered CT to rule out diverticulitis Time: 14:47 Initial Documented Vital Signs Temperature 97.7 F 02/02/18 10:52 Pulse Rate 123 H 02/02/18 10:52 Respiratory Rate 16 02/02/18 10:52 Blood Pressure 150/71 H 02/02/18 10:52 Pulse Oximetry 94 L 02/02/18 10:52 Last Documented Vital Signs Temperature 98.0 F 02/04/18 08:00 Pulse Rate 104 H 02/04/18 08:00 Respiratory Rate 18 02/04/18 08:00 Blood Pressure 166/114 H 02/04/18 08:00 Pulse Oximetry 93 L 02/04/18 08:00 Critical Care Time Critical Care Time: No Medical Decision Making [facility] Narrative Medical decision making narrative: Patient presents with 2 problems #1 left shoulder and #2 abdominal pain. The abdominal pain was initially felt to be potentially gallbladder and ultrasound was obtained however no evidence of same. However CT showed the evidence of potential diverticulitis in the transverse colon in the same area where patient has plaint of pain. Also the CBC showed significant leukocytosis. Therefore the patient was admitted with IV antibiotics to the hospitalist Lab Data Result diagrams: 02/04/18 05:45 02/04/18 05:45 Lab Results 02/02/18 02/02/18 02/02/18 Range/Units 13:21 13:21 16:05 CBC w Diff Slide review pending WBC 27.3 H (4.0-11.0) th/mm3 RBC 4.30 (4.00-5.30) mil/mm3 Hgb 14.2 (11.6-15.3) gm/dL Hct 42.5 (35.0-46.0) % MCV 98.7 (80.0-100.0) fL MCH 32.9 (27.0-34.0) pg MCHC 33.3 (32.0-36.0) % RDW 15.0 (11.6-17.2) % Plt Count 251 (150-450) th/mm3 MPV 7.8 (7.0-11.0) fL Neut % (Auto) 90.3 H (16.0-70.0) % Lymph % (Auto) 6.6 L (9.0-44.0) % [place] % (Auto) 1.7 (0.0-8.0) % Eos % (Auto) 0.9 (0.0-4.0) % Baso % (Auto) 0.5 (0.0-2.0) % Neut # (Auto) 24.7 H (1.8-7.7) th/mm3 Lymph # (Auto) 1.8 (1.0-4.8) th/mm3 [place] # (Auto) 0.5 (0.0-0.9) th/mm3 Eos # (Auto) 0.2 (0.0-0.4) th/mm3 Baso # (Auto) 0.1 (0.0-0.2) th/mm3 WBC Differential Manual diff final Seg Neuts % (Manual) 80 H (16-70) % Band Neuts % (Manual) 9 H (0-6) % Lymphocytes % (Manual) 7 L (9-44) % Monocytes % (Manual) 2 (0-8) % Eosinophils % (Manual) 2 (0-4) % Abs Neuts (Manual) 24.3 H (1.8-7.7) th/mm3 Differential Comment . Platelet Estimate Normal (Normal) Platelet Morphology Normal (Normal) Sodium 141 (136-145) meq/L Potassium 3.6 (3.5-5.1) meq/L Chloride 104 (98-107) meq/L Carbon Dioxide 30.2 (21.0-32.0) meq/L Anion Gap 7 (5-15) meq/L BUN 22 H (7-18) mg/dL Creatinine 0.93 (0.50-1.00) mg/dL Estimated GFR 60 L (>89) mL/min Random Glucose 91 (74-106) mg/dL Lactic Acid (0.4-2.0) mmol/L Calcium 8.4 L (8.5-10.1) mg/dL Total Bilirubin 0.7 (0.2-1.0) mg/dL AST 19 (15-37) U/L ALT 21 (10-53) U/L Alkaline Phosphatase 65 (45-117) U/L Total Protein 5.8 L (6.4-8.2) g/dL Albumin 3.0 L (3.4-5.0) g/dL Lipase 58 L (73-393) U/L Urine Color Yellow (Yellw/Straw) Urine Clarity Slightly cloudy (Clear) Urine pH 7.5 (5.0-8.5) Ur Specific [place] 1.010 (1.002-1.035) Urine Protein Negative (Neg-Trace) mg/dL Urine Glucose (UA) Negative (Negative) mg/dL Urine Ketones Negative (Negative) mg/dL Urine Occult Blood Trace (Negative) Urine Nitrate Negative (Negative) Urine Bilirubin Negative (Negative) Urine Urobilinogen 0.2 (Less than 2) mg/dL Ur Leukocyte Esterase Large H (Negative) Urine RBC 0-3 (0-3) /hpf Urine WBC (0-5) /hpf Urine WBC Clumps Moderate H (None) Ur Squamous Epith Cells 0-5 (0-5) /hpf Ur Transition Epith Cell Greater than 10 H (None) /hpf Ur Renal Epithelial Cell 1-5 H (None) /hpf Urine Bacteria Moderate H (None) /hpf Micro UA Comment Culture indicated Urine Culture Comments Culture indicated Stl C.difficile Tox PCR (Negative) St C. diff Tox Epid 027 (Negative) 02/03/18 02/03/18 02/03/18 Range/Units 05:00 05:40 05:40 CBC w Diff Auto diff final WBC 24.5 H (4.0-11.0) th/mm3 RBC 3.89 L (4.00-5.30) mil/mm3 Hgb 13.4 (11.6-15.3) gm/dL Hct 39.4 (35.0-46.0) % MCV 101.3 H (80.0-100.0) fL MCH 34.6 H (27.0-34.0) pg MCHC 34.1 (32.0-36.0) % RDW 13.8 (11.6-17.2) % Plt Count 222 (150-450) th/mm3 MPV 8.0 (7.0-11.0) fL Neut % (Auto) 85.4 H (16.0-70.0) % Lymph % (Auto) 8.5 L (9.0-44.0) % [place] % (Auto) 5.0 (0.0-8.0) % Eos % (Auto) 1.0 (0.0-4.0) % Baso % (Auto) 0.1 (0.0-2.0) % Neut # (Auto) 21.0 H (1.8-7.7) th/mm3 Lymph # (Auto) 2.1 (1.0-4.8) th/mm3 [place] # (Auto) 1.2 H (0.0-0.9) th/mm3 Eos # (Auto) 0.2 (0.0-0.4) th/mm3 Baso # (Auto) 0.0 (0.0-0.2) th/mm3 WBC Differential . Seg Neuts % (Manual) (16-70) % Band Neuts % (Manual) (0-6) % Lymphocytes % (Manual) (9-44) % Monocytes % (Manual) (0-8) % Eosinophils % (Manual) (0-4) % Abs Neuts (Manual) (1.8-7.7) th/mm3 Differential Comment . Platelet Estimate (Normal) Platelet Morphology (Normal) Sodium 139 (136-145) meq/L Potassium 3.4 L (3.5-5.1) meq/L Chloride 105 (98-107) meq/L Carbon Dioxide 26.1 (21.0-32.0) meq/L Anion Gap 8 (5-15) meq/L BUN 19 H (7-18) mg/dL Creatinine 0.81 (0.50-1.00) mg/dL Estimated GFR 71 L (>89) mL/min Random Glucose 91 (74-106) mg/dL Lactic Acid (0.4-2.0) mmol/L Calcium 8.2 L (8.5-10.1) mg/dL Total Bilirubin (0.2-1.0) mg/dL AST (15-37) U/L ALT (10-53) U/L Alkaline Phosphatase (45-117) U/L Total Protein (6.4-8.2) g/dL Albumin (3.4-5.0) g/dL Lipase (73-393) U/L Urine Color (Yellw/Straw) Urine Clarity (Clear) Urine pH (5.0-8.5) Ur Specific [place] (1.002-1.035) Urine Protein (Neg-Trace) mg/dL Urine Glucose (UA) (Negative) mg/dL Urine Ketones (Negative) mg/dL Urine Occult Blood (Negative) Urine Nitrate (Negative) Urine Bilirubin (Negative) Urine Urobilinogen (Less than 2) mg/dL Ur Leukocyte Esterase (Negative) Urine RBC (0-3) /hpf Urine WBC (0-5) /hpf Urine WBC Clumps (None) Ur Squamous Epith Cells (0-5) /hpf Ur Transition Epith Cell (None) /hpf Ur Renal Epithelial Cell (None) /hpf Urine Bacteria (None) /hpf Micro UA Comment Urine Culture Comments Stl C.difficile Tox PCR Positive H (Negative) St C. diff Tox Epid 027 Negative (Negative) 02/03/18 02/04/18 02/04/18 Range/Units 15:17 05:45 05:45 CBC w Diff WBC 13.9 H (4.0-11.0) th/mm3 RBC 3.59 L (4.00-5.30) mil/mm3 Hgb 12.3 (11.6-15.3) gm/dL Hct 36.5 (35.0-46.0) % MCV 101.7 H (80.0-100.0) fL MCH 34.2 H (27.0-34.0) pg MCHC 33.7 (32.0-36.0) % RDW 13.8 (11.6-17.2) % Plt Count 188 (150-450) th/mm3 MPV 8.2 (7.0-11.0) fL Neut % (Auto) (16.0-70.0) % Lymph % (Auto) (9.0-44.0) % [place] % (Auto) (0.0-8.0) % Eos % (Auto) (0.0-4.0) % Baso % (Auto) (0.0-2.0) % Neut # (Auto) (1.8-7.7) th/mm3 Lymph # (Auto) (1.0-4.8) th/mm3 [place] # (Auto) (0.0-0.9) th/mm3 Eos # (Auto) (0.0-0.4) th/mm3 Baso # (Auto) (0.0-0.2) th/mm3 WBC Differential Seg Neuts % (Manual) (16-70) % Band Neuts % (Manual) (0-6) % Lymphocytes % (Manual) (9-44) % Monocytes % (Manual) (0-8) % Eosinophils % (Manual) (0-4) % Abs Neuts (Manual) (1.8-7.7) th/mm3 Differential Comment Platelet Estimate (Normal) Platelet Morphology (Normal) Sodium 142 (136-145) meq/L Potassium 3.8 (3.5-5.1) meq/L Chloride 107 (98-107) meq/L Carbon Dioxide 28.1 (21.0-32.0) meq/L Anion Gap 7 (5-15) meq/L BUN 15 (7-18) mg/dL Creatinine 0.73 (0.50-1.00) mg/dL Estimated GFR 80 L (>89) mL/min Random Glucose 96 (74-106) mg/dL Lactic Acid 0.6 (0.4-2.0) mmol/L Calcium 8.3 L (8.5-10.1) mg/dL Total Bilirubin (0.2-1.0) mg/dL AST (15-37) U/L ALT (10-53) U/L Alkaline Phosphatase (45-117) U/L Total Protein (6.4-8.2) g/dL Albumin (3.4-5.0) g/dL Lipase (73-393) U/L Urine Color (Yellw/Straw) Urine Clarity (Clear) Urine pH (5.0-8.5) Ur Specific [place] (1.002-1.035) Urine Protein (Neg-Trace) mg/dL Urine Glucose (UA) (Negative) mg/dL Urine Ketones (Negative) mg/dL Urine Occult Blood (Negative) Urine Nitrate (Negative) Urine Bilirubin (Negative) Urine Urobilinogen (Less than 2) mg/dL Ur Leukocyte Esterase (Negative) Urine RBC (0-3) /hpf Urine WBC (0-5) /hpf Urine WBC Clumps (None) Ur Squamous Epith Cells (0-5) /hpf Ur Transition Epith Cell (None) /hpf Ur Renal Epithelial Cell (None) /hpf Urine Bacteria (None) /hpf Micro UA Comment Urine Culture Comments Stl C.difficile Tox PCR (Negative) St C. diff Tox Epid 027 (Negative) Imaging Data Radiologist's impression: Gallbladder Ultrasound 02/02/18 12:59 CONCLUSION: 1. Gallbladder polyp. Abdomen/Pelvis CT 02/02/18 16:28 CONCLUSION: 1. Interval development of abnormal bowel wall thickening involving the transverse colon characteristic of colitis. 2. Atherosclerosis. Shoulder CT 02/03/18 00:00 CONCLUSION: 1. Postsurgical changes to the left distal humerus. 2. Severe degenerative changes of the cervical spine and thoracic spine noted. Discharge Plan Discharge Disposition Patient Disposition: 01 Discharge Home Discharge Condition Condition: Stable Discharge Order Discharge Orders: Discharge Order (Routine); Ordered 02/04/18 Ordered By: Marisela West Discharge Details Anticipated Discharge Date: 02/04/18 Physicians Team ED Provider: Cornell Sapp Primary Care Provider: Sadiq Kellogg Attending Provider: Marisela West Status ED Status: Left Department Discharge Information Discharge Date/Time: 02/02/18 23:21
[2018-02-02 13:26] LABS: Baso # (Auto) 0.1 th/mm3 (0.0-0.2); Baso % (Auto) 0.5 % (0.0-2.0); Eos # (Auto) 0.2 th/mm3 (0.0-0.4); Eos % (Auto) 0.9 % (0.0-4.0); Hematocrit 42.5 % (35.0-46.0); Hemoglobin 14.2 gm/dL (11.6-15.3); Lymph # (Auto) 1.8 th/mm3 (1.0-4.8); Lymph % (Auto) 6.6 % (9.0-44.0); Mean Corpuscular HGB Conc 33.3 % (32.0-36.0); Mean Corpuscular Hemoglobin 32.9 pg (27.0-34.0); Mean Corpuscular Volume 98.7 fL (80.0-100.0); Mean Platelet Volume 7.8 fL (7.0-11.0); Mono # (Auto) 0.5 th/mm3 (0.0-0.9); Mono % (Auto) 1.7 % (0.0-8.0); Neut # (Auto) 24.7 th/mm3 (1.8-7.7); Neut % (Auto) 90.3 % (16.0-70.0); Platelet Count 251 th/mm3 (150-450); White Blood Count 27.3 th/mm3 (4.0-11.0)
[2018-02-02 13:34] LABS: Chloride 104 meq/L (98-107); Potassium 3.6 meq/L (3.5-5.1); Sodium 141 meq/L (136-145)
[2018-02-02 13:38] LABS: Anion Gap 7 meq/L (5-15); Blood Urea Nitrogen 22 mg/dL (7-18); Calcium 8.4 mg/dL (8.5-10.1); Carbon Dioxide 30.2 meq/L (21.0-32.0); Glucose,Random 91 mg/dL (74-106); Lipase 58 U/L (73-393)
[2018-02-02 13:41] LABS: Alanine Aminotransferase 21 U/L (10-53); Aspartate Aminotransferase 19 U/L (15-37); Glomerular Filtration Rate 60 mL/min (>89)
[2018-02-02 13:43] LABS: Total Protein 5.8 g/dL (6.4-8.2)
[2018-02-02 13:44] LABS: Alkaline Phosphatase 65 U/L (45-117)
[2018-02-02 13:51] LABS: Eosinophils 2 % (0-4); Lymphocytes 7 % (9-44); Monocytes 2 % (0-8)
[2018-02-02 13:52] LABS: Platelet Estimate Normal (Normal); Platelet Morphology Normal (Normal)
--- NOTE | 2018-02-02 14:02 | US ---
EXAM DATE: 02/02/2018 1:53 PM EDT AGE/SEX: 67 years / Female INDICATIONS: Abdominal pain. CLINICAL DATA: This is the patient's initial encounter. Patient reports that signs and symptoms have been present for 1 day and indicates a pain score of 6/10. MEDICAL/SURGICAL HISTORY: . ETOH. Cirrhosis. COPD. Hypertension. Tonsillectomy. Hysterecto my. COMPARISON: [facility], CT ABDOMEN & PELVIS W CONTRAST, 01/19/2018. . MEASUREMENTS: Liver:__ 16.1 cm. Common Bile Duct:__ 6mm. FINDINGS: Liver: Normal echotexture without focal lesion or ductal dilatation. Portal Vein: Hepatopedal flow seen in portal vein. Common Duct: FINDINGS Gallbladder: 5.5 mm polyp along the dependent portion of the gallbladder wall. No wall thickening or pericholecystic fluid. The gallbladder is mildly distended. Pancreas: The visualized portions are within normal limits Right Kidney: Normal echotexture and cortical thickness. No mass or hydronephrosis. Other: None. CONCLUSION: 1. Gallbladder polyp. Electronically signed by: Erich Abarca MD 02/02/2018 2:01 PM EDT
[2018-02-02 16:18] LABS: Bilirubin,Urine Negative (Negative); Clarity,Urine Slightly Cloudy (Clear); Color,Urine Yellow (Yellw/Straw); Glucose,Urine (UA) Negative (Negative); Leukocyte Esterase,Urine Large (Negative); Nitrite,Urine Negative (Negative); PH,Urine 7.5 (5.0-8.5); Urobilinogen,Urine 0.2 mg/dL (Less than 2)
[2018-02-02 16:27] LABS: RBC,Urine 0-3 /hpf (0-3)
[2018-02-02 16:28] LABS: Squamous Epithelial Cell,Urine 0-5 /hpf (0-5)
[2018-02-02 16:31] LABS: Transitional Epi Cells,Urine Greater than 10 /hpf
[2018-02-02 16:32] LABS: Bacteria,Urine Moderate /hpf
--- NOTE | 2018-02-02 17:04 | CT ---
EXAM DATE: 02/02/2018 4:52 PM EDT AGE/SEX: 67 years / Female INDICATIONS: Epigastric pain. CLINICAL DATA: This is the patient's initial encounter. Patient reports that signs and symptoms have been present for 1 week and indicates a pain score of 5/10. MEDICAL/SURGICAL HISTORY: Chronic obstructive pulmonary disease. Hypertension. Hysterectomy. Tonsillectomy. ORAL CONTRAST: No oral contrast ingested. RADIATION DOSE: 7.57 CTDI (mGy) COMPARISON: [facility], CT ABDOMEN & PELVIS W CONTRAST, 01/19/2018. . TECHNIQUE: Multiple contiguous axial images were obtained through the abdomen and pelvis following b olus infusion of 85 ml Omnipaque 350 (iohexol) nonionic water-soluble contrast as a cumulative dose for multiple exams. No oral contrast ingested. Using automated exposure control and adjustment of t he mA and/or kV according to patient size, radiation dose was kept as low as reasonably achievable to obtain optimal diagnostic quality images. DICOM format image data is available electronically for r eview and comparison. FINDINGS: The osseous structures are intact. There is atherosclerotic calcification of the aorta and iliac vess els. Liver, gallbladder, kidneys, adrenals, spleen, pancreas unremarkable. No evidence of bowel obstr uction. The patient is status post hysterectomy. The urinary bladder is normal. There is a small amou nt of free fluid in the pelvis. There is abnormal bowel wall thickening identified involving the carlson sverse colon with mild pericolonic inflammatory stranding seen. This is characteristic of colitis. Th ere is linear atelectasis at the lung bases. CONCLUSION: 1. Interval development of abnormal bowel wall thickening involving the transverse colon characteris tic of colitis. 2. Atherosclerosis. Electronically signed by: Erich Abarca MD 02/02/2018 5:03 PM EDT
[2018-02-02] MEDS ORDERED: Piperacil/Tazo 3.375 GM Premix 50 ML IV.SIG ONE (18:12)
[2018-02-02] MEDS ORDERED: HYDROmorphone PF Inj 2 MG/ML Vial IV.PUSH ONE (18:12)
[2018-02-02] MEDS ORDERED: Acetaminophen 325 MG Tablet PO PRN (18:36)
[2018-02-02] MEDS ORDERED: Temazepam 15 MG Capsule PO PRN (18:36)
[2018-02-03] MEDS ORDERED: Morphine Sulfate Inj 2 MG/ML Vial IV.PUSH ONE (01:29)
[2018-02-03 06:40] LABS: Baso % (Auto) 0.1 % (0.0-2.0); Eos # (Auto) 0.2 th/mm3 (0.0-0.4); Hematocrit 39.4 % (35.0-46.0); Hemoglobin 13.4 gm/dL (11.6-15.3); Lymph # (Auto) 2.1 th/mm3 (1.0-4.8); Lymph % (Auto) 8.5 % (9.0-44.0); Mean Corpuscular HGB Conc 34.1 % (32.0-36.0); Mean Corpuscular Hemoglobin 34.6 pg (27.0-34.0); Mean Corpuscular Volume 101.3 fL (80.0-100.0); Mono # (Auto) 1.2 th/mm3 (0.0-0.9); Neut % (Auto) 85.4 % (16.0-70.0); Platelet Count 222 th/mm3 (150-450); Red Blood Count 3.89 mil/mm3 (4.00-5.30); Red Cell Distribution Width 13.8 % (11.6-17.2); White Blood Count 24.5 th/mm3 (4.0-11.0)
[2018-02-03 06:52] LABS: Potassium 3.4 meq/L (3.5-5.1)
[2018-02-03 06:56] LABS: Calcium 8.2 mg/dL (8.5-10.1)
[2018-02-03 06:57] LABS: Carbon Dioxide 26.1 meq/L (21.0-32.0)
[2018-02-03] MEDS: Gabapentin 300 MG Capsule PO SCH ×3 (08:59→17:18)
[2018-02-03] MEDS ORDERED: Ketorolac Inj 30 MG/ML (IVP) Vial IV.PUSH ONE (10:27)
--- NOTE | 2018-02-03 11:25 | P.HPIM ---
History of Present Illness Primary Care Physician: Sadiq Kellogg MD Chief Complaint: Left shoulder pain History of Present Illness: Patient is a 67-year-old female who came to the emergency room complaining of severe left shoulder pain for over a week. She says she lifted a microwave up and after that felt a lot of discomfort in her shoulder. She steroids but noted that the discomfort continued. In the meantime she has been seen in the emergency room. On exam she has leukocytosis with abdominal distention and abdominal pain. She endorses no diarrhea but has been constipated. She tried some laxative without relief. She has not had any recent antibiotics but notes that attending in her hospital was recently in the hospital with a urinary troubles. She has a history of alcohol dependency and continues drinking alcohol although not as much as before. 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 This time the patient still complaining of 10 out of 10 left shoulder pain and is quite frustrated without a specific diagnosis. Given the patient's severe leukocytosis, tachycardia and evidence of sepsis patient been admitted to the hospital. CT abdomen pelvis was noted to have findings consistent with probable colitis and the patient has been started on antibiotics. - Diagnosis (1) Colitis (2) Sepsis (3) Shoulder pain, acute (4) Anxiety Review of Systems All other systems reviewed negative except as stated in HPI PMFSH - History History Provided By: Patient - Medical History Medical History: Medical History (Last Reviewed 02/03/18 @ 11:22 by Marisela West MD) ETOH abuse (Acute) Anxiety (Acute) COPD (chronic obstructive pulmonary disease) (Acute) Thyroid condition (Acute) Ankle fracture, right (Acute) Arm fracture, left (Acute) Hypertension (Acute) Cirrhosis (Acute) History of hysterectomy (Acute) - Surgical History Surgical History: Surgical History (Last Reviewed 02/03/18 @ 11:22 by Marisela West MD) History of tonsillectomy (Acute) - Tobacco History Second Hand Smoke Exposure: Yes Tobacco Use In Past 30 Days: Yes Smoking Status: Heavy tobacco smoker Tobacco Type: Cigarettes - Alcohol History How Often Do You Have a Drink Containing Alcohol: 2 to 3 times a week - Substance Use History Substance History: No History of Abuse - Travel History Recent Travel in the [place] Within the Last 8 Weeks: No Recent Travel Out of the Country Within the Last 8 Weeks: No - Immunization History Tetanus Immunization: >5 Years Hx Influenza Vaccine This Season: Yes Medications and Allergies Active Medications: Active Medications Acetaminophen (Tylenol) 650 mg PO Q4H PRN PRN Reason: Temp > 100.4 Doxepin HCl (Sinequan) 10 mg PO TID [facility] Last Admin: 02/03/18 09:58 Dose: 10 mg Gabapentin (Neurontin) 300 mg PO TID [facility] Last Admin: 02/03/18 08:59 Dose: 300 mg Lactated Ringer's (Lr 1000 Ml Inj) 1,000 mls @ 100 mls/hr IV.CONT .Q10H [facility] Last Admin: 02/03/18 04:44 Dose: 100 mls/hr Lactulose (Lactulose Liq) 30 ml PO DAILY PRN PRN Reason: SEVERE CONSITIPATION Last Admin: 02/03/18 00:12 Dose: 30 ml Levothyroxine Sodium (Synthroid) 25 mcg PO DAILY@0600 [facility] Last Admin: 02/03/18 05:16 Dose: 25 mcg Metoclopramide HCl (Reglan Inj) 5 mg IV.PUSH Q6HR PRN; Protocol PRN Reason: NAUSEA OR VOMITING Oxycodone/Acetaminophen (Percocet 5/325 Mg) 2 tab PO Q4H PRN PRN Reason: Acute pain Temazepam (Restoril) 15 mg PO HS PRN PRN Reason: INSOMNIA Last Admin: 02/03/18 01:12 Dose: 15 mg Vancomycin HCl (Vancomycin Po) 250 mg PO QID [facility] Last Admin: 02/03/18 09:01 Dose: 250 mg Allergies Allergy/AdvReac Type Severity Reaction Status Date / Time No Known Allergies Allergy Verified 02/02/18 10:52 Home Medications Medication Instructions Recorded Confirmed Type doxepin 10 mg PO TID 01/20/18 02/02/18 History gabapentin 300 mg PO TID PRN 01/20/18 02/02/18 History levothyroxine 25 mcg PO DAILY 01/20/18 02/02/18 History Exam Vital signs: Vital Signs 02/02/18 12:08 02/02/18 14:22 02/02/18 15:40 Temperature Pulse Rate 102 H 88 88 Respiratory Rate 16 18 16 Blood Pressure 138/83 132/83 140/82 Pulse Oximetry 94 L 94 L 94 L 02/02/18 17:23 02/02/18 23:03 02/03/18 00:24 Temperature 97.8 F Pulse Rate 100 H 94 H 90 Respiratory Rate 18 18 20 Blood Pressure 139/86 132/79 166/86 H Pulse Oximetry 94 L 93 L 95 02/03/18 04:00 02/03/18 08:00 02/03/18 09:25 Temperature 97.6 F 99.6 F Pulse Rate 99 H 117 H Respiratory Rate 22 18 18 Blood Pressure 145/76 H 158/86 H Pulse Oximetry 95 92 L Intake & Output 02/02/18 02/03/18 02/03/18 18:59 06:59 18:59 Intake Total 1290 / 1290 Output Total 402 / 402 Balance 888 / 888 Weight 60.5 kg 61.081 kg Intake: IV 1050 / 1050 LR 1000 mL Inj 1,000 ML @ 100 1000 / 1000 mls/hr IV.CONT .Q10H [facility] Rx#: [id number] Zosyn 3.375 GM Premix 50 ML @ 50 / 50 100 mls/hr IV.SIG ONCE ONE Rx#: [id number] Oral 240 / 240 Output: Urine 400 / 400 Stool 2 / 2 Other: Date of Last Bowel Movement 02/03/18 02/01/18 Weight On Admission 60.781 kg Narrative: GENERAL: Well-nourished, well-developed patient. Complaining of left shoulder pain SKIN: Warm and dry. HEAD: Normocephalic. EYES: No scleral icterus. No injection or drainage. NECK: Supple, trachea midline. No JVD or lymphadenopathy. CARDIOVASCULAR: Regular rate and rhythm without murmurs, gallops, or rubs. RESPIRATORY: Breath sounds equal bilaterally. No accessory muscle use. GASTROINTESTINAL: Abdomen is distended, hypoactive, tender in deep palpation MUSCULOSKELETAL: Full range of motion left upper extremity without joint crepitus There is a scar present in the upper arm previous plate placed. Patient. Otherwise extremities with no cyanosis, or edema. BACK: Nontender without obvious deformity. No CVA tenderness. NEUROLOGICAL: Awake and alert. Cranial nerves II through XII intact. Motor and sensory grossly within normal limits. Five out of 5 muscle strength in all muscle groups. Normal speech. Results - Labs CBC & Chem 7: 02/03/18 05:40 02/03/18 05:40 Labs: Short CBC 07/30/18 07/31/18 Range/Units 13:21 05:40 WBC 27.3 H 24.5 H (4.0-11.0) th/mm3 Hgb 14.2 13.4 (11.6-15.3) gm/dL Hct 42.5 39.4 (35.0-46.0) % Plt Count 251 222 (150-450) th/mm3 BMP 02/02/18 02/03/18 13:21 05:40 Sodium 141 139 Potassium 3.6 3.4 L Chloride 104 105 Carbon Dioxide 30.2 26.1 BUN 22 H 19 H Creatinine 0.93 0.81 Calcium 8.4 L 8.2 L Liver Function 02/02/18 Range/Units 13:21 Total Bilirubin 0.7 (0.2-1.0) mg/dL AST 19 (15-37) U/L ALT 21 (10-53) U/L Alkaline Phosphatase 65 (45-117) U/L Albumin 3.0 L (3.4-5.0) g/dL Urine 02/02/18 Range/Units 16:05 Urine Color Yellow (Yellw/Straw) Urine Clarity Slightly cloudy (Clear) Urine pH 7.5 (5.0-8.5) Ur Specific [place] 1.010 (1.002-1.035) Urine Protein Negative (Neg-Trace) mg/dL Urine Glucose (UA) Negative (Negative) mg/dL - Imaging Impressions Gallbladder Ultrasound 02/02/18 12:59 CONCLUSION: 1. Gallbladder polyp. Abdomen/Pelvis CT 02/02/18 16:28 CONCLUSION: 1. Interval development of abnormal bowel wall thickening involving the transverse colon characteristic of colitis. 2. Atherosclerosis. Caprini VTE Risk Assessment Caprini VTE Risk Assessment: Moderate/High Risk (score >= 2) Caprini Risk Assessment Model: Point Value = 1 Point Value = 2 Point Value = 3 Point Value = 5 Age 41-60 Minor surgery BMI > 25 kg/m2 Swollen legs Varicose veins or History of unexplained or recurrent spontaneous Oral contraceptives or hormone replacement Sepsis (< 1 month) Serious lung disease, including pneumonia (< 1 month) Abnormal pulmonary function Acute myocardial infarction Congestive heart failure (< 1 month) History of inflammatory bowel disease Medical patient at bed rest Age 61-74 Arthroscopic surgery Major open surgery (> 45 min) Laparoscopic surgery (> 45 min) Malignancy Confined to bed (> 72 hours) Immobilizing plaster cast Central venous access Age >= 75 History of VTE Family history of VTE Factor V Leiden Prothrombin [id number] Lupus anticoagulant Anticardiolipin antibodies Elevated serum homocysteine Heparin-induced thrombocytopenia Other congenital or acquired thrombophilia Stroke (< 1 month) Elective arthroplasty Hip, pelvis, or leg fracture Acute spinal cord injury (< 1 month) Prophylaxis Regimen: Total Risk Factor Score Risk Level Prophylaxis Regimen 0-1 Low Early ambulation 2 Moderate Order ONE of the following: *Sequential Compression Device (SCD) *Heparin 5000 units SQ BID 3-4 Higher Order ONE of the following medications: *Heparin 5000 units SQ TID *Enoxaparin/Lovenox 40 mg SQ daily (WT < 150 kg, CrCl > 30 mL/min) *Enoxaparin/Lovenox 30 mg SQ daily (WT < 150 kg, CrCl > 10-29 mL/min) *Enoxaparin/Lovenox 30 mg SQ BID (WT < 150 kg, CrCl > 30 mL/min) AND/OR *Sequential Compression Device (SCD) 5 or more Highest Order ONE of the following medications: *Heparin 5000 units SQ TID (Preferred with Epidurals) *Enoxaparin/Lovenox 40 mg SQ daily (WT < 150 kg, CrCl > 30 mL/min) *Enoxaparin/Lovenox 30 mg SQ daily (WT < 150 kg, CrCl > 10-29 mL/min) *Enoxaparin/Lovenox 30 mg SQ BID (WT < 150 kg, CrCl > 30 mL/min) AND *Sequential Compression Device (SCD) Assessment and Plan - Assessment (1) Colitis Code(s): K52.9 - Noninfective gastroenteritis and colitis, unspecified Status : Acute Plan: Pena vancomycin for probable C. difficile, follow-up stool studies (2) Sepsis Code(s): A41.9 - Sepsis, unspecified organism Status: Acute Plan: Likely due to colitis, continue current antibiotics and adjust accordingly (3) Shoulder pain, acute Code(s): M25.519 - Pain in unspecified shoulder Status: Acute Plan: May be referred pain due to her intra-abdominal processes Follow-up CT shoulder rule out actual intrinsic joint pathology Continue with anti-inflammatory (4) Anxiety Code(s): F41.9 - Anxiety disorder, unspecified Status: Acute Plan: Resume home medications H&P: Quality - VTE Deep Vein Thrombosis/Pulmonary Embolism Present on Admission: No
--- NOTE | 2018-02-03 11:49 | CT ---
EXAM DATE: 02/03/2018 11:09 AM EDT AGE/SEX: 67 years / Female INDICATIONS: Left shoulder pain radiating down humerus. Lifting injury one week ago. CLINICAL DATA: This is the patient's initial encounter. Patient reports that signs and symptoms have been present for 1 week and indicates a pain score of 7/10. MEDICAL/SURGICAL HISTORY: Chronic obstructive pulmonary disease. Hypertension. Tonsillectomy. Hys terectomy. Left elbow surgery. RADIATION DOSE: 20.08 CTDI (mGy) COMPARISON: POI, XR HUMERUS, LEFT, 07/28/2017. . TECHNIQUE: Multiple contiguous axial images were acquired using a multirow detector CT scanner witho ut contrast. Multiplanar reconstruction was performed in the sagittal and coronal planes. Using aut omated exposure control and adjustment of the mA and/or kV according to patient size, radiation dose was kept as low as reasonably achievable to obtain optimal diagnostic quality images. DICOM format i mage data is available electronically for review and comparison. FINDINGS: There are remote fractures of the left seventh and eighth ribs. Plate and screw fixation across the m idshaft of the left humerus is identified. There is associated streak artifact. The glenohumeral join t is approximated. Acromioclavicular and coracoclavicular joint space widths are intact. No acute fra cture or dislocation. There is severe degenerative disc disease of the cervical and thoracic spine. CONCLUSION: 1. Postsurgical changes to the left distal humerus. 2. Severe degenerative changes of the cervical spine and thoracic spine noted. Electronically signed by: Erich Abarca MD 02/03/2018 11:48 AM EDT
[2018-02-04 06:56] LABS: Hematocrit 36.5 % (35.0-46.0); Hemoglobin 12.3 gm/dL (11.6-15.3); Mean Corpuscular HGB Conc 33.7 % (32.0-36.0); Mean Corpuscular Hemoglobin 34.2 pg (27.0-34.0); Mean Corpuscular Volume 101.7 fL (80.0-100.0); Mean Platelet Volume 8.2 fL (7.0-11.0); Platelet Count 188 th/mm3 (150-450); Red Blood Count 3.59 mil/mm3 (4.00-5.30); Red Cell Distribution Width 13.8 % (11.6-17.2); White Blood Count 13.9 th/mm3 (4.0-11.0)
[2018-02-04 07:03] LABS: Potassium 3.8 meq/L (3.5-5.1)
[2018-02-04 07:19] LABS: Calcium 8.3 mg/dL (8.5-10.1); Carbon Dioxide 28.1 meq/L (21.0-32.0)
[2018-02-04 08:38] VITALS: RESP 18
[2018-02-04] MEDS: Gabapentin 300 MG Capsule PO SCH (08:39)
[2018-02-04 08:54] VITALS: BP 166/114; PULSE 104; TEMP 98; O2SAT 93
--- NOTE | 2018-02-04 09:51 | P.PNIM ---
Subjective Interval history: Patient seen and evaluated in follow-up for C. difficile colitis, leukocytosis improved, abdominal pain improved shoulder pain still is an issue. No findings on imaging. Discussed with patient. Physical Exam Vital signs: Vital Signs 02/03/18 11:16 02/03/18 12:00 02/03/18 13:09 Temperature 96.4 F L Pulse Rate 113 H Respiratory Rate 18 17 18 Blood Pressure 178/101 H Pulse Oximetry 94 L 02/03/18 16:00 02/03/18 20:00 02/04/18 00:00 Temperature 98.6 F 97.8 F 97.9 F Pulse Rate 90 100 H 88 Respiratory Rate 16 16 16 Blood Pressure 104/57 L 149/68 H 140/86 Pulse Oximetry 95 91 L 91 L 02/04/18 07:00 02/04/18 08:00 Temperature 98.0 F Pulse Rate 104 H Respiratory Rate 18 18 Blood Pressure 166/114 H Pulse Oximetry 93 L Intake & Output 02/03/18 02/04/18 02/04/18 18:59 06:59 18:59 Intake Total 1480 / 1480 1420 / 1420 Balance 1480 / 1480 1420 / 1420 Intake: IV 1000 / 1000 1000 / 1000 LR 1000 mL Inj 1,000 ML @ 100 1000 / 1000 1000 / 1000 mls/hr IV.CONT .Q10H [facility] Rx#: [id number] Oral 480 / 480 420 / 420 Other: # Voids 4 3 Date of Last Bowel Movement 02/01/18 02/03/18 # Bowel Movements 0 3 Narrative: GENERAL: Well-nourished, well-developed patient. SKIN: Warm and dry. HEAD: Normocephalic. EYES: No scleral icterus. No injection or drainage. NECK: Supple, trachea midline. No JVD or lymphadenopathy. CARDIOVASCULAR: Regular rate and rhythm without murmurs, gallops, or rubs. RESPIRATORY: Breath sounds equal bilaterally. No accessory muscle use. GASTROINTESTINAL: Abdomen soft, non-tender, minimally distended MUSCULOSKELETAL: No cyanosis, or edema. BACK: Nontender without obvious deformity. No CVA tenderness. NEUROLOGICAL: Awake and alert. Cranial nerves II through XII intact. Motor and sensory grossly within normal limits. Five out of 5 muscle strength in all muscle groups. Normal speech. Results - Labs CBC & Chem 7: 02/04/18 05:45 02/04/18 05:45 Laboratory Results - last 24 hr 02/02/18 02/03/18 02/03/18 16:05 05:00 15:17 WBC RBC Hgb Hct MCV MCH MCHC RDW Plt Count MPV Sodium Potassium Chloride Carbon Dioxide Anion Gap BUN Creatinine Estimated GFR Random Glucose Lactic Acid 0.6 Calcium Urine Color Yellow Urine Clarity Slightly cloudy Urine pH 7.5 Ur Specific [place] 1.010 Urine Protein Negative Urine Glucose (UA) Negative Urine Ketones Negative Urine Occult Blood Trace Urine Nitrate Negative Urine Bilirubin Negative Urine Urobilinogen 0.2 Ur Leukocyte Esterase Large H Urine RBC 0-3 Urine WBC Urine WBC Clumps Moderate H Ur Squamous Epith Cells 0-5 Ur Transition Epith Cell Greater than 10 H Ur Renal Epithelial Cell 1-5 H Urine Bacteria Moderate H Micro UA Comment Culture indicated Urine Culture Comments Culture indicated Stl C.difficile Tox PCR Positive H St C. diff Tox Epid 027 Negative 02/04/18 02/04/18 05:45 05:45 WBC 13.9 H RBC 3.59 L Hgb 12.3 Hct 36.5 MCV 101.7 H MCH 34.2 H MCHC 33.7 RDW 13.8 Plt Count 188 MPV 8.2 Sodium 142 Potassium 3.8 Chloride 107 Carbon Dioxide 28.1 Anion Gap 7 BUN 15 Creatinine 0.73 Estimated GFR 80 L Random Glucose 96 Lactic Acid Calcium 8.3 L Urine Color Urine Clarity Urine pH Ur Specific [place] Urine Protein Urine Glucose (UA) Urine Ketones Urine Occult Blood Urine Nitrate Urine Bilirubin Urine Urobilinogen Ur Leukocyte Esterase Urine RBC Urine WBC Urine WBC Clumps Ur Squamous Epith Cells Ur Transition Epith Cell Ur Renal Epithelial Cell Urine Bacteria Micro UA Comment Urine Culture Comments Stl C.difficile Tox PCR St C. diff Tox Epid 027 Microbiology 02/02/18 16:05 Clean Catch Urine Urine Culture - Final Proteus mirabilis 02/03/18 05:00 Stool Enteric Pathogens (PCR) - Final No enteric pathogens detected by PCR (No Salmonella sp., Shigella sp., Campylobacter sp., Yersinia enterocolitica, Vibrio sp., Norovirus, or EHEC (Shiga Toxin 1 or Shiga Toxin 2) detected. - Imaging Impressions Shoulder CT 02/03/18 00:00 CONCLUSION: 1. Postsurgical changes to the left distal humerus. 2. Severe degenerative changes of the cervical spine and thoracic spine noted. Assessment and Plan - Assessment (1) Colitis Code(s): K52.9 - Noninfective gastroenteritis and colitis, unspecified Status : Acute Plan: Continue with vancomycin p.o. for 14 days for C. difficile colitis (2) Sepsis Code(s): A41.9 - Sepsis, unspecified organism Status: Acute Plan: L resolved secondary to colitis (3) Shoulder pain, acute Code(s): M25.519 - Pain in unspecified shoulder Status: Acute Plan: May be referred pain due to her intra-abdominal processes CT unremarkable Continue with Flexeril (4) Anxiety Code(s): F41.9 - Anxiety disorder, unspecified Status: Acute Plan: Resume home medications - Plan Discharge home Activity unrestricted Diet regular
== END 2018-02-04 10:29 | disposition home or self-care (01) ==
LOC: PHEDA 10:48 → PHED 10:48 → PH3 23:16
PROVIDERS: ADMIT Hospitalist; ATTEND Hospitalist

== ENCOUNTER 2018-02-09 11:01 | Inpatient (IN) ==
--- NOTE | 2018-02-09 11:51 | ED ---
HPI General Chief complaint: Altered Mental Status Stated complaint: Pain in both arms x 3 mos/Hallucinations Time Seen by Provider: 02/09/18 11:19 Source: patient, RN notes reviewed and old records reviewed Mode of arrival: ambulatory History of Present Illness HPI narrative: 67yF presenting with altered mental status. The patient was recently admitted to our institution for C diff colitis/ sepsis, discharged on on PO vancomycin, and reports that since she's gotten home she's been having "hallucinations" like talking to people who aren't there, seeing red balloons on the floor, etc. She denies head injury, fever or chills, cough, vomiting, and says that her diarrhea has resolved. She also reports bilateral shoulder pain and "pins and needles" to both upper extremities. She admits to taking Klonopin at home and drinking wine 2-3x/ week but denies recent changes in this or abrupt cessation. Related Data Home Medications Medication Instructions Recorded Confirmed doxepin 10 mg PO TID 01/20/18 02/09/18 gabapentin 300 mg PO TID PRN 01/20/18 02/09/18 levothyroxine 25 mcg PO DAILY 01/20/18 02/09/18 Previous Rx's Medication Instructions Recorded naproxen 250 mg PO BID PRN #14 tab 01/19/18 oxycodone-acetaminophen [Percocet] 1 tab PO Q4-6H PRN #10 tab 01/19/18 cyclobenzaprine 5 mg PO TID PRN #30 tab 02/04/18 vancomycin 250 mg PO QID #28 ea 02/04/18 Allergies Allergy/AdvReac Type Severity Reaction Status Date / Time No Known Allergies Allergy Verified 02/09/18 11:03 Review of Systems Except as stated in HPI: all other systems reviewed are negative Constitutional Denies fever(s) Eyes Reports other visual disturbances ENT Denies nasal congestion Cardiovascular Denies chest pain Respiratory Reports cough Gastrointestinal Denies vomiting Genitourinary Denies urinary urgency Musculoskeletal Reports arthralgias Neurologic Reports confusion Psychiatric Reports visual hallucinations PMFSH History History Provided By: Patient Medical History Medical History ETOH abuse (Acute) Anxiety (Acute) COPD (chronic obstructive pulmonary disease) (Acute) Thyroid condition (Acute) Ankle fracture, right (Acute) Arm fracture, left (Acute) Hypertension (Acute) Cirrhosis (Acute) History of hysterectomy (Acute) C. difficile diarrhea (Acute) Surgical History Surgical History History of tonsillectomy (Acute) Social History Social History Substance History: No History of Abuse Second Hand Smoke Exposure: No Smoking Status: Current every day smoker Tobacco Type: Cigarettes How Often Do You Have a Drink Containing Alcohol: 4 or more times a week Recent Travel in [facility] [[email or web address] within the Last 8 Weeks: No Recent Out of Country Travel within the Last 8 Weeks: No Immunization History Tetanus Immunization: Unsure Hx Influenza Vaccine This Season: No Exam Const General: healthy appearing and no acute distress HENMT Head: normocephalic and atraumatic Face and sinus: normal facial exam Eyes General: appearance normal, both eyes and all related structures Pupils: PERRL Chest Chest: normal inspection of the chest Resp Effort & Inspection: normal respiratory effort Auscultation: no rhonchi and no wheezes Cardio Rate: regular rate Rhythm: regular rhythm GI Other: Soft, non-distended, non-tender throughout Skin General: no rashes or lesions noted Neuro General: alert, awake, oriented x3 and no focal motor deficits Extrem Other: Normal ROM of bilateral upper extremities, motor and sensation intact Psych Other: Appears confused, answers questions appropriately, (+) visual hallucinations, no agitation, speech clear and not pressured Course Initial Documented Vital Signs Temperature 97.7 F 02/09/18 11:03 Pulse Rate 102 H 02/09/18 11:03 Respiratory Rate 18 02/09/18 11:03 Blood Pressure 120/62 02/09/18 11:03 Pulse Oximetry 92 L 02/09/18 11:03 Last Documented Vital Signs Temperature 97.7 F 02/09/18 11:03 Pulse Rate 98 H 02/09/18 11:31 Respiratory Rate 16 02/09/18 11:31 Blood Pressure 98/57 L 02/09/18 11:31 Pulse Oximetry 95 02/09/18 12:33 Medical Decision Making MDM Narrative Medical decision making narrative: Assessment: 67yF presenting with altered mental status Plan: EKG and monitor Labs CTH and C spine Addendum: Patient found to have recurrent UTI complicated by concurrent treatment for C diff colitis. AMS could be due to delirium from UTI. I discussed the case with Dr. Cruz of [facility], who agrees with starting rocephin and keeping as inpatient. The patient understands and agrees with plan. Differential Diagnosis Differential Diagnosis: Differential diagnosis includes, but is not limited to: sepsis, dehydration, electrolyte abnormality, intoxication/ withdrawal, thyroid disorder, psychiatric disorder Medical Records Medical records reviewed: Yes I reviewed the patient's medical records. Urine culture from previous admission grew Proteus mirabilis, lockhart-sensitive Lab Data Lab results reviewed: Yes I reviewed the patient's lab results. Result diagrams: 02/09/18 12:20 02/09/18 12:20 Lab Results 02/09/18 02/09/18 02/09/18 Range/Units 11:54 12:20 12:20 CBC w Diff Auto diff final WBC 9.0 (4.0-11.0) th/mm3 RBC 3.65 L (4.00-5.30) mil/mm3 Hgb 12.1 (11.6-15.3) gm/dL Hct 36.9 (35.0-46.0) % MCV 101.1 H (80.0-100.0) fL MCH 33.1 (27.0-34.0) pg MCHC 32.7 (32.0-36.0) % RDW 13.9 (11.6-17.2) % Plt Count 223 (150-450) th/mm3 MPV 8.1 (7.0-11.0) fL Neut % (Auto) 65.7 (16.0-70.0) % Lymph % (Auto) 24.7 (9.0-44.0) % Mcminn % (Auto) 6.2 (0.0-8.0) % Eos % (Auto) 2.2 (0.0-4.0) % Baso % (Auto) 1.2 (0.0-2.0) % Neut # (Auto) 5.9 (1.8-7.7) th/mm3 Lymph # (Auto) 2.2 (1.0-4.8) th/mm3 Mcminn # (Auto) 0.6 (0.0-0.9) th/mm3 Eos # (Auto) 0.2 (0.0-0.4) th/mm3 Baso # (Auto) 0.1 (0.0-0.2) th/mm3 WBC Differential . Differential Comment . Puncture Site Right radial Patient Temperature 98.6 O2 Saturation 80 L* (90-100) % ABG pH 7.41 (7.380-7.420) ABG pCO2 42 (38-42) mmHg ABG pO2 53 L* (61-120) mmHg ABG HCO3 26 (22-26) mmol/L ABG O2 Content 12.9 (12.0-20.0) Vol % ABG Base Excess 1.4 (-2-2) mmol/L ABG Methemoglobin 2.2 H (0-2) % Terry Test Present Hemoglobin 11.4 L (12.0-16.0) G/DL Carboxyhemoglobin 6.0 H* (0-4) % O2 Delivery Device Room air Inspired O2 21 % Critical Value Yes Sodium 139 (136-145) meq/L Potassium 4.3 (3.5-5.1) meq/L Chloride 107 (98-107) meq/L Carbon Dioxide 26.8 (21.0-32.0) meq/L Anion Gap 5 (5-15) meq/L BUN 13 (7-18) mg/dL Creatinine 0.92 (0.50-1.00) mg/dL Estimated GFR 61 L (>89) mL/min Random Glucose 97 (74-106) mg/dL Lactic Acid (0.4-2.0) mmol/L Calcium 8.7 (8.5-10.1) mg/dL Total Bilirubin 0.4 (0.2-1.0) mg/dL AST 22 (15-37) U/L ALT 19 (10-53) U/L Alkaline Phosphatase 56 (45-117) U/L Troponin I Less than 0.02 L (0.02-0.05) ng/mL Total Protein 6.3 L (6.4-8.2) g/dL Albumin 2.9 L (3.4-5.0) g/dL TSH (0.358-3.740) uIU/mL Urine Color (Yellw/Straw) Urine Clarity (Clear) Urine pH (5.0-8.5) Ur Specific Northrop (1.002-1.035) Urine Protein (Neg-Trace) mg/dL Urine Glucose (UA) (Negative) mg/dL Urine Ketones (Negative) mg/dL Urine Occult Blood (Negative) Urine Nitrate (Negative) Urine Bilirubin (Negative) Urine Urobilinogen (Less than 2) mg/dL Ur Leukocyte Esterase (Negative) Urine WBC (0-5) /hpf Micro UA Comment Urine Culture Comments Urine Opiates Screen (Neg) Ur Barbiturates Screen (Neg) Ur Amphetamines Screen (Neg) U Benzodiazepines Scrn (Neg) Urine Cocaine Screen (Neg) U Cannabinoids Screen (Neg) Serum Alcohol Less than 3 (0-5) mg/dL 02/09/18 02/09/18 02/09/18 Range/Units 12:20 12:20 12:45 CBC w Diff WBC (4.0-11.0) th/mm3 RBC (4.00-5.30) mil/mm3 Hgb (11.6-15.3) gm/dL Hct (35.0-46.0) % MCV (80.0-100.0) fL MCH (27.0-34.0) pg MCHC (32.0-36.0) % RDW (11.6-17.2) % Plt Count (150-450) th/mm3 MPV (7.0-11.0) fL Neut % (Auto) (16.0-70.0) % Lymph % (Auto) (9.0-44.0) % Mcminn % (Auto) (0.0-8.0) % Eos % (Auto) (0.0-4.0) % Baso % (Auto) (0.0-2.0) % Neut # (Auto) (1.8-7.7) th/mm3 Lymph # (Auto) (1.0-4.8) th/mm3 Mcminn # (Auto) (0.0-0.9) th/mm3 Eos # (Auto) (0.0-0.4) th/mm3 Baso # (Auto) (0.0-0.2) th/mm3 WBC Differential Differential Comment Puncture Site Patient Temperature O2 Saturation (90-100) % ABG pH (7.380-7.420) ABG pCO2 (38-42) mmHg ABG pO2 (61-120) mmHg ABG HCO3 (22-26) mmol/L ABG O2 Content (12.0-20.0) Vol % ABG Base Excess (-2-2) mmol/L ABG Methemoglobin (0-2) % Terry Test Hemoglobin (12.0-16.0) G/DL Carboxyhemoglobin (0-4) % O2 Delivery Device Inspired O2 % Critical Value Sodium (136-145) meq/L Potassium (3.5-5.1) meq/L Chloride (98-107) meq/L Carbon Dioxide (21.0-32.0) meq/L Anion Gap (5-15) meq/L BUN (7-18) mg/dL Creatinine (0.50-1.00) mg/dL Estimated GFR (>89) mL/min Random Glucose (74-106) mg/dL Lactic Acid 0.9 (0.4-2.0) mmol/L Calcium (8.5-10.1) mg/dL Total Bilirubin (0.2-1.0) mg/dL AST (15-37) U/L ALT (10-53) U/L Alkaline Phosphatase (45-117) U/L Troponin I (0.02-0.05) ng/mL Total Protein (6.4-8.2) g/dL Albumin (3.4-5.0) g/dL TSH 2.680 (0.358-3.740) uIU/mL Urine Color (Yellw/Straw) Urine Clarity (Clear) Urine pH (5.0-8.5) Ur Specific Northrop (1.002-1.035) Urine Protein (Neg-Trace) mg/dL Urine Glucose (UA) (Negative) mg/dL Urine Ketones (Negative) mg/dL Urine Occult Blood (Negative) Urine Nitrate (Negative) Urine Bilirubin (Negative) Urine Urobilinogen (Less than 2) mg/dL Ur Leukocyte Esterase (Negative) Urine WBC (0-5) /hpf Micro UA Comment Urine Culture Comments Urine Opiates Screen Neg (Neg) Ur Barbiturates Screen Neg (Neg) Ur Amphetamines Screen Neg (Neg) U Benzodiazepines Scrn Pos H (Neg) Urine Cocaine Screen Neg (Neg) U Cannabinoids Screen Neg (Neg) Serum Alcohol (0-5) mg/dL 02/09/18 Range/Units 12:45 CBC w Diff WBC (4.0-11.0) th/mm3 RBC (4.00-5.30) mil/mm3 Hgb (11.6-15.3) gm/dL Hct (35.0-46.0) % MCV (80.0-100.0) fL MCH (27.0-34.0) pg MCHC (32.0-36.0) % RDW (11.6-17.2) % Plt Count (150-450) th/mm3 MPV (7.0-11.0) fL Neut % (Auto) (16.0-70.0) % Lymph % (Auto) (9.0-44.0) % Mcminn % (Auto) (0.0-8.0) % Eos % (Auto) (0.0-4.0) % Baso % (Auto) (0.0-2.0) % Neut # (Auto) (1.8-7.7) th/mm3 Lymph # (Auto) (1.0-4.8) th/mm3 Mcminn # (Auto) (0.0-0.9) th/mm3 Eos # (Auto) (0.0-0.4) th/mm3 Baso # (Auto) (0.0-0.2) th/mm3 WBC Differential Differential Comment Puncture Site Patient Temperature O2 Saturation (90-100) % ABG pH (7.380-7.420) ABG pCO2 (38-42) mmHg ABG pO2 (61-120) mmHg ABG HCO3 (22-26) mmol/L ABG O2 Content (12.0-20.0) Vol % ABG Base Excess (-2-2) mmol/L ABG Methemoglobin (0-2) % Terry Test Hemoglobin (12.0-16.0) G/DL Carboxyhemoglobin (0-4) % O2 Delivery Device Inspired O2 % Critical Value Sodium (136-145) meq/L Potassium (3.5-5.1) meq/L Chloride (98-107) meq/L Carbon Dioxide (21.0-32.0) meq/L Anion Gap (5-15) meq/L BUN (7-18) mg/dL Creatinine (0.50-1.00) mg/dL Estimated GFR (>89) mL/min Random Glucose (74-106) mg/dL Lactic Acid (0.4-2.0) mmol/L Calcium (8.5-10.1) mg/dL Total Bilirubin (0.2-1.0) mg/dL AST (15-37) U/L ALT (10-53) U/L Alkaline Phosphatase (45-117) U/L Troponin I (0.02-0.05) ng/mL Total Protein (6.4-8.2) g/dL Albumin (3.4-5.0) g/dL TSH (0.358-3.740) uIU/mL Urine Color Yellow (Yellw/Straw) Urine Clarity Slightly cloudy (Clear) Urine pH 8.0 (5.0-8.5) Ur Specific Northrop 1.010 (1.002-1.035) Urine Protein Negative (Neg-Trace) mg/dL Urine Glucose (UA) Negative (Negative) mg/dL Urine Ketones Negative (Negative) mg/dL Urine Occult Blood Small H (Negative) Urine Nitrate Positive H (Negative) Urine Bilirubin Negative (Negative) Urine Urobilinogen 0.2 (Less than 2) mg/dL Ur Leukocyte Esterase Large H (Negative) Urine WBC Innumerable H (0-5) /hpf Micro UA Comment Culture indicated Urine Culture Comments Culture indicated Urine Opiates Screen (Neg) Ur Barbiturates Screen (Neg) Ur Amphetamines Screen (Neg) U Benzodiazepines Scrn (Neg) Urine Cocaine Screen (Neg) U Cannabinoids Screen (Neg) Serum Alcohol (0-5) mg/dL Imaging Data Radiologist's impression: Cervical Spine CT 02/09/18 11:40 CONCLUSION: 1. Advanced multilevel degenerative changes. Mild canal stenosis at C5-6 and C6 -7 levels. 2. Multilevel neural foraminal narrowing as described above. 3. No fracture. Chest X-Ray 02/09/18 11:40 CONCLUSION: 1. Heart size is upper limits of normal and well compensated. 2. Otherwise, no acute cardiopulmonary process. Lungs are clear. Head CT 02/09/18 11:40 CONCLUSION: 1. Negative CT Head non contrast. . ECG Data Attestation: I personally reviewed and interpreted this ECG as follows: Interpretation: Rate: 90 BPM Rhythm: Sinus [place]: Normal Intervals: Normal intervals, no blocks, QTc 411 ms Q waves: aVL T waves: Upright, no inversions ST segments: No elevations or depressions Impression: Non-specific EKG, no changes as compared to EKG from 01/20/2018. Discharge Plan Discharge Disposition Patient Disposition: 30 Still Patient Discharge Condition Condition: Stable Discharge Details Diagnosis: Acute UTI, Altered mental status, C. difficile colitis Physicians Team ED Provider: Samara Martinez Primary Care Provider: Sadiq Kellogg Rxs /Orders / Referrals /Forms Prescriptions: No Action naproxen 250 mg tablet 250 mg PO BID PRN (Reason: pain) Qty: 14 RF: 0 oxycodone-acetaminophen [Percocet] 5-325 mg tablet 1 tab PO Q4-6H PRN (Reason: Acute pain) Qty: 10 RF: 0 gabapentin 300 mg Capsule 300 mg PO TID PRN (Reason: Pain) RF: 0 doxepin 10 mg Capsule 10 mg PO TID RF: 0 levothyroxine 25 mcg Capsule 25 mcg PO DAILY RF: 0 vancomycin 500 mg Recon Soln 250 mg PO QID Qty: 28 RF: 0 cyclobenzaprine 5 mg Tablet 5 mg PO TID PRN (Reason: Muscle Spasm) Qty: 30 RF: 0 Discharge Interventions Interventions: Vital Signs Last Done: 02/09/18 11:31 Status ED Status: With Doctor
[2018-02-09 12:02] LABS: ABG Base Excess 1.4 mmol/L (-2-2); ABG PCO2 42 mmHg (38-42); ABG PO2 53 mmHg (61-120)
--- NOTE | 2018-02-09 12:17 | XR ---
EXAM DATE: 02/09/2018 12:02 PM EDT AGE/SEX: 67 years / Female INDICATIONS: Short of breath CLINICAL DATA: This is the patient's initial encounter. Patient reports that signs and symptoms have been present for 1 day and indicates a pain score of 5/10. MEDICAL/SURGICAL HISTORY: . ETOH. Cirrhosis. COPD. Hypertension. . Tonsillectomy. Hysterectomy . COMPARISON: [facility], CHEST 1V SINGLE AP, 01/20/2018. . FINDINGS: A single AP view of the chest demonstrates the lungs to be symmetrically aerated without evidence of mass, infiltrate or effusion. Heart size is upper limits of normal and well compensated. Old healed f racture deformities in the posterior lateral ribs bilaterally. CONCLUSION: 1. Heart size is upper limits of normal and well compensated. 2. Otherwise, no acute cardiopulmonary process. Lungs are clear. Electronically signed by: Sandro Glasgow MD 02/09/2018 12:16 PM EDT
[2018-02-09 12:35] LABS: Baso # (Auto) 0.1 th/mm3 (0.0-0.2); Baso % (Auto) 1.2 % (0.0-2.0); Eos # (Auto) 0.2 th/mm3 (0.0-0.4); Eos % (Auto) 2.2 % (0.0-4.0); Hematocrit 36.9 % (35.0-46.0); Hemoglobin 12.1 gm/dL (11.6-15.3); Lymph # (Auto) 2.2 th/mm3 (1.0-4.8); Lymph % (Auto) 24.7 % (9.0-44.0); Mean Corpuscular HGB Conc 32.7 % (32.0-36.0); Mean Corpuscular Hemoglobin 33.1 pg (27.0-34.0); Mean Corpuscular Volume 101.1 fL (80.0-100.0); Mean Platelet Volume 8.1 fL (7.0-11.0); Mono # (Auto) 0.6 th/mm3 (0.0-0.9); Mono % (Auto) 6.2 % (0.0-8.0); Neut # (Auto) 5.9 th/mm3 (1.8-7.7); Neut % (Auto) 65.7 % (16.0-70.0); Platelet Count 223 th/mm3 (150-450); Red Blood Count 3.65 mil/mm3 (4.00-5.30); Red Cell Distribution Width 13.9 % (11.6-17.2)
[2018-02-09 12:44] LABS: Chloride 107 meq/L (98-107); Potassium 4.3 meq/L (3.5-5.1); Sodium 139 meq/L (136-145)
[2018-02-09 12:48] LABS: Albumin 2.9 g/dL (3.4-5.0); Anion Gap 5 meq/L (5-15); Calcium 8.7 mg/dL (8.5-10.1); Carbon Dioxide 26.8 meq/L (21.0-32.0); Glucose,Random 97 mg/dL (74-106)
[2018-02-09 12:49] LABS: Blood Urea Nitrogen 13 mg/dL (7-18)
[2018-02-09 12:51] LABS: Alanine Aminotransferase 19 U/L (10-53); Aspartate Aminotransferase 22 U/L (15-37); Glomerular Filtration Rate 61 mL/min (>89)
[2018-02-09 12:53] LABS: Total Protein 6.3 g/dL (6.4-8.2)
[2018-02-09 12:54] LABS: Alkaline Phosphatase 56 U/L (45-117)
[2018-02-09 12:57] LABS: Bilirubin,Urine Negative (Negative); Clarity,Urine Slightly Cloudy (Clear); Color,Urine Yellow (Yellw/Straw); Glucose,Urine (UA) Negative (Negative); Leukocyte Esterase,Urine Large (Negative); Nitrite,Urine Positive (Negative); Urobilinogen,Urine 0.2 mg/dL (Less than 2)
[2018-02-09 13:02] LABS: WBC,Urine Innumerable /hpf (0-5)
[2018-02-09 13:06] LABS: Amphetamine Screen,Urine Neg (Neg); Barbiturate Screen,Urine Neg (Neg); Cannabinoid Screen,Urine Neg (Neg); Cocaine Screen,Urine Neg (Neg)
[2018-02-09 13:07] LABS: Opiate Screen,Urine Neg (Neg)
--- NOTE | 2018-02-09 13:14 | CT ---
EXAM DATE: 02/09/2018 1:11 PM EDT AGE/SEX: 67 years / Female INDICATIONS: Altered mental status. CLINICAL DATA: This is the patient's initial encounter. Patient reports that signs and symptoms have been present for 1 month and indicates a pain score of 0/10. MEDICAL/SURGICAL HISTORY: Chronic obstructive pulmonary disease. Hypertension. Tonsillectomy. Hys terectomy. RADIATION DOSE: 61.81 CTDI (mGy) COMPARISON: [facility] [place], CT BRAIN W/O CONTRAST, 04/03/2016. . TECHNIQUE: CT of the head without contrast. Using automated exposure control and adjustment of the mA and/or kV according to patient size, radiation dose was kept as low as reasonably achievable to ob tain optimal diagnostic quality images. DICOM format image data is available electronically for revi ew and comparison. FINDINGS: Cerebrum: The ventricles are normal for age. No evidence of midline shift, mass lesion, hemorrhage or acute infarction. No extraaxial fluid collections are seen. Posterior Fossa: The cerebellum and brainstem are intact. The 4th ventricle is midline. The cerebe llopontine angle is unremarkable. Extracranial: The visualized portion of the orbits is intact. Skull: The calvaria is intact. No evidence of skull fracture. CONCLUSION: 1. Negative CT Head non contrast. . Electronically signed by: Chuy Cooper MD 02/09/2018 1:13 PM EDT
--- NOTE | 2018-02-09 13:22 | CT ---
EXAM DATE: 02/09/2018 1:17 PM EDT AGE/SEX: 67 years / Female INDICATIONS: Cervalgia. CLINICAL DATA: This is the patient's initial encounter. Patient reports that signs and symptoms have been present for 1 month and indicates a pain score of 5/10. MEDICAL/SURGICAL HISTORY: Chronic obstructive pulmonary disease. Hypertension. Tonsillectomy. Hysterectomy. RADIATION DOSE: 26.60 CTDI (mGy) COMPARISON: [facility] [place], CT CERVICAL SPINE W/O CONTRAST, 04/03/2016. . TECHNIQUE: Contiguous axial images were obtained using helical multirow detector technique. The vol umetric data was post-processed with multiplanar reconstruction in oblique axial, sagittal, and coron al planes. Using automated exposure control and adjustment of the mA and/or kV according to patient s ize, radiation dose was kept as low as reasonably achievable to obtain optimal diagnostic quality angelo ges. DICOM format image data is available electronically for review and comparison. FINDINGS: Vertebrae: Normal vertebral body height. Alignment: There is minimal anterolisthesis C2 on 3 and retrolisthesis C5 on 6 and C6 on 7. Advanced multilevel degenerative changes but greatest at C5-6 and C6-7 levels. C2-3: Minimal anterolisthesis. Posterior disc osteophyte complex without canal stenosis. Severe left- sided neural foraminal narrowing. Right neural foramen patent. C3-4: Posterior disc osteophyte complex abuts the ventral thecal sac without canal stenosis. Severe bilateral neural foraminal narrowing C4-5: Posterior disc osteophyte complex abuts the ventral thecal sac without canal stenosis. Severe bilateral neural foraminal narrowing C5-6: Minimal retrolisthesis Posterior disc osteophyte complex abuts the ventral thecal sac with mild canal stenosis. Severe bilateral neural foraminal narrowing C6-7: Minimal retrolisthesis. Posterior disc osteophyte complex abuts the ventral thecal sac with mil d canal stenosis. Severe bilateral neural foraminal narrowing C7-T1: Posterior disc osteophyte complex abuts the ventral thecal sac. No significant canal stenosis . The neural foramina are bilaterally patent. CONCLUSION: 1. Advanced multilevel degenerative changes. Mild canal stenosis at C5-6 and C6-7 levels. 2. Multilevel neural foraminal narrowing as described above. 3. No fracture. Electronically signed by: Shane Beaulieu MD 02/09/2018 1:21 PM EDT
[2018-02-09] MEDS ORDERED: Acetaminophen 325 MG Tablet PO ONE (13:33)
[2018-02-09] MEDS ORDERED: Bisacodyl 10 MG Supp RECTAL PRN (14:41)
[2018-02-09] MEDS: Sod Chloride 0.9% Inj 1,000 ML IV.CONT SCH (16:18)
--- NOTE | 2018-02-09 17:20 | P.HPIM ---
History of Present Illness Primary Care Physician: Sadiq Kellogg MD History of Present Illness: 67-year-old female with a medical history significant for anxiety, COPD, tobacco abuse, alcohol abuse presented to the emergency room with complaint of hallucinations and bilateral upper extremity pain. In the emergency room, the patient was found to be hypoxemic. She was recently admitted to the hospital for C. difficile colitis and was treated with oral vancomycin. She reports her diarrhea symptoms have resolved. States she has been taking Klonopin for 20 years. She continues to drink 2-3 glasses of wine daily. She reports bilateral upper extremity weakness and pain from her neck down to both arms. She denies any dysuria or lower abdominal pain. - Diagnosis (1) Bilateral arm pain (2) Bilateral neuropathy of upper extremities (3) Acute exacerbation of chronic obstructive pulmonary disease (COPD) (4) Altered mental status (5) ETOH abuse (6) Anxiety (7) COPD (chronic obstructive pulmonary disease) (8) Tobacco abuse Inpatient Certification: I certify that the inpatient services were ordered in accordance with Medicare regulations governing the order. This includes certification that hospital inpatient services are reasonable and necessary and in the case of services not specified as inpatient-only under 42 CFR 419.22(n), that they are appropriately provided as inpatient services in accordance to with the 2-midnight benchmark under 43 CFR 412.3(e) Estimated Total Length of Stay (Days): 2 Plans for Post Hospital Care: Not yet determined PMFSH - History History Provided By: Patient - Medical History Medical History: Medical History (Last Reviewed 02/09/18 @ 17:46 by Eli Cruz MD) ETOH abuse (Acute) Anxiety (Acute) COPD (chronic obstructive pulmonary disease) (Acute) Thyroid condition (Acute) Ankle fracture, right (Acute) Arm fracture, left (Acute) Hypertension (Acute) Cirrhosis (Acute) History of hysterectomy (Acute) C. difficile diarrhea - Surgical History Surgical History: Surgical History (Last Reviewed 02/09/18 @ 17:46 by Eli Cruz MD) History of tonsillectomy (Acute) - Family History Family History: Family History (Last Reviewed 02/09/18 @ 17:46 by Eli Cruz MD) Other Family history non-contributory - Tobacco History Second Hand Smoke Exposure: No Tobacco Use In Past 30 Days: Yes Smoking Status: Current every day smoker Tobacco Type: Cigarettes - Alcohol History How Often Do You Have a Drink Containing Alcohol: 4 or more times a week - Substance Use History Substance History: No History of Abuse - Travel History Recent Travel in the [place] Within the Last 8 Weeks: No Recent Travel Out of the Country Within the Last 8 Weeks: No - Immunization History Tetanus Immunization: Never Vaccinated Hx Influenza Vaccine This Season: Yes Medications and Allergies Active Medications: Active Medications Al Hydroxide/Mg Hydroxide (Milk Of Magnesia Liq) 30 ml PO Q12H PRN PRN Reason: Mild Constipation Bisacodyl (Dulcolax Supp) 10 mg RECTAL DAILY PRN PRN Reason: SEVERE CONSITIPATION Doxepin HCl (Sinequan) 10 mg PO TID [facility] Heparin Sodium (Porcine) (Heparin Inj) 5,000 units SQ Q12H [facility]LA Sodium Chloride (Ns Inj) 1,000 mls @ 100 mls/hr IV.CONT .Q10H [facility] Lactulose (Lactulose Liq) 30 ml PO DAILY PRN PRN Reason: SEVERE CONSITIPATION Levothyroxine Sodium (Synthroid) 25 mcg PO DAILY@0600 [facility] Sennosides (Senokot) 17.2 mg PO Q12H PRN PRN Reason: Moderate Constipation Sodium Chloride (Ns Flush) 2 ml IV.FLUSH PRN PRN PRN Reason: FLUSH AFTER USING IV ACCESS Vancomycin HCl (Vancomycin Po) 250 mg PO QID [facility] Allergies Allergy/AdvReac Type Severity Reaction Status Date / Time No Known Allergies Allergy Verified 02/09/18 16:22 Home Medications Medication Instructions Recorded Confirmed Type doxepin 10 mg PO TID 01/20/18 02/09/18 History gabapentin 300 mg PO TID PRN 01/20/18 02/09/18 History levothyroxine 25 mcg PO DAILY 01/20/18 02/09/18 History Exam Vital signs: Vital Signs 02/09/18 11:03 02/09/18 11:31 02/09/18 11:45 Temperature 97.7 F Pulse Rate 102 H 98 H Respiratory Rate 18 16 Blood Pressure 120/62 98/57 L Pulse Oximetry 92 L 95 84 L 02/09/18 12:10 02/09/18 12:33 02/09/18 13:58 Temperature Pulse Rate 87 Respiratory Rate 18 Blood Pressure 117/72 Pulse Oximetry 95 95 98 02/09/18 15:41 Temperature Pulse Rate 88 Respiratory Rate 16 Blood Pressure 115/68 Pulse Oximetry 96 Intake & Output 02/08/18 02/09/18 02/09/18 18:59 06:59 18:59 Intake Total 100 / 100 Balance 100 / 100 Weight 61.9 kg Intake: IV 100 / 100 Rocephin Inj 1,000 MG In NS Inj 100 / 100 100 ML @ 200 mls/hr IV.SIG ONCE ONE Rx#:[id number] Narrative: CONSTITUTIONAL/GENERAL: Patient appears older than stated age SKIN: No jaundice, rashes, or concerning lesions. Not diaphoretic. HEAD: Atraumatic. Normocephalic. EYES: Pupils equal and round and reactive. Extra ocular motions are intact. No scleral icterus. No injection or drainage. ENT: Hearing grossly normal. Nose without drainage. Throat without visible erythema, exudates, masses, or lesions. NECK: Trachea midline. Neck is supple, non-tender. No palpable thyroid enlargement or nodularity. CARDIOVASCULAR: Normal rate and regular rhythm without murmurs, gallops, or rubs. No JVD. Peripheral pulses 2+ and symmetric. RESPIRATORY/CHEST: Symmetric, unlabored respirations. Faint rhonchi and wheezing throughout. GASTROINTESTINAL: Abdomen soft, non-tender, non-distended. No hepato- splenomegaly, or palpable masses. No guarding. Bowel sounds present. MUSCULOSKELETAL: Bilateral upper extremities with 4+ out of 5 strength. Patient endorsed shoulder pain with active range of motion. NEUROLOGICAL: Awake and alert. Motor and sensory grossly within normal limits. Follows commands. Move all extremities spontaneously. No focal deficits. Mildly tremulous. PSYCHIATRIC: Appears anxious Results - Labs CBC & Chem 7: 02/09/18 12:20 02/09/18 12:20 Labs: Short CBC 02/09/18 Range/Units 12:20 WBC 9.0 (4.0-11.0) th/mm3 Hgb 12.1 (11.6-15.3) gm/dL Hct 36.9 (35.0-46.0) % Plt Count 223 (150-450) th/mm3 BMP 02/09/18 12:20 Sodium 139 Potassium 4.3 Chloride 107 Carbon Dioxide 26.8 BUN 13 Creatinine 0.92 Calcium 8.7 Cardiac Enzymes 02/09/18 Range/Units 12:20 Troponin I Less than 0.02 L (0.02-0.05) ng/mL Liver Function 02/09/18 Range/Units 12:20 Total Bilirubin 0.4 (0.2-1.0) mg/dL AST 22 (15-37) U/L ALT 19 (10-53) U/L Alkaline Phosphatase 56 (45-117) U/L Albumin 2.9 L (3.4-5.0) g/dL Urine 02/09/18 Range/Units 12:45 Urine Color Yellow (Yellw/Straw) Urine Clarity Slightly cloudy (Clear) Urine pH 8.0 (5.0-8.5) Ur Specific [place] 1.010 (1.002-1.035) Urine Protein Negative (Neg-Trace) mg/dL Urine Glucose (UA) Negative (Negative) mg/dL - Imaging Impressions Cervical Spine CT 02/09/18 11:40 CONCLUSION: 1. Advanced multilevel degenerative changes. Mild canal stenosis at C5-6 and C6 -7 levels. 2. Multilevel neural foraminal narrowing as described above. 3. No fracture. Chest X-Ray 02/09/18 11:40 CONCLUSION: 1. Heart size is upper limits of normal and well compensated. 2. Otherwise, no acute cardiopulmonary process. Lungs are clear. Head CT 02/09/18 11:40 CONCLUSION: 1. Negative CT Head non contrast. . Caprini VTE Risk Assessment Caprini VTE Risk Assessment: Moderate/High Risk (score >= 2) Caprini Risk Assessment Model: Point Value = 1 Point Value = 2 Point Value = 3 Point Value = 5 Age 41-60 Minor surgery BMI > 25 kg/m2 Swollen legs Varicose veins or History of unexplained or recurrent spontaneous Oral contraceptives or hormone replacement Sepsis (< 1 month) Serious lung disease, including pneumonia (< 1 month) Abnormal pulmonary function Acute myocardial infarction Congestive heart failure (< 1 month) History of inflammatory bowel disease Medical patient at bed rest Age 61-74 Arthroscopic surgery Major open surgery (> 45 min) Laparoscopic surgery (> 45 min) Malignancy Confined to bed (> 72 hours) Immobilizing plaster cast Central venous access Age >= 75 History of VTE Family history of VTE Factor V Leiden Prothrombin [id number] Lupus anticoagulant Anticardiolipin antibodies Elevated serum homocysteine Heparin-induced thrombocytopenia Other congenital or acquired thrombophilia Stroke (< 1 month) Elective arthroplasty Hip, pelvis, or leg fracture Acute spinal cord injury (< 1 month) Prophylaxis Regimen: Total Risk Factor Score Risk Level Prophylaxis Regimen 0-1 Low Early ambulation 2 Moderate Order ONE of the following: *Sequential Compression Device (SCD) *Heparin 5000 units SQ BID 3-4 Higher Order ONE of the following medications: *Heparin 5000 units SQ TID *Enoxaparin/Lovenox 40 mg SQ daily (WT < 150 kg, CrCl > 30 mL/min) *Enoxaparin/Lovenox 30 mg SQ daily (WT < 150 kg, CrCl > 10-29 mL/min) *Enoxaparin/Lovenox 30 mg SQ BID (WT < 150 kg, CrCl > 30 mL/min) AND/OR *Sequential Compression Device (SCD) 5 or more Highest Order ONE of the following medications: *Heparin 5000 units SQ TID (Preferred with Epidurals) *Enoxaparin/Lovenox 40 mg SQ daily (WT < 150 kg, CrCl > 30 mL/min) *Enoxaparin/Lovenox 30 mg SQ daily (WT < 150 kg, CrCl > 10-29 mL/min) *Enoxaparin/Lovenox 30 mg SQ BID (WT < 150 kg, CrCl > 30 mL/min) AND *Sequential Compression Device (SCD) Assessment and Plan - Assessment (1) Bilateral arm pain Code(s): M79.601 - Pain in right arm; M79.602 - Pain in left arm Status: Acute (2) Bilateral neuropathy of upper extremities Code(s): G56.93 - Unspecified mononeuropathy of bilateral upper limbs Status: Acute (3) Acute exacerbation of chronic obstructive pulmonary disease (COPD) Code(s): J44.1 - Chronic obstructive pulmonary disease with (acute) exacerbation Status: Acute (4) Altered mental status Code(s): R41.82 - Altered mental status, unspecified Status: Acute (5) ETOH abuse Code(s): F10.10 - Alcohol abuse, uncomplicated Status: Acute (6) Anxiety Code(s): F41.9 - Anxiety disorder, unspecified Status: Acute (7) COPD (chronic obstructive pulmonary disease) Code(s): J44.9 - Chronic obstructive pulmonary disease, unspecified Status: Acute (8) Tobacco abuse Code(s): Z72.0 - Tobacco use Status: Acute - Plan 67-year-old female with COPD, anxiety, alcohol abuse presented with reports of hallucination, hypoxemia, bilateral upper extremity pain and mild weakness. Acute COPD exacerbation: Patient is noncompliant with oxygen at home and continues to smoke daily. -Continue with supplemental oxygen - Prednisone 20 mg twice daily - Breathing treatments - Incentive spirometry. Patient counseled on tobacco cessation. Bilateral upper extremity pain/neuropathy: CT of the cervical spine revealed diffuse foraminal narrowing along the cervical spine. Treat pain as needed. Physical therapy. Steroids as above. Will refer to neurosurgery outpatient. Acute encephalopathy: Reported hallucinations. -Suspect this may be related to hypoxemia in addition to alcohol and the use of sedating medications. This has resolved. She is back to baseline. -Monitor neuro status History of C. difficile colitis: - Continue treatment with oral vancomycin for a few days. No diarrheal symptoms currently Alcohol abuse: -Patient counseled on alcohol cessation. -[facility] protocol. Abnormal urinalysis: No symptoms of UTI. -Follow urine culture. Hold off on antibiotics. GI prophylaxis: PPI. DVT PPx: Heparin H&P: Quality - VTE Deep Vein Thrombosis/Pulmonary Embolism Present on Admission: No
[2018-02-09] MEDS ORDERED: Haloperidol Inj 5 MG/ML Ampul IV.PUSH PRN (17:45)
[2018-02-09] MEDS ORDERED: LORazepam 1 MG Tablet PO PRN (17:45)
[2018-02-09 18:15] LABS: Vitamin B12 720 pg/mL (193-986)
[2018-02-09] MEDS: Heparin - SQ 10,000 UNITS/ML Vial SQ SCH (18:18)
[2018-02-09 20:06] VITALS: O2SAT 94
[2018-02-09] MEDS: Gabapentin 300 MG Capsule PO SCH (21:52)
[2018-02-09] MEDS: predniSONE 20 MG Tablet PO SCH (21:52)
[2018-02-10] MEDS: Sod Chloride 0.9% Inj 1,000 ML IV.CONT SCH (03:21)
[2018-02-10] MEDS: Heparin - SQ 10,000 UNITS/ML Vial SQ SCH (05:36)
[2018-02-10 06:02] LABS: Baso % (Auto) 0.4 % (0.0-2.0); Eos # (Auto) 0.2 th/mm3 (0.0-0.4); Eos % (Auto) 2.5 % (0.0-4.0); Hematocrit 35.9 % (35.0-46.0); Hemoglobin 11.9 gm/dL (11.6-15.3); Lymph # (Auto) 0.9 th/mm3 (1.0-4.8); Lymph % (Auto) 12.3 % (9.0-44.0); Mean Corpuscular HGB Conc 33.3 % (32.0-36.0); Mean Corpuscular Hemoglobin 33.6 pg (27.0-34.0); Mean Corpuscular Volume 100.9 fL (80.0-100.0); Mean Platelet Volume 8.2 fL (7.0-11.0); Mono # (Auto) 0.2 th/mm3 (0.0-0.9); Mono % (Auto) 3.1 % (0.0-8.0); Neut # (Auto) 5.9 th/mm3 (1.8-7.7); Neut % (Auto) 81.7 % (16.0-70.0); Platelet Count 227 th/mm3 (150-450); Red Blood Count 3.56 mil/mm3 (4.00-5.30); Red Cell Distribution Width 13.1 % (11.6-17.2); White Blood Count 7.2 th/mm3 (4.0-11.0)
[2018-02-10 06:17] LABS: Chloride 107 meq/L (98-107); Potassium 4.6 meq/L (3.5-5.1); Sodium 140 meq/L (136-145)
[2018-02-10 06:22] LABS: Calcium 8.4 mg/dL (8.5-10.1)
[2018-02-10 06:23] LABS: Albumin 2.8 g/dL (3.4-5.0); Anion Gap 7 meq/L (5-15); Blood Urea Nitrogen 12 mg/dL (7-18); Carbon Dioxide 26.4 meq/L (21.0-32.0); Glucose,Random 123 mg/dL (74-106)
[2018-02-10 06:26] LABS: Alanine Aminotransferase 18 U/L (10-53); Aspartate Aminotransferase 16 U/L (15-37); Glomerular Filtration Rate 63 mL/min (>89)
[2018-02-10 06:29] LABS: Alkaline Phosphatase 58 U/L (45-117)
[2018-02-10] MEDS: predniSONE 20 MG Tablet PO SCH (08:54)
[2018-02-10] MEDS: Gabapentin 300 MG Capsule PO SCH (08:54)
[2018-02-10 09:25] VITALS: PULSE 86; RESP 16
--- NOTE | 2018-02-10 09:40 | P.PNIM ---
Subjective Interval history: Patient reports she is significantly better. She wants to go home. Bilateral upper extremity pain is much improved. Feels stronger. Reports her breathing is much better. Physical Exam Vital signs: Vital Signs 02/09/18 11:03 02/09/18 11:31 02/09/18 11:45 Temperature 97.7 F Pulse Rate 102 H 98 H Respiratory Rate 18 16 Blood Pressure 120/62 98/57 L Pulse Oximetry 92 L 95 84 L 02/09/18 12:10 02/09/18 12:33 02/09/18 13:58 Temperature Pulse Rate 87 Respiratory Rate 18 Blood Pressure 117/72 Pulse Oximetry 95 95 98 02/09/18 15:41 02/09/18 16:30 02/09/18 17:20 Temperature 96.5 F L Pulse Rate 88 80 88 Respiratory Rate 16 20 Blood Pressure 115/68 132/82 Pulse Oximetry 96 94 L 02/09/18 20:00 02/09/18 20:26 02/10/18 00:00 Temperature 97.1 F L 96.4 F L Pulse Rate 66 88 Respiratory Rate 16 16 Blood Pressure 133/61 127/60 Pulse Oximetry 96 97 94 L 02/10/18 04:09 02/10/18 05:09 02/10/18 08:00 Temperature Pulse Rate Respiratory Rate 18 18 Blood Pressure Pulse Oximetry 86 L 02/10/18 08:02 02/10/18 08:07 Temperature Pulse Rate 86 Respiratory Rate 16 Blood Pressure Pulse Oximetry 94 L Intake & Output 02/09/18 02/10/18 02/10/18 18:59 06:59 18:59 Intake Total 100 / 100 2200 / 2200 Balance 100 / 100 2200 / 2200 Weight 61.9 kg 61.9 kg Intake: IV 100 / 100 1999 NS Inj 1,000 ML @ 100 mls/hr IV 1999 .CONT .Q10H [facility] Rx#:[id number] Rocephin Inj 1,000 MG In NS Inj 100 / 100 100 ML @ 200 mls/hr IV.SIG ONCE ONE Rx#:[id number] Oral 200 / 200 Other: # Voids 3 Date of Last Bowel Movement 02/08/18 Narrative: GENERAL: This is a well-nourished, well-developed patient, in no apparent distress. CARDIOVASCULAR: Normal rate and regular rhythm without murmurs, gallops, or rubs. RESPIRATORY: Good respiratory efforts. Faint end expiratory wheezing otherwise clear to auscultation bilaterally. GASTROINTESTINAL: Abdomen soft, non-tender, non-distended. Normal active bowel sounds MUSCULOSKELETAL: Bilateral upper extremity with 4+ out of 5 strength. Some shoulder and neck discomfort with abduction of bilateral upper extremities. Results - Labs CBC & Chem 7: 02/10/18 05:03 02/10/18 05:03 Laboratory Results - last 24 hr 02/09/18 02/09/18 02/09/18 11:54 12:20 12:20 CBC w Diff Auto diff final WBC 9.0 RBC 3.65 L Hgb 12.1 Hct 36.9 MCV 101.1 H MCH 33.1 MCHC 32.7 RDW 13.9 Plt Count 223 MPV 8.1 Neut % (Auto) 65.7 Lymph % (Auto) 24.7 Glynn % (Auto) 6.2 Eos % (Auto) 2.2 Baso % (Auto) 1.2 Neut # (Auto) 5.9 Lymph # (Auto) 2.2 Glynn # (Auto) 0.6 Eos # (Auto) 0.2 Baso # (Auto) 0.1 WBC Differential . Differential Comment . Puncture Site Right radial Patient Temperature 98.6 O2 Saturation 80 L* ABG pH 7.41 ABG pCO2 42 ABG pO2 53 L* ABG HCO3 26 ABG O2 Content 12.9 ABG Base Excess 1.4 ABG Methemoglobin 2.2 H Terry Test Present Hemoglobin 11.4 L Carboxyhemoglobin 6.0 H* O2 Delivery Device Room air Inspired O2 21 Critical Value Yes Sodium 139 Potassium 4.3 Chloride 107 Carbon Dioxide 26.8 Anion Gap 5 BUN 13 Creatinine 0.92 Estimated GFR 61 L Random Glucose 97 Lactic Acid Calcium 8.7 Total Bilirubin 0.4 AST 22 ALT 19 Alkaline Phosphatase 56 Ammonia Troponin I Less than 0.02 L Total Protein 6.3 L Albumin 2.9 L Vitamin B12 Folate TSH Urine Color Urine Clarity Urine pH Ur Specific [place] Urine Protein Urine Glucose (UA) Urine Ketones Urine Occult Blood Urine Nitrate Urine Bilirubin Urine Urobilinogen Ur Leukocyte Esterase Urine WBC Micro UA Comment Urine Culture Comments Urine Opiates Screen Ur Barbiturates Screen Ur Amphetamines Screen U Benzodiazepines Scrn Urine Cocaine Screen U Cannabinoids Screen Serum Alcohol Less than 3 02/09/18 02/09/18 02/09/18 12:20 12:20 12:20 CBC w Diff WBC RBC Hgb Hct MCV MCH MCHC RDW Plt Count MPV Neut % (Auto) Lymph % (Auto) Glynn % (Auto) Eos % (Auto) Baso % (Auto) Neut # (Auto) Lymph # (Auto) Glynn # (Auto) Eos # (Auto) Baso # (Auto) WBC Differential Differential Comment Puncture Site Patient Temperature O2 Saturation ABG pH ABG pCO2 ABG pO2 ABG HCO3 ABG O2 Content ABG Base Excess ABG Methemoglobin Terry Test Hemoglobin Carboxyhemoglobin O2 Delivery Device Inspired O2 Critical Value Sodium Potassium Chloride Carbon Dioxide Anion Gap BUN Creatinine Estimated GFR Random Glucose Lactic Acid 0.9 Calcium Total Bilirubin AST ALT Alkaline Phosphatase Ammonia Troponin I Total Protein Albumin Vitamin B12 720 Folate Greater than 20.0 H TSH 2.680 Urine Color Urine Clarity Urine pH Ur Specific [place] Urine Protein Urine Glucose (UA) Urine Ketones Urine Occult Blood Urine Nitrate Urine Bilirubin Urine Urobilinogen Ur Leukocyte Esterase Urine WBC Micro UA Comment Urine Culture Comments Urine Opiates Screen Ur Barbiturates Screen Ur Amphetamines Screen U Benzodiazepines Scrn Urine Cocaine Screen U Cannabinoids Screen Serum Alcohol 02/09/18 02/09/18 02/09/18 12:45 12:45 15:15 CBC w Diff WBC RBC Hgb Hct MCV MCH MCHC RDW Plt Count MPV Neut % (Auto) Lymph % (Auto) Glynn % (Auto) Eos % (Auto) Baso % (Auto) Neut # (Auto) Lymph # (Auto) Glynn # (Auto) Eos # (Auto) Baso # (Auto) WBC Differential Differential Comment Puncture Site Patient Temperature O2 Saturation ABG pH ABG pCO2 ABG pO2 ABG HCO3 ABG O2 Content ABG Base Excess ABG Methemoglobin Terry Test Hemoglobin Carboxyhemoglobin O2 Delivery Device Inspired O2 Critical Value Sodium Potassium Chloride Carbon Dioxide Anion Gap BUN Creatinine Estimated GFR Random Glucose Lactic Acid Calcium Total Bilirubin AST ALT Alkaline Phosphatase Ammonia Less than 10 L Troponin I Total Protein Albumin Vitamin B12 Folate TSH Urine Color Yellow Urine Clarity Slightly cloudy Urine pH 8.0 Ur Specific [place] 1.010 Urine Protein Negative Urine Glucose (UA) Negative Urine Ketones Negative Urine Occult Blood Small H Urine Nitrate Positive H Urine Bilirubin Negative Urine Urobilinogen 0.2 Ur Leukocyte Esterase Large H Urine WBC Innumerable H Micro UA Comment Culture indicated Urine Culture Comments Culture indicated Urine Opiates Screen Neg Ur Barbiturates Screen Neg Ur Amphetamines Screen Neg U Benzodiazepines Scrn Pos H Urine Cocaine Screen Neg U Cannabinoids Screen Neg Serum Alcohol 02/10/18 02/10/18 05:03 05:03 CBC w Diff Auto diff final WBC 7.2 RBC 3.56 L Hgb 11.9 Hct 35.9 MCV 100.9 H MCH 33.6 MCHC 33.3 RDW 13.1 Plt Count 227 MPV 8.2 Neut % (Auto) 81.7 H Lymph % (Auto) 12.3 Glynn % (Auto) 3.1 Eos % (Auto) 2.5 Baso % (Auto) 0.4 Neut # (Auto) 5.9 Lymph # (Auto) 0.9 L [place]nn # (Auto) 0.2 Eos # (Auto) 0.2 Baso # (Auto) 0.0 WBC Differential . Differential Comment . Puncture Site Patient Temperature O2 Saturation ABG pH ABG pCO2 ABG pO2 ABG HCO3 ABG O2 Content ABG Base Excess ABG Methemoglobin Terry Test Hemoglobin Carboxyhemoglobin O2 Delivery Device Inspired O2 Critical Value Sodium 140 Potassium 4.6 Chloride 107 Carbon Dioxide 26.4 Anion Gap 7 BUN 12 Creatinine 0.89 Estimated GFR 63 L Random Glucose 123 H Lactic Acid Calcium 8.4 L Total Bilirubin 0.3 AST 16 ALT 18 Alkaline Phosphatase 58 Ammonia Troponin I Total Protein 6.0 L Albumin 2.8 L Vitamin B12 Folate TSH Urine Color Urine Clarity Urine pH Ur Specific [place] Urine Protein Urine Glucose (UA) Urine Ketones Urine Occult Blood Urine Nitrate Urine Bilirubin Urine Urobilinogen Ur Leukocyte Esterase Urine WBC Micro UA Comment Urine Culture Comments Urine Opiates Screen Ur Barbiturates Screen Ur Amphetamines Screen U Benzodiazepines Scrn Urine Cocaine Screen U Cannabinoids Screen Serum Alcohol - Imaging Impressions Cervical Spine CT 02/09/18 11:40 CONCLUSION: 1. Advanced multilevel degenerative changes. Mild canal stenosis at C5-6 and C6 -7 levels. 2. Multilevel neural foraminal narrowing as described above. 3. No fracture. Chest X-Ray 02/09/18 11:40 CONCLUSION: 1. Heart size is upper limits of normal and well compensated. 2. Otherwise, no acute cardiopulmonary process. Lungs are clear. Head CT 02/09/18 11:40 CONCLUSION: 1. Negative CT Head non contrast. . Assessment and Plan - Assessment (1) Bilateral arm pain Code(s): M79.601 - Pain in right arm; M79.602 - Pain in left arm Status: Acute (2) Bilateral neuropathy of upper extremities Code(s): G56.93 - Unspecified mononeuropathy of bilateral upper limbs Status: Acute (3) Acute exacerbation of chronic obstructive pulmonary disease (COPD) Code(s): J44.1 - Chronic obstructive pulmonary disease with (acute) exacerbation Status: Acute (4) Altered mental status Code(s): R41.82 - Altered mental status, unspecified Status: Acute (5) ETOH abuse Code(s): F10.10 - Alcohol abuse, uncomplicated Status: Acute (6) Anxiety Code(s): F41.9 - Anxiety disorder, unspecified Status: Acute (7) COPD (chronic obstructive pulmonary disease) Code(s): J44.9 - Chronic obstructive pulmonary disease, unspecified Status: Acute (8) Tobacco abuse Code(s): Z72.0 - Tobacco use Status: Acute - Plan 67-year-old female with COPD, anxiety, alcohol abuse presented with reports of hallucination, hypoxemia, bilateral upper extremity pain and mild weakness. Acute COPD exacerbation: Patient is noncompliant with oxygen at home and continues to smoke daily. -Her condition significantly improved with steroids. She feels back to baseline. -Counseled the patient extensively to stop smoking. She will continue prednisone for an additional 5 days. Bilateral upper extremity pain/neuropathy/cervical radiculopathy: CT of the cervical spine revealed diffuse foraminal narrowing along the cervical spine. -Discussed the imaging findings with the patient. Some improvement with steroids. She is advised to follow-up with PCP for neurosurgery referral. -Limited supply of pain medication was given to the patient. [employer]force checked. Acute encephalopathy: Reported hallucinations. -Suspect this may be related to hypoxemia in addition to alcohol and the use of sedating medications. This has resolved. She is back to baseline. History of C. difficile colitis: - Continue treatment with oral vancomycin for a few days. No diarrheal symptoms currently Alcohol abuse: -Patient counseled on alcohol cessation. Abnormal urinalysis: No symptoms of UTI. Antibiotics held. Discharge Planning: Discharge patient to home Condition on discharge: Improved Regular Diet as tolerated Ad Cris activity Rx written: Per med rec Follow-up with primary care physician
[2018-02-10 22:20] VITALS: BP 107/77; TEMP 97.7
--- NOTE | 2018-02-10 23:47 | ECG ---
Date Performed: 02/09/2018 Time Performed: 11:51:01 PTAGE: 67 years EKG: Sinus rhythm NORMAL ECG PREVIOUS TRACING : 01/20/2018 16.52 Since the previous tracing, no significant change noted DOCTOR: Anibal Adames Interpretating Date/Time 02/10/2018 23:45:38
== END 2018-02-10 10:57 | disposition home or self-care (01) ==
LOC: PHED 11:01 → PHEDA 13:48 → PH3 15:51
PROVIDERS: ADMIT Family Medicine; ATTEND Family Medicine